=== PATIENT | female | born 1935 | race Caucasian/White ===

== ENCOUNTER 2016-08-23 16:29 | Inpatient (IN) ==
--- NOTE | 2016-08-23 16:38 | Emergency Department Note ---
Disposition Clinical Impression: Colitis Pneumonia Qualifiers: Pneumonia type: due to unspecified organism Laterality: right Lung location: lower lobe of lung Qualified Code(s): J18.1 - Lobar pneumonia, unspecified organism Disposition: Admitted As Inpatient Condition: Fair Referrals: NO,PCP [Non-Partnered Physician] - Forms: Work/School Release, ED Satisfaction Letter Time of Disposition: 18:17 General Adult HPI - General Chief complaint: ED Abdominal Pain Stated complaint: gen weakness, abdominal pain Time Seen by Provider: 08/23/16 16:33 Source: patient, EMS Mode of arrival: ambulatory Limitations: no limitations Nursing Notes Reviewed: Yes Vital Signs Reviewed: Yes - History of Present Illness HPI Narrative: 80-year-old female who comes emergency Department complaining of some right lower quadrant pain generalized weakness and also apparent syncopal episode according to family. Weighs 78 pounds, states she's had some right lower quadrant pain intermittently for several weeks. So has had generalized weakness. And apparently suffered a syncopal episode while at home according to squad. Patient states she doesn't remember what happened. Pt Subjective Complaint: Abdominal pain possible syncope Onset (ago): Just [employer] Location: abdomen Radiation: non-radiation Pain Severity: moderate Pain Scale: 5 Quality: aching Consistency: intermittent Improves with: nothing Worsens with: nothing Associated symptoms: Reports: syncope - Related Data Home Medications Medication Instructions Recorded Confirmed Diazepam [Valium] 5 mg PO BID PRN 11/11/15 02/01/16 Omeprazole [PriLOSEC] 20 mg PO DAILY 11/11/15 02/01/16 Potassium Chloride [K-Tab ER] 20 meq PO BID 11/11/15 02/01/16 Simvastatin [Zocor] 40 mg PO HS 11/11/15 02/01/16 Aspirin Enteric Coated [Aspirin EC] 81 mg PO DAILY 02/01/16 02/01/16 Propranolol [Inderal] 10 mg PO BID 02/01/16 02/01/16 Previous Rx's Medication Instructions Recorded Docusate [Colace] 100 mg PO BID PRN #30 capsule 02/08/16 Mirtazapine [Remeron] 7.5 mg PO HS #30 tablet 02/08/16 Omeprazole [PriLOSEC] 20 mg PO DAILY@0630 #30 capsule 02/08/16 Ondansetron HCl [Zofran] 4 mg PO Q8H PRN #30 tablet 02/08/16 Sucralfate [Carafate] 1 gm PO 3916,0610 #60 tablet 02/08/16 Allergies Allergy/AdvReac Type Severity Reaction Status Date / Time No Known Drug Allergies Allergy See Verified 03/07/15 16:22 Comments Constitutional: Denies: fever, chills, weakness, weight change Eyes: Denies: eye pain, eye discharge, vision change ENT ED: Denies: ear pain, throat pain, dental pain, hearing loss, epistaxis, congestion, dysphagia Cardiovascular: Reports: syncope. Denies: chest pain, palpitations, dyspnea on exertion, edema Respiratory: Denies: cough, dyspnea, wheezes, hemoptysis, stridor Gastrointestinal: Reports: abdominal pain. Denies: nausea, vomiting, diarrhea, constipation, hematemesis, melena, hematochezia Genitourinary: Denies: dysuria, frequency, hematuria, discharge Musculoskeletal: Denies: back pain, neck pain, arthralgia, myalgia Integumentary: Denies: rash, abrasion, lesions Neurological: Denies: headache, weakness, numbness, paresthesias, confusion, abnormal gait, vertigo Psychiatric: Denies: anxiety, depression, suicidal thoughts, homicidal thoughts , auditory hallucinations, visual hallucinations Endocrine: Denies: fatigue Hematological/Lymphatic: Denies: easy bleeding, easy bruising Allergic/Immunologic: Denies: facial swelling, urticaria Past Medical History - Past Medical History Medical history: Reports: COPD, CVA, GERD, myocardial infarction Surgical history: Reports: angioplasty/stent, hip replacement, other Psychiatric history: Reports: no psych history [employer] history: Reports: no [employer] history - Social History Smoking Status: Former smoker Smokeless Tobacco Status: No Alcohol use: Reports: none Drug use: Reports: none Physical Exam - General Limitations: no limitations General appearance: alert, in no apparent distress - Head Head exam: atraumatic, normocephalic, normal inspection - Eye Eye exam: Present: normal appearance, PERRL, EOMI - ENT ENT exam: normal exam, normal oropharynx, mucous membranes moist - Neck Neck exam: Present: normal inspection, full ROM, trachea midline - Chest Chest inspection: Present: normal inspection, symmetric chest wall rise - Respiratory Respiratory exam: Present: normal lung sounds bilaterally - Cardiovascular Cardiovascular exam: Present: regular rate, normal rhythm, normal heart sounds - Abdominal Exam Abdominal exam: Present: soft, tenderness. Absent: distention, guarding, rebound, rigidity Abdominal tenderness: Present: RLQ - Extremities Exam Extremities exam: Present: normal inspection, full ROM. Absent: tenderness, pedal edema - Expanded Lower Extremity Exam Neurovascular/Tendon exam: Absent: motor deficit, sensory deficit, tendon deficit Gait: not tested/not observed - Back Exam Back exam: Present: normal inspection, full ROM. Absent: tenderness - Neurological Exam Neurological exam: Present: alert, oriented X3 - Psychiatric Psychiatric exam: Present: normal affect, normal mood - Skin Skin exam: Present: warm, dry, intact, normal color Course - Reevaluation(s) Reevaluation #1: 80-year-old comes in with some intermittent abdominal pain not feeling well but eating well. Workup here included a slightly elevated white count. CT scan of the abdomen shows evidence of colitis and also right lower lobe pneumonia. We will admit for IV antibiotics hydration. Time: 18:16 - Consultations Consultation #1: Discussed with cachorro Mckeon. Time: 18:16 Vital Signs Temperature 96.9 F L 08/23/16 16:30 Pulse Rate 51 08/23/16 16:30 Respiratory Rate 18 08/23/16 16:30 Blood Pressure 102/61 08/23/16 16:30 O2 Sat by Pulse Oximetry 94 L 08/23/16 16:30 Temperature 96.9 F L 08/23/16 16:30 Pulse Rate 77 08/23/16 17:26 Respiratory Rate 16 08/23/16 17:26 Blood Pressure 110/61 08/23/16 17:26 O2 Sat by Pulse Oximetry 96 08/23/16 17:30 Oxygen Delivery Oxygen Delivery Room Air Medical Decision Making - Lab Data Lab results reviewed: Yes I reviewed the patient's lab results. Result diagrams: 08/23/16 17:27 08/23/16 17:27 Lab Results 08/23/16 08/23/16 08/23/16 Range/Units 17:10 17:27 17:27 WBC 11.4 H (4.3-11.1) K/mcL RBC 4.04 (3.82-4.97) M/mcL Hgb 12.8 (11.5-15.4) g/dL Hct 40.9 (35.3-44.9) % MCV 101.2 H (83.0-100.0) fL MCH 31.7 (28.0-33.3) pg MCHC 31.3 L (31.6-35.5) g/dL RDW 12.8 (11.5-14.5) % Plt Count 325 (140-400) K/mcL MPV 9.5 (9.4-12.4) fL Immature Gran % 0.4 (0-4) % Seg Neutrophils % 81.4 % Lymphocytes % 12.1 % Monocytes % 5.1 % Eosinophils % 0.6 % Basophils % 0.4 % Neutrophils # 9.2 H (1.6-8.9) K/mcL Lymphocytes # 1.4 (0.6-4.6) K/mcL Monocytes # 0.6 (0.0-1.3) K/mcL Eosinophils # 0.1 (0.0-0.6) K/mcL Basophils # 0.0 (0.0-0.2) K/mcL Immature Plt Fraction 3.6 (1.1-6.1) % PT 12.0 (9.4-12.1) Seconds INR 1.1 APTT 30.2 (26.0-36.0) Seconds Sodium (136-145) mEq/L Potassium (3.5-4.5) mEq/L Chloride (98-109) mEq/L Carbon Dioxide (19-29) mEq/L BUN (7-20) mg/dL Creatinine (0.57-1.11) mg/dL Est GFR ( Amer) (> 60) Est GFR (Non-Af Amer) (> 60) BUN/Creatinine Ratio (6-26) Glucose (70-99) mg/dL Calculated Osmolality (280-300) Lactic Acid (0.5-2.2) mmol/L Calcium (8.6-10.8) mg/dL Total Bilirubin (0.2-1.2) mg/dL Direct Bilirubin (0.0-0.5) mg/dL Indirect Bilirubin (0.0-1.2) mg/dL AST (5-34) Units/L ALT (0-55) Units/L Alkaline Phosphatase (38-126) Units/L Troponin I (0-0.03) ng/mL Serum Total Protein (6.0-8.3) g/dL Albumin (3.5-5.0) g/dL Globulin (2.4-3.5) g/dL Albumin/Globulin Ratio (1.1-2.2) Amylase (25-125) Units/L Lipase (8-78) Units/L Urine Color Yellow (Yellow) Urine Clarity Clear (Clear) Urine pH 5.5 (5.0-8.0) pH Units Ur Specific [place] 1.021 (1.010-1.025) Urine Protein Trace (Neg-Trace) mg/dL Urine Glucose (UA) Normal (Normal) mg/dL Urine Ketones Negative (Negative) mg/dL Urine Blood Small H (Negative) Urine Nitrite Negative (Negative) Urine Bilirubin Negative (Negative) Urine Urobilinogen Normal (Normal) mg/dL Ur Leukocyte Esterase Negative (Negative) Urine Microscopic RBC 3-5 H (0-3) per hpf Urine Microscopic WBC 0-3 (0-3) per hpf Ur Squamous Epith Cells Many H (None-Few) per lpf Urine Bacteria None Seen (None-Few) per hpf Ur Culture Indicated? NO (NO) 08/23/16 08/23/16 08/23/16 Range/Units 17:27 17:27 17:27 WBC (4.3-11.1) K/mcL RBC (3.82-4.97) M/mcL Hgb (11.5-15.4) g/dL Hct (35.3-44.9) % MCV (83.0-100.0) fL MCH (28.0-33.3) pg MCHC (31.6-35.5) g/dL RDW (11.5-14.5) % Plt Count (140-400) K/mcL MPV (9.4-12.4) fL Immature Gran % (0-4) % Seg Neutrophils % % Lymphocytes % % Monocytes % % Eosinophils % % Basophils % % Neutrophils # (1.6-8.9) K/mcL Lymphocytes # (0.6-4.6) K/mcL Monocytes # (0.0-1.3) K/mcL Eosinophils # (0.0-0.6) K/mcL Basophils # (0.0-0.2) K/mcL Immature Plt Fraction (1.1-6.1) % PT (9.4-12.1) Seconds INR APTT (26.0-36.0) Seconds Sodium 144 (136-145) mEq/L Potassium 4.2 (3.5-4.5) mEq/L Chloride 104 (98-109) mEq/L Carbon Dioxide 31 H (19-29) mEq/L BUN 15 (7-20) mg/dL Creatinine 0.61 (0.57-1.11) mg/dL Est GFR ( Amer) > 60 (> 60) Est GFR (Non-Af Amer) > 60 (> 60) BUN/Creatinine Ratio 25 (6-26) Glucose 79 (70-99) mg/dL Calculated Osmolality 298 (280-300) Lactic Acid 0.8 (0.5-2.2) mmol/L Calcium 10.0 (8.6-10.8) mg/dL Total Bilirubin < 0.1 L (0.2-1.2) mg/dL Direct Bilirubin 0.1 (0.0-0.5) mg/dL Indirect Bilirubin 0.0 (0.0-1.2) mg/dL AST 21 (5-34) Units/L ALT 22 (0-55) Units/L Alkaline Phosphatase 83 (38-126) Units/L Troponin I 0.00 (0-0.03) ng/mL Serum Total Protein 6.9 (6.0-8.3) g/dL Albumin 3.3 L (3.5-5.0) g/dL Globulin 3.6 H (2.4-3.5) g/dL Albumin/Globulin Ratio 0.9 L (1.1-2.2) Amylase 40 (25-125) Units/L Lipase 11 (8-78) Units/L Urine Color (Yellow) Urine Clarity (Clear) Urine pH (5.0-8.0) pH Units Ur Specific [place] (1.010-1.025) Urine Protein (Neg-Trace) mg/dL Urine Glucose (UA) (Normal) mg/dL Urine Ketones (Negative) mg/dL Urine Blood (Negative) Urine Nitrite (Negative) Urine Bilirubin (Negative) Urine Urobilinogen (Normal) mg/dL Ur Leukocyte Esterase (Negative) Urine Microscopic RBC (0-3) per hpf Urine Microscopic WBC (0-3) per hpf Ur Squamous Epith Cells (None-Few) per lpf Urine Bacteria (None-Few) per hpf Ur Culture Indicated? (NO) - Radiology Data Radiology results reviewed: Yes I reviewed the patient's radiology results. Abdomen/Pelvis CT 08/23/16 16:34 IMPRESSION: The wall of the rectum appears diffusely thickened with adjacent fat stranding suggesting an acute colitis or proctitis. Bilateral nonobstructing renal calculi, more numerous on the right. Lateral right lower lobe airspace disease/ pneumonia with suspicion of underlying bronchiectasis. Follow-up chest x-ray may be helpful. Dilated common duct status post cholecystectomy. D/ / Samir Jacobo MD / Samir Jacobo MD Interpreting Provider: Samir Jacobo MD - EKG Data EKG #1 EKG shows normal: sinus rhythm Rate: normal Rhythm: NSR When compared to previous EKG there are: no significant changes (02/01/2016) Interpretation: no acute changes, LVH
[2016-08-23 17:17] LABS: Bilirubin,Urine Negative (Negative); Blood,Urine Small (Negative); Clarity,Urine Clear (Clear); Color,Urine Yellow (Yellow); Glucose,Urine (UA) Normal (Normal); Ketones,Urine Negative (Negative); Leukocyte Esterase,Urine Negative (Negative); Nitrite,Urine Negative (Negative); PH,Urine 5.5 pH Units (5.0-8.0); Protein,Urine Trace mg/dL (Neg-Trace); Specific Gravity,Urine 1.021 (1.010-1.025); Urobilinogen,Urine Normal (Normal)
[2016-08-23 17:20] LABS: Bacteria,Urine None Seen per hpf (None-Few); Squamous Epithelial Cell,Urine Many per lpf (None-Few)
[2016-08-23 17:33] LABS: WBC,Urine 0-3 per hpf (0-3)
[2016-08-23 17:37] LABS: Basophils % 0.4 %; Eosinophils # 0.1 K/mcL (0.0-0.6); Eosinophils % 0.6 %; Hematocrit 40.9 % (35.3-44.9); Hemoglobin 12.8 g/dL (11.5-15.4); Immature Granulocytes % 0.4 % (0-4); Immature Platelets 3.6 % (1.1-6.1); Lymphocytes # 1.4 K/mcL (0.6-4.6); Lymphocytes % 12.1 %; Mean Corpuscular HGB Conc 31.3 g/dL (31.6-35.5); Mean Corpuscular Hemoglobin 31.7 pg (28.0-33.3); Mean Corpuscular Volume 101.2 fL (83.0-100.0); Mean Platelet Volume 9.5 fL (9.4-12.4); Monocytes # 0.6 K/mcL (0.0-1.3); Monocytes % 5.1 %; Neutrophils # 9.2 K/mcL (1.6-8.9); Platelet Count 325 K/mcL (140-400); Red Blood Count 4.04 M/mcL (3.82-4.97); Red Cell Distribution Width 12.8 % (11.5-14.5); Segmented Neutrophils % 81.4 %
[2016-08-23 17:42] LABS: INR 1.1
[2016-08-23 17:44] LABS: Activated Partial Thrombo Time 30.2 Seconds (26.0-36.0)
[2016-08-23 17:52] LABS: Alanine Aminotransferase 22 Units/L (0-55); Albumin 3.3 g/dL (3.5-5.0); Albumin/Globulin Ratio 0.9 (1.1-2.2); Alkaline Phosphatase 83 Units/L (38-126); Amylase 40 Units/L (25-125); Aspartate Amino Transferase 21 Units/L (5-34); BUN/Creatinine Ratio 25 (6-26); Bilirubin,Direct 0.1 mg/dL (0.0-0.5); Blood Urea Nitrogen 15 mg/dL (7-20); Carbon Dioxide 31 mEq/L (19-29); Chloride 104 mEq/L (98-109); Globulin 3.6 g/dL (2.4-3.5); Glucose 79 mg/dL (70-99); Lipase 11 Units/L (8-78); Osmolality,Calculated 298 (280-300); Potassium 4.2 mEq/L (3.5-4.5); Sodium 144 mEq/L (136-145); Total Protein 6.9 g/dL (6.0-8.3); eGFR For African Americans > 60 (> 60); eGFR For Non-African Americans > 60 (> 60)
[2016-08-23 17:53] LABS: Bilirubin,Total < 0.1 mg/dL (0.2-1.2)
[2016-08-23] MEDS ORDERED: MetroNIDAZOLE 500 MG/100 ML 500 MG/100 ML BAG IVPB ONE (18:12)
[2016-08-23] MEDS ORDERED: Levofloxacin 750 MG/150 ML 750 MG/150 ML BAG IVPB ONE (18:12)
[2016-08-23] MEDS ORDERED: Acetaminophen 325 MG TABLET PO ONE (18:21)
--- NOTE | 2016-08-23 21:35 | Internal Med History&Physical ---
<Ana Gupta - Last Filed: 08/24/16 00:27> Date of Encounter: 08/24/16 Time of Encounter: 21:32 Assessment and Plan (1) Syncope Current visit: Yes Status: Acute Patients family reports an episode of syncope today to the ED physician. Family is no here to currently discuss this with. Patient is not sure what happened. Syncope could be do to underlying malnutrition/low BMI/failure to thrive. It couls also be due to some dehydration secondary to diarrhea, pneumonia or possible cardiac cause. Patient has had a previous stroke and is taking ASA. Will get an ECHO and BL carotid duplex ultrasound. 1. ECHO 2. BL carotid duplex ultrasound 3. Cardiac monitoring 4. Orthostatic blood pressures 5. Fall precautions. Qualifiers: Syncope type: unspecified Qualified Code(s): R55 - Syncope and collapse (2) Colitis Current visit: Yes Status: Acute Patient reports diarrhea for 2-3 weeks. She states that she has frequent, watery stools to the point she started wearing a diaper. CT abdomen/pelvis showed diffusely thickened wall of the rectum with fat stranding suggestion colitis. Patient was recently on antibiotics. Will check a c. diff as well as sent a stool culture. Will continue Flagyl. 1. C. Diff 2. Stool culture 3. Flagyl 500mg PO Q8H 4. Probiotics (3) Pneumonia Current visit: Yes Status: Acute patient reports productive cough with associated sputum color change and fever/ chills. CXR showed increased lung marings at right lower lung base suggestive of pneumonia and small right pleural effusion. CT also showed right lower lung airspace disease. Patient has no history of recent hospitalization so will treat patient for community acquired pneumonia. 1. Sputum culture 2. Levaquin 750mg PO daily for 5 days 3. Supplemental oxygen as needed 4. Duonebs as needed for shortness of breath Qualifiers: Pneumonia type: due to unspecified organism Laterality: right Lung location: lower lobe of lung Qualified Code(s): J18.1 - Lobar pneumonia, unspecified organism (4) Failure to thrive Current visit: No Status: Acute Patient with BMI of 13. She states that she often doesn't want to eat and that she has seen a lead portfolio manager before and tried everything. Patient's hx of Billroth II surgery likely is causing some malabsorption contributing to her malnutrition. She has already had an EDG. Last month, lab values for Vit B12 and folate were normal. Will check a thyroid cascade as well as an HIV test. Patient is low risk however with her inability to gain weight and her constellation of symptoms it is indicated. Verbal and written consent obtained for HIV screening. Will place consult to nutrition for their evaluation and recommendations. Will continue home vitamins and supplements. Will check baseline Mg and Phos. 1. Consult to nutrition 2. Labs: thyroid cascade and HIV test, baseline Mg and phos 3. Continue home vitamins and supplements Qualifiers: Failure to thrive age range: in adult Qualified Code(s): R62.7 - Adult failure to thrive (5) Difficulty swallowing Current visit: No Status: Acute Patient reports difficulty swallowing that comes and goes. She had an EDG [address] Dos Santos that showed nothign beyond reflex gastritis. Will will consult speech therapy for evaluation and further recommendations on if a barium swallow evaluation would be useful. 1. Consult placed to speech therapy. Qualifiers: Dysphagia type: unspecified Qualified Code(s): R13.10 - Dysphagia, unspecified (6) COPD (chronic obstructive pulmonary disease) Current visit: No Status: Chronic Patient with COPD. She does have supplemental oxygen at home - she uses 2L at nighto or as needed. CT also showed possible underlying bronchiectasis. Patient is not currently wheezing and has not had an increased O2 requirement. Do not believe that she is having an acute COPD exacerbation. As she is not wheezing, steroids not indicated. Supplemental oxygen as needed. Will continue home COPD medications. Qualifiers: COPD type: chronic bronchitis Chronic bronchitis type: simple Qualified Code(s): J41.0 - Simple chronic bronchitis (7) GERD (gastroesophageal reflux disease) Current visit: Yes Status: Acute Patient has chronic GERD symptoms with EDG in 01/2016 showing reflux gastritis. This is likely due to, or at least worsened by, her hx of Billroth II surgery. Will continue patient's home dose of omeprazole. Qualifiers: Esophagitis presence: with esophagitis Qualified Code(s): K21.0 - Gastro- esophageal reflux disease with esophagitis (8) CAD (coronary artery disease) Current visit: No Status: Acute Patient with CAD, hx of IN with stents in place. On this visit, patient denies any chest pain or pressure and admission troponins were negative. Will continue home dose of ASA and statin. Qualifiers: Coronary Disease-Associated Artery/Lesion type: [place] artery [place] vs. transplanted heart: [place] heart Associated angina: without angina Qualified Code(s): I25.10 - Atherosclerotic heart disease of [place] coronary artery without angina pectoris (9) History of CVA (cerebrovascular accident) Current visit: No Status: Acute (10) DVT prophylaxis Current visit: No Status: Acute Heparin 5,000 units every 8 for DVT prophylaxis. Internal Medicine - H&P: HPI Chief complaint: Generalized weakness, possible Admitted From: Emergency Dept Plans for Post Hospital Care: Home History of present illness: Ms. Chang is a 80 year old female with PMH of COPD with 2L supplemental oxygen at night, CVA, IN with stents placed, GERD, HLD, former smoker, renal calculi, osteoporosis and PUD s/p Billroth II. Patient presented to the emergency department with family because of general weakness and a possible syncopal episode. She reports that she has been feeling ill for several months. Per the ED, family reports concern for a possible syncopal episode today. Family not present at this time. Patient reports that she was sleeping on the sofa and she remembers family talking to her but felt like she was unable to answer them. She says that she is not sure if she passed out or not. Patient herself does not reports any acute issues. On review of symptoms, she states that she has a headache/migraine right now that is no different than her normal headaches. She is legally blind but reports no acute changes in vision. She reports difficulty swallowing sometimes. She says that it feels like some foods get stuck senior care down. She reports associated sore throat and dry mouth. She had an EDG done by Dr. Dos Santos 01/2016 that showed reflux esophagitis. Patient does say that she has problems with heartburn/GERD and she does take omeprazole. Patient reports a productive cough for "a long time" however states that the sputum has changed from white/yellow to a dark brown color. She states that she saw her PCP and was diagnosed with sinusitis and took Omnicef for 10 days with no improvement. She reports associated fever/ chills and sore throat. Patient denies any chest pain or pressure or increasing shortness of breath. She does have a history of COPD and uses 2L supplemental oxygen at night or as needed. Patient reports some occasional RLQ abdominal pain but denies any at this current time. She reports abdominal pain with bowel movements and diarrhea for the last 2-3 weeks. She does have recent antibiotic use. Patient denies any focal neurological deficits. In the ED, patient was afebrile. HR, RR and BP all stable. 92% on RA, increased to >95% on 2L. Labs revealed a WBC of 11.4. LA 0.8, troponin 0.0. EKG showed normal sinus rhythm. CT abdomen and pelvis showed diffuse thickening of the wall of the rectum with surrounding fat stranding suggestive of colitis, BL nonobstructing renal calculi, and right lower lobe airspace disease suggestive of pneumonia. CXR shows hyperinflation, chronic COPD changes , increased lung markins at the right lower base suggestion of pneumonia and a small right pleural effusion. On exam, patient is awake and alert, in no acute distress. Heart regular rate and rhythm. Lungs diminished right lower lobe - no crackles or wheezing. Abdomen soft, non-tender. No pedal edema. Past Med Surg Social Fam HX - Past Medical History Medical history: COPD, CVA, GERD, myocardial infarction Psychiatric history: no psych history - Past Surgical History Surgical History: angioplasty/stent, hip replacement, other - Social History Smoking Status: Former smoker Smokeless Tobacco Status: No Alcohol use: none Drug use: none - Family History Mother Living Status: Hx Family Cancer: Yes (breast) Internal Medicine - H&P: Meds Diazepam [Valium] 5 mg PO BID PRN 11/11/15 [History] Omeprazole [PriLOSEC] 20 mg PO DAILY 11/11/15 [History] Potassium Chloride [K-Tab ER] 20 meq PO BID 11/11/15 [History] Simvastatin [Zocor] 40 mg PO HS 11/11/15 [History] Aspirin Enteric Coated [Aspirin EC] 81 mg PO DAILY 02/01/16 [History] Propranolol [Inderal] 10 mg PO BID 02/01/16 [History] Docusate [Colace] 100 mg PO BID PRN #30 capsule 02/08/16 [Rx] Mirtazapine [Remeron] 7.5 mg PO HS #30 tablet 02/08/16 [Rx] Omeprazole [PriLOSEC] 20 mg PO DAILY@0630 #30 capsule 02/08/16 [Rx] Ondansetron HCl [Zofran] 4 mg PO Q8H PRN #30 tablet 02/08/16 [Rx] Sucralfate [Carafate] 1 gm PO 0730,1630 #60 tablet 02/08/16 [Rx] Allergies No Known Drug Allergies Allergy (Verified 03/07/15 16:22) See Comments All Systems PM: A 10-system review of systems was performed and is negative for pertinent findings except as documented above in the HPI. - Constitutional Constitutional: chills, fever(s), weakness, weight loss, no falls - EENT Eyes: no change in vision - Cardiovascular Cardiovascular ROS IM: lightheadedness, no chest pain, no diaphoresis, no dyspnea, no dyspnea on exertion, no edema, no irregular heart rhythm, no palpitations - Respiratory Respiratory: cough, chest congestion, change in phlegm color, no dyspnea, no hemoptysis, no dyspnea on exertion, no wheezing - Gastrointestinal Gastrointestinal: abdominal pain, diarrhea, no constipation, no nausea, no vomiting - Genitourinary Genitourinary: no change in urinary stream, no dysuria - Neurological Neurological ROS: headache(s), no confusion, no dizziness - Constitutional Vitals: Temp Pulse Resp BP Pulse Ox 97.3 F L 80 17 104/61 99 08/23/16 20:36 08/23/16 20:36 08/23/16 20:36 08/23/16 20:36 08/23/16 20:36 General appearance: Present: A&O X 3, no acute distress, underweight, answers questions appropriately - Head Head exam: Present: atraumatic, normal inspection, normocephalic - Eye Eye exam: Present: normal appearance, periorbital tenderness - ENT ENT exam: Present: mucous membranes moist - Respiratory Respiratory exam: Present: decreased breath sounds. Absent: rales, rhonchi, wheezes - Cardiovascular Cardiovascular exam: Present: RRR. Absent: diastolic murmur, gallop, rubs, systolic murmur - GI/Abdominal GI/Abdominal exam: Present: normal bowel sounds, soft. Absent: distended, guarding, rebound, rigid, tenderness - Extremities Exam Extremities exam: Present: normal inspection. Absent: pedal edema - Neurological Exam Neurological exam: Present: alert, CN II-XII intact, oriented X3, no focal deficits Internal Med - H&P Results - Labs CBC & Chem 7: 08/23/16 17:27 08/23/16 17:27 <Jayleen Stringer - Last Filed: 08/24/16 01:55> Date of Encounter: 08/23/16 Internal Medicine - H&P: HPI History of present illness: Ms. Chang is a 80 year old female All Systems PM: A 10-system review of systems was performed and is negative for pertinent findings except as documented above in the HPI. - Constitutional Vitals: Temp Pulse Resp BP Pulse Ox 97.5 F L 81 16 102/60 99 08/24/16 00:00 08/24/16 00:00 08/24/16 00:00 08/24/16 00:00 08/24/16 00:00 Internal Med - H&P Results - Labs CBC & Chem 7: 08/23/16 17:27 08/23/16 17:27 - Attending Attestation I performed a history and physical examination of the patient and discussed his management with the Resident/Collar Fuser (Dr Gupta). I reviewed the residents note and agree with the documented findings and plan of care, with additions as below. 72-year-old female with a past medical history significant for COPD, chronic respiratory failure on home oxygen, legally blind, prior history of Billroth II procedure, GERD, CVA - presented with generalized weakness unproductive cough. She also reported some right lower quadrant abdominal pain, diarrhea 3 loose BMs/day. Imaging in the emergency department showed: Diffuse wall thickening of rectum with adjacent fat stranding suggesting acute colitis/ proctitis. Lateral right lower lobe airspace disease/pneumonia with suspicion of underlying bronchiectasis. O/E: Comfortable. Diminished breath sounds. Mild RLQ abdominal tenderness. A/P: - RLL Pneumonia with possible lung bronchiectasis: Treat with levofloxacin. - Proctitis / colitis / diarrhea: Recent antibiotic use (omnicef in the last month). Check for c diff and stool culture. Empirically started on metronidazole , in the ER. Can discontinue flagyl, if c diff is negative. Start probiotics. - Malnutrition / Low BMI: possibly contributed by poor apetite, diarrhea, infection, s/p billroth 2 procedure, COPD / bronchiectasis. Consult nutrition team, swallow eval. Check TSH, HIV (verbal and written consent obtained). - Syncope: will check orthostatic vitals; echo, carotid Doppler.
[2016-08-23] MEDS ORDERED: Naloxone 0.4 MG/ML INJ IVP PRN (22:07)
[2016-08-23] MEDS ORDERED: Ondansetron ODT 4 MG TAB.RAPDIS SL PRN (22:07)
[2016-08-23] MEDS ORDERED: Acetaminophen 325 MG TABLET PO PRN (22:07)
[2016-08-23] MEDS ORDERED: Ipratropium/Albuterol Neb 3 ML IH PRN (22:12)
[2016-08-24] MEDS ORDERED: diazePAM 5 MG TABLET PO PRN (02:03)
[2016-08-24] MEDS: *HR* OxyCODONE Immed Rel 5 MG TABLET PO PRN ×3 (04:15→22:01)
[2016-08-24] MEDS: *HR* Heparin 5,000 UNIT/ML VIAL SQ SCH ×3 (05:49→22:02)
[2016-08-24 07:21] LABS: Basophils % 0.4 %; Eosinophils # 0.1 K/mcL (0.0-0.6); Eosinophils % 1.5 %; Hematocrit 38.8 % (35.3-44.9); Hemoglobin 12.2 g/dL (11.5-15.4); Immature Granulocytes % 0.9 % (0-4); Lymphocytes # 1.6 K/mcL (0.6-4.6); Lymphocytes % 17.1 %; Mean Corpuscular HGB Conc 31.4 g/dL (31.6-35.5); Mean Corpuscular Hemoglobin 32.2 pg (28.0-33.3); Mean Corpuscular Volume 102.4 fL (83.0-100.0); Mean Platelet Volume 9.7 fL (9.4-12.4); Monocytes # 0.5 K/mcL (0.0-1.3); Monocytes % 5.6 %; Neutrophils # 6.8 K/mcL (1.6-8.9); Platelet Count 272 K/mcL (140-400); Red Blood Count 3.79 M/mcL (3.82-4.97); Red Cell Distribution Width 12.5 % (11.5-14.5); Segmented Neutrophils % 74.5 %
[2016-08-24 07:31] LABS: BUN/Creatinine Ratio 20 (6-26); Blood Urea Nitrogen 11 mg/dL (7-20); Calcium 9.1 mg/dL (8.6-10.8); Carbon Dioxide 28 mEq/L (19-29); Chloride 102 mEq/L (98-109); Glucose 88 mg/dL (70-99); Magnesium 1.3 mg/dL (1.6-2.6); Osmolality,Calculated 287 (280-300); Phosphorous 3.6 mg/dL (2.3-4.7); Sodium 139 mEq/L (136-145); eGFR For African Americans > 60 (> 60); eGFR For Non-African Americans > 60 (> 60)
[2016-08-24 07:53] LABS: Thyroid Stimulating Hormone 0.725 mcIU/mL (0.350-4.840)
[2016-08-24] MEDS: metroNIDAZOLE 500 MG TABLET PO SCH ×3 (09:22→21:02)
[2016-08-24] MEDS: Sucralfate 1 GM TABLET PO SCH ×2 (09:22→16:19)
[2016-08-24] MEDS: Aspirin Enteric Coated 81 MG Tablet PO SCH (09:22)
[2016-08-24] MEDS ORDERED: Magnesium Sulfate 2 GM in D5% in Water 100 ML IVPB STA (10:53)
[2016-08-24] MEDS: Ipratropium/Albuterol Neb 3 ML IH SCH ×4 (11:32→23:11)
--- NOTE | 2016-08-24 12:21 | Internal Med Progress Note ---
Date of Encounter: 08/24/16 Time of Encounter: 11:15 - Assessment and plan (1) Weakness Current Visit: No Status: Acute Assessment and plan: pt with chronic failure to thrive for years who developed upper respiratory symptoms of infection a month ago. She received antibiotics for over a month. likely secondary to PNA and colitis. (2) Pneumonia Current Visit: Yes Status: Acute Assessment and plan: bascterial PNA Iv levaquin. IV fluids Qualifiers: Pneumonia type: due to unspecified organism Laterality: right Lung location: lower lobe of lung Qualified Code(s): J18.1 - Lobar pneumonia, unspecified organism (3) Colitis Current Visit: Yes Status: Acute Assessment and plan: family reports diarrhea for years. he has taken antibiotics for a month, he is at high risk for c diff infection. continue flagyl until results of c diff test. (4) COPD (chronic obstructive pulmonary disease) Current Visit: No Status: Chronic Assessment and plan: nebs q 6hr prednisone. Qualifiers: COPD type: chronic bronchitis Chronic bronchitis type: simple Qualified Code(s): J41.0 - Simple chronic bronchitis (5) Failure to thrive Current Visit: Yes Status: Chronic Qualifiers: Failure to thrive age range: in adult Qualified Code(s): R62.7 - Adult failure to thrive (6) Severe protein-calorie malnutrition Current Visit: Yes Status: Chronic (7) CAD (coronary artery disease) Current Visit: No Status: Acute Assessment and plan: stable. resume home meds. Qualifiers: Coronary Disease-Associated Artery/Lesion type: [place] artery [place] vs. transplanted heart: [place] heart Associated angina: without angina Qualified Code(s): I25.10 - Atherosclerotic heart disease of [place] coronary artery without angina pectoris - Subjective Interval history: Pt is very tired, no BM since admission. mild abdominal pain. - Constitutional Vitals: Temp Pulse Resp BP Pulse Ox 97.7 F 92 16 97/56 94 L 08/24/16 11:49 08/24/16 11:49 08/24/16 11:49 08/24/16 11:49 08/24/16 11:49 General appearance: Present: cachectic, cooperative, A&O X 3, no acute distress , answers questions appropriately Exam: pt answers questions and follows commands but is very weak. - Eye Eye exam: Present: sclera anicteric - ENT ENT exam: Present: mucous membranes moist - Neck Neck exam general surgery: Present: supple, trachea midline. Absent: lymphadenopathy - Respiratory Respiratory exam: Present: CTAB - Cardiovascular Cardiovascular exam: Present: RRR - GI/Abdominal GI/Abdominal exam: Present: normal bowel sounds, soft. Absent: distended, tenderness - Extremities Exam Extremities exam: Absent: pedal edema - Back Exam Back exam: Absent: CVA tenderness (L), CVA tenderness (R) - Neurological Exam Neurological exam: Present: alert, oriented X3. Absent: facial droop, speech deficit - Skin Skin exam: Present: dry. Absent: rash Internal Medicine: Result - Labs CBC & Chem 7: 08/24/16 06:52 08/24/16 06:52 Labs: Short CBC 08/24/16 Range/Units 06:52 WBC 9.2 (4.3-11.1) K/mcL Hgb 12.2 (11.5-15.4) g/dL Hct 38.8 (35.3-44.9) % Plt Count 272 (140-400) K/mcL Neutrophils # 6.8 (1.6-8.9) K/mcL BMP 08/24/16 06:52 Sodium 139 Potassium 4.0 Chloride 102 Carbon Dioxide 28 BUN 11 Creatinine 0.54 L Glucose 88 Calcium 9.1 - ABG Interpretation ABG results: PT/INR, D-dimer PT 12.0 Seconds (9.4-12.1) 08/23/16 17:27 Consult Discharge Plan - Plan Referrals: Claribel Leary MD [Primary Care Provider] - (Requested 08-23-16)
[2016-08-24] MEDS: predniSONE 20 MG TABLET PO SCH (14:14)
[2016-08-24] MEDS ORDERED: Levofloxacin 500 MG/100 ML 500 MG/100 ML BAG IVPB SCH (17:00)
[2016-08-24] MEDS ORDERED: levoFLOXacin 500 MG TABLET PO SCH (18:00)
[2016-08-24] MEDS: diazePAM 5 MG TABLET PO PRN (22:02)
[2016-08-25] MEDS ORDERED: diazePAM 5 MG TABLET PO ONE (00:42)
[2016-08-25] MEDS: Ipratropium/Albuterol Neb 3 ML IH SCH ×3 (03:33→11:13)
[2016-08-25 06:24] LABS: BUN/Creatinine Ratio 17 (6-26); Blood Urea Nitrogen 9 mg/dL (7-20); Calcium 8.8 mg/dL (8.6-10.8); Carbon Dioxide 31 mEq/L (19-29); Chloride 102 mEq/L (98-109); Glucose 108 mg/dL (70-99); Magnesium 1.6 mg/dL (1.6-2.6); Osmolality,Calculated 287 (280-300); Potassium 4.7 mEq/L (3.5-4.5); Sodium 139 mEq/L (136-145); eGFR For African Americans > 60 (> 60); eGFR For Non-African Americans > 60 (> 60)
[2016-08-25 07:49] LABS: Basophils % 0.2 %; Eosinophils % 0.1 %; Hematocrit 37.3 % (35.3-44.9); Hemoglobin 11.8 g/dL (11.5-15.4); Immature Granulocytes % 0.5 % (0-4); Lymphocytes # 1.9 K/mcL (0.6-4.6); Lymphocytes % 21.2 %; Mean Corpuscular HGB Conc 31.6 g/dL (31.6-35.5); Mean Corpuscular Hemoglobin 32.1 pg (28.0-33.3); Mean Corpuscular Volume 101.4 fL (83.0-100.0); Mean Platelet Volume 9.7 fL (9.4-12.4); Monocytes # 0.6 K/mcL (0.0-1.3); Neutrophils # 6.2 K/mcL (1.6-8.9); Platelet Count 272 K/mcL (140-400); Red Blood Count 3.68 M/mcL (3.82-4.97); Red Cell Distribution Width 12.5 % (11.5-14.5)
--- NOTE | 2016-08-25 09:12 | ECHO - Doppler Report ---
Echo with Saline Contrast Name: Alee Chagn Date of Study: 08/25/2016 Date: 1935 Ht: 64.0 in Medical Record#: [id number] Age: 80 Wt: 77.0 lb Gender: Female BSA: 1.3 Order #: [id number] Location: [facility] Room #: [id number] Reading Physician: Audrey Pena DO [place] Supervisor: Pilo Verdugo RN Ordering Physician: Ana Gupta DO Primary Physician: Claribel Leary MD Indications: Syncope Impressions: LVEF 55%. Normal left ventricular size and systolic function. Normal right ventricular size and function. Mild aortic regurgitation. Mild mitral regurgitation. No pulmonary hypertension. Left Ventricular Wall Motion: Rest Echo Findings All wall segments showed normal motion. Findings: Study Quality * Technically adequate exam. ECG Findings * Normal sinus rhythm. Left Ventricle * LVEF 55%. * Normal LV chamber size, wall thickness and function. * Probably pseudonormal LV diastolic function. Mitral Valve * No mitral stenosis. * Mild eccentric mitral regurgitation. * Mildly calcified mitral valve leaflets. Aortic Valve * Mild aortic regurgitation. * Aortic valve not well visualized. * Trileaflet aortic valve. * Mild-moderately calcified aortic valve leaflets. * No aortic stenosis. Tricuspid Valve * Tricuspid valve not well visualized. * Normal tricuspid valve structure. * Trace tricuspid regurgitation. Pulmonic Valve * Pulmonic valve not well visualized. * Trace pulmonic regurgitation. Pulmonary Artery * Pulmonary artery not well visualized. Right Ventricle * Normal right ventricular structure and function. Right Atrium * Normal right atrial size. Left Atrium * Severely dilated left atrium. Interatrial Septum * No evidence of PFO by color Doppler. IVC * Normal IVC dimensions and inspiratory collapse. Pericardium * There is no pericardial effusion present. Aorta * Not fully visualized. History Hypertension Hypercholesteremia Years 10 Packs 0.5 Family History of CAD History of CAD/PTCA Myocardial Infarction 06/23/2013 a Previous Echo was performed. Contrast: Agitated saline 20 ml. Measurements: BP: 109/ 60 2D Normal Values IVSd: .80 cm 0.6 - 1.0 cm LVIDd: 3.90 cm 3.7 - 5.6 cm LVPWd: .80 cm 0.6 - 1.1 cm LVIDs: 2.20 cm 1.5 - 3.6 cm LA: 3.10 cm 2.0 - 4.0cm %FS: 43.60 cm >25 % LA volume: 55 Mitral Valve Peak E:.84 m/sec Peak A:.64 m/sec E/A Ratio:1.3 Peak E' Lat Joe:12.8 cm/s Peak E' Med Joe:10 cm/s E/E' Lat Ratio:6.6 E/E' Med Ratio:8.4 Aortic Valve AI pressure Half-time: 405.00 msec Tricuspid Valve TV Regurg Peak Grad: 22.00mmHg TV Regurg Peak Joe: 2.33m/sec Updated by Audrey Pena on 08/25/2016 9:02:06 AM electronically signed on 08/25/2016 9:07:51 AM with status of [employer] [place] [employer] [place]: 1=Normal, 2=Hypokinesis, 3=Akinesis, 4=Dyskinesis, 5=Aneurysmal, 6=Hyperkinetic, X=Not Visualized (Blank)=Missing
[2016-08-25] MEDS: Aspirin Enteric Coated 81 MG Tablet PO SCH (09:14)
[2016-08-25] MEDS: *HR* Heparin 5,000 UNIT/ML VIAL SQ SCH (09:15)
[2016-08-25] MEDS: Sucralfate 1 GM TABLET PO SCH (09:15)
[2016-08-25] MEDS: metroNIDAZOLE 500 MG TABLET PO SCH (09:15)
[2016-08-25] MEDS: predniSONE 20 MG TABLET PO SCH (09:15)
[2016-08-25] MEDS: *HR* OxyCODONE Immed Rel 5 MG TABLET PO PRN (09:21)
[2016-08-25 12:58] VITALS: BP 114/65
[2016-08-25] MEDS: diazePAM 5 MG TABLET PO PRN (12:58)
--- NOTE | 2016-08-25 13:46 | Discharge Summary ---
Date of Encounter: 08/25/16 Time of Encounter: 11:30 - Discharge Diagnosis (1) Weakness Priority: Primary Status: Acute (2) Pneumonia Priority: Primary Status: Acute Qualifiers: Pneumonia type: due to unspecified organism Laterality: right Lung location: lower lobe of lung Qualified Code(s): J18.1 - Lobar pneumonia, unspecified organism (3) Colitis Priority: Primary Status: Acute (4) COPD (chronic obstructive pulmonary disease) Priority: Secondary Status: Chronic Qualifiers: COPD type: chronic bronchitis Chronic bronchitis type: simple Qualified Code(s): J41.0 - Simple chronic bronchitis (5) Failure to thrive Priority: Secondary Status: Chronic Qualifiers: Failure to thrive age range: in adult Qualified Code(s): R62.7 - Adult failure to thrive (6) Severe protein-calorie malnutrition Priority: Secondary Status: Chronic (7) CAD (coronary artery disease) Priority: Secondary Status: Chronic Qualifiers: Coronary Disease-Associated Artery/Lesion type: [place] artery [place] vs. transplanted heart: [place] heart Associated angina: without angina Qualified Code(s): I25.10 - Atherosclerotic heart disease of [place] coronary artery without angina pectoris - Discharge Medications Prescriptions: Levofloxacin 750 mg PO Q48H #2 tablet Home Medications: Diazepam [Valium] 5 mg PO BID PRN 11/11/15 [History] Potassium Chloride [K-Tab ER] 20 meq PO BID 11/11/15 [History] Simvastatin [Zocor] 40 mg PO HS 11/11/15 [History] Aspirin Enteric Coated [Aspirin EC] 81 mg PO DAILY 02/01/16 [History] Propranolol [Inderal] 10 mg PO BID 02/01/16 [History] Docusate [Colace] 100 mg PO BID PRN #30 capsule 02/08/16 [Rx] Ascorbic Acid [Vitamin C] 1,000 mg PO DAILY 08/24/16 [History] Calcium Carbonate [Calcium] 500 mg PO DAILY 08/24/16 [History] Cholecalciferol (D-3) [Vitamin D] 1,000 unit PO DAILY 08/24/16 [History] Cyanocobalamin (B-12) [Vitamin B12] 1,000 mcg IM QMONTH 08/24/16 [History] Ferrous Sulfate [Iron] 325 mg PO DAILY 08/24/16 [History] HYDROcodone/Acet 5/325 mg [[place] 5-325 mg] 1 tab PO DAILY PRN 08/24/16 [History] Nitroglycerin [Nitrostat] 0.4 mg SL AD PRN 08/24/16 [History] [place]-3/Dha/Epa/Fish Oil [Fish Oil 1,000 mg Softgel] 1,000 mg PO BID 08/24/16 [ History] Omeprazole [PriLOSEC] 40 mg PO DAILY 08/24/16 [History] Tiotropium [Spiriva] 18 mcg IH DAILY 08/24/16 [History] Zoledronic Acid (Reclast) [Reclast 5 MG/100 ML] 5 mg IV Q12M 08/24/16 [History] Ipratropium/Albuterol Neb [Duoneb] 3 ml IH QID PRN #0 08/25/16 [Rx] Levofloxacin 750 mg PO Q48H #2 tablet 08/25/16 [Rx] Sucralfate [Carafate] 1 gm PO 0730,1630 tablet 08/25/16 [Rx] Allergies/Adverse Reactions: Allergies No Known Drug Allergies Allergy (Verified 03/07/15 16:22) See Comments Procedures/tests Complete & Pending: Procedures Performed prior 72 hours Category Date Time Status EV carotid duplex imaging BI Routine Y 08/25/16 00:10 Completed EV echocardiogram Routine Y 08/25/16 00:10 Completed Date of admission: 08/23/16 22:53 Primary care physician: Claribel Leary - Patient Status Disposition: Home Health Service Condition: Good Functional capacity at discharge: uses cane/walker Overall status at discharge: patient is progressing back to baseline - Discharge Instructions Instructions: Levofloxacin (By mouth), Chronic Obstructive Pulmonary Disease ( DC), Chronic Hypertension (DC), Pneumonia (DC) Follow Up With: Claribel Leary MD [Primary Care Provider] - 09/03/16 1:45 pm (Your appointment for 08/27/16 has been cancelled and rescheduled for 09/03/16 at 1:45pm.) Additional Instructions: check blood pressure daily - Diet and Activity Activity: resume usual activities as tolerated Diet: low salt diet Interval History: Patient is eating well. No vomiting. No abdominal pain. She is eager to go home. She just had physical therapy and rate the recommended PT at home. Hospital course: Ms. Chang is a 80 year old female with past medical history COPD, failure to thrive, severe protein thyroid menstruation, CAD chronic hypokalemia who presented with abdominal pain and upper respiratory symptoms for a month. She received multiple courses although antibiotics for over a month as outpatient. CT of the abdomen and pelvis revealed diffusely thickened with adjacent fat stranding suggestive of an acute colitis or proctitis, nonobstructive bilateral nephrolithiasis, right lower lobe air space disease. Chest x-ray showed right lung opacity. Echocardiogram revealed LVEF 55%. Carotids showed 40-59% stenosis. She was started on IV fluid hydration, IV Levaquin for pneumonia and oral Flagyl for suspected C. difficile colitis. She had no bowel movement during this hospitalization. Flagyl was discontinued. At discharge, patient was eating and ambulating well with physical therapy. PLAN: Levaquin for a total of 5 days. Follow-up with PCP. Consider colonoscopy or sigmoidoscopy as outpatient. Repeat chest x-ray to address resolution of airspace disease. Failure to thrive workup. - Time Spent with Patient Total time spent providing and/or coordinating discharge services: - Constitutional Vitals: Temp Pulse Resp BP Pulse Ox 97.7 F 70 16 114/65 94 L 08/25/16 10:44 08/25/16 10:44 08/25/16 11:13 08/25/16 12:57 08/25/16 12:57 General appearance: Present: cachectic, cooperative, A&O X 3, no acute distress , answers questions appropriately
--- NOTE | 2016-08-25 14:21 | Physician Discharge Referral ---
Home Health/Hosp Referral Info Transfer to: Home Health Attending Provider: kvng Provider in Charge Post Discharge: PCP - Diagnosis (1) Weakness Status: Acute (2) Pneumonia Status: Acute (3) Colitis Status: Acute (4) COPD (chronic obstructive pulmonary disease) Status: Chronic (5) Failure to thrive Status: Chronic (6) Severe protein-calorie malnutrition Status: Chronic (7) CAD (coronary artery disease) Status: Acute - Respiratory Orders Smoking Cessation: Smoking cessation has been advised. For more information, call the [place] Tobacco Quit Line at 2-093-AWSV-NOW. - Diet/Nutrition Diet/Nutrition Orders: Regular - Activity Activity Orders: Walker - Services Needed Following services are medically necessary services: Nursing, Home Health Aide, Physical Therapy, Occupational Therapy - Transfer Medications Prescriptions: Levofloxacin 750 mg PO Q48H #2 tablet Home Medications: Diazepam [Valium] 5 mg PO BID PRN 11/11/15 [History] Potassium Chloride [K-Tab ER] 20 meq PO BID 11/11/15 [History] Simvastatin [Zocor] 40 mg PO HS 11/11/15 [History] Aspirin Enteric Coated [Aspirin EC] 81 mg PO DAILY 02/01/16 [History] Propranolol [Inderal] 10 mg PO BID 02/01/16 [History] Docusate [Colace] 100 mg PO BID PRN #30 capsule 02/08/16 [Rx] Ascorbic Acid [Vitamin C] 1,000 mg PO DAILY 08/24/16 [History] Calcium Carbonate [Calcium] 500 mg PO DAILY 08/24/16 [History] Cholecalciferol (D-3) [Vitamin D] 1,000 unit PO DAILY 08/24/16 [History] Cyanocobalamin (B-12) [Vitamin B12] 1,000 mcg IM QMONTH 08/24/16 [History] Ferrous Sulfate [Iron] 325 mg PO DAILY 08/24/16 [History] HYDROcodone/Acet 5/325 mg [[place] 5-325 mg] 1 tab PO DAILY PRN 08/24/16 [History] Nitroglycerin [Nitrostat] 0.4 mg SL AD PRN 08/24/16 [History] [place]-3/Dha/Epa/Fish Oil [Fish Oil 1,000 mg Softgel] 1,000 mg PO BID 08/24/16 [ History] Omeprazole [PriLOSEC] 40 mg PO DAILY 08/24/16 [History] Tiotropium [Spiriva] 18 mcg IH DAILY 08/24/16 [History] Zoledronic Acid (Reclast) [Reclast 5 MG/100 ML] 5 mg IV Q12M 08/24/16 [History] Ipratropium/Albuterol Neb [Duoneb] 3 ml IH QID PRN #0 08/25/16 [Rx] Levofloxacin 750 mg PO Q48H #2 tablet 08/25/16 [Rx] Sucralfate [Carafate] 1 gm PO 0730,1630 tablet 08/25/16 [Rx] Allergies/Adverse Reactions: Allergies No Known Drug Allergies Allergy (Verified 03/07/15 16:22) See Comments Certification: Further, I certify that my clinical findings support that this patient is homebound (i.e. absences from home require considerable and taxing effort and are for medical reasons or hoahaoism services or infrequently or short duration when for other reasons) because: Homebound Reason: Patient requires assistance of a person or device to safely leave home, Leaving home requires considerable and taxing effort due to condition Attestation: My signature below is to certify that this patient is under my care and that I, or nurse practitioner, or a physician's preschool assistant principal working with me, has a face-to -face encounter with this patient.
--- NOTE | 2016-08-25 14:48 | Electrocardiograph Report ---
[place] [id number] Test Date: 2016-08-23 Pat Name: Alee Chang Department: 105 Room: 2A22 Gender: F Geriatrician: : 1935 Requested By: Raji Crabtree Order Number: [id number] Reading MD: Alvarado Chahal Measurements Intervals [place] Rate: 74 P: 82 [place]: 125 QRS: 62 QRSD: 97 T: 68 QT: 370 QTc: 397 Interpretive Statements SINUS RHYTHM POSSIBLE RIGHT ATRIAL ENLARGEMENT [0.25mV P WAVE] POSSIBLE LEFT ATRIAL ENLARGEMENT [-0.1mV P WAVE IN V1/V2] POSSIBLE RIGHT VENTRICULAR CONDUCTION DELAY [RSR (QR) IN V1/V2] POSSIBLE LEFT VENTRICULAR HYPERTROPHY [VOLTAGE CRITERIA PLUS LAE OR QRS WIDENING] Electronically Signed On 08-25-2016 14:47:17 EST by Alvarado Chahal
--- NOTE | 2016-08-25 16:16 | Carotid Imaging Report ---
Carotid Duplex Patient Name:Alee Chang Order Number:[id number] Procedure Date:08/25/2016 Date:8Age:80 yrs Gender:Female Lt BP:109 / 60 mmHg Rt.BP:106 / 63 mmHgHeart Rate: Location:[facility] Room #: 2A22 Electronic Systems Technician:Pilo Verdugo RN Referring MD:Ana Gupta DO manufacturing intern:Claribel Leary MD Reading MD:Honorio Serrano MD , FACS Primary Indications:Syncope Risk Factors Yes/No Hypertension Yes Diabetes No Hypercholesterolemia Yes Smoker Previous Yes Hx of CVA Yes Anticoagulants No Hx of CAD/PTCA Yes Previous Vascular Surgery No Impressions: Findings: Bilateral mid ICA has a moderate, 40-59% stenosis. Recommendations: Test completed on 08/25/2016 at 8:20:00 am. Findings Carotid Duplex: Right: The right proximal common carotid artery has a PSV of 75 cm/s and a EDV of 24 cm/s. The right mid common carotid artery has a PSV of 78 cm/s and a EDV of 28 cm/s. There is nonstenotic plaque in the right distal common carotid artery with a PSV of 68 cm/s and a EDV of 28 cm/s. There is smooth homogeneous plaque. There is nonstenotic plaque in the right bifurcation with a PSV of 68 cm/s and a EDV of 23 cm/s. There is smooth homogeneous plaque. There is nonstenotic plaque in the right proximal internal carotid artery with a PSV of 77 cm/s and a EDV of 28 cm/s. There is smooth homogeneous plaque. There is 40-59% stenosis in the right mid internal carotid artery with a PSV of 139 cm/s and a EDV of 39 cm/s. The right distal internal carotid artery has a PSV of 101 cm/s and a EDV of 40 cm/s. The right eca has a PSV of 73 cm/s and a EDV of 5 cm/s. The right vertebral artery has a PSV of 89 cm/s and a EDV of 33 cm/s. Left: The left proximal common carotid artery has a PSV of 62 cm/s and a EDV of 19 cm/s. There is nonstenotic plaque in the left mid common carotid artery with a PSV of 82 cm/s and a EDV of 28 cm/s. There is smooth homogeneous plaque. There is nonstenotic plaque in the left distal common carotid artery with a PSV of 82 cm/s and a EDV of 30 cm/s. There is smooth homogeneous plaque. There is nonstenotic plaque in the left bifurcation with a PSV of 56 cm/s and a EDV of 19 cm/s. There is smooth homogeneous plaque. There is nonstenotic plaque in the left proximal internal carotid artery with a PSV of 95 cm/s and a EDV of 31 cm/s. There is smooth homogeneous plaque. There is 40-59% stenosis in the left mid internal carotid artery with a PSV of 134 cm/s and a EDV of 53 cm/s. The left distal internal carotid artery has a PSV of 85 cm/s and a EDV of 36 cm/s. The left eca has a PSV of 47 cm/s and a EDV of 7 cm/s. The left vertebral artery has a PSV of 50 cm/s and a EDV of 18 cm/s. Carotid Results Right PSV EDV Assessment Proximal CCA 75 24 Normal Mid CCA 78 28 Normal Distal CCA 68 28 Non Stenotic Plaque Bifurcation 68 23 Non Stenotic Plaque Proximal ICA 77 28 Non Stenotic Plaque Mid ICA 139 39 40-59% stenosis Distal ICA 101 40 Normal ECA 73 5 Normal Vertebral Artery 89 33 Normal Left PSV EDV Assessment Proximal CCA 62 19 Normal Mid CCA 82 28 Non Stenotic Plaque Distal CCA 82 30 Non Stenotic Plaque Bifurcation 56 19 Non Stenotic Plaque Proximal ICA 95 31 Non Stenotic Plaque Mid ICA 134 53 40-59% stenosis Distal ICA 85 36 Normal ECA 47 7 Normal Vertebral Artery 50 18 Normal Ratio's Right ICA/CCA Ratio: 1.78 ICA/CCA Values: 139/78 Left ICA/CCA Ratio: 1.63 ICA/CCA Values: 134/82 Updated by Honorio Serrano MD, FACS on 08/25/2016 4:11:06 PM Honorio Serrano MD electronically signed on 08/25/2016 4:11:35 PM with status of Final
[2016-08-25] MEDS ORDERED: Levofloxacin 750 MG/150 ML 750 MG/150 ML BAG IVPB SCH (18:00)
[2016-08-25] MEDS ORDERED: levoFLOXacin 750 MG TABLET PO SCH (18:00)
== END 2016-08-25 14:22 | disposition home health service (06) | DRG 371 ==
LOC: 2ANU 16:29 → EMEROO 16:29 → 2ANU 19:52
PROVIDERS: ADMIT Internal Medicine; ATTEND Internal Medicine

== ENCOUNTER 2016-10-25 17:03 | Observation (INO) ==
--- NOTE | 2016-10-25 17:08 | Emergency Department Note ---
Disposition Clinical Impression: Weakness TIA (transient ischemic attack) Qualifiers: Transient cerebral ischemia type: unspecified Qualified Code(s): G45.9 - Transient cerebral ischemic attack, unspecified Disposition: Admitted As Inpatient Condition: Good Time of Disposition: 19:19 Weakness HPI - General Chief complaint: ED Weakness Stated complaint: Weakness Time Seen by Provider: 10/25/16 17:06 Source: patient, family Mode of arrival: EMS Limitations: no limitations Nursing Notes Reviewed: Yes Vital Signs Reviewed: Yes - History of Present Illness HPI Narrative: 80-year-old female with history of CVA with persistent right upper extremity and right lower extremity weakness presents for 30 minute episode of lower extremity numbness and weakness that was greater on the right side and prevention her from walking. she states that she also had a arm weakness. Her states that he found her after she cried out for help and called 911. He states that she did not have any aphasia or facial droop. she states that this is similar to her stroke except that symptoms resolved. She denies any recent illness or injury. She admits to mild headache and body aches which are chronic and stable. She denies any medication changes. She takes aspirin daily. She is feeling well at this time. Pt Subjective Complaint: focal weakness - Related Data Home Medications Medication Instructions Recorded Confirmed Diazepam [Valium] 5 mg PO BID PRN 11/11/15 08/24/16 Potassium Chloride [K-Tab ER] 20 meq PO BID 11/11/15 08/24/16 Simvastatin [Zocor] 40 mg PO HS 11/11/15 08/24/16 Aspirin Enteric Coated [Aspirin EC] 81 mg PO DAILY 02/01/16 08/24/16 Propranolol [Inderal] 10 mg PO BID 02/01/16 08/24/16 Ascorbic Acid [Vitamin C] 1,000 mg PO DAILY 08/24/16 08/24/16 Calcium Carbonate [Calcium] 500 mg PO DAILY 08/24/16 08/24/16 Cholecalciferol (D-3) [Vitamin D] 1,000 unit PO DAILY 08/24/16 08/24/16 Cyanocobalamin (B-12) [Vitamin B12] 1,000 mcg IM QMONTH 08/24/16 08/24/16 Ferrous Sulfate [Iron] 325 mg PO DAILY 08/24/16 08/24/16 HYDROcodone/Acet 5/325 mg [[place] 1 tab PO DAILY PRN 08/24/16 08/24/16 5-325 mg] Nitroglycerin [Nitrostat] 0.4 mg SL AD PRN 08/24/16 08/24/16 [place]-3/Dha/Epa/Fish Oil [Fish Oil 1,000 mg PO BID 08/24/16 08/24/16 1,000 mg Softgel] Omeprazole [PriLOSEC] 40 mg PO DAILY 08/24/16 08/24/16 Tiotropium [Spiriva] 18 mcg IH DAILY 08/24/16 08/24/16 Zoledronic Acid (Reclast) [Reclast 5 mg IV Q12M 08/24/16 08/24/16 5 MG/100 ML] Previous Rx's Medication Instructions Recorded Docusate [Colace] 100 mg PO BID PRN #30 capsule 02/08/16 Ipratropium/Albuterol Neb [Duoneb] 3 ml IH QID PRN #0 08/25/16 Levofloxacin 750 mg PO Q48H #2 tablet 08/25/16 Sucralfate [Carafate] 1 gm PO 0730,1630 tablet 08/25/16 Allergies Allergy/AdvReac Type Severity Reaction Status Date / Time No Known Drug Allergies Allergy See Verified 03/07/15 16:22 Comments All systems ED: reviewed and negative except as stated. Past Medical History - Past Medical History Attestation: Yes The following information was validated with the patient. Source: patient Medical history: Reports: COPD, CVA, GERD, myocardial infarction Surgical history: Reports: angioplasty/stent, hip replacement, other Psychiatric history: Reports: no psych history HOSE TENDER history: Reports: no HOSE TENDER history - Social History Smoking Status: Former smoker Smokeless Tobacco Status: No Alcohol use: Reports: none Drug use: Reports: none Physical Exam - Head Head exam: atraumatic, normocephalic, normal inspection - Eye Eye exam: Present: normal appearance, PERRL, EOMI - ENT ENT exam: normal exam, normal oropharynx, mucous membranes moist - Neck Neck exam: Present: normal inspection, full ROM, trachea midline - Chest Chest inspection: Present: normal inspection, symmetric chest wall rise - Respiratory Respiratory exam: Clear to auscultation bilaterally without wheezes rales or rhonchi Cardiovascular Cardiovascular exam: Present: regular rate, normal rhythm, normal heart sounds - Abdominal Exam Abdominal exam: Present: soft, Non-Tender. Absent: tenderness, distention, guarding, rebound, rigidity - Extremities Exam Extremities exam: Present: normal inspection, full ROM - Back Exam Back exam: Present: normal inspection, full ROM. Absent: tenderness, CVA tenderness (R), CVA tenderness (L) - Neurological Exam Neurological exam: Present: alert, oriented X3, CN II-XII intact. No facial droop. There is 3 out of 5 motor in the right upper extremity and 4 out of 5 motor in the right lower extremity with subjective sensory deficit on the right leg. Normal cerebellar testing. - Psychiatric Psychiatric exam: Present: normal affect, normal mood - Skin Skin exam: Present: warm, dry, intact, normal color Course - Reevaluation(s) Reevaluation #1: Patient stable on reassessment. Her CT of the head and chest x-ray were negative for acute findings. Labs were normal. Given the patient's history of prior stroke, hypertension, hyperlipidemia, and tobacco abuse we will admit the patient for further workup of suspected TIA. Time: 18:59 Vital Signs Temperature 97.8 F 10/25/16 17:05 Pulse Rate 63 10/25/16 17:05 Respiratory Rate 20 10/25/16 17:05 Blood Pressure 109/65 10/25/16 17:05 O2 Sat by Pulse Oximetry 97 10/25/16 17:05 Temperature 97.6 F 10/25/16 22:05 Pulse Rate 70 10/25/16 22:05 Respiratory Rate 18 10/25/16 22:05 Blood Pressure 114/55 10/25/16 22:05 O2 Sat by Pulse Oximetry 97 10/25/16 22:05 Oxygen Delivery Oxygen Delivery Nasal Cannula Weakness - Lab Data Result diagrams: 10/26/16 00:13 10/26/16 00:13 Lab Results 10/25/16 10/25/16 10/25/16 Range/Units 17:54 17:54 17:54 WBC 9.5 (4.3-11.1) K/mcL RBC 3.94 (3.82-4.97) M/mcL Hgb 12.6 (11.5-15.4) g/dL Hct 39.4 (35.3-44.9) % MCV 100.0 (83.0-100.0) fL MCH 32.0 (28.0-33.3) pg MCHC 32.0 (31.6-35.5) g/dL RDW 13.7 (11.5-14.5) % Plt Count 222 (140-400) K/mcL MPV 9.3 L (9.4-12.4) fL Immature Gran % 0.5 (0-4) % Seg Neutrophils % 78.5 % Lymphocytes % 14.6 % Monocytes % 4.5 % Eosinophils % 1.6 % Basophils % 0.3 % Neutrophils # 7.5 (1.6-8.9) K/mcL Lymphocytes # 1.4 (0.6-4.6) K/mcL Monocytes # 0.4 (0.0-1.3) K/mcL Eosinophils # 0.2 (0.0-0.6) K/mcL Basophils # 0.0 (0.0-0.2) K/mcL Sodium 143 (136-145) mEq/L Potassium 4.4 (3.5-4.5) mEq/L Chloride 106 (98-109) mEq/L Carbon Dioxide 28 (19-29) mEq/L BUN 14 (7-20) mg/dL Creatinine 0.50 L (0.57-1.11) mg/dL Est GFR ( Amer) > 60 (> 60) Est GFR (Non-Af Amer) > 60 (> 60) BUN/Creatinine Ratio 28 H (6-26) Glucose 89 (70-99) mg/dL Calculated Osmolality 296 (280-300) Calcium 8.9 (8.6-10.8) mg/dL Troponin I 0.00 (0-0.03) ng/mL Urine Color (Yellow) Urine Clarity (Clear) Urine pH (5.0-8.0) pH Units Ur Specific [place] (1.010-1.025) Urine Protein (Neg-Trace) mg/dL Urine Glucose (UA) (Normal) mg/dL Urine Ketones (Negative) mg/dL Urine Blood (Negative) Urine Nitrite (Negative) Urine Bilirubin (Negative) Urine Urobilinogen (Normal) mg/dL Ur Leukocyte Esterase (Negative) Ur Culture Indicated? (NO) 10/25/16 Range/Units 18:47 WBC (4.3-11.1) K/mcL RBC (3.82-4.97) M/mcL Hgb (11.5-15.4) g/dL Hct (35.3-44.9) % MCV (83.0-100.0) fL MCH (28.0-33.3) pg MCHC (31.6-35.5) g/dL RDW (11.5-14.5) % Plt Count (140-400) K/mcL MPV (9.4-12.4) fL Immature Gran % (0-4) % Seg Neutrophils % % Lymphocytes % % Monocytes % % Eosinophils % % Basophils % % Neutrophils # (1.6-8.9) K/mcL Lymphocytes # (0.6-4.6) K/mcL Monocytes # (0.0-1.3) K/mcL Eosinophils # (0.0-0.6) K/mcL Basophils # (0.0-0.2) K/mcL Sodium (136-145) mEq/L Potassium (3.5-4.5) mEq/L Chloride (98-109) mEq/L Carbon Dioxide (19-29) mEq/L BUN (7-20) mg/dL Creatinine (0.57-1.11) mg/dL Est GFR ( Amer) (> 60) Est GFR (Non-Af Amer) (> 60) BUN/Creatinine Ratio (6-26) Glucose (70-99) mg/dL Calculated Osmolality (280-300) Calcium (8.6-10.8) mg/dL Troponin I (0-0.03) ng/mL Urine Color Yellow (Yellow) Urine Clarity Clear (Clear) Urine pH 5.5 (5.0-8.0) pH Units Ur Specific [place] 1.021 (1.010-1.025) Urine Protein Negative (Neg-Trace) mg/dL Urine Glucose (UA) Normal (Normal) mg/dL Urine Ketones Negative (Negative) mg/dL Urine Blood Negative (Negative) Urine Nitrite Negative (Negative) Urine Bilirubin Negative (Negative) Urine Urobilinogen Normal (Normal) mg/dL Ur Leukocyte Esterase Negative (Negative) Ur Culture Indicated? NO (NO) - EKG Data EKG attestation: Yes I reviewed and interpreted this EKG. EKG results narrative: Normal sinus rhythm at 63 with normal axis and intervals. No ST elevation or depression. There are large R waves in the precordial leads concerning for LVH. There is no change when compared with 08/23/2016. Attestation Statement - Attestation Attestation: I, Alvarado Gage, examined this patient and my medical decision-making was reviewed with the BRIDGE INSPECTOR/PA/Advanced Practice Nurse/Resident Physician. I agree with the documented findings, disposition and treatment plan as described except to the extent set forth below. 80-year-old female presents with concerns of possible near syncope versus CVA. Patient states that she was working in the kitchen when she acutely became weak and fatigued. Patient states she tried to ambulate to the living room and had difficulty with ambulation with veering off to the right. Patient states she felt like she was weak in the bilateral lower extremities as well as bilateral upper extremities. Son and state that she was sitting on a couch and was unable to present coherent sentences. Patient is back to her baseline emergency department. CT of the head is negative for acute bleed or mass. Patient will be admitted to the hospital for evaluation of possible TIA versus near syncope.
[2016-10-25 18:02] LABS: Basophils % 0.3 %; Eosinophils # 0.2 K/mcL (0.0-0.6); Eosinophils % 1.6 %; Hematocrit 39.4 % (35.3-44.9); Hemoglobin 12.6 g/dL (11.5-15.4); Immature Granulocytes % 0.5 % (0-4); Lymphocytes # 1.4 K/mcL (0.6-4.6); Lymphocytes % 14.6 %; Mean Platelet Volume 9.3 fL (9.4-12.4); Monocytes # 0.4 K/mcL (0.0-1.3); Monocytes % 4.5 %; Neutrophils # 7.5 K/mcL (1.6-8.9); Platelet Count 222 K/mcL (140-400); Red Blood Count 3.94 M/mcL (3.82-4.97); Red Cell Distribution Width 13.7 % (11.5-14.5); Segmented Neutrophils % 78.5 %
[2016-10-25 18:14] LABS: BUN/Creatinine Ratio 28 (6-26); Blood Urea Nitrogen 14 mg/dL (7-20); Calcium 8.9 mg/dL (8.6-10.8); Carbon Dioxide 28 mEq/L (19-29); Chloride 106 mEq/L (98-109); Glucose 89 mg/dL (70-99); Osmolality,Calculated 296 (280-300); Potassium 4.4 mEq/L (3.5-4.5); Sodium 143 mEq/L (136-145); eGFR For African Americans > 60 (> 60); eGFR For Non-African Americans > 60 (> 60)
[2016-10-25 18:54] LABS: Bilirubin,Urine Negative (Negative); Blood,Urine Negative (Negative); Clarity,Urine Clear (Clear); Color,Urine Yellow (Yellow); Glucose,Urine (UA) Normal (Normal); Ketones,Urine Negative (Negative); Leukocyte Esterase,Urine Negative (Negative); Nitrite,Urine Negative (Negative); PH,Urine 5.5 pH Units (5.0-8.0); Protein,Urine Negative (Neg-Trace); Specific Gravity,Urine 1.021 (1.010-1.025); Urobilinogen,Urine Normal (Normal)
[2016-10-25] MEDS ORDERED: Nitroglycerin 0.4 MG TAB.SUBL SL PRN (22:13)
[2016-10-25] MEDS ORDERED: diazePAM 5 MG TABLET PO PRN (22:13)
[2016-10-25] MEDS ORDERED: Ipratropium/Albuterol Neb 3 ML IH PRN (22:13)
[2016-10-25] MEDS ORDERED: [UNRECOGNIZED DRUG - OTHER] IV SCH (22:15)
[2016-10-25] MEDS ORDERED: ZOLEDRONIC ACID 5 MG IV SCH (22:15)
[2016-10-25] MEDS ORDERED: Naloxone 0.4 MG/ML INJ IVP PRN (22:16)
[2016-10-25] MEDS ORDERED: Pantoprazole 40 MG VIAL IVP STA (22:16)
--- NOTE | 2016-10-25 22:32 | Internal Med History&Physical ---
Date of Encounter: 10/25/16 Time of Encounter: 22:00 Assessment and Plan (1) CVA, old, hemiparesis Status: Chronic . (2) Frail elderly Status: Chronic . (3) CAD (coronary artery disease) Status: Chronic . Qualifiers: Coronary Disease-Associated Artery/Lesion type: [place] artery [place] vs. transplanted heart: [place] heart Associated angina: angina presence unspecified Qualified Code(s): I25.10 - Atherosclerotic heart disease of [place] coronary artery without angina pectoris (4) COPD (chronic obstructive pulmonary disease) Status: Chronic . Qualifiers: COPD type: unspecified COPD Qualified Code(s): J44.9 - Chronic obstructive pulmonary disease, unspecified (5) Cachexia Status: Chronic . (6) Severe protein-calorie malnutrition Status: Chronic . (7) TIA (transient ischemic attack) Status: Acute . Qualifiers: Transient cerebral ischemia type: unspecified Qualified Code(s): G45.9 - Transient cerebral ischemic attack, unspecified Internal Medicine - H&P: HPI Chief complaint: Weakness Admitted From: Emergency Dept Plans for Post Hospital Care: Home History of present illness: Ms. Chang is a 80 year old female with history significant for old CVA with right hemiparesis, TIAs, HTN, HLD, multilevel DDD/DJD spine, cervical radiculopathy, lumbar radiculopathy, OA/OP, CAD/PTCAs/AMIs, COPD/emphysem/O2 depenedent, solitary pulm nodule, FTT/nutritional def dis/protein caloric malnutrition/cachexia, former heavy smoker, etc.. The patient was admitted to [facility] via the emergency department when she presents with family from home by EMS services. Patient presents with concern of acute onset of right-sided weakness. She has a history of old CVA with persistent right upper extremity and right lower extremity weakness. Upon awakening she experienced approximately 30 minute episode of lower extremity numbness and weakness greater on the right side at her baseline which prevented her from walking. She also noted increased right upper extremity weakness from her baseline. came to aid when she cried out for help upon awakening and 911 was promptly called for transport to the ED. He did not witness any facial asymmetry slurring of speech receptive or expressive aphasia seizure-like activity or tremor loss of bowel or bladder function or respiratory embarrassment. The focal distribution of her symptoms are similar to her previous stroke however his symptoms gradually resolved in route to the ED. She denied any recent illnesses hospitalizations injuries or prolonged immobilizations. She acknowledges her usual mild headache and general body aches. This she describes as being chronic and stable. She denies any significant changes in her medications or indiscretions with these. Denies any herbal or [id number] treatments recently added to her about treatment courses. She reports she takes aspirin on a daily basis along with a lipid- lowering agent. Findings in the ED: Vital signs are stable. Patient was afebrile. Heart rate was regular in rate and rhythm. CBC with differential and basic metabolic panel were normal. Troponin was 0.00. Urinalysis was benign. EKG demonstrated normal sinus rhythm. Rate 63. Normal axis and intervals. No acute ST-T wave aberration. Chest x-ray demonstrated no acute or active cardiopulmonary process. Evidently significant emphysema. Ill- defined opacity in the left upper lobe corresponds to a pulmonary nodule increased in size since 2012. Suspicious for malignancy. CT head scan without contrast demonstrated no acute abnormality. Parenchymal volume loss was apparent. Chronic microvascular ischemic changes noted. Preliminary impression suggest a transient ischemic accident. Resolved. Event falls within the distribution of previous hemispheric infarct. Patient presents significant risk for acute clinical decline and morbidity given her presenting chief concerns, findings, frailty and comorbidities. Workup and treatment will proceed comprehensibly. The patient was visited and interviewed and examined. Cumulative laboratory and radiographic data base will be considered and discussed. Pertinent ancillary medical records including ECW and PCI documentation when available was reviewed and considered. Given the patient's presenting concerns, past medical history, clinical findings and symptoms, he is admitted at this time will undergo further evaluation and disposition. Orders were written as per the computerized physician blood bank order control clerk system.......................................................................... .................... Consultative opinions will be sought as clinical circumstances justify. Pain management needs will be addressed. Laboratory=radiographic data base will be updated as appropriate. Studies include: pt/inr, aptt, ddimer, prolactin, cardiac injury panel, BNP, metabolic and hematologic panel, magnesium, phosphorus, ionized calcium, thyroid panel , lipid profile, A1c, C-peptide, CRP, sedimentation rate, blood gas, lactic acid, serologies, etc. Precautions: Aspiration, fall, delirium protocol/surveillance initiated. Telemetry with continuous hemodynamic monitoring and pulse oximetry initiated. Orthostatic vital signs. Empiric antibiotic coverage: pending diagnostics/culture data. Special studies: CT head, MRI head/brain, MRA head/neck, chest x-ray, telemetry , EKG, 2D echo. Pulmonary toilet: Incentive spirometry. PRN: aerosol bronchodilator, mucolytic, antitussive. Supplemental oxygen. Corticosteroid therapy PRN. CPAP/BiPAP supplemental oxygen deliveryPRN. Aerosol Mucomyst therapy PRN. Fluid and electrolyte repletion efforts will proceed. Careful attention to fluid balance and renal recovery will be emphasized. Avoidance of nephrotoxic exposure and adverse drug drug interaction in the setting of impaired renal function will be monitored closely. Acute coronary syndrome protocol/surveillance initiated. DVT and PUD prophylaxis initiated: PPI therapy, intermittent pneumatic cuffs. Subcutaneous heparin. Early ambulation will be encouraged. Immunization updates recommended. Influenza and pneumococcal vaccinations as part of ongoing preventative healthcare recommendations strongly recommended. Smoking cessation counseling briefly addressed. Patient is a former smoker. Advanced care directive discussion briefly addressed. Patient does not declare any healthcare restrictions at this time. Cardiovascular risk appraisal and cardiovascular risk reduction efforts will be emphasized. Physical=occupational therapy consulted to evaluate patient's functional capacity and progress mobility if circumstances permit. Nutrition/dietary education supplementary diet options counseling may be considered as circumstances justify. Appetite stimulant trials. Outpatient medication schedules will be reviewed, confirmed and facilitated as appropriate. Reconciliation of home treatments including adjustments, substitutions and reintroduction into the treatment regimen as necessary maintenance therapies for chronic pre-existing medical conditions. Plan of care has been reviewed and discussed in detail with the patient. Questions addressed. Hospital course dictated by clinical findings, treatment response and potential consultative interventions. Patient is at risk for further acute clinical decline due to his age/frailty, presenting chief complaints and comorbid conditions. Condition is serious. Prognosis is guarded. CODE STATUS is full. Past Med Surg Social Fam HX - Past Medical History Source: old records reviewed Medical history: arthritis, COPD (Emphysema.), coronary artery disease, CVA ( Right hemiparesis. Legal blindness.), GERD, GI bleed (H/O C dificile enterocolitis.), hyperlipidemia, hypertension, kidney stones, migraine, myocardial infarction, osteoporosis (Vit D def.), renal disease, TIA, other ( Iron def anemia. B12 def. DDD/DJD of spine. Cervical radiculopathy. Lumbar radiculopathy. ) Psychiatric history: anxiety, other - Past Surgical History Surgical History: angioplasty/stent, hip replacement, orthopedic, other, other - Social History Smoking Status: Former smoker Smokeless Tobacco Status: No Alcohol use: none Drug use: none Occupational status: unemployed Current living situation: Home, With Family Activity Level: Uses cane/walker, Mostly sedentary, Other Recent Out of Country Travel Within the Last 8 Weeks: No Exposure or Possible Exposure to Illness During Travel: No - Family History Mother Living Status: Hx Family Cancer: Yes (breast) Internal Medicine - H&P: Meds Diazepam [Valium] 5 mg PO BID PRN 11/11/15 [History] Potassium Chloride [K-Tab ER] 20 meq PO BID 11/11/15 [History] Simvastatin [Zocor] 40 mg PO HS 11/11/15 [History] Aspirin Enteric Coated [Aspirin EC] 81 mg PO DAILY 02/01/16 [History] Propranolol [Inderal] 10 mg PO BID 02/01/16 [History] Docusate [Colace] 100 mg PO BID PRN #30 capsule 02/08/16 [Rx] Ascorbic Acid [Vitamin C] 1,000 mg PO DAILY 08/24/16 [History] Calcium Carbonate [Calcium] 500 mg PO DAILY 08/24/16 [History] Cholecalciferol (D-3) [Vitamin D] 1,000 unit PO DAILY 08/24/16 [History] Cyanocobalamin (B-12) [Vitamin B12] 1,000 mcg IM QMONTH 08/24/16 [History] Ferrous Sulfate [Iron] 325 mg PO DAILY 08/24/16 [History] Nitroglycerin [Nitrostat] 0.4 mg SL AD PRN 08/24/16 [History] Dolliver-3/Dha/Epa/Fish Oil [Fish Oil 1,000 mg Softgel] 1,000 mg PO BID 08/24/16 [ History] Omeprazole [PriLOSEC] 40 mg PO DAILY 08/24/16 [History] Tiotropium [Spiriva] 18 mcg IH DAILY 08/24/16 [History] Zoledronic Acid (Reclast) [Reclast 5 MG/100 ML] 5 mg IV Q12M 08/24/16 [History] Ipratropium/Albuterol Neb [Duoneb] 3 ml IH QID PRN #0 08/25/16 [Rx] Lactose-Reduced Food [Ensure High Protein] 1 bottle PO TID #90 can 10/27/16 [Rx] Multivitamin [Multivitamins] 1 each PO DAILY #60 capsule 10/27/16 [Rx] Sucralfate [Carafate] 1 gm PO 0730,1630 #0 tablet 10/27/16 [Rx] Allergies No Known Drug Allergies Allergy (Verified 03/07/15 16:22) See Comments All Systems PM: A 10-system review of systems was performed and is negative for pertinent findings except as documented above in the HPI. - Constitutional Constitutional: as per HPI, fatigue, malaise, weakness, other, no chills, no fever(s), no night sweats - EENT Eyes: as per HPI, no change in vision, no discharge, no pain, no photophobia Ears: as per HPI, no ear discharge, no ear pain, no tinnitus Nose, mouth and throat: as per HPI, no dysphagia, no nasal discharge, no neck pain, no sore throat - Cardiovascular Cardiovascular ROS IM: as per HPI, no chest pain, no diaphoresis, no dyspnea, no lightheadedness, no palpitations, no syncope - Respiratory Respiratory: as per HPI, no cough, no dyspnea, no wheezing, no excessive phlegm production - Gastrointestinal Gastrointestinal: as per HPI, no abdominal pain, no diarrhea, no hematemesis, no hematochezia, no melena, no nausea, no vomiting - Genitourinary Genitourinary: as per HPI, no change in urinary stream, no dysuria, no flank pain, no hematuria - Musculoskeletal Musculoskeletal ROS IM: as per HPI, no numbness, no tingling - Integumentary Integumentary IM: as per HPI, no rash, no unusual bruising - Neurological Neurological ROS: as per HPI, abnormal gait, abnormal movements, focal weakness , frequent falls, headache(s), weakness, no confusion, no convulsions, no numbness, no tingling, no tremor(s) - Psychiatric Psychiatric: as per HPI - Endocrine Endocrine IM: as per HPI - Hematologic/Lymphatic Hematologic/Lymphatic: as per HPI, no easy bruising - Allergic/Immunologic Allergic/Immunologic: as per HPI - Constitutional Vitals: Temp Pulse Resp BP Pulse Ox 97.6 F 70 18 114/55 97 10/25/16 22:05 10/25/16 22:05 10/25/16 22:05 10/25/16 22:05 10/25/16 22:05 Vital Signs Temp Pulse Resp BP Pulse Ox 10/25/16 22:05 97.6 F 70 18 114/55 97 10/25/16 20:45 14 130/75 10/25/16 17:05 97.8 F 63 20 109/65 97 Intake and Output 10/25/16 10/25/16 10/25/16 07:59 15:59 23:59 Other: Stool Characteristics Normal for Patient Weight 35.38 kg Patient Weight 10/25/16 23:59 Weight 35.38 kg General appearance: Present: cachectic, A&O X 3, no acute distress, underweight , answers questions appropriately - Head Head exam: Present: atraumatic, normocephalic - Eye Eye exam: Present: EOMI, PERRL, conjuntiva pink, sclera anicteric Pupils: Present: normal accommodation, PERRL - ENT ENT exam: Present: mucous membranes moist, normal oropharynx - Neck Neck exam general surgery: Present: supple, trachea midline. Absent: lymphadenopathy - Respiratory Respiratory exam: Present: decreased breath sounds, CTAB. Absent: accessory muscle use, rales, rhonchi, wheezes - Cardiovascular Cardiovascular exam: Present: distant heart sounds, RRR, +S1, +S2. Absent: diastolic murmur, gallop, rubs, systolic murmur - GI/Abdominal GI/Abdominal exam: Present: normal bowel sounds, soft, no peritoneal signs. Absent: distended, tenderness - Extremities Exam Extremities exam: Present: full ROM, warm, radial pulses palpable and symetrical. Absent: calf tenderness, cyanotic, pedal edema - Neurological Exam Neurological exam: Present: alert, altered, CN II-XII intact, motor sensory deficit, oriented X3. Absent: pronater drift, facial droop, speech deficit - Psychiatric Psychiatric exam: Present: normal affect, normal mood - Skin Skin exam: Present: dry, intact, warm Internal Med - H&P Results - Labs CBC & Chem 7: 10/27/16 02:58 10/27/16 02:58 Labs: Short CBC 10/25/16 Range/Units 17:54 WBC 9.5 (4.3-11.1) K/mcL Hgb 12.6 (11.5-15.4) g/dL Hct 39.4 (35.3-44.9) % Plt Count 222 (140-400) K/mcL Neutrophils # 7.5 (1.6-8.9) K/mcL BMP 10/25/16 Range/Units 17:54 Sodium 143 (136-145) mEq/L Potassium 4.4 (3.5-4.5) mEq/L Chloride 106 (98-109) mEq/L Carbon Dioxide 28 (19-29) mEq/L BUN 14 (7-20) mg/dL Creatinine 0.50 L (0.57-1.11) mg/dL Glucose 89 (70-99) mg/dL Calcium 8.9 (8.6-10.8) mg/dL Cardiac Enzymes 10/25/16 Range/Units 17:54 Troponin I 0.00 (0-0.03) ng/mL Urine 10/25/16 Range/Units 18:47 Urine Color Yellow (Yellow) Urine Clarity Clear (Clear) Urine pH 5.5 (5.0-8.0) pH Units Ur Specific [place] 1.021 (1.010-1.025) Urine Protein Negative (Neg-Trace) mg/dL Urine Glucose (UA) Normal (Normal) mg/dL Abnormal lab results MPV 9.3 fL (9.4-12.4) L 10/25/16 17:54 Creatinine 0.50 mg/dL (0.57-1.11) L 10/25/16 17:54 BUN/Creatinine Ratio 28 (6-26) H 10/25/16 17:54 Laboratory Results WBC 9.5 K/mcL (4.3-11.1) 10/25/16 17:54 RBC 3.94 M/mcL (3.82-4.97) 10/25/16 17:54 Hgb 12.6 g/dL (11.5-15.4) 10/25/16 17:54 Hct 39.4 % (35.3-44.9) 10/25/16 17:54 MCV 100.0 fL (83.0-100.0) 10/25/16 17:54 MCH 32.0 pg (28.0-33.3) 10/25/16 17:54 MCHC 32.0 g/dL (31.6-35.5) 10/25/16 17:54 RDW 13.7 % (11.5-14.5) 10/25/16 17:54 Plt Count 222 K/mcL (140-400) 10/25/16 17:54 MPV 9.3 fL (9.4-12.4) L 10/25/16 17:54 Immature Gran % 0.5 % (0-4) 10/25/16 17:54 Seg Neutrophils % 78.5 % 10/25/16 17:54 Lymphocytes % 14.6 % 10/25/16 17:54 Monocytes % 4.5 % 10/25/16 17:54 Eosinophils % 1.6 % 10/25/16 17:54 Basophils % 0.3 % 10/25/16 17:54 Neutrophils # 7.5 K/mcL (1.6-8.9) 10/25/16 17:54 Lymphocytes # 1.4 K/mcL (0.6-4.6) 10/25/16 17:54 Monocytes # 0.4 K/mcL (0.0-1.3) 10/25/16 17:54 Eosinophils # 0.2 K/mcL (0.0-0.6) 10/25/16 17:54 Basophils # 0.0 K/mcL (0.0-0.2) 10/25/16 17:54 Sodium 143 mEq/L (136-145) 10/25/16 17:54 Potassium 4.4 mEq/L (3.5-4.5) 10/25/16 17:54 Chloride 106 mEq/L (98-109) 10/25/16 17:54 Carbon Dioxide 28 mEq/L (19-29) 10/25/16 17:54 BUN 14 mg/dL (7-20) 10/25/16 17:54 Creatinine 0.50 mg/dL (0.57-1.11) L 10/25/16 17:54 Est GFR ( Amer) > 60 (> 60) 10/25/16 17:54 Est GFR (Non-Af Amer) > 60 (> 60) 10/25/16 17:54 BUN/Creatinine Ratio 28 (6-26) H 10/25/16 17:54 Glucose 89 mg/dL (70-99) 10/25/16 17:54 Calculated Osmolality 296 (280-300) 10/25/16 17:54 Calcium 8.9 mg/dL (8.6-10.8) 10/25/16 17:54 Troponin I 0.00 ng/mL (0-0.03) 10/25/16 17:54 Urine Color Yellow (Yellow) 10/25/16 18:47 Urine Clarity Clear (Clear) 10/25/16 18:47 Urine pH 5.5 pH Units (5.0-8.0) 10/25/16 18:47 Ur Specific [place] 1.021 (1.010-1.025) 10/25/16 18:47 Urine Protein Negative mg/dL (Neg-Trace) 10/25/16 18:47 Urine Glucose (UA) Normal mg/dL (Normal) 10/25/16 18:47 Urine Ketones Negative mg/dL (Negative) 10/25/16 18:47 Urine Blood Negative (Negative) 10/25/16 18:47 Urine Nitrite Negative (Negative) 10/25/16 18:47 Urine Bilirubin Negative (Negative) 10/25/16 18:47 Urine Urobilinogen Normal mg/dL (Normal) 10/25/16 18:47 Ur Leukocyte Esterase Negative (Negative) 10/25/16 18:47 Ur Culture Indicated? NO (NO) 10/25/16 18:47 Impressions Chest X-Ray 10/25/16 17:42 IMPRESSION: 1. Ill-defined opacity in the left upper lobe corresponds with part solid nodularity at increased in size 08/03/2012 to 11/14/2015. While this could be infectious or inflammatory in etiology, the findings are suspicious for malignancy. Consider further evaluation with chest CT on a nonemergent basis. 2. Emphysema. D/ / Efraín Pineda MD / Efraín Pineda MD Interpreting Provider: Efraín Pineda MD Head CT 10/25/16 18:05 IMPRESSION: No acute intracranial abnormality. D/ / Natanael Hare MD / Natanael Hare MD Interpreting Provider: Natanael Hare MD
[2016-10-26] MEDS: 0.9 % Sodium Chloride 1,000 ML IVC SCH ×2 (00:02→20:48)
[2016-10-26] MEDS: Acetaminophen 325 MG TABLET PO PRN ×2 (00:08→06:07)
[2016-10-26 00:20] LABS: Hematocrit 42.7 % (35.3-44.9); Hemoglobin 13.4 g/dL (11.5-15.4); Mean Corpuscular HGB Conc 31.4 g/dL (31.6-35.5); Mean Corpuscular Hemoglobin 31.8 pg (28.0-33.3); Mean Corpuscular Volume 101.2 fL (83.0-100.0); Mean Platelet Volume 9.2 fL (9.4-12.4); Platelet Count 212 K/mcL (140-400); Red Blood Count 4.22 M/mcL (3.82-4.97); Red Cell Distribution Width 13.8 % (11.5-14.5)
[2016-10-26 00:21] LABS: VBG HCO3 37.9 mEq/L (21-27); VBG PH 7.36 pH Units (7.32-7.42)
[2016-10-26 00:27] LABS: Ionized Calcium 1.23 mmol/L (1.15-1.35)
[2016-10-26 00:41] LABS: Alanine Aminotransferase 29 Units/L (0-55); Albumin 3.4 g/dL (3.5-5.0); Albumin/Globulin Ratio 1.1 (1.1-2.2); Alkaline Phosphatase 63 Units/L (38-126); Aspartate Amino Transferase 22 Units/L (5-34); BUN/Creatinine Ratio 22 (6-26); Bilirubin,Total 0.2 mg/dL (0.2-1.2); Blood Urea Nitrogen 14 mg/dL (7-20); Calcium 9.7 mg/dL (8.6-10.8); Carbon Dioxide 33 mEq/L (19-29); Chloride 105 mEq/L (98-109); Chol/HDL Ratio 2.9 (0-4.9); Cholesterol 146 mg/dL (< 200); Globulin 3.2 g/dL (2.4-3.5); Glucose 93 mg/dL (70-99); HDL Cholesterol 51 mg/dL (40-59); LDL Cholesterol,Calculated 71 mg/dL (0-99); Magnesium 1.8 mg/dL (1.6-2.6); Osmolality,Calculated 300 (280-300); Phosphorous 4.3 mg/dL (2.3-4.7); Potassium 4.4 mEq/L (3.5-4.5); Sodium 145 mEq/L (136-145); Total Protein 6.6 g/dL (6.0-8.3); Triglycerides 118 mg/dL (< 150); eGFR For African Americans > 60 (> 60); eGFR For Non-African Americans > 60 (> 60)
[2016-10-26 00:42] LABS: Prothrombin Time 10.7 Seconds (9.4-12.1)
[2016-10-26 00:45] LABS: Activated Partial Thrombo Time 31.2 Seconds (26.0-36.0)
[2016-10-26 00:54] LABS: Thyroid Stimulating Hormone 1.633 mcIU/mL (0.350-4.840)
[2016-10-26 01:16] LABS: Prolactin 9.15 ng/mL (5.18-26.53)
[2016-10-26 01:45] LABS: Folate 9.7 ng/mL (7.0-31.4)
[2016-10-26] MEDS: *HR* Enoxaparin 40 MG/0.4 ML SYRINGE SQ SCH (06:07)
[2016-10-26] MEDS: Sucralfate 1 GM TABLET PO SCH ×2 (08:55→17:26)
[2016-10-26] MEDS: Aspirin Enteric Coated 81 MG Tablet PO SCH (08:55)
--- NOTE | 2016-10-26 10:01 | ECHO - Doppler Report ---
Echo with Saline Contrast Name: Alee Chang Date of Study: 10/26/2016 Date: 1935 Ht: 64.0 in Medical Record#: [id number] Age: 80 Wt: 84.0 lb Gender: Female BSA: 1.35 Order #: [id number] Location: [facility] Room #: [id number] Reading Physician: Efraín Rizo MD, [facility] Sales Support Administrator: Jana Torres RVT, [facility] Ordering Physician: Edilberto Evans MD Primary Physician: Claribel Leary MD Indications: Transient Ischemic Attack Impressions: Normal LV systolic function, LVEF 65%. Normal left ventricular diastolic function. Normal right ventricular size and function. No significant valvular dysfunction. No evidence of pulmonary hypertension. No evidence of intracardiac shunting with agitated saline contrast. Left Ventricular Wall Motion: Rest Echo Findings All wall segments showed normal motion. Findings: Study Quality * Suboptimal echo windows. ECG Findings * Normal sinus rhythm. Left Ventricle * Normal LV systolic function, LVEF 65%. * Normal LV chamber size and wall thickness. * Normal left ventricular diastolic function. Right Ventricle * Normal right ventricular size and function. Left Atrium * Normal left atrial size. Right Atrium * Normal right atrial size. Interatrial Septum * No evidence of intracardiac shunting with agitated saline contrast. Aorta * Normally sized aortic root. Pericardium * There is no pericardial effusion present. IVC * Normal IVC dimensions and inspiratory collapse. Aortic Valve * Aortic valve not well visualized. Appears mild-moderately sclerotic. * No aortic stenosis. * Trace aortic regurgitation. Mitral Valve * Mildly thickened mitral valve leaflets. * No mitral stenosis. * Trace mitral regurgitation. Tricuspid Valve * Normal tricuspid valve structure. * No tricuspid stenosis. * Trace tricuspid regurgitation. * No evidence of pulmonary hypertension. Pulmonic Valve * Pulmonic valve not well visualized. * No pulmonic stenosis. * Trace pulmonic regurgitation. History Hypertension Hypercholesteremia History of CAD/PTCA Myocardial Infarction 08-25-2016 a Previous Echo was performed. Contrast: Agitated saline 20 ml. Measurements: BP: 103/ 66 2D Normal Values RVIDd: 2.00 cm IVSd: 1.00 cm 0.6 - 1.0 cm LVIDd: 3.50 cm 3.7 - 5.6 cm LVPWd: 1.00 cm 0.6 - 1.1 cm LVIDs: 1.90 cm 1.5 - 3.6 cm AO: 2.90 cm < 4.0 cm LA volume: 34 Mitral Valve Peak E:.80 m/sec Peak A:.50 m/sec E/A Ratio:1.6 Peak E' Lat Joe:14.3 cm/s Peak E' Med Joe:10.2 cm/s E/E' Lat Ratio:5.6 E/E' Med Ratio:7.8 Tricuspid Valve TV Regurg Peak Grad: 27.00mmHg TV Regurg Peak Joe: 2.59m/sec Updated by fEraín Rizo MD, [facility] on 10/26/2016 9:56:04 AM electronically signed on 10/26/2016 9:56:30 AM with status of Final Wall Motion Bryant: 1=Normal, 2=Hypokinesis, 3=Akinesis, 4=Dyskinesis, 5=Aneurysmal, 6=Hyperkinetic, X=Not Visualized (Blank)=Missing
[2016-10-26] MEDS: Tiotropium 18 MCG inhalation IH SCH ×2 (11:42→11:55)
[2016-10-26] MEDS: *HR* OxyCODONE Immed Rel 5 MG TABLET PO PRN (12:01)
[2016-10-26] MEDS: Ondansetron 4 MG/2 ML VIAL IVP PRN (13:20)
[2016-10-26] MEDS ORDERED: Ketorolac 15 MG/ML VIAL IM ONE (16:13)
[2016-10-26] MEDS ORDERED: Ketorolac 15 MG/ML VIAL IVP ONE (16:14)
--- NOTE | 2016-10-26 16:55 | Internal Med Progress Note ---
Date of Encounter: 10/26/16 Time of Encounter: 09:10 - Assessment and plan (1) TIA (transient ischemic attack) Current Visit: Yes Status: Acute Assessment and plan: Patient was admitted last night for evaluation of possible TIA area she said that yesterday she was in her kitchen at a rolling chair looking into her refrigerator for something to eat. She said she stood up and could not move. Both of her legs were numb. She does specified that both legs not only 1 and 1 was not worse than the other. She says that she got to her Rollator walker and made it to the couch. She said her legs felt extremely weak and numb and she also reports right arm numbness at that time too. She said all this has disappeared. She does appear to be overall deconditioned frail and weak but her grasps and leg strength are equal bilaterally. Echocardiogram was done today that shows normal systolic function with an LVEF of 65%, normal left ventricular diastolic dysfunction. No significant valvular dysfunction. No evidence of pulmonary hypertension. No evidence of intracardiac shunting with agitated saline contrast. Head CT is negative for any acute intracranial abnormality. The [place]-white differentiation is maintained without evidence of acute infarct. There is global parenchymal volume loss and chronic microvascular ischemic changes. Carotid duplex was done in July of this year. Bilateral mid ICA with moderate 40-59% stenosis. MRI/MRA head and neck still pending and will not be done until tomorrow. Continue to monitor patient Telemetry Neuro checks Qualifiers: Transient cerebral ischemia type: unspecified Qualified Code(s): G45.9 - Transient cerebral ischemic attack, unspecified (2) Weakness Current Visit: No Status: Acute Assessment and plan: Patient reports feeling weak yesterday when she is trying to walk from the kitchen to the living room, even with her walker. Even though she is weak, her grasps and strength against resistance are equal bilaterally. She is frail and appears to be deconditioned. Physical therapy, occupational therapy consult. (3) CAD (coronary artery disease) Current Visit: Yes Status: Chronic Assessment and plan: Chronic. Continue aspirin and statin. I do not see a current stress test. Qualifiers: Coronary Disease-Associated Artery/Lesion type: [place] artery [place] vs. transplanted heart: [place] heart Associated angina: angina presence unspecified Qualified Code(s): I25.10 - Atherosclerotic heart disease of [place] coronary artery without angina pectoris (4) COPD (chronic obstructive pulmonary disease) Current Visit: Yes Status: Chronic Assessment and plan: Well-controlled. No acute exacerbation. Continue medications. Qualifiers: COPD type: unspecified COPD Qualified Code(s): J44.9 - Chronic obstructive pulmonary disease, unspecified (5) Malnutrition Current Visit: No Status: Acute Assessment and plan: Patient is cachectic. BMI is 14.5. Consult nutrition for supplementation. (6) Cachexia Current Visit: Yes Status: Acute Assessment and plan: Plan as above (7) GERD (gastroesophageal reflux disease) Current Visit: No Status: Acute Assessment and plan: Chronic. Continue home medications. Qualifiers: Esophagitis presence: with esophagitis Qualified Code(s): K21.0 - Gastro- esophageal reflux disease with esophagitis (8) Frail elderly Current Visit: Yes Status: Acute (9) Headache Current Visit: Yes Status: Acute Assessment and plan: Patient reports that she has had the same headaches daily since she was 18 years old. They are chronic. She says that she has tried everything for these headaches and nothing ever makes them better. She is to get a neck injection within the next few days. She says she is having a headache today that is located on the right side of her head which is unchanged from her normal. She does have nausea and vomiting with these headaches per her history. I did give her Benadryl 25 mg IV and Toradol 15 mg IV and will reassess. Qualifiers: Headache type: other headache syndrome Qualified Code(s): G44.89 - Other headache syndrome - Time Spent With Patient less than 15 minutes - Subjective Interval history: Patient resting quietly and darkened room. She says that she has a right-sided headache which is normal for her it is no different than any other headache she has had in the past. The onset of these headaches was when she was age 18. Patient reports that yesterday she was in a rolling dining chair looking into the refrigerator to find what she wanted. She said that she stood up and could not move. She said her legs were numb. She says both legs were equally as numb and not one was worse than the other. She said that she finally did manage to get up and went to her counts with the Rollator walker that she has. She also reports right arm numbness which has resolved. She says that her legs have also resolved. Patient is legally blind she reports that she has had diarrhea for the last month intermittently not every day, not even every other day. She denies any cramping or blood. She was treated for pneumonia and suspected C. difficile at the end of July of this year. C. difficile was negative and antibiotics were DC'd. Abdomen is soft and nontender sounds are present. - Constitutional Vitals: Temp Pulse Resp BP Pulse Ox 98.0 F 81 18 101/62 82 10/26/16 15:10 10/26/16 15:10 10/26/16 15:10 10/26/16 15:10 10/26/16 15:10 General appearance: Present: cachectic, cooperative, A&O X 3, pleasant, no acute distress, underweight, answers questions appropriately - Head Head exam: Present: normal inspection - Eye Eye exam: Present: normal appearance, conjuntiva pink. Absent: nystagmus - ENT ENT exam: Present: mucous membranes moist, normal exam - Neck Neck exam general surgery: Present: normal inspection. Absent: lymphadenopathy , tenderness - Respiratory Respiratory exam: Present: CTAB. Absent: rales, rhonchi, stridor, wheezes - Cardiovascular Cardiovascular exam: Present: RRR, +S1, +S2. Absent: diastolic murmur, systolic murmur - GI/Abdominal GI/Abdominal exam: Present: distended, normal bowel sounds, soft. Absent: hepatomegaly, tenderness - Extremities Exam Extremities exam: Present: normal capillary refill, normal inspection, warm, radial pulses palpable and symetrical. Absent: pedal edema, tenderness - Neurological Exam Neurological exam: Present: alert, oriented X3, no focal deficits, strengths equal and symetr throughout. Absent: pronater drift, facial droop, speech deficit Internal Medicine: Result - Labs CBC & Chem 7: 10/26/16 00:13 10/26/16 00:13 Labs: Short CBC 10/26/16 Range/Units 00:13 WBC 7.5 (4.3-11.1) K/mcL Hgb 13.4 (11.5-15.4) g/dL Hct 42.7 (35.3-44.9) % Plt Count 212 (140-400) K/mcL BMP 10/26/16 00:13 Sodium 145 Potassium 4.4 Chloride 105 Carbon Dioxide 33 H BUN 14 Creatinine 0.63 Glucose 93 Calcium 9.7 Cardiac Enzymes 10/26/16 10/26/16 10/26/16 Range/Units 00:13 05:54 12:04 Troponin I 0.00 0.00 0.00 (0-0.03) ng/mL Liver Function 10/26/16 Range/Units 00:13 Total Bilirubin 0.2 (0.2-1.2) mg/dL AST 22 (5-34) Units/L ALT 29 (0-55) Units/L Alkaline Phosphatase 63 (38-126) Units/L Albumin 3.4 L (3.5-5.0) g/dL - ABG Interpretation ABG results: PT/INR, D-dimer PT 10.7 Seconds (9.4-12.1) 10/26/16 00:13 Consult Discharge Plan - Plan Referrals: Claribel Leary MD [Primary Care Provider] -
--- NOTE | 2016-10-26 17:55 | Electrocardiograph Report ---
[address] [address] Test Date: 2016-10-25 Pat Name: Alee Chang Department: 102 Room: 3B22 Gender: F Slip Presser: : 1935 Requested By: Tim Stuart Order Number: [id number] Reading MD: Fior Chahal Measurements Intervals [place] Rate: 63 P: 80 [place]: 132 QRS: 77 QRSD: 94 T: 78 QT: 403 QTc: 409 Interpretive Statements SINUS RHYTHM POSSIBLE RIGHT ATRIAL ENLARGEMENT LEFT ATRIAL ENLARGEMENT INCOMPLETE RIGHT BUNDLE BRANCH BLOCK POSSIBLE LEFT VENTRICULAR HYPERTROPHY Electronically Signed On 10-26-2016 17:54:01 EDT by Fior Chahal
[2016-10-27] MEDS: Acetaminophen 325 MG TABLET PO PRN (00:57)
[2016-10-27 03:49] LABS: Basophils % 0.3 %; Eosinophils # 0.2 K/mcL (0.0-0.6); Eosinophils % 1.6 %; Hematocrit 37.5 % (35.3-44.9); Immature Granulocytes % 0.3 % (0-4); Lymphocytes # 1.8 K/mcL (0.6-4.6); Lymphocytes % 19.3 %; Mean Corpuscular Hemoglobin 32.5 pg (28.0-33.3); Mean Corpuscular Volume 101.6 fL (83.0-100.0); Mean Platelet Volume 9.7 fL (9.4-12.4); Monocytes # 0.6 K/mcL (0.0-1.3); Monocytes % 6.2 %; Neutrophils # 6.8 K/mcL (1.6-8.9); Platelet Count 213 K/mcL (140-400); Red Blood Count 3.69 M/mcL (3.82-4.97); Red Cell Distribution Width 13.7 % (11.5-14.5); Segmented Neutrophils % 72.3 %
[2016-10-27 03:59] LABS: Hemoglobin A1C 5.1 %
[2016-10-27 04:03] LABS: BUN/Creatinine Ratio 25 (6-26); Blood Urea Nitrogen 13 mg/dL (7-20); Calcium 8.7 mg/dL (8.6-10.8); Carbon Dioxide 31 mEq/L (19-29); Chloride 105 mEq/L (98-109); Glucose 100 mg/dL (70-99); Osmolality,Calculated 294 (280-300); Potassium 3.6 mEq/L (3.5-4.5); Sodium 142 mEq/L (136-145); eGFR For African Americans > 60 (> 60); eGFR For Non-African Americans > 60 (> 60)
[2016-10-27 04:22] LABS: Triiodothyronine (T3) Free 1.9 pg/mL (1.71-3.71)
[2016-10-27] MEDS: *HR* Enoxaparin 40 MG/0.4 ML SYRINGE SQ SCH (04:37)
[2016-10-27] MEDS: *HR* OxyCODONE Immed Rel 5 MG TABLET PO PRN (04:38)
[2016-10-27] MEDS: Tiotropium 18 MCG inhalation IH SCH (07:47)
[2016-10-27] MEDS: Aspirin Enteric Coated 81 MG Tablet PO SCH (08:30)
[2016-10-27] MEDS: Sucralfate 1 GM TABLET PO SCH (08:30)
[2016-10-27] MEDS: Ondansetron 4 MG/2 ML VIAL IVP PRN (08:31)
[2016-10-27 10:40] VITALS: BP 108/67
[2016-10-27] MEDS ORDERED: Ketorolac 15 MG/ML VIAL IVP ONE (10:43)
--- NOTE | 2016-10-27 17:35 | Discharge Summary ---
Date of Encounter: 10/27/16 Time of Encounter: 08:45 - Discharge Diagnosis (1) TIA (transient ischemic attack) Priority: Primary Status: Acute Comments: Patient was admitted on the night of 42 for evaluation of possible TIA. She said that she was in her kitchen in a rolling kitchen chair, looking into her refrigerator for something to eat. She said she stood up and could not move. She reported that both of her legs were numb. She said she normally has weakness and pain in both her legs, however she has never had numbness before. She was able to reach her [place] her walker and mated to the couch. He said that her legs felt extremely weak as per normal and this time without numb and she also reported right arm numbness at that time too. She reports complete resolution of symptoms and says that she has been ready to go home, however we have waited extensively for MRI and MRA. she is overall deconditioned, frail, and weak, but she is neurologically intact grasped and leg strength are strong and equal bilaterally. Facial movements are symmetrical as is tongue protrusion. EOMI, PERRLA, speech is clear. Patient had an echocardiogram that showed normal systolic function with an LVEF of 65%, normal left ventricular diastolic dysfunction, no significant valvular dysfunction, no evidence of pulmonary hypertension, no evidence of intracardiac shunting with agitated saline contrast. Her head CT was also negative for any acute intracranial abnormality. [place]- white differentiation is maintained without evidence of acute infarct. There is global parenchymal volume loss and chronic microvascular ischemic changes on the head CT. Patient had a carotid duplex was done in July of this year and it showed bilateral mid ICA with moderate 40-59% stenosis. MR angiogram neck showed no acute intracranial abnormality, mild chronic white matter microvascular ischemic changes, normal MRA of the head. There is moderate stenosis at the origin of the left ICA, no right ICA stenosis, moderate stenosis of the origin of the left vertebral artery and normal right vertebral artery. Qualifiers: Transient cerebral ischemia type: unspecified Qualified Code(s): G45.9 - Transient cerebral ischemic attack, unspecified (2) Weakness Priority: Secondary Status: Chronic Comments: Patient reports chronic weakness to bilateral legs. She is frail and cachectic. Patient was evaluated by physical therapy today and found to have new needs. She is able to get around her home walker. She lives with her . (3) CAD (coronary artery disease) Priority: Secondary Status: Chronic Comments: Chronic. 2 new aspirin and statin. Qualifiers: Coronary Disease-Associated Artery/Lesion type: [place] artery [place] vs. transplanted heart: [place] heart Associated angina: angina presence unspecified Qualified Code(s): I25.10 - Atherosclerotic heart disease of [place] coronary artery without angina pectoris (4) COPD (chronic obstructive pulmonary disease) Priority: Secondary Status: Chronic Comments: No acute exacerbation at this time. It is well controlled at home. Continue home medications. Qualifiers: COPD type: unspecified COPD Qualified Code(s): J44.9 - Chronic obstructive pulmonary disease, unspecified (5) Malnutrition Priority: Secondary Status: Acute Comments: Albumin is low, as is BUN. Patient states that she finally has an appetite and that she has been trying to eat more at home. She does have Ensure shakes at home. I will send patient a prescription for Ensure shakes and a multivitamin. (6) Cachexia Priority: Secondary Status: Chronic (7) GERD (gastroesophageal reflux disease) Priority: Secondary Status: Chronic Comments: Chronic. Patient denied complaints during inpatient stay. Continue home medications Qualifiers: Esophagitis presence: with esophagitis Qualified Code(s): K21.0 - Gastro- esophageal reflux disease with esophagitis (8) Frail elderly Priority: Secondary Status: Chronic (9) Headache Priority: Secondary Status: Chronic Comments: Patient states that she has daily headaches. She did appear to get some relief finally and rated her pain a 2 out of 10 after getting 15 mg of Toradol IV at 12 and half milligrams of Benadryl IV. He denies any vision changes or nausea vomiting. She says that the headaches began when she was 18 years old and she has been evaluated multiple times over the years. She states that now she is getting injections by Dr. Roach and was to have that done today. Qualifiers: Headache type: other headache syndrome Qualified Code(s): G44.89 - Other headache syndrome - Discharge Medications Prescriptions: Lactose-Reduced Food [Ensure High Protein] 1 bottle PO TID #90 can Multivitamin [Multivitamins] 1 each PO DAILY #60 capsule Home Medications: Diazepam [Valium] 5 mg PO BID PRN 11/11/15 [History] Potassium Chloride [K-Tab ER] 20 meq PO BID 11/11/15 [History] Simvastatin [Zocor] 40 mg PO HS 11/11/15 [History] Aspirin Enteric Coated [Aspirin EC] 81 mg PO DAILY 02/01/16 [History] Propranolol [Inderal] 10 mg PO BID 02/01/16 [History] Docusate [Colace] 100 mg PO BID PRN #30 capsule 02/08/16 [Rx] Ascorbic Acid [Vitamin C] 1,000 mg PO DAILY 08/24/16 [History] Calcium Carbonate [Calcium] 500 mg PO DAILY 08/24/16 [History] Cholecalciferol (D-3) [Vitamin D] 1,000 unit PO DAILY 08/24/16 [History] Cyanocobalamin (B-12) [Vitamin B12] 1,000 mcg IM QMONTH 08/24/16 [History] Ferrous Sulfate [Iron] 325 mg PO DAILY 08/24/16 [History] Nitroglycerin [Nitrostat] 0.4 mg SL AD PRN 08/24/16 [History] [place]-3/Dha/Epa/Fish Oil [Fish Oil 1,000 mg Softgel] 1,000 mg PO BID 08/24/16 [ History] Omeprazole [PriLOSEC] 40 mg PO DAILY 08/24/16 [History] Tiotropium [Spiriva] 18 mcg IH DAILY 08/24/16 [History] Zoledronic Acid (Reclast) [Reclast 5 MG/100 ML] 5 mg IV Q12M 08/24/16 [History] Ipratropium/Albuterol Neb [Duoneb] 3 ml IH QID PRN #0 08/25/16 [Rx] Lactose-Reduced Food [Ensure High Protein] 1 bottle PO TID #90 can 10/27/16 [Rx] Multivitamin [Multivitamins] 1 each PO DAILY #60 capsule 10/27/16 [Rx] Sucralfate [Carafate] 1 gm PO 0730,1630 #0 tablet 10/27/16 [Rx] Allergies/Adverse Reactions: Allergies No Known Drug Allergies Allergy (Verified 03/07/15 16:22) See Comments Procedures/tests Complete & Pending: Procedures Performed prior 72 hours Category Date Time Status MR angio head wo con [MR] Routine MRI 10/27/16 12:30 Completed MR angio neck wo/w con [MR] Routine MRI 10/27/16 12:30 Completed MR head/brain wo con [MR] Routine MRI 10/27/16 12:30 Completed EV echocardiogram Routine Y 10/26/16 07:00 Completed Date of admission: 10/25/16 20:29 Primary care physician: Claribel Leary Consults: 10/25/16 22:21 Consult to Occupational Therapy [CONS] Routine Comment: Evaluate, develop and implement POC Consult to Physical Therapy [CONS] Routine Comment: Evaluate, develop and implement POC 10/26/16 17:14 consult to refrigerator repair technician [Consult to Nutrition] [CONS] Routine Comment: Consulting Provider: NUTRITION Reason for Dietary Consult: PO Supplementation Discharging clinician: Rosa Kilpatrick Anticipated date of discharge: 10/27/16 - Patient Status Disposition: Home, Self-Care Functional capacity at discharge: uses cane/walker Overall status at discharge: patient is back to baseline - Discharge Instructions Follow Up With: Claribel Leary MD [Primary Care Provider] - Additional Instructions: Take your normal home medications Drink your Ensure shakes 3 times daily Follow up with your primary care physician within the next week to 10 days for a follow up visit. Return to the ER for any change in your condition or for any new problems or complaints. - Diet and Activity Activity: ambulate only with your walker Diet: advance to your usual diet Hospital course: Ms. Chang is a 80 year old female with significant medical history for old CVA with right hemiparesis, TIAs, hypertension, hyperlipidemia, degenerative disc disease of this, coronary artery disease with stents, AL, COPD, failure to thrive. Patient was admitted through the emergency department on October 25 from home where she lives with her . She normally walks with a roller walker. She says that she was in a rolling kitchen chair at home and was looking into the refrigerator at 578, when she was done she could not stand. She said her bilateral legs were non-and she was unable to walk. Somehow, she got her walker and mated to the couch. At this time she also reported right arm weakness. She denies any vision changes, facial droop, confusion, slurred speech. She was able to speak to her who called the emergency squad for her to bring her to the hospital. Head CT was negative for acute changes, chronic changes were noted. Chest x- ray was negative for any acute cardiopulmonary disease, but she does have a pulmonary nodule that is increased in size since 2012. Says it is suspicious for malignancy and I will give her an order to follow-up outpatient. Her troponins were negative. Vital signs are stable. She remained afebrile without leukocytosis. EKG was normal sinus rhythm without any signs of ischemia. Her urinalysis was negative. MR angiogram of head was done today. There is no acute intracranial abnormality. There is mild chronic white matter microvascular ischemic changes. This is a normal MRA of the head/neck. There is moderate stenosis at the origin of the left internal carotid artery, no right internal carotid artery stenosis. There is moderate stenosis at the origin of the left vertebral artery. Normal right vertebral artery. This is congruent with carotid Doppler findings from July of this year. Patient is malnourished and cachectic, both by lab results and appearance. BMI is 14.8. She says that she has been trying to eat more at home and finally has an appetite. I have written a prescription for Ensure shakes 3 times a day and a multivitamin. I did consult for nutrition to see her, however I am unaware if the make contact or not and I am unable to find a note. Patient is neurologically intact. Her grasps are strong and equal bilaterally. Tongue protrusion and facial movements are symmetrical. EOMI and PERRLA. Her speech is clear. She does have chronic headaches since the age of 18. She has been getting injections and was to have one today by Dr. Roach. She will need to reschedule the appointment. She did get relief from Toradol and Benadryl IV. She denies change in her headaches, no change in severity frequency or intensity. Her labs have remained stable, iron and percent saturation were low today. Only slightly decreased in hemoglobin is within normal limits. Her vital signs have remained stable. Patient is ready to go home, we were primarily waiting on MRA and MRI results to discharge. is here with patient. Patient is stable for discharge. - Time Spent with Patient Total time spent providing and/or coordinating discharge services: Less than 30 minutes - Constitutional Vitals: Temp Pulse Resp BP Pulse Ox 97.4 F L 56 16 108/67 99 10/27/16 10:35 10/27/16 10:35 10/27/16 10:35 10/27/16 10:35 10/27/16 10:35 General appearance: Present: cachectic, cooperative, A&O X 3, pleasant, no acute distress, underweight, answers questions appropriately - Head Head exam: Present: normal inspection - Eye Eye exam: Present: EOMI, normal appearance, PERRL, conjuntiva pink. Absent: nystagmus - ENT ENT exam: Present: mucous membranes moist, normal exam, normal external ear exam - Neck Neck exam general surgery: Present: normal inspection. Absent: lymphadenopathy , tenderness - Respiratory Respiratory exam: Present: CTAB. Absent: decreased breath sounds, rales, respiratory distress, rhonchi, wheezes - Cardiovascular Cardiovascular exam: Present: RRR, +S1, +S2. Absent: diastolic murmur, systolic murmur - GI/Abdominal GI/Abdominal exam: Present: normal bowel sounds, soft. Absent: distended, hepatomegaly, pulsatile mass, tenderness - Extremities Exam Extremities exam: Present: normal capillary refill, normal inspection, warm, radial pulses palpable and symetrical. Absent: mottling, pedal edema, tenderness - Neurological Exam Neurological exam: Present: alert, oriented X3, no focal deficits, strengths equal and symetr throughout. Absent: motor sensory deficit, pronater drift, facial droop, speech deficit
--- NOTE | 2016-10-27 19:15 | Physician Discharge Referral ---
Home Health/Hosp Referral Info Provider in Charge Post Discharge: PCP - Diagnosis (1) TIA (transient ischemic attack) Status: Acute (2) Weakness Priority: Secondary Status: Chronic (3) CAD (coronary artery disease) Priority: Secondary Status: Chronic (4) COPD (chronic obstructive pulmonary disease) Priority: Secondary Status: Chronic (5) Malnutrition Status: Acute (6) Cachexia Priority: Secondary Status: Chronic (7) GERD (gastroesophageal reflux disease) Priority: Secondary Status: Chronic (8) Frail elderly Priority: Secondary Status: Chronic (9) Headache Priority: Secondary Status: Chronic - Respiratory Orders Oxygen / L per min (2L n/c) Smoking Cessation: Smoking cessation has been advised. For more information, call the [place] Tobacco Quit Line at 5-805-YIYU-NOW. - Diet/Nutrition Diet/Nutrition Orders: Regular - Activity Activity Orders: Up ad santo, Walker - Services Needed Following services are medically necessary services: Home Health Aide, Physical Therapy, Occupational Therapy - Transfer Medications Prescriptions: Lactose-Reduced Food [Ensure High Protein] 1 bottle PO TID #90 can Multivitamin [Multivitamins] 1 each PO DAILY #60 capsule Home Medications: Diazepam [Valium] 5 mg PO BID PRN 11/11/15 [History] Potassium Chloride [K-Tab ER] 20 meq PO BID 11/11/15 [History] Simvastatin [Zocor] 40 mg PO HS 11/11/15 [History] Aspirin Enteric Coated [Aspirin EC] 81 mg PO DAILY 02/01/16 [History] Propranolol [Inderal] 10 mg PO BID 02/01/16 [History] Docusate [Colace] 100 mg PO BID PRN #30 capsule 02/08/16 [Rx] Ascorbic Acid [Vitamin C] 1,000 mg PO DAILY 08/24/16 [History] Calcium Carbonate [Calcium] 500 mg PO DAILY 08/24/16 [History] Cholecalciferol (D-3) [Vitamin D] 1,000 unit PO DAILY 08/24/16 [History] Cyanocobalamin (B-12) [Vitamin B12] 1,000 mcg IM QMONTH 08/24/16 [History] Ferrous Sulfate [Iron] 325 mg PO DAILY 08/24/16 [History] Nitroglycerin [Nitrostat] 0.4 mg SL AD PRN 08/24/16 [History] [place]-3/Dha/Epa/Fish Oil [Fish Oil 1,000 mg Softgel] 1,000 mg PO BID 08/24/16 [ History] Omeprazole [PriLOSEC] 40 mg PO DAILY 08/24/16 [History] Tiotropium [Spiriva] 18 mcg IH DAILY 08/24/16 [History] Zoledronic Acid (Reclast) [Reclast 5 MG/100 ML] 5 mg IV Q12M 08/24/16 [History] Ipratropium/Albuterol Neb [Duoneb] 3 ml IH QID PRN #0 08/25/16 [Rx] Lactose-Reduced Food [Ensure High Protein] 1 bottle PO TID #90 can 10/27/16 [Rx] Multivitamin [Multivitamins] 1 each PO DAILY #60 capsule 10/27/16 [Rx] Sucralfate [Carafate] 1 gm PO 0730,1630 #0 tablet 10/27/16 [Rx] Allergies/Adverse Reactions: Allergies No Known Drug Allergies Allergy (Verified 03/07/15 16:22) See Comments Certification: Further, I certify that my clinical findings support that this patient is homebound (i.e. absences from home require considerable and taxing effort and are for medical reasons or taoist services or infrequently or short duration when for other reasons) because: Homebound Reason: Patient requires assistance of a person or device to safely leave home Attestation: My signature below is to certify that this patient is under my care and that I, or nurse practitioner, or a physician's patient assistant working with me, has a face-to -face encounter with this patient.
== END 2016-10-27 18:46 | disposition home or self-care (01) ==
LOC: 3BNU 17:03 → EMEROO 17:03 → 3BNU 21:28
PROVIDERS: ADMIT Internal Medicine; ATTEND Registered Nurse

== ENCOUNTER 2017-08-17 14:57 | Observation (INO) ==
[2017-08-17] MEDS ORDERED: 0.9 % Sodium Chloride 1,000 ML IVC ONE (15:38)
[2017-08-17 15:43] LABS: Basophils % 0.3 %; Eosinophils # 0.3 K/mcL (0.0-0.6); Eosinophils % 3.9 %; Hemoglobin 13.2 g/dL (11.5-15.4); Immature Granulocytes % 0.2 % (0-4); Lymphocytes # 1.8 K/mcL (0.6-4.6); Lymphocytes % 27.1 %; Mean Corpuscular HGB Conc 32.2 g/dL (31.6-35.5); Mean Corpuscular Hemoglobin 32.9 pg (28.0-33.3); Mean Corpuscular Volume 102.2 fL (83.0-100.0); Mean Platelet Volume 9.8 fL (9.4-12.4); Monocytes # 0.6 K/mcL (0.0-1.3); Monocytes % 8.3 %; Platelet Count 177 K/mcL (140-400); Red Blood Count 4.01 M/mcL (3.82-4.97); Red Cell Distribution Width 12.9 % (11.5-14.5); Segmented Neutrophils % 60.2 %
[2017-08-17 15:59] LABS: BUN/Creatinine Ratio 29 (6-26); Blood Urea Nitrogen 14 mg/dL (8-23); Calcium 9.1 mg/dL (8.6-10.3); Carbon Dioxide 35 mEq/L (23-29); Chloride 105 mEq/L (98-107); Glucose 86 mg/dL (70-105); Osmolality,Calculated 296 (280-300); Potassium 4.4 mEq/L (3.5-5.1); Sodium 143 mEq/L (136-145); eGFR For African Americans > 60 (> 60); eGFR For Non-African Americans > 60 (> 60)
--- NOTE | 2017-08-17 16:57 | Emergency Department Note ---
Disposition Clinical Impression: Dehydration, Failure to thrive, Cachexia Disposition: Admitted As Inpatient Condition: Fair Forms: ED Satisfaction Letter Time of Disposition: 17:19 Syncope HPI - General Chief Complaint: ED Syncope Stated Complaint: cristofer, syncope Time Seen by Provider: 08/17/17 15:02 Source: family Nursing Notes Reviewed: Yes Vital Signs Reviewed: Yes - History of Present Illness HPI Narrative: MS Chang is a 81 yo F presents today due to syncopal episode. Hx gathered from and daughter. Patient was witnessed "blacking out" and caught by daughter. Daughter reports that patient did not hit their head, but did lose consciousness. Soon after patient started convulsing. She's had previous workup for seizures, and has been told that she does not have seizures. Daughter denies patient lost bladder or bite tongue. This episode of convulsion lasted for a couple of minutes, and was not witnessed by the time squad found patient. Patient drinks water but consumes very little food. Patient has been admitted multiple times in the past for syncopal and near syncopal episodes. Family denies patient has had recent sick contact, fever, chills, nausea, vomiting, diarrhea. - Related Data Home Medications Medication Instructions Recorded Confirmed Potassium Chloride [K-Tab ER] 20 meq PO BID 11/11/15 07/21/17 Simvastatin [Zocor] 40 mg PO HS 11/11/15 07/21/17 diazePAM [Valium] 5 mg PO BID PRN 11/11/15 07/21/17 Aspirin Enteric Coated [Aspirin EC] 81 mg PO DAILY 02/01/16 07/21/17 Propranolol [Inderal] 10 mg PO BID 02/01/16 07/21/17 Ascorbic Acid [Vitamin C] 1,000 mg PO DAILY 08/24/16 07/21/17 Calcium Carbonate [Calcium] 500 mg PO DAILY 08/24/16 07/21/17 Cholecalciferol (D-3) [Vitamin D] 1,000 unit PO DAILY 08/24/16 07/21/17 Cyanocobalamin (B-12) [Vitamin B12] 1,000 mcg IM QMONTH 08/24/16 07/21/17 Ferrous Sulfate [Iron] 325 mg PO DAILY 08/24/16 07/21/17 Nitroglycerin [Nitrostat] 0.4 mg SL AD PRN 08/24/16 07/21/17 [place]-3/Dha/Epa/Fish Oil [Fish Oil 1,000 mg PO BID 08/24/16 07/21/17 1,000 mg Softgel] Omeprazole [PriLOSEC] 40 mg PO DAILY 08/24/16 07/21/17 Tiotropium [Spiriva] 18 mcg IH DAILY 08/24/16 07/21/17 Zoledronic Acid (Reclast) [Reclast 5 mg IV Q12M 08/24/16 07/21/17 Premix 5 MG/100 ML] Previous Rx's Medication Instructions Recorded Docusate [Colace] 100 mg PO BID PRN #30 capsule 02/08/16 Ipratropium/Albuterol Neb [Duoneb] 3 ml IH QID PRN #0 08/25/16 Lactose-Reduced Food [Ensure High 1 bottle PO TID #90 can 10/27/16 Protein] Multivitamin [Multivitamins] 1 each PO DAILY #60 capsule 10/27/16 Sucralfate [Carafate] 1 gm PO 0730,1630 #0 tablet 10/27/16 Allergies Allergy/AdvReac Type Severity Reaction Status Date / Time No Known Drug Allergies Allergy See Verified 07/21/17 10:37 Comments All systems ED: reviewed and negative except as stated. Review of Systems: As Per HPI Constitutional: Reports: as per HPI Eyes: Reports: as per HPI Cardiovascular: Reports: as per HPI Respiratory: Reports: as per HPI Gastrointestinal: Reports: as per HPI Genitourinary: Reports: as per HPI Musculoskeletal: Reports: as per HPI Integumentary: Reports: as per HPI Neurological: Reports: as per HPI Psychiatric: Reports: as per HPI Endocrine: Reports: as per HPI Past Medical History - Past Medical History Medical history: Reports: arthritis, COPD, coronary artery disease, CVA, GERD, GI bleed, hyperlipidemia, hypertension, kidney stones, migraine, myocardial infarction, osteoporosis, renal disease, TIA, other Surgical history: Reports: angioplasty/stent, cholecystectomy, hip replacement, orthopedic, other, other Psychiatric history: Reports: anxiety, other [employer] history: Reports: no [employer] history - Social History Smoking Status: Former smoker Smokeless Tobacco Status: No Alcohol use: Reports: none Drug use: Reports: none Physical Exam - General Limitations: other (limited in ability to communicate) General appearance: lethargic, cachectic - Head Head exam: atraumatic, normocephalic, normal inspection - Eye Eye exam: Present: other (sunken eyes) - ENT ENT exam: mucous membranes dry - Neck Neck exam: Present: normal inspection - Chest Chest inspection: Present: normal inspection, symmetric chest wall rise. Absent : tenderness, rash, abscess - Respiratory Respiratory exam: Present: normal lung sounds bilaterally - Cardiovascular Cardiovascular exam: Present: regular rate, normal rhythm, normal heart sounds. Absent: bradycardia, tachycardia, irregular rhythm, systolic murmur, diastolic murmur, rubs, gallop, clicks - Abdominal Exam Abdominal exam: Present: soft, Non-Tender, diminished bowel sounds. Absent: tenderness, distention, guarding, rebound, rigidity - Expanded Lower Extremity Exam Hip/Pelvis exam: Present: normal inspection, full ROM Upper leg exam: Present: normal inspection, full ROM Knee exam: Present: normal inspection, full ROM Lower leg exam: Present: normal inspection, full ROM Ankle exam: Present: normal inspection, full ROM Foot/toe exam: Present: normal inspection, full ROM Neurovascular/Tendon exam: Absent: motor deficit, sensory deficit, tendon deficit - Neurological Exam Neurological exam: Present: alert - Psychiatric Psychiatric exam: Present: flat affect - Skin Skin exam: Present: dry, intact, pallor. Absent: diaphoresis Course Course Narrative: CT head does not indicate bleed. CXR shows no acute processes. Patient was started on IVF. Will admit for syncope and malnutrition. Vital Signs Temperature 97.7 F 08/17/17 15:06 Pulse Rate 71 08/17/17 15:06 Respiratory Rate 22 08/17/17 15:06 Blood Pressure 134/86 08/17/17 15:06 Temperature 97.7 F 08/17/17 15:17 Pulse Rate 88 08/17/17 15:17 Respiratory Rate 16 08/17/17 15:17 Blood Pressure 134/86 08/17/17 15:17 O2 Sat by Pulse Oximetry 97 08/17/17 15:17 Oxygen Delivery Oxygen Delivery Nasal Cannula Syncope - [facility] Narrative Medical decision making narrative: Patient has long history of syncopal episodes, dehydration and poor nutritional status. CT head did not show acute bleed. CXR shows no acute processes. CBC and BMP WNL. Will admit for syncopal episode and nutritional status. - Differential Diagnosis Likely: dehydration/metabolic disorder - Medical Records Medical records reviewed: Yes I reviewed the patient's medical records. - Lab Data Lab results reviewed: Yes I reviewed the patient's lab results. Result diagrams: 08/17/17 15:26 08/17/17 15:26 Lab Results 08/17/17 08/17/17 08/17/17 Range/Units 15:23 15:26 15:26 WBC 6.6 (4.3-11.1) K/mcL RBC 4.01 (3.82-4.97) M/mcL Hgb 13.2 (11.5-15.4) g/dL Hct 41.0 (35.3-44.9) % MCV 102.2 H (83.0-100.0) fL MCH 32.9 (28.0-33.3) pg MCHC 32.2 (31.6-35.5) g/dL RDW 12.9 (11.5-14.5) % Plt Count 177 (140-400) K/mcL MPV 9.8 (9.4-12.4) fL Immature Gran % 0.2 (0-4) % Seg Neutrophils % 60.2 % Lymphocytes % 27.1 % Monocytes % 8.3 % Eosinophils % 3.9 % Basophils % 0.3 % Neutrophils # 4.0 (1.6-8.9) K/mcL Lymphocytes # 1.8 (0.6-4.6) K/mcL Monocytes # 0.6 (0.0-1.3) K/mcL Eosinophils # 0.3 (0.0-0.6) K/mcL Basophils # 0.0 (0.0-0.2) K/mcL Sodium 143 (136-145) mEq/L Potassium 4.4 (3.5-5.1) mEq/L Chloride 105 (98-107) mEq/L Carbon Dioxide 35 H (23-29) mEq/L BUN 14 (8-23) mg/dL Creatinine 0.49 L (0.60-1.20) mg/dL Est GFR ( Amer) > 60 (> 60) Est GFR (Non-Af Amer) > 60 (> 60) BUN/Creatinine Ratio 29 H (6-26) Glucose 86 (70-105) mg/dL POC Glucose 81 (58-89) Calculated Osmolality 296 (280-300) Calcium 9.1 (8.6-10.3) mg/dL - Radiology Data Radiology results reviewed: Yes I reviewed the patient's radiology results. Chest X-Ray 08/17/17 15:11 IMPRESSION: Advanced COPD with no acute finding or interval change. D/ / Sanju Rivera MD / Sanju Rivera MD Interpreting Provider: Sanju Rivera MD Head CT 08/17/17 15:36 IMPRESSION: No acute intracranial abnormality. D/ / Reese Nayolr / Reese Naylor Interpreting Provider: Reese Naylor
--- NOTE | 2017-08-17 17:17 | Emergency Department Note ---
START Narrative - START START: I examined this patient and my medical decision-making was reviewed with the Resident Physician. I agree with the documented findings, disposition and treatment plan as described except to the extent set forth below. 81 yo F here for syncope with no head trauma. weakness, malnutrition. labs stable cxr with copd changes ct brain neg ekg with lots of artifact. admission for syncope, failure to thrive. lives at home with family social work seeing pt as well
[2017-08-17] MEDS ORDERED: Naloxone 0.4 MG/ML INJ IVP PRN (23:27)
[2017-08-17] MEDS ORDERED: Nitroglycerin 0.4 MG TAB.SUBL SL PRN (23:32)
[2017-08-17] MEDS ORDERED: Ipratropium/Albuterol Neb 3 ML IH PRN ×2 (23:32→23:59)
[2017-08-17] MEDS ORDERED: Zoledronic Acid (Reclast) 5 MG/100 ML INFUS..BTL IV SCH (23:45)
--- NOTE | 2017-08-18 | Internal Med History&Physical ---
Date of Encounter: 08/17/17 Time of Encounter: 23:46 Assessment and Plan (1) Syncope Current visit: No Status: Acute 81/female Multiple comorbid conditions. Admitted with syncopal episode. Family informs that patient had some shaky movements. No witnessed seizures noted. Denies tongue bite/incontinence of urine On examination: Limited and focused neurological examination was negative for any obvious deficit. Patient is cachectic Assessment: Syncopal episode: Multifactorial etiology. Noted that patient is on twice a day dosages of diazepam. This can cause dissociation and possible syncopal episode. Plan: Admit as a observation. Telemetry. Echocardiogram. Ultrasound carotid. Fall precaution. Neurologic consult. Resume home medication. Hold Diazepam for now. Of note: I examined this patient in her room 3B 11 I gathered minimum information from the patient and this note is completed with the help of documentation from emergency room. spoke with ([phone]) who was not able to give more information. he will be here on 08/18/2017 at around 11 am. he prefer to know updates and keen to know about discharge of the patient. Qualifiers: Syncope type: unspecified Qualified Code(s): R55 - Syncope and collapse (2) CAD (coronary artery disease) Current visit: No Status: Chronic Patient is known to have a coronary artery disease. Patient does not have any chest pain at this point. We will continue home medications. Qualifiers: Coronary Disease-Associated Artery/Lesion type: [place] artery [place] vs. transplanted heart: [place] heart Associated angina: angina presence unspecified Qualified Code(s): I25.10 - Atherosclerotic heart disease of [place] coronary artery without angina pectoris (3) COPD (chronic obstructive pulmonary disease) Current visit: No Status: Chronic Patient is known to have advanced COPD. We will continue home medications. Qualifiers: COPD type: unspecified COPD Qualified Code(s): J44.9 - Chronic obstructive pulmonary disease, unspecified (4) History of CVA (cerebrovascular accident) Current visit: No Status: Acute Patient with history of old CVA. Hands that is a possibility that the shaking movements what family saw must be a scar epilepsy. We will get neurology to evaluate. Meantime we will follow the fall precautions. (5) Severe protein-calorie malnutrition Current visit: No Status: Chronic Patient is a severe protein calorie malnutrition. patient's BMI is 13. Nutrition consult will be appropriate. (6) Frail elderly Current visit: No Status: Chronic Patient is very elderly female but very frail. There is a possibility of a malignancy raised in her previous discharge summaries. Patient has a pulmonary nodule which was suspicious for malignancy. Patient need further workup in terms to rule out malignancy. (7) DVT prophylaxis Current visit: No Status: Acute SCD Medical decision making: This patient has a moderate to severe risk of worsening in spite of being on appropriate medications due to the underlying chronic comorbid conditions. Internal Medicine - H&P: HPI Chief complaint: syncopal episode. Admitted From: Emergency Dept Plans for Post Hospital Care: Home History of present illness: PCP:Claribel Leary Brief PMH: Hypertension, hyperlipidemia, coronary artery disease, COPD, previous TIA/CVA, previous angioplasty/stent, hip replacement, cholecystectomy, patient had multiple admissions in the past for similar reason of syncopal episode. Patient has a follow-up with the pain specialist for a procedures. History of present medical illness: Patient is very lethargic and this history is gathered from emergency room documentation/nursing/minimal conversation with patient. Apparently patient was brought to the emergency department after she had a syncopal episode. It seems it was a blacking out episode as per patient' s daughter. Patient did not hit her head but she did lose her consciousness and there was a reason prompted patient's daughter to bring her to the emergency room for further evaluation. It seems that patient was having convulsions but there was no eye weakness other than doctor for that. Patient was previously hospitalized and extensively worked up. Family denies any sick/ ill contact. Family denies any fever, shortness of breath, nausea, vomiting, dizziness and diarrhea. Workup in the emergency room: Patient was evaluated in the emergency room. Basic labs were drawn. CT scan of the brain was done. CT scan of the brain was negative for any acute abnormality. Reason for admission: Syncopal episode with possible new onset of conversion in an elderly female who has a multiple medical comorbid issues. Past Med Surg Social Fam HX - Past Medical History Medical history: arthritis, COPD, coronary artery disease, CVA, GERD, GI bleed, hyperlipidemia, hypertension, kidney stones, migraine, myocardial infarction, osteoporosis, renal disease, TIA, other Psychiatric history: anxiety, other - Past Surgical History Surgical History: angioplasty/stent, cholecystectomy, hip replacement, orthopedic, other, other - Social History Smoking Status: Former smoker Smokeless Tobacco Status: No Alcohol use: none Drug use: none - Family History Mother Living Status: Hx Family Cancer: Yes (breast) Internal Medicine - H&P: Meds Potassium Chloride [K-Tab ER] 20 meq PO BID 11/11/15 [History] Simvastatin [Zocor] 40 mg PO HS 11/11/15 [History] diazePAM [Valium] 2.5 - 5 mg PO BID PRN 11/11/15 [History] Aspirin Enteric Coated [Aspirin EC] 81 mg PO DAILY 02/01/16 [History] Propranolol [Inderal] 10 mg PO BID 02/01/16 [History] Docusate [Colace] 100 mg PO BID PRN #30 capsule 02/08/16 [Rx] Ascorbic Acid [Vitamin C] 1,000 mg PO DAILY 08/24/16 [History] Calcium Carbonate [Calcium] 500 mg PO DAILY 08/24/16 [History] Cholecalciferol (D-3) [Vitamin D] 1,000 unit PO DAILY 08/24/16 [History] Cyanocobalamin (B-12) [Vitamin B12] 1,000 mcg IM QMONTH 08/24/16 [History] Ferrous Sulfate [Iron] 325 mg PO DAILY 08/24/16 [History] Nitroglycerin [Nitrostat] 0.4 mg SL Q5M PRN 08/24/16 [History] [place]-3/Dha/Epa/Fish Oil [Fish Oil 1,000 mg Softgel] 1,000 mg PO BID 08/24/16 [ History] Omeprazole [PriLOSEC] 40 mg PO DAILY 08/24/16 [History] Tiotropium [Spiriva] 18 mcg IH DAILY 08/24/16 [History] Zoledronic Acid (Reclast) [Reclast Premix 5 MG/100 ML] 5 mg IV [id number] [History] Ipratropium/Albuterol Neb [Duoneb] 3 ml IH QID PRN #0 08/25/16 [Rx] Lactose-Reduced Food [Ensure High Protein] 1 bottle PO TID #90 can 10/27/16 [Rx] Multivitamin [Multivitamins] 1 each PO DAILY #60 capsule 10/27/16 [Rx] Sucralfate [Carafate] 1 gm PO 0730,1630 #0 tablet 10/27/16 [Rx] Albuterol Sulfate [Proair Hfa] 2 puff IH Q4H PRN 08/17/17 [History] Meloxicam [Mobic] 15 mg PO DAILY 08/17/17 [History] 3 Allergy/AdvReac Type Severity Reaction Status Date / Time No Known Drug Allergies Allergy See Verified 07/21/17 10:37 Comments All Systems PM: A 10-system review of systems was performed and is negative for pertinent findings except as documented above in the HPI. - Constitutional Constitutional: fatigue, falls, lethargy, malaise, no chills, no fever(s), no night sweats - EENT Eyes: no change in vision, no discharge, no pain, no photophobia Ears: no ear discharge, no ear pain, no tinnitus Nose, mouth and throat: no dysphagia, no nasal discharge, no neck pain, no sore throat - Cardiovascular Cardiovascular ROS IM: no chest pain, no diaphoresis, no dyspnea, no lightheadedness, no palpitations, no syncope - Respiratory Respiratory: no cough, no dyspnea, no wheezing, no excessive phlegm production - Gastrointestinal Gastrointestinal: no abdominal pain, no diarrhea, no hematemesis, no hematochezia, no melena, no nausea, no vomiting - Genitourinary Genitourinary: no change in urinary stream, no dysuria, no flank pain, no hematuria - Musculoskeletal Musculoskeletal ROS IM: no numbness, no tingling - Integumentary Integumentary IM: no rash, no unusual bruising - Neurological Neurological ROS: confusion, headache(s), vertigo, no convulsions, no focal weakness, no numbness, no tingling, no tremor(s) - Hematologic/Lymphatic Hematologic/Lymphatic: no easy bruising - Constitutional Vitals: Temp Pulse Resp BP Pulse Ox 97.5 F L 69 14 110/68 96 08/17/17 23:23 08/17/17 23:23 08/17/17 23:23 08/17/17 23:23 08/17/17 23:23 General appearance: Present: A&O X 3, pleasant, no acute distress, answers questions appropriately - Head Head exam: Present: atraumatic, normocephalic - Eye Eye exam: Present: PERRL, conjuntiva pink, sclera anicteric Pupils: Present: PERRL - Neck Neck exam general surgery: Present: supple, trachea midline. Absent: lymphadenopathy - Respiratory Respiratory exam: Present: CTAB. Absent: accessory muscle use, rales, rhonchi, wheezes - Cardiovascular Cardiovascular exam: Present: RRR, +S1, +S2. Absent: diastolic murmur, gallop, rubs, systolic murmur - GI/Abdominal GI/Abdominal exam: Present: normal bowel sounds, soft, no peritoneal signs. Absent: distended, tenderness - Extremities Exam Extremities exam: Present: warm, radial pulses palpable and symmetrical. Absent : calf tenderness, cyanotic, pedal edema - Neurological Exam Neurological exam: Present: CN II-XII intact, oriented X3, no focal deficits. Absent: pronater drift, facial droop, speech deficit - Skin Skin exam: Present: dry, intact Internal Med - H&P Results - Labs CBC & Chem 7: 08/17/17 15:26 08/17/17 15:26
[2017-08-18] MEDS: Acetaminophen 325 MG TABLET PO PRN (00:06)
[2017-08-18] MEDS: 0.9 % Sodium Chloride 1,000 ML IVC SCH ×2 (00:06→17:43)
[2017-08-18 05:21] LABS: Basophils % 0.5 %; Eosinophils # 0.3 K/mcL (0.0-0.6); Eosinophils % 4.2 %; Hematocrit 40.8 % (35.3-44.9); Hemoglobin 12.9 g/dL (11.5-15.4); Immature Granulocytes % 0.3 % (0-4); Lymphocytes # 1.8 K/mcL (0.6-4.6); Mean Corpuscular HGB Conc 31.6 g/dL (31.6-35.5); Mean Corpuscular Hemoglobin 32.5 pg (28.0-33.3); Mean Corpuscular Volume 102.8 fL (83.0-100.0); Mean Platelet Volume 9.8 fL (9.4-12.4); Monocytes # 0.5 K/mcL (0.0-1.3); Monocytes % 7.9 %; Neutrophils # 3.3 K/mcL (1.6-8.9); Platelet Count 159 K/mcL (140-400); Red Blood Count 3.97 M/mcL (3.82-4.97); Segmented Neutrophils % 56.1 %
[2017-08-18 05:22] LABS: Prothrombin Time 10.7 Seconds (9.4-12.1)
[2017-08-18 05:25] LABS: Activated Partial Thrombo Time 30.4 Seconds (26.0-36.0)
[2017-08-18 05:59] LABS: Alanine Aminotransferase 7 Units/L (7-52); Albumin 3.4 g/dL (3.5-5.7); Albumin/Globulin Ratio 2.1 (1.1-2.2); Alkaline Phosphatase 39 Units/L (34-104); Aspartate Amino Transferase 11 Units/L (13-39); BUN/Creatinine Ratio 31 (6-26); Bilirubin,Total 0.4 mg/dL (0.3-1.0); Blood Urea Nitrogen 11 mg/dL (8-23); Calcium 8.5 mg/dL (8.6-10.3); Carbon Dioxide 32 mEq/L (23-29); Chloride 108 mEq/L (98-107); Chol/HDL Ratio 2.5 (0-4.9); Cholesterol 111 mg/dL (< 200); Globulin 1.6 g/dL (2.4-3.5); Glucose 85 mg/dL (70-105); HDL Cholesterol 44 mg/dL (40-59); LDL Cholesterol,Calculated 46 mg/dL (0-99); Magnesium 1.6 mg/dL (1.6-2.6); Osmolality,Calculated 297 (280-300); Phosphorous 3.5 mg/dL (2.7-4.5); Potassium 3.6 mEq/L (3.5-5.1); Sodium 144 mEq/L (136-145); Triglycerides 106 mg/dL (< 150); eGFR For African Americans > 60 (> 60); eGFR For Non-African Americans > 60 (> 60)
[2017-08-18] MEDS: Aspirin Enteric Coated 81 MG Tablet PO SCH (08:07)
[2017-08-18] MEDS: (Fish Oil 1,000 Mg Softgel) PO SCH ×2 (08:07→20:31)
[2017-08-18] MEDS: (Ensure High Protein] 1 BOTTLE) PO SCH ×3 (08:07→20:31)
[2017-08-18] MEDS: Sucralfate 1 GM TABLET PO SCH ×2 (08:07→17:43)
[2017-08-18] MEDS ORDERED: Acetaminophen/Aspirin/Caffeine TABLET PO ONE (08:15)
[2017-08-18] MEDS: Tiotropium 18 MCG inhalation IH SCH (08:19)
--- NOTE | 2017-08-18 09:39 | Neurology - Consult Note ---
<Guillermo Mcginnis - Last Filed: 08/18/17 11:38> Date of Encounter: 08/18/17 Time of Encounter: 09:36 Assessment and Plan (1) Syncope Current Visit: No Status: Acute 81-year-old female with cachexia, BMI 14.7, poor musculature, COPD, CAD, previous CVA, previous NH admitted with syncopal event 1. She admits to poor oral intake in the last 24-48 hours. She denies any noticeable lightheadedness or near syncopal events when ambulating. She has had a significant workup in the last year with a previous admission in September 2016 for potential TIA. She has multiple comorbid factors that may be contributing to her current state. It is suspected with a combination of poor oral intake and a 81-year-old female who is cachectic with poor muscle mass and CAD, COPD who is taking Valium twice a day for restless legs this may have all added together resulting in vasovagal versus hypotensive syncope. - CT head: no acute process. MRA of the neck and head demonstrate: Moderate stenosis at the origin of the left internal carotid artery. Moderate stenosis of the origin of the left vertebral artery. Carotid doppler 08/15:Bilateral mid ICA has a moderate 40-59% stenosis. Echocardiogram 10/13: Impressions: Normal LV systolic function, LVEF 65%. Normal left ventricular diastolic function. Normal right ventricular size and function. No significant valvular dysfunction. No evidence of pulmonary hypertension. No evidence of intracardiac shunting with agitated saline contrast. Plan: - EKG, EKG done on admission is substandard. - CPK - Continue IV fluids per primary team - Orthostatic vitals - Echocardiogram ordered by primary team complete pending results. - Influenza screening as patient had recent feeling of not feeling well, increased sputum production and shortness of breath. - Telemetry while inpatient. Qualifiers: Syncope type: unspecified Qualified Code(s): R55 - Syncope and collapse History of Present Illness Chief complaint: passed out HPI: Ms. Chang is a 81 year old female significant past history of severe COPD, previous NH with stents 2, 2 previous CVAs, coronary artery disease, protein malnutrition was admitted after passing out yesterday in her front yard. She states that she was sitting on the front porch and took 2 steps off the front porch when she became lightheaded and passed out into the arms of her daughter. She does not remember the course of events leading up to her coming to the hospital but said her daughter called the squad and they brought her to the hospital. She denies biting her tongue, losing her bowels or bladder control. She denies any previous history of seizure activity or passing out previously. She states that she has not felt well in the past few days as if she had a cold. She noticed some mild increase of shortness of breath, increased sputum production. She denies having any oral intake in the past 24-48 hours as she just did not feel hungry or thirsty. She denies any nausea, vomiting, diarrhea , abdominal pain. She has a significant history of migraines that she has been receiving treatment for. She states that her migraines used to be every day to every other day and she had gone through multiple treatments and recently had nerves on the back of her head burned which improved her migraines but she continues to have mild headaches. She denies feeling lightheadedness on a regular basis when ambulating from sitting to standing. She is legally blind and has not noticed any visual changes. Her previous CVA had some mild right sided weakness. She does have a history of COPD and wears 2 L nasal cannula oxygen while sleeping at night. 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 She is malnourished and states that she has lost weight not intentionally. She has not had any lightheadedness, dizziness or syncopal episodes since coming to the hospital. Past Med Surg Social Fam HX - Past Medical History Medical history: arthritis, COPD, coronary artery disease, CVA, GERD, GI bleed, hyperlipidemia, hypertension, kidney stones, migraine, myocardial infarction, osteoporosis, renal disease, TIA, other Psychiatric history: anxiety, other - Past Surgical History Surgical History: angioplasty/stent, cholecystectomy, hip replacement, orthopedic, other, other - Social History Smoking Status: Former smoker Smokeless Tobacco Status: No Alcohol use: none Drug use: none - Family History Mother Living Status: Hx Family Cancer: Yes (breast) Medications and Allergies Potassium Chloride [K-Tab ER] 20 meq PO BID 11/11/15 [History] Simvastatin [Zocor] 40 mg PO HS 11/11/15 [History] diazePAM [Valium] 2.5 - 5 mg PO BID PRN 11/11/15 [History] Aspirin Enteric Coated [Aspirin EC] 81 mg PO DAILY 02/01/16 [History] Propranolol [Inderal] 10 mg PO BID 02/01/16 [History] Docusate [Colace] 100 mg PO BID PRN #30 capsule 02/08/16 [Rx] Ascorbic Acid [Vitamin C] 1,000 mg PO DAILY 08/24/16 [History] Calcium Carbonate [Calcium] 500 mg PO DAILY 08/24/16 [History] Cholecalciferol (D-3) [Vitamin D] 1,000 unit PO DAILY 08/24/16 [History] Cyanocobalamin (B-12) [Vitamin B12] 1,000 mcg IM QMONTH 08/24/16 [History] Ferrous Sulfate [Iron] 325 mg PO DAILY 08/24/16 [History] Nitroglycerin [Nitrostat] 0.4 mg SL Q5M PRN 08/24/16 [History] [place]-3/Dha/Epa/Fish Oil [Fish Oil 1,000 mg Softgel] 1,000 mg PO BID 08/24/16 [ History] Omeprazole [PriLOSEC] 40 mg PO DAILY 08/24/16 [History] Tiotropium [Spiriva] 18 mcg IH DAILY 08/24/16 [History] Zoledronic Acid (Reclast) [Reclast Premix 5 MG/100 ML] 5 mg IV [id number] [History] Ipratropium/Albuterol Neb [Duoneb] 3 ml IH QID PRN #0 08/25/16 [Rx] Lactose-Reduced Food [Ensure High Protein] 1 bottle PO TID #90 can 10/27/16 [Rx] Multivitamin [Multivitamins] 1 each PO DAILY #60 capsule 10/27/16 [Rx] Sucralfate [Carafate] 1 gm PO 0730,1630 #0 tablet 10/27/16 [Rx] Albuterol Sulfate [Proair Hfa] 2 puff IH Q4H PRN 08/17/17 [History] Meloxicam [Mobic] 15 mg PO DAILY 08/17/17 [History] 3 Allergy/AdvReac Type Severity Reaction Status Date / Time No Known Drug Allergies Allergy See Verified 07/21/17 10:37 Comments All Systems: A 10-system review of systems was performed and is negative for pertinent findings except as documented above in the HPI. - Constitutional Constitutional ROS IM: anorexia, chills, headache(s), weakness, weight loss, no frequent falls, no increased appetite, no stops breathing during sleep - Nose, Mouth, Throat Nose, mouth and throat: headache(s), no facial pain, no neck pain, no sinus pressure, no sore throat - Cardiovascular Cardiovascular ROS IM: dyspnea, slow heart rate, syncope, no diaphoresis, no edema, no irregular heart rhythm, no palpitations - Respiratory Respiratory IM: dyspnea on exertion, excessive phlegm production, no change in phlegm color - Gastrointestinal Gastrointestinal: no abdominal pain, no bloating, no constipation, no diarrhea, no dyspepsia, no hematemesis - Genitourinary Genitourinary ROS: no urinary urgency - Musculoskeletal Musculoskeletal ROS IM: muscle weakness - Neurological Neurological ROS: restless legs (Chronic), syncope, weakness, no abnormal movements, no dizziness, no focal weakness, no frequent falls, no loss of vision , no memory loss Physical Examination - Vital Signs Vital Signs: Initial Vital Signs Temp Pulse Resp BP 97.7 F 71 22 134/86 08/17/17 15:06 08/17/17 15:06 08/17/17 15:06 08/17/17 15:06 - Constitutional General appearance: comfortable, other (Poorly nourished) - Neurologic Sensorimotor examination: intact Motor examination - right side: 4/5: deltoids, biceps, triceps, wrist flexion, wrist extension, in flight refueling system repairer, hip flexors, tibialis Anterior, quadriceps, toe extension (EHL), plantarflexion Motor examination - left side: 3/5: deltoids, biceps, triceps, wrist flexion, wrist extension, hip flexors, in flight refueling system repairer, quadriceps, tibialis Anterior, toe extension (EHL), plantarflexion Detailed sensory examination: intact Reflex and gait examination: intact Reflexes: Biceps: 1+, Triceps: 1+, Brachioradialis: 1+, Patella: 1+, Achilles: 1 + Mental Status Examination: awake, alert, oriented to person, oriented to place, oriented to time, follows commands appropriately, answers questions appropriately, no aphasia, opens eyes to voice Cranial nerve examination: PERRL, EOMI, sensory to face intact, mastication intact, no facial asymmetry is present, no dysarthria, hearing is intact symmetrically, soft palate elevates bilaterally upon phonation, flexes SCM and trapezius muscles symmetrically with full power, tongue protrudes midline, no atrophy or facial fasiculations present Results - Laboratory Findings CBC and BMP: 08/18/17 04:13 08/18/17 04:13 Abnormal lab findings: Abnormal lab results MCV 102.8 fL (83.0-100.0) H 08/18/17 04:13 Chloride 108 mEq/L (98-107) H 08/18/17 04:13 Carbon Dioxide 32 mEq/L (23-29) H 08/18/17 04:13 Creatinine 0.35 mg/dL (0.60-1.20) L 08/18/17 04:13 BUN/Creatinine Ratio 31 (6-26) H 08/18/17 04:13 Calcium 8.5 mg/dL (8.6-10.3) L 08/18/17 04:13 AST 11 Units/L (13-39) L 08/18/17 04:13 B-Natriuretic Peptide 145 pg/mL (Less than 100) H 08/18/17 04:13 Serum Total Protein 5.0 g/dL (6.4-8.9) L 08/18/17 04:13 Albumin 3.4 g/dL (3.5-5.7) L 08/18/17 04:13 Globulin 1.6 g/dL (2.4-3.5) L 08/18/17 04:13 Consult Discharge Plan - Plan Referrals: Claribel Leary MD [Primary Care Provider] - 08/24/17 10:45 am <Efraín Gupta - Last Filed: 08/18/17 16:47> Date of Encounter: 08/18/17 Time of Encounter: 16:42 Assessment and Plan (1) Syncope Current Visit: Yes Status: Acute We are likely dealing with an episode of syncope. I find no reason to suspect vertebral basilar insufficiency, seizure activity, or any central nervous system event. I will reevaluate her at your discretion. Qualifiers: Syncope type: unspecified Qualified Code(s): R55 - Syncope and collapse History of Present Illness HPI: The chart is reviewed, the case was discussed with Dr. Mcginnis, patient was seen and examined independently. I agree with Dr. Mcginnis's account as stated above. All Systems: The remainder of the systems were reviewed and are negative Review of Systems: 10 point review of systems is consistent with a history of present illness and otherwise negative. Physical Examination - Vital Signs Vital Signs: Initial Vital Signs Temp Pulse Resp BP 97.7 F 71 22 134/86 08/17/17 15:06 08/17/17 15:06 08/17/17 15:06 08/17/17 15:06 Results - Laboratory Findings CBC and BMP: 08/18/17 04:13 08/18/17 04:13 Abnormal lab findings: Abnormal lab results MCV 102.8 fL (83.0-100.0) H 08/18/17 04:13 Chloride 108 mEq/L (98-107) H 08/18/17 04:13 Carbon Dioxide 32 mEq/L (23-29) H 08/18/17 04:13 Creatinine 0.35 mg/dL (0.60-1.20) L 08/18/17 04:13 BUN/Creatinine Ratio 31 (6-26) H 08/18/17 04:13 Calcium 8.5 mg/dL (8.6-10.3) L 08/18/17 04:13 AST 11 Units/L (13-39) L 08/18/17 04:13 Creatine Kinase 25 Units/L (30-223) L 08/18/17 11:30 B-Natriuretic Peptide 145 pg/mL (Less than 100) H 08/18/17 04:13 Serum Total Protein 5.0 g/dL (6.4-8.9) L 08/18/17 04:13 Albumin 3.4 g/dL (3.5-5.7) L 08/18/17 04:13 Globulin 1.6 g/dL (2.4-3.5) L 08/18/17 04:13
[2017-08-18 12:16] LABS: Thyroid Stimulating Hormone 0.709 mcIU/mL (0.340-5.600)
[2017-08-18] MEDS ORDERED: diazePAM 2 MG TABLET PO PRN (13:23)
--- NOTE | 2017-08-18 14:28 | EEG/EMG/Oth Biometrics Report ---
EEG Procedure Report Date of procedure: 08/18/17 EEG Procedure: Routine EEG Procedure Note: This is a report of a 21 channel bipolar and referential montage EEG. A posterior dominant rhythm of 8 Hz moderate voltage alpha frequencies identified symmetrically in the posterior head regions. This rhythm attenuates symmetrically with eye opening. Hyperventilation is not performed during recording. There is no sleep activity identified during the study. Photic stimulation is performed and does not produce a driving response. EKG rhythm strip reveals normal sinus rhythm at 60 beats per minute. Impressions: This EEG recording is within normal limits. There is no evidence of epileptiform activity identified during the study. Comment: A normal EEG does not preclude a diagnosis of seizure or epilepsy. If the clinical suspicion for seizure activity is high, serial EEGs or perhaps a prolonged recording may increase the yield. Please correlate clinically.
--- NOTE | 2017-08-18 15:01 | Internal Med Progress Note ---
Date of Encounter: 08/18/17 Time of Encounter: 14:59 - Assessment and plan (1) Syncope Current Visit: Yes Status: Acute Assessment and plan: 81-year-old female with multiple comorbidities. She was admitted status post syncopal episode at home. Patient states her daughter came over and saw her hands shaking and was afraid she was having a stroke so brought her into the emergency room. No witnessed seizure activity with no tongue bites or incontinence of urine. Patient is cachectic and frail. Syncopal episode with multifactorial etiology Patient is on twice a day diazepam but states she only takes 5 mg at night to sleep. We will restart Valium at bedtime at 2 mg by mouth Echocardiogram obtained Carotid ultrasound obtained Neurology consult EEG completed and reviewed as a normal study Orthostatic blood pressure check with blood pressure actually going up a little with sitting and standing. Patient denies any further syncope or dizziness Influenza A and B antigen negative Creatinine kinase 25 CT head: no acute process. Echocardiogram a year and carotid duplex imaging is ordered with reports pending MRA of the neck and head demonstrate: Moderate stenosis at the origin of the left internal carotid artery. Moderate stenosis of the origin of the left vertebral artery. Carotid doppler 08/15:Bilateral mid ICA has a moderate 40-59% stenosis. Echocardiogram 10/13: Impressions: Normal LV systolic function, LVEF 65%. Normal left ventricular diastolic function. Normal right ventricular size and function. No significant valvular dysfunction. No evidence of pulmonary hypertension. No evidence of intracardiac shunting with agitated saline contrast. Qualifiers: Syncope type: unspecified Qualified Code(s): R55 - Syncope and collapse (2) Severe protein-calorie malnutrition Current Visit: No Status: Chronic Assessment and plan: Patient is very cachectic, her BMI is 13 Nutrition consult Albumin 3.4 Globulin 1.6 Serum total protein 5.0 (3) Headache Current Visit: No Status: Chronic Assessment and plan: Patient has chronic headache that she suffered since the age of 18. She reports cervical nerve ablations that decreased the number and frequency of headaches as well as severity. She states she no longer has migraine headaches She utilizes Excedrin headache at home Qualifiers: Headache type: unspecified Headache chronicity pattern: chronic headache Intractability: not intractable Qualified Code(s): R51 - Headache (4) CAD (coronary artery disease) Current Visit: No Status: Chronic Assessment and plan: Patient is known to have a coronary artery disease. Patient does not have any chest pain at this point. We will continue home medications. Qualifiers: Coronary Disease-Associated Artery/Lesion type: [place] artery [place] vs. transplanted heart: [place] heart Associated angina: angina presence unspecified Qualified Code(s): I25.10 - Atherosclerotic heart disease of [place] coronary artery without angina pectoris (5) COPD (chronic obstructive pulmonary disease) Current Visit: No Status: Chronic Assessment and plan: Patient with known COPD utilizing 2 L of oxygen at bedtime only. Continue home medications Qualifiers: COPD type: unspecified COPD Qualified Code(s): J44.9 - Chronic obstructive pulmonary disease, unspecified (6) CVA, old, hemiparesis Current Visit: No Status: Chronic Assessment and plan: Patient with history of old CVA. Hand shaking movements family saw may be a scar epilepsy. Neurology following. Fall precautions. EEG reviewed and recording is within normal limits (7) DVT prophylaxis Current Visit: No Status: Acute Assessment and plan: SCDs - Subjective Interval history: Patient sitting up in bed in no acute distress. She is having a headache. She normally takes Excedrin at home for these headaches and had a recent ablation of "nerves in my neck". She states she has had headaches since she was 18 years old. She denies any dyspnea at rest. She also denies any further dizziness or syncope. She states she is about to the bathroom with help with no difficulty. Orthostatic blood pressures are reviewed and her pressure actually went up when she sat and stood up. She states she normally wears 2 L of oxygen at home at bedtime. - Constitutional Vitals: Temp Pulse Resp BP Pulse Ox 98.2 F 55 18 107/55 98 08/18/17 11:51 08/18/17 11:51 08/18/17 11:51 08/18/17 11:51 08/18/17 11:51 General appearance: Present: cooperative, A&O X 3, pleasant, answers questions appropriately - Head Head exam: Present: atraumatic, normocephalic - Eye Eye exam: Present: PERRL, conjuntiva pink, sclera anicteric Pupils: Present: PERRL - Neck Neck exam general surgery: Present: trachea midline. Absent: lymphadenopathy - Respiratory Respiratory exam: Present: CTAB. Absent: accessory muscle use, rales, rhonchi, wheezes Additional comments: Able to speak in full sentences - Cardiovascular Cardiovascular exam: Present: RRR, +S1, +S2. Absent: diastolic murmur, gallop, rubs, systolic murmur - GI/Abdominal GI/Abdominal exam: Present: normal bowel sounds, soft, no peritoneal signs. Absent: distended, tenderness - Extremities Exam Extremities exam: Present: warm, radial pulses palpable and symmetrical. Absent : calf tenderness, cyanotic, pedal edema - Neurological Exam Neurological exam: Present: CN II-XII intact, oriented X3, no focal deficits. Absent: pronater drift, facial droop, speech deficit - Skin Skin exam: Present: dry, intact, warm Internal Medicine: Result - Labs CBC & Chem 7: 08/18/17 04:13 08/18/17 04:13 Labs: Short CBC 08/18/17 Range/Units 04:13 WBC 5.9 (4.3-11.1) K/mcL Hgb 12.9 (11.5-15.4) g/dL Hct 40.8 (35.3-44.9) % Plt Count 159 (140-400) K/mcL Neutrophils # 3.3 (1.6-8.9) K/mcL BMP 08/18/17 04:13 Sodium 144 Potassium 3.6 Chloride 108 H Carbon Dioxide 32 H BUN 11 Creatinine 0.35 L Glucose 85 Calcium 8.5 L Cardiac Enzymes 08/18/17 Range/Units 04:13 Troponin I < 0.03 (< 0.04) ng/mL Liver Function 08/18/17 Range/Units 04:13 Total Bilirubin 0.4 (0.3-1.0) mg/dL AST 11 L (13-39) Units/L ALT 7 (7-52) Units/L Alkaline Phosphatase 39 (34-104) Units/L Albumin 3.4 L (3.5-5.7) g/dL - ABG Interpretation ABG results: PT/INR, D-dimer PT 10.7 Seconds (9.4-12.1) 08/18/17 04:13 Consult Discharge Plan - Plan Referrals: Claribel Leary MD [Primary Care Provider] - 08/24/17 10:45 am
[2017-08-18] MEDS ORDERED: diazePAM 2 MG TABLET PO SCH (21:00)
[2017-08-19] MEDS: Acetaminophen 325 MG TABLET PO PRN (03:15)
[2017-08-19] MEDS ORDERED: Acetaminophen/Aspirin/Caffeine TABLET PO PRN (08:11)
[2017-08-19] MEDS: Sucralfate 1 GM TABLET PO SCH (09:16)
[2017-08-19] MEDS: Aspirin Enteric Coated 81 MG Tablet PO SCH (09:17)
[2017-08-19] MEDS: (Ensure High Protein] 1 BOTTLE) PO SCH (09:18)
[2017-08-19] MEDS: (Fish Oil 1,000 Mg Softgel) PO SCH (09:18)
[2017-08-19] MEDS: Tiotropium 18 MCG inhalation IH SCH (10:45)
[2017-08-19 11:35] VITALS: BP 121/63
--- NOTE | 2017-08-19 13:24 | Discharge Summary ---
Orders not resulted at time of discharge: Pending orders 08/18/17 14:20 Rapid Flu [Influenza A/B Antigen] [VIR] Stat Date of Encounter: 08/19/17 Time of Encounter: 13:19 - Discharge Diagnosis (1) Syncope Priority: Primary Status: Acute Comments: 81-year-old female with multiple comorbidities. She was admitted status post syncopal episode at home. Patient states her daughter came over and saw her hands shaking and was afraid she was having a stroke so brought her into the emergency room. No witnessed seizure activity with no tongue bites or incontinence of urine. Patient is cachectic and frail. Syncopal episode with multifactorial etiology Patient is on twice a day diazepam but states she only takes 5 mg at night to sleep. We will restart Valium at bedtime at 2 mg by mouth Echocardiogram obtained and reviewed Carotid ultrasound obtained and reviewed Neurology consult EEG completed and reviewed as a normal study Orthostatic blood pressure check with blood pressure actually going up a little with sitting and standing. Patient denies any further syncope or dizziness Influenza A and B antigen negative Creatinine kinase 25 CT head: no acute process. MRA of the neck and head demonstrate: Moderate stenosis at the origin of the left internal carotid artery. Moderate stenosis of the origin of the left vertebral artery. Carotid doppler 08/15:Bilateral mid ICA has a moderate 40-59% stenosis. Echocardiogram 10/13: Impressions: Normal LV systolic function, LVEF 65%. Normal left ventricular diastolic function. Normal right ventricular size and function. No significant valvular dysfunction. No evidence of pulmonary hypertension. No evidence of intracardiac shunting with agitated saline contrast. Qualifiers: Syncope type: vasovagal syncope Qualified Code(s): R55 - Syncope and collapse (2) Severe protein-calorie malnutrition Priority: Secondary Status: Chronic Comments: Patient is very cachectic, her BMI is 13 Nutrition consult Albumin 3.4 Globulin 1.6 Serum total protein 5.0 (3) Headache Priority: Secondary Status: Chronic Comments: Patient has chronic headache that she suffered since the age of 18. She reports cervical nerve ablations that decreased the number and frequency of headaches as well as severity. She states she no longer has migraine headaches She utilizes Excedrin headache at home Qualifiers: Headache type: unspecified Headache chronicity pattern: chronic headache Intractability: not intractable Qualified Code(s): R51 - Headache (4) CAD (coronary artery disease) Priority: Secondary Status: Chronic Comments: Patient is known to have a coronary artery disease. Patient does not have any chest pain . continue home medications. Qualifiers: Coronary Disease-Associated Artery/Lesion type: [place] artery [place] vs. transplanted heart: [place] heart Associated angina: angina presence unspecified Qualified Code(s): I25.10 - Atherosclerotic heart disease of [place] coronary artery without angina pectoris (5) COPD (chronic obstructive pulmonary disease) Priority: Secondary Status: Chronic Comments: Patient with known COPD utilizing 2 L of oxygen at bedtime only. Continue home medications Qualifiers: COPD type: unspecified COPD Qualified Code(s): J44.9 - Chronic obstructive pulmonary disease, unspecified (6) CVA, old, hemiparesis Priority: Secondary () Status: Chronic Comments: Patient with history of old CVA. Hand shaking movements family are multifactorial Neurology following. Fall precautions. Hospital course: Ms. Chang is a 81 year old female with cachexia, BMI 14.7, poor musculature, COPD, CAD, previous CVA, previous [place] admitted with syncopal event 1. She admits to poor oral intake in the last 24-48 hours. She denies any noticeable lightheadedness or near syncopal events when ambulating. She has had a significant workup in the last year with a previous admission in September 2016 for potential TIA. She has multiple comorbid factors that may be contributing to her current state. It is suspected with a combination of poor oral intake and a 81-year-old female who is cachectic with poor muscle mass and CAD, COPD who is taking Valium twice a day for restless legs this may have all added together resulting in vasovagal versus hypotensive syncope. Retun home with [facility]. Valium only at HS as needed. Discharge discussed with: patient, nurse, social work - Time Spent with Patient Total time spent providing and/or coordinating discharge services: Less than 30 minutes - Discharge Medications Home Medications: Potassium Chloride [K-Tab ER] 20 meq PO BID 11/11/15 [History] Simvastatin [Zocor] 40 mg PO HS 11/11/15 [History] diazePAM [Valium] 2.5 - 5 mg PO BID PRN 11/11/15 [History] Aspirin Enteric Coated [Aspirin EC] 81 mg PO DAILY 02/01/16 [History] Propranolol [Inderal] 10 mg PO BID 02/01/16 [History] Docusate [Colace] 100 mg PO BID PRN #30 capsule 02/08/16 [Rx] Ascorbic Acid [Vitamin C] 1,000 mg PO DAILY 08/24/16 [History] Calcium Carbonate [Calcium] 500 mg PO DAILY 08/24/16 [History] Cholecalciferol (D-3) [Vitamin D] 1,000 unit PO DAILY 08/24/16 [History] Cyanocobalamin (B-12) [Vitamin B12] 1,000 mcg IM QMONTH 08/24/16 [History] Ferrous Sulfate [Iron] 325 mg PO DAILY 08/24/16 [History] Nitroglycerin [Nitrostat] 0.4 mg SL Q5M PRN 08/24/16 [History] [place]-3/Dha/Epa/Fish Oil [Fish Oil 1,000 mg Softgel] 1,000 mg PO BID 08/24/16 [ History] Omeprazole [PriLOSEC] 40 mg PO DAILY 08/24/16 [History] Tiotropium [Spiriva] 18 mcg IH DAILY 08/24/16 [History] Zoledronic Acid (Reclast) [Reclast Premix 5 MG/100 ML] 5 mg IV [id number] [History] Ipratropium/Albuterol Neb [Duoneb] 3 ml IH QID PRN #0 08/25/16 [Rx] Lactose-Reduced Food [Ensure High Protein] 1 bottle PO TID #90 can 10/27/16 [Rx] Multivitamin [Multivitamins] 1 each PO DAILY #60 capsule 10/27/16 [Rx] Sucralfate [Carafate] 1 gm PO 0730,1630 #0 tablet 10/27/16 [Rx] Albuterol Sulfate [Proair Hfa] 2 puff IH Q4H PRN 08/17/17 [History] Meloxicam [Mobic] 15 mg PO DAILY 08/17/17 [History] Allergies/Adverse Reactions: 3 Allergy/AdvReac Type Severity Reaction Status Date / Time No Known Drug Allergies Allergy See Verified 07/21/17 10:37 Comments Date of admission: 08/17/17 19:19 Primary care physician: Claribel Leary Consults: 08/17/17 23:53 Consult to Neurology [CONS] Routine Consulting Provider: Neurology [facility] Reason for Consult: ? new onset of seizure. Call Completed: No 08/18/17 00:10 Consult to Nutrition [CONS] Routine Comment: Patient's BMI is 13 Consulting Provider: NUTRITION Reason for Dietary Consult: Other 08/18/17 12:15 Consult to Interpret Exam [CONS] Routine Consulting Provider: Efraín Gupta Consult to Interpret Exam: Interpret EEG 08/18/17 15:29 Consult to Occupational Therapy [CONS] Routine Comment: Evaluate, develop and implement POC Reason for Consult: weakness Consult to Physical Therapy [CONS] Routine Comment: Evaluate, develop and implement POC Reason for Consult: weakness Discharging clinician: Bridgett Ng Anticipated date of discharge: 08/19/17 - Constitutional Vitals: Temp Pulse Resp BP Pulse Ox 98.3 F 67 20 121/63 97 08/19/17 11:34 08/19/17 11:34 08/19/17 11:34 08/19/17 11:34 08/19/17 11:34 General appearance: Present: cachectic, cooperative, A&O X 3, pleasant, no acute distress, answers questions appropriately - Head Head exam: Present: atraumatic, normocephalic - Eye Eye exam: Present: PERRL, conjuntiva pink, sclera anicteric Pupils: Present: PERRL - Neck Neck exam general surgery: Present: supple, trachea midline. Absent: lymphadenopathy - Respiratory Respiratory exam: Present: CTAB. Absent: accessory muscle use, rales, rhonchi, wheezes - Cardiovascular Cardiovascular exam: Present: RRR, +S1, +S2. Absent: diastolic murmur, gallop, rubs, systolic murmur - GI/Abdominal GI/Abdominal exam: Present: normal bowel sounds, soft, no peritoneal signs. Absent: distended, tenderness - Extremities Exam Extremities exam: Present: warm, radial pulses palpable and symmetrical. Absent : calf tenderness, cyanotic, pedal edema - Neurological Exam Neurological exam: Present: CN II-XII intact, oriented X3, no focal deficits. Absent: pronater drift, facial droop, speech deficit - Skin Skin exam: Present: dry, intact, warm - Patient Status Disposition: Home Health Service Condition: Fair Functional capacity at discharge: uses cane/walker Overall status at discharge: patient is progressing back to baseline - Discharge Instructions Follow Up With: Claribel Leary MD [Primary Care Provider] - 08/24/17 10:45 am - Diet and Activity Activity: increase activity as tolerated, resume usual activities as tolerated, wear oxygen at night Diet: advance to your usual diet
--- NOTE | 2017-08-19 13:51 | Neurology Progress Note ---
<Guillermo Mcginnis - Last Filed: 08/19/17 17:04> Date of Encounter: 08/19/17 Time of Encounter: 10:00 Assessment and Plan (1) Syncope Status: Acute 81-year-old female with cachexia, BMI 14.7, poor musculature, COPD, CAD, previous CVA, previous [place] admitted with syncopal event 1. She admits to poor oral intake in the last 24-48 hours. She denies any noticeable lightheadedness or near syncopal events when ambulating. She has had a significant workup in the last year with a previous admission in September 2016 for potential TIA. She has multiple comorbid factors that may be contributing to her current state. It is suspected with a combination of poor oral intake and a 81-year-old female who is cachectic with poor muscle mass and CAD, COPD who is taking Valium twice a day for restless legs this may have all added together resulting in vasovagal versus hypotensive syncope. - CT head: no acute process. MRA of the neck and head demonstrate: Moderate stenosis at the origin of the left internal carotid artery. Moderate stenosis of the origin of the left vertebral artery. Carotid doppler 08/15:Bilateral mid ICA has a moderate 40-59% stenosis. Echocardiogram 10/13: Impressions: Normal LV systolic function, LVEF 65%. Normal left ventricular diastolic function. Normal right ventricular size and function. No significant valvular dysfunction. No evidence of pulmonary hypertension. No evidence of intracardiac shunting with agitated saline contrast. 08/19/2017: No clinical change overnight, patient feels better today. Clinical examination without any significant changes compared to prior exam. This appears to be more of a syncopal event, at this time there are no stroke findings or cerebral involvement. EEG Impressions: This EEG recording is within normal limits. There is no evidence of epileptiform activity identified during the study. Plan: - Reevaluation at primary teams discretion. Qualifiers: Syncope type: vasovagal syncope Qualified Code(s): R55 - Syncope and collapse Subjective Interval history: Mrs. French is 81-year-old female is seen about a patient bedside this morning. She is alert awake interactive distress. Denies any discomforts or pains, changes compared to yesterday. She feels better overall denies any changes in her headache pattern or syncopal episodes. She has no other concerns at this time. Objective - Constitutional Vitals: Temp Pulse Resp BP Pulse Ox 98.3 F 67 20 121/63 97 08/19/17 11:34 08/19/17 11:34 08/19/17 11:34 08/19/17 11:34 08/19/17 11:34 General appearance: Present: cooperative, A&O X 3, no acute distress, answers questions appropriately - Head Head exam: Present: atraumatic, normocephalic - Eye Eye exam: Present: PERRL, conjuntiva pink, sclera anicteric Pupils: Present: PERRL - Extremities Exam Extremities exam: Present: warm, radial pulses palpable and symmetrical. Absent : calf tenderness, cyanotic, pedal edema - Neurological Exam Sensorimotor examination: Present: intact Motor examination - right side: 4/5: deltoids, biceps, triceps, wrist flexion, wrist extension, oncology nurse navigator, hip flexors, tibialis Anterior, quadriceps, toe extension (EHL), plantarflexion Motor examination - left side: 4/5: deltoids, biceps, triceps, wrist flexion, wrist extension, hip flexors, oncology nurse navigator, quadriceps, tibialis Anterior, toe extension (EHL), plantarflexion Sensation intact: Present: intact Reflex and gait examination: intact Reflexes: Biceps: 2+, Triceps: 2+, Brachioradialis: 2+, Patella: 2+, Achilles: 2 + Mental Status Examination: Present: awake, alert, oriented to person, oriented to place, oriented to time, follows commands appropriately, answers questions appropriately, no aphasia, opens eyes to voice Cranial nerve examination: Present: PERRL, EOMI, sensory to face intact, mastication intact, no facial asymmetry is present, no dysarthria, hearing is intact symmetrically, soft palate elevates bilaterally upon phonation, flexes SCM and trapezius muscles symmetrically with full power, tongue protrudes midline, no atrophy or facial fasiculations present Results - Laboratory Findings CBC and BMP: 08/18/17 04:13 08/18/17 04:13 Abnormal lab findings: Abnormal lab results MCV 102.8 fL (83.0-100.0) H 08/18/17 04:13 Chloride 108 mEq/L (98-107) H 08/18/17 04:13 Carbon Dioxide 32 mEq/L (23-29) H 08/18/17 04:13 Creatinine 0.35 mg/dL (0.60-1.20) L 08/18/17 04:13 BUN/Creatinine Ratio 31 (6-26) H 08/18/17 04:13 Calcium 8.5 mg/dL (8.6-10.3) L 08/18/17 04:13 AST 11 Units/L (13-39) L 08/18/17 04:13 Creatine Kinase 25 Units/L (30-223) L 08/18/17 11:30 B-Natriuretic Peptide 145 pg/mL (Less than 100) H 08/18/17 04:13 Serum Total Protein 5.0 g/dL (6.4-8.9) L 08/18/17 04:13 Albumin 3.4 g/dL (3.5-5.7) L 08/18/17 04:13 Globulin 1.6 g/dL (2.4-3.5) L 08/18/17 04:13 Consult Discharge Plan - Plan Instructions: Chronic Obstructive Pulmonary Disease (DC) Referrals: Claribel Leary MD [Primary Care Provider] - 08/24/17 10:45 am <Efraín Gupta - Last Filed: 08/19/17 17:41> Date of Encounter: 08/19/17 Assessment and Plan (1) Syncope Status: Acute As above. Case discussed with Dr. Mcginnis. Pt assessed independently. Suspect pt. experienced an episode of syncope. Neuro work up negative. Will reevaluate at your request. Qualifiers: Syncope type: vasovagal syncope Qualified Code(s): R55 - Syncope and collapse Subjective Interval history: Chart reviewed, case discussed with Dr. Mcginnis. I agree with his assessment as stated above. Objective - Constitutional Vitals: Temp Pulse Resp BP Pulse Ox 98.3 F 67 20 121/63 97 08/19/17 11:34 08/19/17 11:34 08/19/17 11:34 08/19/17 11:34 08/19/17 11:34 Results - Laboratory Findings CBC and BMP: 08/18/17 04:13 08/18/17 04:13 Abnormal lab findings: Abnormal lab results MCV 102.8 fL (83.0-100.0) H 08/18/17 04:13 Chloride 108 mEq/L (98-107) H 08/18/17 04:13 Carbon Dioxide 32 mEq/L (23-29) H 08/18/17 04:13 Creatinine 0.35 mg/dL (0.60-1.20) L 08/18/17 04:13 BUN/Creatinine Ratio 31 (6-26) H 08/18/17 04:13 Calcium 8.5 mg/dL (8.6-10.3) L 08/18/17 04:13 AST 11 Units/L (13-39) L 08/18/17 04:13 Creatine Kinase 25 Units/L (30-223) L 08/18/17 11:30 B-Natriuretic Peptide 145 pg/mL (Less than 100) H 08/18/17 04:13 Serum Total Protein 5.0 g/dL (6.4-8.9) L 08/18/17 04:13 Albumin 3.4 g/dL (3.5-5.7) L 08/18/17 04:13 Globulin 1.6 g/dL (2.4-3.5) L 08/18/17 04:13
--- NOTE | 2017-08-19 14:08 | Physician Discharge Referral ---
Home Health/Hosp Referral Info Transfer to: Home Health Attending Provider: jeana jean-baptiste - Diagnosis (1) Syncope Priority: Primary Status: Acute (2) Severe protein-calorie malnutrition Priority: Secondary Status: Chronic (3) Headache Priority: Secondary Status: Chronic (4) CAD (coronary artery disease) Priority: Secondary Status: Chronic (5) COPD (chronic obstructive pulmonary disease) Priority: Secondary Status: Chronic (6) CVA, old, hemiparesis Priority: Secondary Status: Chronic - Respiratory Orders Other (Oxygen 2 L at bedtime) Smoking Cessation: Smoking cessation has been advised. For more information, call the [place] Tobacco Quit Line at 2-779-UGPI-NOW. - Transfer Medications Home Medications: Potassium Chloride [K-Tab ER] 20 meq PO BID 11/11/15 [History] Simvastatin [Zocor] 40 mg PO HS 11/11/15 [History] diazePAM [Valium] 2.5 - 5 mg PO BID PRN 11/11/15 [History] Aspirin Enteric Coated [Aspirin EC] 81 mg PO DAILY 02/01/16 [History] Propranolol [Inderal] 10 mg PO BID 02/01/16 [History] Docusate [Colace] 100 mg PO BID PRN #30 capsule 02/08/16 [Rx] Ascorbic Acid [Vitamin C] 1,000 mg PO DAILY 08/24/16 [History] Calcium Carbonate [Calcium] 500 mg PO DAILY 08/24/16 [History] Cholecalciferol (D-3) [Vitamin D] 1,000 unit PO DAILY 08/24/16 [History] Cyanocobalamin (B-12) [Vitamin B12] 1,000 mcg IM QMONTH 08/24/16 [History] Ferrous Sulfate [Iron] 325 mg PO DAILY 08/24/16 [History] Nitroglycerin [Nitrostat] 0.4 mg SL Q5M PRN 08/24/16 [History] [place]-3/Dha/Epa/Fish Oil [Fish Oil 1,000 mg Softgel] 1,000 mg PO BID 08/24/16 [ History] Omeprazole [PriLOSEC] 40 mg PO DAILY 08/24/16 [History] Tiotropium [Spiriva] 18 mcg IH DAILY 08/24/16 [History] Zoledronic Acid (Reclast) [Reclast Premix 5 MG/100 ML] 5 mg IV [id number] [History] Ipratropium/Albuterol Neb [Duoneb] 3 ml IH QID PRN #0 08/25/16 [Rx] Lactose-Reduced Food [Ensure High Protein] 1 bottle PO TID #90 can 10/27/16 [Rx] Multivitamin [Multivitamins] 1 each PO DAILY #60 capsule 10/27/16 [Rx] Sucralfate [Carafate] 1 gm PO 0730,1630 #0 tablet 10/27/16 [Rx] Albuterol Sulfate [Proair Hfa] 2 puff IH Q4H PRN 08/17/17 [History] Meloxicam [Mobic] 15 mg PO DAILY 08/17/17 [History] Allergies/Adverse Reactions: 3 Allergy/AdvReac Type Severity Reaction Status Date / Time No Known Drug Allergies Allergy See Verified 07/21/17 10:37 Comments Certification: Further, I certify that my clinical findings support that this patient is homebound (i.e. absences from home require considerable and taxing effort and are for medical reasons or [facility] or infrequently or short duration when for other reasons) because: Homebound Reason: Patient requires assistance of a person or device to safely leave home, Leaving home requires considerable and taxing effort due to condition Attestation: My signature below is to certify that this patient is under my care and that I, or nurse practitioner, or a physician's reference assistant working with me, has a face-to -face encounter with this patient.
--- NOTE | 2017-08-20 20:14 | Electrocardiograph Report ---
[place] [id number] Test Date: 2017-08-18 Pat Name: Alee Chang Department: 113 Room: 3B11 Gender: F Pulmonary Disease Specialist: MANAV : 1935 Requested By: Guillermo Mcginnis Order Number: [id number] Reading MD: Audrey Pena Measurements Intervals [place] Rate: 66 P: 75 NC: 139 QRS: 46 QRSD: 93 T: 74 QT: 384 QTc: 397 Interpretive Statements SINUS RHYTHM INCOMPLETE RIGHT BUNDLE BRANCH BLOCK Electronically Signed On 08-20-2017 20:12:31 EST by Audrey Pena
--- NOTE | 2017-08-20 20:38 | Electrocardiograph Report ---
[place] [id number] Test Date: 2017-08-17 Pat Name: Alee Chang Department: 103 Room: 3B11 Gender: F Senior Mechanical Technician: JEREMY : 1935 Requested By: Rosa Kilpatrick Order Number: [id number] Reading MD: Audrey Pena Measurements Intervals [place] Rate: 72 P: 75 SD: 122 QRS: 70 QRSD: 98 T: 75 QT: 390 QTc: 415 Interpretive Statements SINUS RHYTHM BASELINE ARTIFACT INCOMPLETE RIGHT BUNDLE BRANCH BLOCK [90+ ms QRS DURATION, TERMINAL R IN V1/V2, 40+ ms S IN I/aVL/V4/V5/V6] POSSIBLE LEFT VENTRICULAR HYPERTROPHY [VOLTAGE CRITERIA PLUS LAE OR QRS WIDENING] Electronically Signed On 08-20-2017 20:37:05 EST by Audrey Pena
== END 2017-08-19 15:10 | disposition home health service (06) ==
LOC: EMEROO 14:57 → 3BNU 14:57
PROVIDERS: ADMIT Internal Medicine; ATTEND Registered Nurse

== ENCOUNTER 2018-07-08 16:35 | Inpatient (IN) ==
[2018-07-08] MEDS ORDERED: Acetaminophen 325 MG TABLET PO ONE (17:18)
--- NOTE | 2018-07-08 17:23 | Emergency Department Note ---
Disposition Clinical Impression: Fall Qualifiers: Encounter type: initial encounter Qualified Code(s): W19.XXXA - Unspecified fall, initial encounter Pneumonia Qualifiers: Pneumonia type: due to unspecified organism Laterality: right Lung location: lower lobe of lung Qualified Code(s): J18.1 - Lobar pneumonia, unspecified organism Disposition: Admitted As Inpatient Condition: Fair Referrals: Claribel Leary MD [Primary Care Provider] - Forms: ED Satisfaction Letter Time of Disposition: 18:45 Fall HPI - General Chief Complaint: ED Fall Stated Complaint: fall/headache Time Seen by Provider: 07/08/18 16:41 Source: patient, EMS Mode of arrival: EMS Limitations: no limitations Nursing Notes Reviewed: Yes Vital Signs Reviewed: Yes - History of Present Illness HPI Narrative: Patient presents to the ED via EMS with the chief complaint of a fall. Patient had a fall yesterday where she fell onto her left arm. We do have records that she saw her primary care physician and had x-rays of her left humerus and clavicle, which were negative for fracture. Home health was at her house today and states that she was walking with her walker, lost balance, fell backwards and hit her head. No loss of consciousness. No blood thinners. Patient is complaining of a headache at the base of her head and her upper neck. She is also complaining of bilateral shoulder/trapezius pain. No chest pain or shortness of breath. No abdominal pain. No nausea, vomiting, diarrhea, diaphoresis. No hip pain or back pain. No numbness, weakness or tingling in her extremities - Related Data Home Medications Medication Instructions Recorded Confirmed Potassium Chloride [K-Tab ER] 20 meq PO BID 11/11/15 06/23/18 Simvastatin [Zocor] 40 mg PO HS 11/11/15 06/23/18 diazePAM [Valium] 2.5 - 5 mg PO BID PRN 11/11/15 06/23/18 Aspirin Enteric Coated [Aspirin EC] 81 mg PO DAILY 02/01/16 06/23/18 Propranolol [Inderal] 10 mg PO BID 02/01/16 06/23/18 Ascorbic Acid [Vitamin C] 1,000 mg PO DAILY 08/24/16 06/23/18 Calcium Carbonate [Calcium] 500 mg PO DAILY 08/24/16 06/23/18 Cholecalciferol (D-3) [Vitamin D] 1,000 unit PO DAILY 08/24/16 06/23/18 Cyanocobalamin (B-12) [Vitamin B12] 1,000 mcg IM QMONTH 08/24/16 06/23/18 Ferrous Sulfate [Iron] 325 mg PO DAILY 08/24/16 06/23/18 Nitroglycerin [Nitrostat] 0.4 mg SL Q5M PRN 08/24/16 06/23/18 [place]-3/Dha/Epa/Fish Oil [Fish Oil 1,000 mg PO BID 08/24/16 06/23/18 1,000 mg Softgel] Omeprazole [PriLOSEC] 40 mg PO DAILY 08/24/16 06/23/18 Tiotropium [Spiriva] 1 puff IH DAILY 08/24/16 06/23/18 Zoledronic Acid (Reclast) [Reclast 5 mg IV [id number] 08/24/16 06/23/18 Premix 5 MG/100 ML] Albuterol Sulfate [Proair Hfa] 2 puff IH Q4H PRN 08/17/17 06/23/18 Meloxicam [Mobic] 15 mg PO DAILY 08/17/17 06/23/18 Previous Rx's Medication Instructions Recorded Docusate [Colace] 100 mg PO BID PRN #30 capsule 02/08/16 Ipratropium/Albuterol Neb [Duoneb] 3 ml IH QID PRN #0 08/25/16 Lactose-Reduced Food [Ensure High 1 bottle PO TID #90 can 10/27/16 Protein] Multivitamin [Multivitamins] 1 each PO DAILY #60 capsule 10/27/16 Sucralfate [Carafate] 1 gm PO 0730,1630 #0 tablet 10/27/16 Ondansetron ODT [Zofran ODT] 4 mg SL Q8HR PRN #9 tab.rapdis 12/20/17 Allergies Allergy/AdvReac Type Severity Reaction Status Date / Time No Known Drug Allergies Allergy See Verified 07/21/17 10:37 Comments Review of Systems: As reviewed in the HPI. All other systems reviewed are negative or normal. Fall PMH - Past Medical History Medical history: Reports: arthritis, COPD, coronary artery disease, CVA, GERD, GI bleed, hyperlipidemia, hypertension, kidney stones, migraine, myocardial infarction, osteoporosis, renal disease, TIA, other Surgical history: Reports: angioplasty/stent, cholecystectomy, hip replacement, orthopedic, other, other Psychiatric history: Reports: anxiety, other TRACTOR MECHANIC APPRENTICE history: Reports: no TRACTOR MECHANIC APPRENTICE history - Social History Smoking Status: Former smoker Alcohol use: Reports: none Drug use: Reports: none Physical Exam CONSTITUTIONAL: [well appearing, alert and in no acute distress, but does appear frail and cachectic] EYES: [EOMI, clear conjunctiva, PERRLA] HENT: [Normocephalic, atraumatic, moist mucus membranes, normal oropharynx] NECK: [normal inspection, full ROM, trachea midline, no obvious swelling] PULMONARY: [normal lung sounds bilaterally, normal chest rise and fall, no respiratory distress or stridor, no wheezes, no rales, no rhonchi CARDIOVASCULAR: [regular rate, regular rhythm, normal heart sounds, no murmurs, distal extremities are warm and well perfused] GASTROINSTESTINAL: [soft, non-tender, non-rigid, non-distended, no guarding, no rebound, normal bowel sounds] GENITOURINARY/RECTAL: [deferred] NEUROLOGIC: [Alert, oriented x3, normal speech, moves all extremities] EXTREMITIES: [Patient has some bony tenderness over the lateral clavicles and shoulders that are equal bilaterally, there are no deformities or crepitus or significant tenderness. She does have midline cervical tenderness in the upper cervical spine as well as the base of the head. There is no hemotympanum pain on. Her bilateral trapezius muscles are in spasm and are exquisitely tender. She does not have any scapular pain or deformities. No thoracic or lumbar tenderness. Her pelvis is stable. There is no femur or tib-fib, ankle or foot pain] MUSCULOSKELETAL: [no gross deformities, atraumatic] SKIN: [No cyanosis, no diaphoresis, normal color, warm, no rash] PSYCHIATRIC: [normal mood and affect] - General Limitations: no limitations General appearance: alert, in no apparent distress Course Course Narrative: Patient's imaging is negative for fracture. She does have a right lower lobe pneumonia versus atelectasis. Family states that they do not feel comfortable bringing her home because she has been following. She does report a history of cough and congestion. States that she is been fighting the flu for the last couple weeks. We will get blood work and plan on admission. Patient will be signed out to the nighttime team pending lab results and admission to the hospitalist service. Vital Signs Temperature 98.2 F 07/08/18 16:39 Pulse Rate 83 07/08/18 16:39 Respiratory Rate 18 07/08/18 16:39 Blood Pressure 122/71 07/08/18 16:39 O2 Sat by Pulse Oximetry 100 07/08/18 16:39 Temperature 98.2 F 07/08/18 16:39 Pulse Rate 83 07/08/18 16:39 Respiratory Rate 18 07/08/18 16:39 Blood Pressure 122/71 07/08/18 16:39 O2 Sat by Pulse Oximetry 97 07/08/18 17:12 Oxygen Delivery Oxygen Delivery Room Air Fall - Medical Records Medical records reviewed: Yes I reviewed the patient's medical records. - Lab Data Lab results reviewed: Yes I reviewed the patient's lab results. - Radiology Data Radiology results reviewed: Yes I reviewed the patient's radiology results. - EKG Data EKG attestation: Yes I reviewed and interpreted this EKG.
--- NOTE | 2018-07-08 17:38 | Emergency Department Note ---
Disposition Clinical Impression: Fall, Pneumonia Disposition: Admitted As Inpatient Condition: Fair Referrals: Claribel Leary MD [Primary Care Provider] - Forms: ED Satisfaction Letter General Adult HPI - General Chief complaint: ED Fall Stated complaint: fall/headache Time Seen by Provider: 07/08/18 16:41 Source: patient, EMS Limitations: no limitations - History of Present Illness Pain Scale: 9 - Related Data Home Medications Medication Instructions Recorded Confirmed Potassium Chloride [K-Tab ER] 20 meq PO BID 11/11/15 06/23/18 Simvastatin [Zocor] 40 mg PO HS 11/11/15 06/23/18 diazePAM [Valium] 2.5 - 5 mg PO BID PRN 11/11/15 06/23/18 Aspirin Enteric Coated [Aspirin EC] 81 mg PO DAILY 02/01/16 06/23/18 Propranolol [Inderal] 10 mg PO BID 02/01/16 06/23/18 Ascorbic Acid [Vitamin C] 1,000 mg PO DAILY 08/24/16 06/23/18 Calcium Carbonate [Calcium] 500 mg PO DAILY 08/24/16 06/23/18 Cholecalciferol (D-3) [Vitamin D] 1,000 unit PO DAILY 08/24/16 06/23/18 Cyanocobalamin (B-12) [Vitamin B12] 1,000 mcg IM QMONTH 08/24/16 06/23/18 Ferrous Sulfate [Iron] 325 mg PO DAILY 08/24/16 06/23/18 Nitroglycerin [Nitrostat] 0.4 mg SL Q5M PRN 08/24/16 06/23/18 [place]-3/Dha/Epa/Fish Oil [Fish Oil 1,000 mg PO BID 08/24/16 06/23/18 1,000 mg Softgel] Omeprazole [PriLOSEC] 40 mg PO DAILY 08/24/16 06/23/18 Tiotropium [Spiriva] 1 puff IH DAILY 08/24/16 06/23/18 Zoledronic Acid (Reclast) [Reclast 5 mg IV [id number] 08/24/16 06/23/18 Premix 5 MG/100 ML] Albuterol Sulfate [Proair Hfa] 2 puff IH Q4H PRN 08/17/17 06/23/18 Meloxicam [Mobic] 15 mg PO DAILY 08/17/17 06/23/18 Previous Rx's Medication Instructions Recorded Docusate [Colace] 100 mg PO BID PRN #30 capsule 02/08/16 Ipratropium/Albuterol Neb [Duoneb] 3 ml IH QID PRN #0 08/25/16 Lactose-Reduced Food [Ensure High 1 bottle PO TID #90 can 10/27/16 Protein] Multivitamin [Multivitamins] 1 each PO DAILY #60 capsule 10/27/16 Sucralfate [Carafate] 1 gm PO 0730,1630 #0 tablet 10/27/16 Ondansetron ODT [Zofran ODT] 4 mg SL Q8HR PRN #9 tab.rapdis 12/20/17 Allergies Allergy/AdvReac Type Severity Reaction Status Date / Time No Known Drug Allergies Allergy See Verified 07/21/17 10:37 Comments Past Medical History - Past Medical History Medical history: Reports: arthritis, COPD, coronary artery disease, CVA, GERD, GI bleed, hyperlipidemia, hypertension, kidney stones, migraine, myocardial infarction, osteoporosis, renal disease, TIA, other Surgical history: Reports: angioplasty/stent, cholecystectomy, hip replacement, orthopedic, other, other Psychiatric history: Reports: anxiety, other POLYSOMNOGRAPHY TECH history: Reports: no POLYSOMNOGRAPHY TECH history - Social History Smoking Status: Former smoker Smokeless Tobacco Status: No Alcohol use: Reports: none Drug use: Reports: none Physical Exam - General Limitations: no limitations General appearance: alert, in no apparent distress Course Vital Signs Temperature 98.2 F 07/08/18 16:39 Pulse Rate 83 07/08/18 16:39 Respiratory Rate 18 07/08/18 16:39 Blood Pressure 122/71 07/08/18 16:39 O2 Sat by Pulse Oximetry 100 07/08/18 16:39 Temperature 98.2 F 07/08/18 16:39 Pulse Rate 83 07/08/18 16:39 Respiratory Rate 18 07/08/18 16:39 Blood Pressure 122/71 07/08/18 16:39 O2 Sat by Pulse Oximetry 97 07/08/18 17:12 Oxygen Delivery Oxygen Delivery Room Air Attestation Statement - Attestation Attestation: I examined this patient and my medical decision-making was reviewed with the Resident Physician. I agree with the documented findings, disposition and treat ment plan as described except to the extent set forth below. Patient to the emergency department with a chief complaint of a fall. Patient had a mechanical fall backwards and struck her head. Complained of pain in her head, neck, and right upper back. On examination she has tenderness over the paraspinal muscles in the right side of the neck. She is awake alert and oriented moving all extremities.. Plan. Pain control and imaging. Patient with a possible infiltrate. She does admit to cough and recent flu. She has been weak and falling. We will admit. Signed out to overnight cashier pending labs and admission.
[2018-07-08] MEDS ORDERED: Azithromycin 500 MG in D5% in Water 250 ML IVPB ONE (18:43)
[2018-07-08] MEDS ORDERED: cefTRIAXone 1,000 MG in Water for inj. (sterile) 20 ML 10 ML IVP ONE (18:43)
[2018-07-08 19:19] LABS: Basophils % 0.3 %; Eosinophils # 0.1 K/mcL (0.0-0.6); Eosinophils % 1.2 %; Hematocrit 36.8 % (35.3-44.9); Hemoglobin 11.8 g/dL (11.5-15.4); Immature Granulocytes % 0.3 % (0-4); Mean Corpuscular HGB Conc 32.1 g/dL (31.6-35.5); Mean Corpuscular Hemoglobin 31.1 pg (28.0-33.3); Mean Corpuscular Volume 96.8 fL (83.0-100.0); Mean Platelet Volume 9.1 fL (9.4-12.4); Monocytes # 0.6 K/mcL (0.0-1.3); Monocytes % 6.6 %; Neutrophils # 6.6 K/mcL (1.6-8.9); Platelet Count 347 K/mcL (140-400); Red Cell Distribution Width 13.2 % (11.5-14.5); Segmented Neutrophils % 70.6 %
[2018-07-08 19:30] LABS: BUN/Creatinine Ratio 29 (6-26); Blood Urea Nitrogen 12 mg/dL (8-23); Calcium 9.1 mg/dL (8.6-10.3); Carbon Dioxide 32 mEq/L (23-29); Chloride 103 mEq/L (98-107); Glucose 80 mg/dL (70-105); Osmolality,Calculated 291 (280-300); Potassium 3.8 mEq/L (3.5-5.1); Sodium 141 mEq/L (136-145); eGFR For Non-African Americans > 60 (> 60)
[2018-07-08 19:52] LABS: Bilirubin,Urine Negative (Negative); Blood,Urine Negative (Negative); Clarity,Urine Clear (Clear); Color,Urine Yellow (Yellow); Glucose,Urine (UA) Normal (Normal); Ketones,Urine Negative (Negative); Leukocyte Esterase,Urine Trace (Negative); Nitrite,Urine Negative (Negative); PH,Urine 6.5 pH Units (5.0-8.0); Protein,Urine Negative (Neg-Trace); Specific Gravity,Urine 1.007 (1.010-1.025); Urobilinogen,Urine Normal (Normal)
[2018-07-08 19:54] LABS: Bacteria,Urine Few per hpf (None-Few); Hyaline Casts,Urine None Seen per lpf (None-Few); RBC,Urine 0-3 per hpf (0-3); Squamous Epithelial Cell,Urine Many per lpf (None-Few); WBC,Urine 0-3 per hpf (0-3)
[2018-07-08] MEDS ORDERED: Naloxone 0.4 MG/ML INJ IVP PRN (21:27)
--- NOTE | 2018-07-08 21:32 | Internal Med History&Physical ---
Date of Encounter: 07/09/18 Time of Encounter: 21:50 Internal Medicine - H&P: HPI Chief complaint: Community-acquired pneumonia Admitted From: Emergency Dept Plans for Post Hospital Care: Home History of present illness: Ms. Chang is a 82 year old female Patient presented to the emergency room after experiencing a fall. She also fell yesterday as well onto her left arm. At that time she was seen by her primary care physician who performed x-rays which were negative for fracture. Today the patient was at home and while she was walking with her walker she was witnessed to have lost her balance fell backwards and hit her head. She denied loss of consciousness and does not take blood thinners. She has home health assistance at home. She came to the emergency room for further evaluation. In the emergency room, vital signs were stable, CBC and BMP were within normal limits. CT of the C-spine and head CT both showed no acute abnormalities. Chest x-ray showed right lower lobe pneumonia. A discussion with the family regarding plan of care took place and the family decided that they would want patient to be admitted. Blood cultures were drawn and patient was started on azithromycin and ceftriaxone. She was given Tylenol and a lidocaine patch for pain and admitted to the hospital for further management. Upon my evaluation, patient states that she is feeling better. She is not quite sure the reason why she fell. She says that her feet slipped out from under her and her home health nurse commented that she hit her head twice when she hit the ground. Initially she did not want to come to the hospital but her family in the home health nurse convinced her to. She denies nausea, vomiting, vision changes, chest pain, abdominal pain, diarrhea and constipation. She has a history of stomach surgery, and only eats small meals. She has a severely low BMI. She has had a cough productive of white sputum. I discussed with her CODE STATUS, and she states that she does not wish to be resuscitated in the event of cardiac or respiratory arrest. She is DNR CCA DNI. Past Med Surg Social Fam HX - Past Medical History Medical history: arthritis, COPD, coronary artery disease, CVA, GERD, GI bleed, hyperlipidemia, hypertension, kidney stones, migraine, myocardial infarction, osteoporosis, renal disease, TIA, other Additional medical history: LEGALLY BLIND Psychiatric history: anxiety, other - Past Surgical History Surgical History: angioplasty/stent, cholecystectomy, hip replacement, orthopedic, other, other Additional surgical history: vagoectomy, antrectomy w/stapled gastrojejunostomy - Social History Smoking Status: Former smoker Smokeless Tobacco Status: No Alcohol use: none Drug use: none - Family History Father Living Status: Mother Living Status: Hx Family Cancer: Yes (breast) Internal Medicine - H&P: Meds Potassium Chloride [K-Tab ER] 20 meq PO BID 11/11/15 [History] Simvastatin [Zocor] 40 mg PO HS 11/11/15 [History] diazePAM [Valium] 2.5 - 5 mg PO BID PRN 11/11/15 [History] Aspirin Enteric Coated [Aspirin EC] 81 mg PO DAILY 02/01/16 [History] Propranolol [Inderal] 10 mg PO BID 02/01/16 [History] Ascorbic Acid [Vitamin C] 1,000 mg PO DAILY 08/24/16 [History] Calcium Carbonate [Calcium] 500 mg PO DAILY 08/24/16 [History] Cholecalciferol (D-3) [Vitamin D] 1,000 unit PO DAILY 08/24/16 [History] Cyanocobalamin (B-12) [Vitamin B12] 1,000 mcg IM QMONTH 08/24/16 [History] Ferrous Sulfate [Iron] 325 mg PO DAILY 08/24/16 [History] Nitroglycerin [Nitrostat] 0.4 mg SL Q5M PRN 08/24/16 [History] [place]-3/Dha/Epa/Fish Oil [Fish Oil 1,000 mg Softgel] 1,000 mg PO BID 08/24/16 [History] Omeprazole [PriLOSEC] 40 mg PO DAILY 08/24/16 [History] Zoledronic Acid (Reclast) [Reclast Premix 5 MG/100 ML] 5 mg IV [id number] 08/24/16 [History] Ipratropium/Albuterol Neb [Duoneb] 3 ml IH QID PRN #0 08/25/16 [Rx] Lactose-Reduced Food [Ensure High Protein] 1 bottle PO TID #90 can 10/27/16 [Rx] Albuterol Sulfate [Proair Hfa] 2 puff IH Q4H PRN 08/17/17 [History] Pregabalin [Lyrica] 100 mg PO BID 07/08/18 [History] Allergy/AdvReac Type Severity Reaction Status Date / Time No Known Drug Allergies Allergy See Verified 07/21/17 10:37 Comments All Systems PM: A 10-system review of systems was performed and is negative for pertinent findings except as documented above in the HPI. - Constitutional Vitals: Temp Pulse Resp BP Pulse Ox 98.2 F 81 20 126/72 96 07/08/18 16:39 07/08/18 19:34 07/08/18 21:03 07/08/18 21:03 07/08/18 19:34 General appearance: Present: cooperative, A&O X 3, pleasant, no acute distress, answers questions appropriately Exam: - - Head Head exam: Present: normal inspection - Eye Eye exam: Present: EOMI, normal appearance Additional comments: Patient states that she is legally blind, however she is able to identify objects - Respiratory Respiratory exam: Present: decreased breath sounds, rales. Absent: respiratory distress, wheezes Additional comments: Mild crackles at bases - Cardiovascular Cardiovascular exam: Present: RRR. Absent: diastolic murmur, systolic murmur - GI/Abdominal GI/Abdominal exam: Present: normal bowel sounds, soft. Absent: tenderness - Extremities Exam Extremities exam: Present: warm, radial pulses palpable and symmetrical. Absent: pedal edema, tenderness - Neurological Exam Neurological exam: Present: motor sensory deficit. Absent: no focal deficits, strengths equal and symetr throughout, facial droop, speech deficit Additional comments: Right lower extremity weaker than left, which is baseline for patient secondary to previous stroke several years ago - Skin Skin exam: Present: dry, normal color, warm Internal Med - H&P Results - Labs CBC & Chem 7: 07/08/18 18:55 07/08/18 18:55 Labs: Short CBC 07/08/18 Range/Units 18:55 WBC 9.4 (4.3-11.1) K/mcL Hgb 11.8 (11.5-15.4) g/dL Hct 36.8 (35.3-44.9) % Plt Count 347 (140-400) K/mcL Neutrophils # 6.6 (1.6-8.9) K/mcL BMP 07/08/18 18:55 Sodium 141 Potassium 3.8 Chloride 103 Carbon Dioxide 32 H BUN 12 Creatinine 0.41 L Glucose 80 Calcium 9.1 Urine 07/08/18 Range/Units 19:25 Urine Color Yellow (Yellow) Urine Clarity Clear (Clear) Urine pH 6.5 (5.0-8.0) pH Units Ur Specific [place] 1.007 L (1.010-1.025) Urine Protein Negative (Neg-Trace) mg/dL Urine Glucose (UA) Normal (Normal) mg/dL - Impressions ITS Impressions Cervical Spine CT 07/08/18 17:00 IMPRESSION: No acute abnormality of the cervical spine. D/ / Honorio Keen MD / Honorio Keen MD Interpreting Provider: Honorio Keen MD Chest X-Ray 07/08/18 17:00 IMPRESSION: New right lower lobe airspace disease could represent atelectasis or pneumonia D/ / Efraín Chavez MD / Efraín Chavez MD Interpreting Provider: Efraín Chavez MD Head CT 07/08/18 17:00 IMPRESSION: No acute intracranial abnormality. Diffuse atrophic changes with findings suggesting chronic microvascular ischemia D/ / Efraín Chavez MD / Efraín Chavez MD Interpreting Provider: Efraín Chavez MD - Assessment and plan (1) Pneumonia Current Visit: Yes Status: Acute Assessment and plan: Chest x-ray showed right lower lobe pneumonia. Patient was started on IV antibiotics and blood cultures were drawn. Follow-up blood cultures when available Continue IV antibiotics Monitor for worsening signs of infection Oxygen supplementation as needed Qualifiers: Pneumonia type: due to unspecified organism Laterality: right Lung location: lower lobe of lung Qualified Code(s): J18.1 - Lobar pneumonia, unspecified organism (2) Weakness Current Visit: No Status: Acute Assessment and plan: Patient has baseline weakness and requires walker for ambulation. She has had several falls over the last few days. Patient does state she has not been eating much lately, but she is not exactly sure why. PT OT consult in the morning (3) Fall Current Visit: Yes Status: Acute Assessment and plan: Patient has had multiple falls at home. Most recently fell at home hitting her head on the ground. Head CT negative. PT OT consult in the morning Qualifiers: Encounter type: initial encounter Qualified Code(s): W19.XXXA - Unspecified fall, initial encounter (4) Frail elderly Current Visit: No Status: Chronic Assessment and plan: Patient has a BMI of 12.8, history of failure to thrive and malnutrition. Patient did request food upon arrival. Patient has home health nurse at home which she has had for nearly 15 years now. Consider nutrition consultation CMP in the morning (5) DVT prophylaxis Current Visit: No Status: Acute Assessment and plan: Subcutaneous heparin - Time Spent With Patient Total time spent is greater than 50% in coordination of care (as documented) at patient's floor/unit and/or counseling patient: Greater than 35 minutes
[2018-07-09] MEDS ORDERED: Acetaminophen 325 MG TABLET PO ONE (03:26)
[2018-07-09] MEDS: *HR* Heparin 5,000 UNIT/ML VIAL SQ SCH ×2 (05:24→17:06)
[2018-07-09 07:02] LABS: Hematocrit 37.2 % (35.3-44.9); Hemoglobin 11.7 g/dL (11.5-15.4); Mean Corpuscular HGB Conc 31.5 g/dL (31.6-35.5); Mean Corpuscular Volume 98.7 fL (83.0-100.0); Mean Platelet Volume 9.7 fL (9.4-12.4); Platelet Count 333 K/mcL (140-400); Red Blood Count 3.77 M/mcL (3.82-4.97); Red Cell Distribution Width 13.4 % (11.5-14.5)
[2018-07-09 07:26] LABS: Alanine Aminotransferase 12 Units/L (7-52); Albumin 3.2 g/dL (3.5-5.7); Albumin/Globulin Ratio 1.3 (1.1-2.2); Alkaline Phosphatase 64 Units/L (34-104); Aspartate Amino Transferase 13 Units/L (13-39); BUN/Creatinine Ratio 27 (6-26); Bilirubin,Total 0.2 mg/dL (0.3-1.0); Blood Urea Nitrogen 13 mg/dL (8-23); Calcium 9.2 mg/dL (8.6-10.3); Carbon Dioxide 32 mEq/L (23-29); Chloride 102 mEq/L (98-107); Globulin 2.5 g/dL (2.4-3.5); Glucose 92 mg/dL (70-105); Osmolality,Calculated 294 (280-300); Potassium 3.9 mEq/L (3.5-5.1); Sodium 142 mEq/L (136-145); Total Protein 5.7 g/dL (6.4-8.9); eGFR For Non-African Americans > 60 (> 60)
[2018-07-09] MEDS: cefTRIAXone 1,000 MG in Water for inj. (sterile) 20 ML 10 ML IVP SCH (08:22)
[2018-07-09] MEDS ORDERED: Ipratropium/Albuterol Neb 3 ML IH PRN (10:48)
[2018-07-09] MEDS ORDERED: Nitroglycerin 0.4 MG TAB.SUBL SL PRN (10:48)
[2018-07-09] MEDS: Acetaminophen 325 MG TABLET PO PRN ×2 (11:16→21:47)
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
--- NOTE | 2018-07-09 14:49 | Electrocardiograph Report ---
[place] [id number] Test Date: 2018-07-08 Pat Name: Alee Chang Department: EXAM19 Room: 3B44 Gender: F Staff Mechanical Engineer: : [id number] Requested By: Harry Olmos Order Number: [id number] Reading MD: Trenton Grajeda Measurements Intervals [place] Rate: 102 P: 90 AL: 161 QRS: 85 QRSD: 88 T: 31 QT: 361 QTc: 471 Interpretive Statements Sinus tachycardia Right atrial enlargement Borderline right axis deviation Left ventricular hypertrophy Electronically Signed On 07-09-2018 14:47:40 EST by Trenton Grajeda
[2018-07-09] MEDS: Pregabalin 50 MG CAPSULE PO SCH (21:43)
[2018-07-10] MEDS: diazePAM 5 MG TABLET PO PRN (01:29)
[2018-07-10] MEDS: *HR* Heparin 5,000 UNIT/ML VIAL SQ SCH ×2 (05:35→16:51)
[2018-07-10] MEDS: Acetaminophen 325 MG TABLET PO PRN ×3 (05:39→20:22)
[2018-07-10] MEDS: Pregabalin 50 MG CAPSULE PO SCH ×2 (08:47→20:17)
[2018-07-10] MEDS: Cholecalciferol (D-3) 1,000 UNIT TABLET PO SCH (08:47)
[2018-07-10] MEDS: Ascorbic Acid 500 MG TABLET PO SCH (08:47)
[2018-07-10] MEDS: cefTRIAXone 1,000 MG in Water for inj. (sterile) 20 ML 10 ML IVP SCH (08:48)
[2018-07-10] MEDS: Aspirin Enteric Coated 81 MG Tablet PO SCH (08:49)
--- NOTE | 2018-07-10 12:15 | Internal Med Progress Note ---
Hospitalist Progress Note - Encounter Date of Encounter: 07/10/18 Time of Encounter: 12:12 - Subjective Interval History: Patient reported improved cough, she denies fever, chills, or night sweats. Her breathing has been improved as well. - Exam Vitals: Temp Pulse Resp BP Pulse Ox 98.1 F 76 16 98/62 98 07/10/18 11:47 07/10/18 11:47 07/10/18 11:47 07/10/18 11:47 07/10/18 11:47 Exam: PHYSICAL EXAMINATION: GENERAL APPEARANCE: The patient is alert, oriented and in no acute distress. HEENT: Head is normocephalic. The sinuses are nontender. Pupils are equal and reactive. The nares are patent. Oropharynx clear without lesions. NECK: Supple without lymphadenopathy. HEART: Regular rate and rhythm. LUNGS: No crackles or wheezes are heard. ABDOMEN: Soft, nontender, nondistended with good bowel sounds heard. Inguinal area is normal. EXTREMITIES: Without cyanosis, clubbing or edema. NEUROLOGICAL: Gross nonfocal. SKIN: Warm and dry without any rash. - Assessment and Plan (1) Failure to thrive Current Visit: No Status: Chronic Assessment and Plan: severe PCM noticed Low prealbumin level Coating Mixer Supervisor consulted (2) Pneumonia Current Visit: Yes Status: Acute Assessment and Plan: Mostly bacterial continue empirical antibiotic Rocephin and azithromycin continue bronchodilator therapy Patient does need to stay in the hospital more than 2 midnights due to her complex medical problems. So we will change her to full admission today. (3) GERD (gastroesophageal reflux disease) Current Visit: No Status: Chronic Assessment and Plan: on ppi (4) Severe protein-calorie malnutrition Current Visit: No Status: Chronic (5) Hypertension Current Visit: No Status: Chronic Assessment and Plan: Resumed home medications (6) Arthritis Current Visit: No Status: Acute Assessment and Plan: I did review her left shoulder and right hip x ray - no fractures noticed severe arthritis noticed continue physical therapy/occupational therapy cont symptomatic and supportive care need outpatient follow-up with Ortho (7) Fall Current Visit: Yes Status: Acute Assessment and Plan: Waiting for PT/OT eval Place a fall precautions her falls are mostly due to physical deconditioning and failure to thrive DVT Prophylaxis: heparin sq. - Time Spent with Patient Total time spent is greater than 50% in coordination of care (as documented) at patient's floor/unit and/or counseling patient: Greater than 35 minutes Plan of Care Discussed with: patient Internal Medicine: Result - Labs CBC & Chem 7: 07/09/18 05:23 07/09/18 05:23 - Impressions Impressions Hip X-Ray 07/09/18 11:49 IMPRESSION: No acute osseous injury of the hips. Moderate osteoarthritis of the right hip. Orthopedic hardware in the left proximal femur projects in normal position. D/ / Bony Larsen MD / Bony Larsen MD Interpreting Provider: Bony Larsen MD Shoulder X-Ray 07/09/18 11:49 IMPRESSION: No acute osseous injury of the left shoulder. Osteoarthritis is noted. D/ / Bony Larsen MD / Bony Larsen MD Interpreting Provider: Bony Larsen MD Consult Discharge Plan - Plan Referrals: Claribel Leary MD [Primary Care Provider] - 07/16/18 1:45 pm (1) Failure to thrive Qualifiers: (2) Pneumonia Qualifiers: Pneumonia type: due to unspecified organism Laterality: right Lung location: lower lobe of lung Qualified Code(s): J18.1 - Lobar pneumonia, unspecified organism (3) GERD (gastroesophageal reflux disease) Qualifiers: Esophagitis presence: with esophagitis Qualified Code(s): K21.0 - Gastro- esophageal reflux disease with esophagitis (5) Hypertension Qualifiers: Hypertension type: essential hypertension Qualified Code(s): I10 - Essential (primary) hypertension (7) Fall Qualifiers: Encounter type: initial encounter Qualified Code(s): W19.XXXA - Unspecified fall, initial encounter
[2018-07-10] MEDS: Azithromycin 500 MG in D5% in Water 250 ML IVPB SCH (20:17)
[2018-07-11 05:06] LABS: Basophils % 0.3 %; Eosinophils # 0.2 K/mcL (0.0-0.6); Eosinophils % 2.6 %; Hematocrit 39.3 % (35.3-44.9); Immature Granulocytes % 0.5 % (0-4); Lymphocytes # 2.1 K/mcL (0.6-4.6); Lymphocytes % 23.2 %; Mean Corpuscular HGB Conc 30.5 g/dL (31.6-35.5); Mean Corpuscular Hemoglobin 30.9 pg (28.0-33.3); Mean Corpuscular Volume 101.3 fL (83.0-100.0); Mean Platelet Volume 9.4 fL (9.4-12.4); Monocytes # 0.8 K/mcL (0.0-1.3); Monocytes % 8.4 %; Platelet Count 324 K/mcL (140-400); Red Blood Count 3.88 M/mcL (3.82-4.97); Red Cell Distribution Width 13.4 % (11.5-14.5)
[2018-07-11 05:23] LABS: BUN/Creatinine Ratio 50 (6-26); Blood Urea Nitrogen 20 mg/dL (8-23); Calcium 9.5 mg/dL (8.6-10.3); Carbon Dioxide 36 mEq/L (23-29); Chloride 98 mEq/L (98-107); Glucose 106 mg/dL (70-105); Osmolality,Calculated 297 (280-300); Potassium 4.7 mEq/L (3.5-5.1); Sodium 142 mEq/L (136-145); eGFR For Non-African Americans > 60 (> 60)
[2018-07-11] MEDS: *HR* Heparin 5,000 UNIT/ML VIAL SQ SCH ×2 (05:35→17:22)
[2018-07-11] MEDS: Acetaminophen 325 MG TABLET PO PRN ×2 (05:36→20:30)
[2018-07-11] MEDS: Pregabalin 50 MG CAPSULE PO SCH ×2 (07:54→20:29)
[2018-07-11] MEDS: cefTRIAXone 1,000 MG in Water for inj. (sterile) 20 ML 10 ML IVP SCH (07:54)
[2018-07-11] MEDS: Aspirin Enteric Coated 81 MG Tablet PO SCH (07:54)
[2018-07-11] MEDS: Cholecalciferol (D-3) 1,000 UNIT TABLET PO SCH (07:55)
[2018-07-11] MEDS: Ascorbic Acid 500 MG TABLET PO SCH (07:55)
[2018-07-11] MEDS: Ibuprofen 600 MG TABLET PO PRN ×2 (11:31→23:01)
--- NOTE | 2018-07-11 12:01 | Internal Med Progress Note ---
Hospitalist Progress Note - Encounter Date of Encounter: 07/11/18 Time of Encounter: 11:59 - Subjective Interval History: Patient reported improved cough, she denies fever, chills, or night sweats. Her breathing has been improved as well. - Exam Vitals: Temp Pulse Resp BP Pulse Ox 97.9 F 86 16 102/58 97 07/11/18 11:23 07/11/18 11:23 07/11/18 11:23 07/11/18 11:23 07/11/18 11:23 Exam: PHYSICAL EXAMINATION: GENERAL APPEARANCE: The patient is alert, oriented and in no acute distress. HEENT: Head is normocephalic. The sinuses are nontender. Pupils are equal and reactive. The nares are patent. Oropharynx clear without lesions. NECK: Supple without lymphadenopathy. HEART: Regular rate and rhythm. LUNGS: No crackles or wheezes are heard. ABDOMEN: Soft, nontender, nondistended with good bowel sounds heard. Inguinal area is normal. EXTREMITIES: Without cyanosis, clubbing or edema. NEUROLOGICAL: Gross nonfocal. SKIN: Warm and dry without any rash. - Assessment and Plan (1) Failure to thrive Current Visit: No Status: Chronic Assessment and Plan: severe PCM noticed Low prealbumin level Pharmacy Tech consulted (2) Pneumonia Current Visit: Yes Status: Acute Assessment and Plan: Mostly bacterial continue empirical antibiotic Rocephin and azithromycin continue bronchodilator therapy Patient does need to stay in the hospital more than 2 midnights due to her complex medical problems. So we will change her to full admission today. (3) GERD (gastroesophageal reflux disease) Current Visit: No Status: Chronic Assessment and Plan: on ppi (4) Severe protein-calorie malnutrition Current Visit: Yes Status: Chronic (5) Hypertension Current Visit: No Status: Chronic Assessment and Plan: Resumed home medications (6) Arthritis Current Visit: No Status: Acute Assessment and Plan: I did review her left shoulder and right hip x ray - no fractures noticed severe arthritis noticed continue physical therapy/occupational therapy cont symptomatic and supportive care need outpatient follow-up with Ortho (7) Fall Current Visit: Yes Status: Acute Assessment and Plan: Waiting for PT/OT eval Place a fall precautions her falls are mostly due to physical deconditioning and failure to thrive DVT Prophylaxis: heparin sq. - Time Spent with Patient Total time spent is greater than 50% in coordination of care (as documented) at patient's floor/unit and/or counseling patient: Greater than 35 minutes Plan of Care Discussed with: patient Internal Medicine: Result - Labs CBC & Chem 7: 07/11/18 04:22 07/11/18 04:22 Labs: Short CBC 07/11/18 Range/Units 04:22 WBC 9.2 (4.3-11.1) K/mcL Hgb 12.0 (11.5-15.4) g/dL Hct 39.3 (35.3-44.9) % Plt Count 324 (140-400) K/mcL Neutrophils # 6.0 (1.6-8.9) K/mcL BMP 07/11/18 04:22 Sodium 142 Potassium 4.7 Chloride 98 Carbon Dioxide 36 H BUN 20 Creatinine 0.40 L Glucose 106 H Calcium 9.5 Consult Discharge Plan - Plan Referrals: Claribel Leary MD [Primary Care Provider] - 07/16/18 1:45 pm (1) Failure to thrive Qualifiers: (2) Pneumonia Qualifiers: Pneumonia type: due to unspecified organism Laterality: right Lung location: lower lobe of lung Qualified Code(s): J18.1 - Lobar pneumonia, unspecified organism (3) GERD (gastroesophageal reflux disease) Qualifiers: Esophagitis presence: with esophagitis Qualified Code(s): K21.0 - Gastro- esophageal reflux disease with esophagitis (5) Hypertension Qualifiers: Hypertension type: essential hypertension Qualified Code(s): I10 - Essential (primary) hypertension (7) Fall Qualifiers: Encounter type: initial encounter Qualified Code(s): W19.XXXA - Unspecified fall, initial encounter
[2018-07-11] MEDS: Azithromycin 500 MG in D5% in Water 250 ML IVPB SCH (20:29)
[2018-07-12] MEDS: diazePAM 5 MG TABLET PO PRN (04:15)
[2018-07-12 05:48] LABS: BUN/Creatinine Ratio 54 (6-26); Blood Urea Nitrogen 22 mg/dL (8-23); Calcium 9.6 mg/dL (8.6-10.3); Carbon Dioxide 36 mEq/L (23-29); Chloride 95 mEq/L (98-107); Glucose 102 mg/dL (70-105); Osmolality,Calculated 292 (280-300); Potassium 4.9 mEq/L (3.5-5.1); Sodium 139 mEq/L (136-145); eGFR For Non-African Americans > 60 (> 60)
[2018-07-12] MEDS: *HR* Heparin 5,000 UNIT/ML VIAL SQ SCH (05:55)
[2018-07-12] MEDS: Ascorbic Acid 500 MG TABLET PO SCH (09:21)
[2018-07-12] MEDS: Cholecalciferol (D-3) 1,000 UNIT TABLET PO SCH (09:22)
[2018-07-12] MEDS: Pregabalin 50 MG CAPSULE PO SCH (09:22)
[2018-07-12] MEDS: Aspirin Enteric Coated 81 MG Tablet PO SCH (09:22)
[2018-07-12 11:16] VITALS: BP 94/58
--- NOTE | 2018-07-12 13:17 | Discharge Summary ---
- NOTES TO OUTPATIENT PROVIDER Notes to Outpatient Provider: f/u with PCP as needed. Orders not resulted at time of discharge: Pending orders 07/08/18 19:12 Culture,Blood [BC] Stat Date of Encounter: 07/12/18 Time of Encounter: 13:13 - Discharge Diagnosis (1) Failure to thrive Priority: Primary Status: Chronic Qualifiers: Failure to thrive age range: in adult Qualified Code(s): R62.7 - Adult failure to thrive (2) Pneumonia Priority: Primary Status: Acute Qualifiers: Pneumonia type: due to unspecified organism Laterality: right Lung location: lower lobe of lung Qualified Code(s): J18.1 - Lobar pneumonia, unspecified organism (3) GERD (gastroesophageal reflux disease) Priority: Secondary Status: Chronic Qualifiers: Esophagitis presence: with esophagitis Qualified Code(s): K21.0 - Gastro-esophageal reflux disease with esophagitis (4) Severe protein-calorie malnutrition Priority: Primary Status: Chronic (5) Hypertension Priority: Secondary Status: Chronic Qualifiers: Hypertension type: essential hypertension Qualified Code(s): I10 - Essential (primary) hypertension (6) Arthritis Priority: Secondary Status: Chronic (7) Fall Priority: Primary Status: Acute Qualifiers: Encounter type: initial encounter Qualified Code(s): W19.XXXA - Unspecified fall, initial encounter Hospital course: Ms. Chang is a 82 year old female Patient presented to the emergency room after experiencing a fall. She also fell yesterday as well onto her left arm. At that time she was seen by her primary care physician who performed x-rays which were negative for fracture. Today the patient was at home and while she was walking with her walker she was witnessed to have lost her balance fell backwards and hit her head. She denied loss of consciousness and does not take blood thinners. She has home health assistance at home. She came to the emergency room for further evaluation. In the emergency room, vital signs were stable, CBC and BMP were within normal limits. CT of the C-spine and head CT both showed no acute abnormalities. Chest x-ray showed right lower lobe pneumonia. A discussion with the family regarding plan of care took place and the family decided that they would want patient to be admitted. Blood cultures were drawn and patient was started on azithromycin and ceftriaxone. She was given Tylenol and a lidocaine patch for pain and admitted to the hospital for further management. Pneumonia was treated with IV abx Rocephin and Azithromycin. PT/OT was consulted and recommended inpatient rehab. She also was found having severe protein deficiency malnutrition. nutrition was consulted. After 4 days of treatment, antibiotics was changed to oral Augmentin. Pt vitals were stable and will be transferred to inpatient rehab today. Discharge discussed with: patient Time spent discussing smoking cessation with patient: more than 10 minutes - Time Spent with Patient Total time spent providing and/or coordinating discharge services: 45 mins. Greater than 30 minutes - Discharge Medications Prescriptions: Amoxicillin/Clavulanate [Augmentin] 875 mg PO BIDWM #14 tablet Home Medications: Potassium Chloride [K-Tab ER] 20 meq PO BID 11/11/15 [History] Simvastatin [Zocor] 40 mg PO HS 11/11/15 [History] diazePAM [Valium] 2.5 - 5 mg PO BID PRN 11/11/15 [History] Aspirin Enteric Coated [Aspirin EC] 81 mg PO DAILY 02/01/16 [History] Propranolol [Inderal] 10 mg PO BID 02/01/16 [History] Ascorbic Acid [Vitamin C] 1,000 mg PO DAILY 08/24/16 [History] Calcium Carbonate [Calcium] 500 mg PO DAILY 08/24/16 [History] Cholecalciferol (D-3) [Vitamin D] 1,000 unit PO DAILY 08/24/16 [History] Cyanocobalamin (B-12) [Vitamin B12] 1,000 mcg IM QMONTH 08/24/16 [History] Ferrous Sulfate [Iron] 325 mg PO DAILY 08/24/16 [History] Nitroglycerin [Nitrostat] 0.4 mg SL Q5M PRN 08/24/16 [History] Rankin-3/Dha/Epa/Fish Oil [Fish Oil 1,000 mg Softgel] 1,000 mg PO BID 08/24/16 [History] Omeprazole [PriLOSEC] 40 mg PO DAILY 08/24/16 [History] Zoledronic Acid (Reclast) [Reclast Premix 5 MG/100 ML] 5 mg IV [id number] 08/24/16 [History] Ipratropium/Albuterol Neb [Duoneb] 3 ml IH QID PRN #0 08/25/16 [Rx] Lactose-Reduced Food [Ensure High Protein] 1 bottle PO TID #90 can 10/27/16 [Rx] Albuterol Sulfate [Proair Hfa] 2 puff IH Q4H PRN 08/17/17 [History] Pregabalin [Lyrica] 100 mg PO BID 07/08/18 [History] Amoxicillin/Clavulanate [Augmentin] 875 mg PO BIDWM #14 tablet 07/12/18 [Rx] Allergies/Adverse Reactions: Allergy/AdvReac Type Severity Reaction Status Date / Time No Known Drug Allergies Allergy See Verified 07/21/17 10:37 Comments Date of admission: 07/09/18 14:23 Primary care physician: Claribel Leary Consults: 07/08/18 23:57 Consult to Occupational Therapy [CONS] Routine Comment: Evaluate, develop and implement POC Reason for Consult: Multiple falls at home. Does patient have active BEDREST order?: No Is patient medically & hemodynamically stable?: Yes Consult to Physical Therapy [CONS] Routine Comment: Evaluate, develop and implement POC Reason for Consult: Multiple falls at home, patient uses a walker for ambulation. Does patient have active BEDREST order?: No Is patient medically & hemodynamically stable?: Yes 07/09/18 14:00 Consult to Nutrition [CONS] Routine Comment: Consulting Provider: NUTRITION Reason for Dietary Consult: Diet Education PO Supplementation 07/12/18 09:34 Consult to Film Inspector [CONS] Routine Reason for SW Consult: PLACEMENT TO INPATIENT SWING Anticipated date of discharge: 07/12/18 - Constitutional Vitals: Temp Pulse Resp BP Pulse Ox 98.0 F 95 14 94/58 96 07/12/18 11:14 07/12/18 11:14 07/12/18 11:14 07/12/18 11:14 07/12/18 11:14 General appearance: Present: cooperative, A&O X 3, pleasant, no acute distress, answers questions appropriately Exam: PHYSICAL EXAMINATION: GENERAL APPEARANCE: The patient is alert, oriented and in no acute distress. HEENT: Head is normocephalic. The sinuses are nontender. Pupils are equal and reactive. The nares are patent. Oropharynx clear without lesions. NECK: Supple without lymphadenopathy. HEART: Regular rate and rhythm. LUNGS: No crackles or wheezes are heard. ABDOMEN: Soft, nontender, nondistended with good bowel sounds heard. Inguinal area is normal. EXTREMITIES: Without cyanosis, clubbing or edema. NEUROLOGICAL: Gross nonfocal. SKIN: Warm and dry without any rash. - Patient Status Disposition: Transfer Inpatient Rehab Fac Condition: Fair Functional capacity at discharge: independent ambulation Overall status at discharge: patient is progressing back to baseline - Discharge Instructions Follow Up With: Claribel Leary MD [Primary Care Provider] - 07/16/18 1:45 pm - Diet and Activity Activity: increase activity as tolerated Diet: advance to your usual diet
[2018-07-12] MEDS: Acetaminophen 325 MG TABLET PO PRN (14:43)
== END 2018-07-12 16:57 | DRG 193 ==
LOC: 3BNU 16:35 → EMEROOARM 16:35 → SUATTDRO 20:55 → 3BNU 21:20
PROVIDERS: ADMIT Family Medicine; ATTEND Family Medicine

== ENCOUNTER 2018-10-24 15:36 | Inpatient (IN) ==
[2018-10-24] MEDS ORDERED: 0.9 % Sodium Chloride 1,000 ML IVC ONE (15:49)
[2018-10-24] MEDS ORDERED: *HR* FentaNYL (PF) 100 MCG/2 ML VIAL IVP ONE (15:51)
[2018-10-24] MEDS ORDERED: Ondansetron 4 MG/2 ML VIAL IVP ONE (15:51)
[2018-10-24 16:21] LABS: Basophils # 0.1 K/mcL (0.0-0.2); Basophils % 0.8 %; Eosinophils # 0.2 K/mcL (0.0-0.6); Eosinophils % 2.3 %; Hematocrit 43.1 % (35.3-44.9); Hemoglobin 13.8 g/dL (11.5-15.4); Immature Granulocytes % 0.3 % (0-4); Lymphocytes # 2.4 K/mcL (0.6-4.6); Lymphocytes % 37.7 %; Mean Corpuscular Hemoglobin 31.6 pg (28.0-33.3); Mean Corpuscular Volume 98.6 fL (83.0-100.0); Mean Platelet Volume 9.7 fL (9.4-12.4); Monocytes # 0.4 K/mcL (0.0-1.3); Monocytes % 6.1 %; Neutrophils # 3.4 K/mcL (1.6-8.9); Platelet Count 210 K/mcL (140-400); Red Blood Count 4.37 M/mcL (3.82-4.97); Red Cell Distribution Width 12.9 % (11.5-14.5); Segmented Neutrophils % 52.8 %
[2018-10-24 16:27] LABS: Prothrombin Time 11.1 Seconds (9.4-12.1)
[2018-10-24 16:48] LABS: Bilirubin,Urine Negative (Negative); Blood,Urine Negative (Negative); Clarity,Urine Clear (Clear); Color,Urine Yellow (Yellow); Glucose,Urine (UA) Normal (Normal); Ketones,Urine Trace mg/dL (Negative); Leukocyte Esterase,Urine Negative (Negative); Nitrite,Urine Negative (Negative); Protein,Urine Negative (Neg-Trace); Urobilinogen,Urine Normal (Normal)
[2018-10-24] MEDS ORDERED: Isovue-370 500 ML BOTTLE IVP ONE (17:01)
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
[2018-10-24] MEDS ORDERED: Naloxone 0.4 MG/ML INJ IVP PRN (17:16)
--- NOTE | 2018-10-24 17:19 | Emergency Department Note ---
Disposition Clinical Impression: Generalized weakness, Pulmonary nodule, Shortness of breath, COPD (chronic obstructive pulmonary disease) Disposition: Admitted As Inpatient Condition: Fair General Adult HPI - General Chief complaint: ED Weakness Stated complaint: headache, weakness Time Seen by Provider: 10/24/18 15:42 Source: patient, EMS Limitations: no limitations - History of Present Illness Pain Scale: 9 - Related Data Home Medications Medication Instructions Recorded Confirmed Potassium Chloride [K-Tab ER] 20 meq PO BID 11/11/15 07/08/18 Simvastatin [Zocor] 40 mg PO HS 11/11/15 07/08/18 Aspirin Enteric Coated [Aspirin EC] 81 mg PO DAILY 02/01/16 07/08/18 Propranolol [Inderal] 10 mg PO BID 02/01/16 07/08/18 Ascorbic Acid [Vitamin C] 1,000 mg PO DAILY 08/24/16 07/08/18 Calcium Carbonate [Calcium] 500 mg PO DAILY 08/24/16 07/08/18 Cholecalciferol (D-3) [Vitamin D] 1,000 unit PO DAILY 08/24/16 07/08/18 Cyanocobalamin (B-12) [Vitamin B12] 1,000 mcg IM QMONTH 08/24/16 07/08/18 Ferrous Sulfate [Iron] 325 mg PO DAILY 08/24/16 07/08/18 Nitroglycerin [Nitrostat] 0.4 mg SL Q5M PRN 08/24/16 07/08/18 [place]-3/Dha/Epa/Fish Oil [Fish Oil 1,000 mg PO BID 08/24/16 07/08/18 1,000 mg Softgel] Omeprazole [PriLOSEC] 40 mg PO DAILY 08/24/16 07/08/18 Zoledronic Acid (Reclast) [Reclast 5 mg IV [id number] 08/24/16 07/08/18 Premix 5 MG/100 ML] Albuterol Sulfate [Proair Hfa] 2 puff IH Q4H PRN 08/17/17 07/08/18 Previous Rx's Medication Instructions Recorded Ipratropium/Albuterol Neb [Duoneb] 3 ml IH QID PRN #0 08/25/16 Lactose-Reduced Food [Ensure High 1 bottle PO TID #90 can 10/27/16 Protein] Amoxicillin/Clavulanate [Augmentin] 875 mg PO BIDWM #14 tablet 07/12/18 Azithromycin [Azithromycin 6-Tab 250 mg PO PER PKG DI #6 tab 10/16/18 Pack] Allergies Allergy/AdvReac Type Severity Reaction Status Date / Time No Known Drug Allergies Allergy See Verified 07/21/17 10:37 Comments Past Medical History - Past Medical History Medical history: Reports: arthritis, COPD, coronary artery disease, CVA, GERD, GI bleed, hyperlipidemia, hypertension, kidney stones, migraine, myocardial infarction, osteoporosis, renal disease, TIA, other Surgical history: Reports: angioplasty/stent, cholecystectomy, hip replacement, orthopedic, other, other Psychiatric history: Reports: anxiety, other SOCIAL AND POLITICAL STUDIES PROFESSOR history: Reports: no SOCIAL AND POLITICAL STUDIES PROFESSOR history - Social History Smoking Status: Former smoker Smokeless Tobacco Status: No Alcohol use: Reports: none Drug use: Reports: none Physical Exam - General Limitations: no limitations General appearance: alert, in no apparent distress Course Vital Signs Temperature 97.6 F 10/24/18 15:39 Pulse Rate 74 10/24/18 15:39 Respiratory Rate 18 10/24/18 15:39 Blood Pressure 128/75 10/24/18 15:39 O2 Sat by Pulse Oximetry 100 10/24/18 15:39 Temperature 97.6 F 10/24/18 15:39 Pulse Rate 66 10/24/18 16:48 Respiratory Rate 18 10/24/18 16:48 Blood Pressure 138/78 10/24/18 16:48 O2 Sat by Pulse Oximetry 96 10/24/18 16:48 Oxygen Delivery Oxygen Delivery Room Air Medical Decision Making - [facility] Narrative Medical decision making narrative: This is an 82-year-old female presenting to the emergency room for weakness. recent PNA diagnosis and tx. concerns for increasing weakness. cxr shows nodularity in Left UL. This is a possible malignancy. We will need to be further identified with CT imaging. CT the head was negative for any acute process. CT abdomen and pelvis was nonacute. Patient be admitted. Admission for weakness and possible mass in left upper lobe. - Medical Records Medical records reviewed: Yes I reviewed the patient's medical records. - Lab Data Lab results reviewed: Yes I reviewed the patient's lab results. Result diagrams: 10/24/18 16:04 Lab Results 04/28/19 04/28/19 04/28/19 Range/Units 16:04 16:04 16:04 WBC 6.4 (4.3-11.1) K/mcL RBC 4.37 (3.82-4.97) M/mcL Hgb 13.8 (11.5-15.4) g/dL Hct 43.1 (35.3-44.9) % MCV 98.6 (83.0-100.0) fL MCH 31.6 (28.0-33.3) pg MCHC 32.0 (31.6-35.5) g/dL RDW 12.9 (11.5-14.5) % Plt Count 210 (140-400) K/mcL MPV 9.7 (9.4-12.4) fL Immature Gran % 0.3 (0-4) % Seg Neutrophils % 52.8 % Lymphocytes % 37.7 % Monocytes % 6.1 % Eosinophils % 2.3 % Basophils % 0.8 % Neutrophils # 3.4 (1.6-8.9) K/mcL Lymphocytes # 2.4 (0.6-4.6) K/mcL Monocytes # 0.4 (0.0-1.3) K/mcL Eosinophils # 0.2 (0.0-0.6) K/mcL Basophils # 0.1 (0.0-0.2) K/mcL PT 11.1 (9.4-12.1) Seconds INR 1.0 Troponin I < 0.03 (< 0.04) ng/mL Urine Color (Yellow) Urine Clarity (Clear) Urine pH (5.0-8.0) pH Units Ur Specific [place] (1.010-1.025) Urine Protein (Neg-Trace) mg/dL Urine Glucose (UA) (Normal) mg/dL Urine Ketones (Negative) mg/dL Urine Blood (Negative) Urine Nitrite (Negative) Urine Bilirubin (Negative) Urine Urobilinogen (Normal) mg/dL Ur Leukocyte Esterase (Negative) Ur Culture Indicated? (NO) Specimen Rejected 10/24/18 10/24/18 Range/Units 16:41 16:51 WBC (4.3-11.1) K/mcL RBC (3.82-4.97) M/mcL Hgb (11.5-15.4) g/dL Hct (35.3-44.9) % MCV (83.0-100.0) fL MCH (28.0-33.3) pg MCHC (31.6-35.5) g/dL RDW (11.5-14.5) % Plt Count (140-400) K/mcL MPV (9.4-12.4) fL Immature Gran % (0-4) % Seg Neutrophils % % Lymphocytes % % Monocytes % % Eosinophils % % Basophils % % Neutrophils # (1.6-8.9) K/mcL Lymphocytes # (0.6-4.6) K/mcL Monocytes # (0.0-1.3) K/mcL Eosinophils # (0.0-0.6) K/mcL Basophils # (0.0-0.2) K/mcL PT (9.4-12.1) Seconds INR Troponin I (< 0.04) ng/mL Urine Color Yellow (Yellow) Urine Clarity Clear (Clear) Urine pH 6.0 (5.0-8.0) pH Units Ur Specific [place] 1.020 (1.010-1.025) Urine Protein Negative (Neg-Trace) mg/dL Urine Glucose (UA) Normal (Normal) mg/dL Urine Ketones Trace H (Negative) mg/dL Urine Blood Negative (Negative) Urine Nitrite Negative (Negative) Urine Bilirubin Negative (Negative) Urine Urobilinogen Normal (Normal) mg/dL Ur Leukocyte Esterase Negative (Negative) Ur Culture Indicated? NO (NO) Specimen Rejected Hemolyzed - Radiology Data Radiology results reviewed: Yes I reviewed the patient's radiology results. - EKG Data EKG #1 EKG attestation: Yes I reviewed and interpreted this EKG. EKG results narrative: EKG shows a rate of 67. Normal sinus rhythm. Normal axis. NH interval 125. QRS 88. QTC 403. Attestation Statement - Attestation Attestation: I examined this patient and my medical decision-making was reviewed with the Resident Physician. I agree with the documented findings, disposition and treatment plan as described except to the extent set forth below.
[2018-10-24 17:30] LABS: Alanine Aminotransferase 43 Units/L (7-52); Albumin 3.4 g/dL (3.5-5.7); Alkaline Phosphatase 52 Units/L (34-104); Aspartate Amino Transferase 51 Units/L (13-39); BUN/Creatinine Ratio 23 (6-26); Bilirubin,Total 0.3 mg/dL (0.3-1.0); Blood Urea Nitrogen 9 mg/dL (8-23); Calcium 8.5 mg/dL (8.6-10.3); Carbon Dioxide 32 mEq/L (23-29); Chloride 104 mEq/L (98-107); Globulin 1.7 g/dL (2.4-3.5); Glucose 81 mg/dL (70-105); Magnesium 1.6 mg/dL (1.6-2.6); Osmolality,Calculated 290 (280-300); Potassium 3.5 mEq/L (3.5-5.1); Sodium 141 mEq/L (136-145); Total Protein 5.1 g/dL (6.4-8.9); eGFR For Non-African Americans > 60 (> 60)
--- NOTE | 2018-10-24 18:22 | Internal Med History&Physical ---
Date of Encounter: 10/24/18 Time of Encounter: 17:30 Internal Medicine - H&P: HPI Chief complaint: Weakness, failure to thrive History of present illness: Ms. Chang is a 82 year old female with pmh of hypertension, COPD on 2L of oxygen, recent hospitalization for pneumonia for which she was recently discharged about a week ago, presenting to the hospital with complaints of weakness per family for the last 3 days and severe lethargy. They report that for the last 3 days she hasn't been eating, drinking or moving around much and has just stayed in bed. They also complain that she has been more short of breath. Patient herself is very lethargic but arousable and alert and oriented x 3. She says she feels very weak and short of breath and has occasional cough. Also complains of diarrhea with up to 6 loose stools per day of about 3 months duration. Admits to chills. Denies any wheezing, abdominal pain, nausea or vomiting. In the ER, a chest xray was done showing a density in left upper lobe. She is being admitted for further management Past Med Surg Social Fam HX - Past Medical History Medical history: arthritis, COPD, coronary artery disease, CVA, GERD, GI bleed, hyperlipidemia, hypertension, kidney stones, migraine, myocardial infarction, osteoporosis, renal disease, TIA, other Additional medical history: LEGALLY BLIND Psychiatric history: anxiety, other - Past Surgical History Surgical History: angioplasty/stent, cholecystectomy, hip replacement, orthopedic, other, other Additional surgical history: vagoectomy, antrectomy w/stapled gastrojejunostomy - Social History Smoking Status: Former smoker Smokeless Tobacco Status: No Alcohol use: none Drug use: none - Family History Father Living Status: Mother Living Status: Hx Family Cancer: Yes (breast) Internal Medicine - H&P: Meds Potassium Chloride [K-Tab ER] 20 meq PO BID 11/11/15 [History] Simvastatin [Zocor] 40 mg PO HS 11/11/15 [History] Aspirin Enteric Coated [Aspirin EC] 81 mg PO DAILY 02/01/16 [History] Propranolol [Inderal] 10 mg PO BID 02/01/16 [History] Ascorbic Acid [Vitamin C] 1,000 mg PO DAILY 08/24/16 [History] Calcium Carbonate [Calcium] 500 mg PO DAILY 08/24/16 [History] Cholecalciferol (D-3) [Vitamin D] 1,000 unit PO DAILY 08/24/16 [History] Cyanocobalamin (B-12) [Vitamin B12] 1,000 mcg IM QMONTH 08/24/16 [History] Ferrous Sulfate [Iron] 325 mg PO DAILY 08/24/16 [History] Nitroglycerin [Nitrostat] 0.4 mg SL Q5M PRN 08/24/16 [History] Ernul-3/Dha/Epa/Fish Oil [Fish Oil 1,000 mg Softgel] 1,000 mg PO BID 08/24/16 [History] Omeprazole [PriLOSEC] 40 mg PO DAILY 08/24/16 [History] Zoledronic Acid (Reclast) [Reclast Premix 5 MG/100 ML] 5 mg IV [id number] 08/24/16 [History] Ipratropium/Albuterol Neb [Duoneb] 3 ml IH QID PRN #0 08/25/16 [Rx] Lactose-Reduced Food [Ensure High Protein] 1 bottle PO TID #90 can 10/27/16 [Rx] Albuterol Sulfate [Proair Hfa] 2 puff IH Q4H PRN 08/17/17 [History] Allergy/AdvReac Type Severity Reaction Status Date / Time No Known Drug Allergies Allergy See Verified 07/21/17 10:37 Comments All Systems PM: A 10-system review of systems was performed and is negative for pertinent findings except as documented above in the HPI. - Constitutional Constitutional: no chills, no fever(s), no night sweats - EENT Eyes: no change in vision, no discharge, no pain, no photophobia Ears: no ear discharge, no ear pain, no tinnitus Nose, mouth and throat: no dysphagia, no nasal discharge, no neck pain, no sore throat - Cardiovascular Cardiovascular ROS IM: no chest pain, no diaphoresis, no dyspnea, no lightheadedness, no palpitations, no syncope - Respiratory Respiratory: dyspnea, no cough, no wheezing, no excessive phlegm production - Gastrointestinal Gastrointestinal: diarrhea, no abdominal pain, no hematemesis, no hematochezia, no melena, no nausea, no vomiting - Genitourinary Genitourinary: no change in urinary stream, no dysuria, no flank pain, no hematuria - Musculoskeletal Musculoskeletal ROS IM: no numbness, no tingling - Integumentary Integumentary IM: no rash, no unusual bruising - Neurological Neurological ROS: no confusion, no convulsions, no focal weakness, no numbness, no tingling, no tremor(s) - Hematologic/Lymphatic Hematologic/Lymphatic: no easy bruising - Constitutional Vitals: Temp Pulse Resp BP Pulse Ox 97.6 F 63 20 139/74 95 10/24/18 15:39 10/24/18 17:40 10/24/18 17:40 10/24/18 17:40 10/24/18 17:40 General appearance: Present: underweight, loss of weight Exam: Cachectic elderly female. Very lethargic - Head Head exam: Present: atraumatic, normocephalic - Eye Eye exam: Present: PERRL, conjuntiva pink, sclera anicteric Pupils: Present: PERRL - Neck Neck exam general surgery: Present: supple, trachea midline. Absent: lymphadenopathy - Respiratory Respiratory exam: Present: CTAB. Absent: accessory muscle use, rales, rhonchi, wheezes - Cardiovascular Cardiovascular exam: Present: RRR, +S1, +S2. Absent: diastolic murmur, gallop, rubs, systolic murmur - GI/Abdominal GI/Abdominal exam: Present: normal bowel sounds, soft, no peritoneal signs. Absent: distended, tenderness - Extremities Exam Extremities exam: Present: warm, radial pulses palpable and symmetrical. Absent: calf tenderness, cyanotic, pedal edema - Neurological Exam Neurological exam: Present: CN II-XII intact, oriented X3, no focal deficits. Absent: pronater drift, facial droop, speech deficit - Skin Skin exam: Present: dry, intact Internal Med - H&P Results - Labs CBC & Chem 7: 10/24/18 16:04 10/24/18 17:00 Labs: Short CBC 10/24/18 Range/Units 16:04 WBC 6.4 (4.3-11.1) K/mcL Hgb 13.8 (11.5-15.4) g/dL Hct 43.1 (35.3-44.9) % Plt Count 210 (140-400) K/mcL Neutrophils # 3.4 (1.6-8.9) K/mcL BMP 10/24/18 17:00 Sodium 141 Potassium 3.5 Chloride 104 Carbon Dioxide 32 H BUN 9 Creatinine 0.39 L Glucose 81 Calcium 8.5 L Cardiac Enzymes 10/24/18 Range/Units 16:04 Troponin I < 0.03 (< 0.04) ng/mL Liver Function 10/24/18 Range/Units 17:00 Total Bilirubin 0.3 (0.3-1.0) mg/dL AST 51 H (13-39) Units/L ALT 43 (7-52) Units/L Alkaline Phosphatase 52 (34-104) Units/L Albumin 3.4 L (3.5-5.7) g/dL Urine 10/24/18 Range/Units 16:41 Urine Color Yellow (Yellow) Urine Clarity Clear (Clear) Urine pH 6.0 (5.0-8.0) pH Units Ur Specific [place] 1.020 (1.010-1.025) Urine Protein Negative (Neg-Trace) mg/dL Urine Glucose (UA) Normal (Normal) mg/dL - Impressions ITS Impressions Chest X-Ray 10/24/18 15:49 IMPRESSION: Increased nodular opacification left upper lobe. A chest CT is suggested for further evaluation. D/ / Efraín Chavez MD / Efraín Chavez MD Interpreting Provider: Efraín Chavez MD Head CT 10/24/18 15:49 IMPRESSION: No acute intracranial abnormality. D/ / 10/24/2018 16:36:48 Phi Alvarenga MD / hayes Interpreting Provider: Phi Alvarenga MD Abdomen/Pelvis CT 10/24/18 15:50 IMPRESSION: No definite acute abdominal or pelvic abnormality. Nonobstructing right renal stones. Minimal amount of abdominal free fluid. D/ / Enrique Kowalski / Enrique Kowalski Interpreting Provider: Enrique Kowaslki - Assessment and Plan (1) Pneumonia Current Visit: Yes Status: Acute Assessment and plan: Pt complains of intermittent cough, lethargy and cxr shows density Will cover empirically for pneumonia with ceftriaxone and azitromycin Obtain blood cultures Qualifiers: Pneumonia type: due to unspecified organism Laterality: left Lung location: upper lobe of lung Qualified Code(s): J18.1 - Lobar pneumonia, unspecified organism (2) Failure to thrive Current Visit: Yes Status: Acute Assessment and plan: Patient is severely malnourished with weight loss. Will addd boost to meals Palliative care consult Qualifiers: Qualified Code(s): R62.7 - Adult failure to thrive (3) Diarrhea Current Visit: Yes Status: Acute Assessment and plan: Unclear etiology. Family reports multiple loose stools per day Will obtain stool panel Qualifiers: Qualified Code(s): R19.7 - Diarrhea, unspecified (4) COPD (chronic obstructive pulmonary disease) Current Visit: Yes Status: Chronic Assessment and plan: No acute exacerbation. PRN nebs Qualifiers: Qualified Code(s): J44.9 - Chronic obstructive pulmonary disease, unspecified (5) Severe protein-calorie malnutrition Current Visit: Yes Status: Acute Assessment and plan: Boost with meals (6) DVT prophylaxis Current Visit: Yes Status: Acute Assessment and plan: Heparin sc - Time Spent With Patient Total time spent is greater than 50% in coordination of care (as documented) at patient's floor/unit and/or counseling patient:
[2018-10-24 18:42] LABS: Thyroid Stimulating Hormone 0.884 mcIU/mL (0.340-5.600)
[2018-10-24] MEDS: 0.9 % Sodium Chloride 1,000 ML IVC SCH (19:55)
[2018-10-24] MEDS: Azithromycin 500 MG in D5% in Water 250 ML IVPB SCH (19:55)
[2018-10-24] MEDS: cefTRIAXone 1,000 MG in Water for inj. (sterile) 20 ML 10 ML IVP SCH (19:55)
[2018-10-24] MEDS: Budesonide/Formoterol 160/4.5 1 PUFF INH IH SCH (20:17)
[2018-10-24] MEDS: Ipratropium/Albuterol Neb 3 ML IH SCH (20:17)
[2018-10-24] MEDS: Acetaminophen/Aspirin/Caffeine TABLET PO PRN (22:47)
[2018-10-25] MEDS: Ipratropium/Albuterol Neb 3 ML IH SCH ×6 (00:15→20:13)
[2018-10-25 01:18] LABS: Basophils % 0.5 %; Eosinophils # 0.1 K/mcL (0.0-0.6); Hematocrit 41.1 % (35.3-44.9); Hemoglobin 13.1 g/dL (11.5-15.4); Immature Granulocytes % 0.3 % (0-4); Lymphocytes # 2.1 K/mcL (0.6-4.6); Lymphocytes % 34.6 %; Mean Corpuscular HGB Conc 31.9 g/dL (31.6-35.5); Mean Corpuscular Hemoglobin 31.8 pg (28.0-33.3); Mean Corpuscular Volume 99.8 fL (83.0-100.0); Mean Platelet Volume 9.6 fL (9.4-12.4); Monocytes # 0.4 K/mcL (0.0-1.3); Monocytes % 5.8 %; Neutrophils # 3.5 K/mcL (1.6-8.9); Platelet Count 190 K/mcL (140-400); Red Blood Count 4.12 M/mcL (3.82-4.97); Segmented Neutrophils % 56.8 %
[2018-10-25 01:40] LABS: BUN/Creatinine Ratio 19 (6-26); Blood Urea Nitrogen 7 mg/dL (8-23); Calcium 8.1 mg/dL (8.6-10.3); Carbon Dioxide 30 mEq/L (23-29); Chloride 108 mEq/L (98-107); Glucose 82 mg/dL (70-105); Magnesium 1.6 mg/dL (1.6-2.6); Osmolality,Calculated 289 (280-300); Phosphorous 3.7 mg/dL (2.7-4.5); Potassium 3.5 mEq/L (3.5-5.1); Sodium 141 mEq/L (136-145); eGFR For Non-African Americans > 60 (> 60)
[2018-10-25] MEDS: Budesonide/Formoterol 160/4.5 1 PUFF INH IH SCH ×2 (07:53→20:13)
[2018-10-25] MEDS: 0.9 % Sodium Chloride 1,000 ML IVC SCH ×2 (08:07→13:58)
[2018-10-25] MEDS: cefTRIAXone 1,000 MG in Water for inj. (sterile) 20 ML 10 ML IVP SCH (08:07)
[2018-10-25] MEDS: Cholecalciferol (D-3) 1,000 UNIT TABLET PO SCH (08:09)
[2018-10-25] MEDS: LACTOSE REDUCED FOOD PO SCH ×3 (08:09→20:04)
[2018-10-25] MEDS: Acetaminophen/Aspirin/Caffeine TABLET PO PRN (08:09)
[2018-10-25] MEDS ORDERED: Aspirin Enteric Coated 81 MG Tablet PO SCH (09:00)
--- NOTE | 2018-10-25 10:05 | Internal Med Progress Note ---
<Senthil Dolan - Last Filed: 10/25/18 11:44> Hospitalist Progress Note - Encounter Date of Encounter: 10/25/18 Time of Encounter: 10:03 - Subjective Interval History: Ms. Chang is a 82 year old female with pmh of hypertension, COPD on 2L of oxygen, recent hospitalization for pneumonia for which she was recently discharged about a week ago, presenting to the hospital with complaints of weakness per family for the last 3 days and severe lethargy. They report that for the last 3 days she hasn't been eating, drinking or moving around much and has just stayed in bed. They also complain that she has been more short of breath. Patient herself is very lethargic but arousable and alert and oriented x 3. She says she feels very weak and short of breath and has occasional cough. Also complains of diarrhea with up to 6 loose stools per day of about 3 months duration. Admits to chills. Denies any wheezing, abdominal pain, nausea or vomiting. In the ER, a chest xray was done showing a density in left upper lobe. She is being admitted for further management. Head CT without acute intracranial abnormality. Unremarkable abdominal CT. CT chest with with irregular linear areas of infiltrate in the HERSON that are mildly more pronounced compared to 3 years ago. Superimposed infectious process cannot be excluded. Today, patient reports no improvement. Continues to experience weakness, SOB, diarrhea. She is alert and able to answer questions but would prefer to be at bedside before she makes any medical care changes. Denies any recent illness, f/c, vomiting, Does admit to nausea, watery diarrhea. Denies any hematochezia. Does admit to intermittent cough with minimal sputum and lethargy. She also has had intermittent dysphagia without odynophagia for the last 6 months. Does report weight loss, unknown amount. She is open to the idea of discussing goals of care with palliative. - Exam Vitals: Temp Pulse Resp BP Pulse Ox 97.8 F 73 18 97/60 98 10/25/18 07:39 10/25/18 07:39 10/25/18 07:55 10/25/18 07:39 10/25/18 07:55 Exam: Exam: Cachectic elderly female. Very lethargic - Head Head exam: Present: atraumatic, normocephalic - Eye Eye exam: Present: conjuntiva pink, sclera anicteric - Neck Neck exam general surgery: Present: supple, trachea midline. Absent: lymphadenopathy - Respiratory Respiratory exam: Present: CTAB. Absent: accessory muscle use, rales, rhonchi, wheezes - Cardiovascular Cardiovascular exam: Present: RRR, +S1, +S2. Absent: diastolic murmur, gallop, rubs, systolic murmur - GI/Abdominal GI/Abdominal exam: Present: normal bowel sounds, soft, no peritoneal signs. Absent: distended, tenderness - Extremities Exam Extremities exam: Present: warm, radial pulses palpable and symmetrical. Absent: calf tenderness, cyanotic, pedal edema - Neurological Exam Neurological exam: Present: CN II-XII intact, oriented X3, no focal deficits. Absent: pronater drift, facial droop, speech deficit - Skin Skin exam: Present: dry, intact - Assessment and Plan (1) Pneumonia Current Visit: Yes Status: Acute Assessment and Plan: Patient was recently admitted for pneumonia and similar symptoms. HCAP vs aspiration pneumonia CXR: increased nodular opacification of HERSON., chest CT: irregular linear areas of infiltrate in the HERSON that are more pronounced than 3 years ago, possible infectious process. Common organisms for HCAP include S. aureus, Psudo, Kleb, E. coli, enterobacter, Acintobacter. Sputum Culture ordered, collect if available. Patient has received dose of Rocephin and Zithromax. BCx pending prior to antibiotics administration Consider starting Cefepime + vanco + clindamycin . Down-escalate as appropriate O2 as needed, currently of 2L NC (2) Diarrhea Current Visit: Yes Status: Acute Assessment and Plan: Patient reports multiple bouts of diarrhea daily for the last week. Pending GI panel. Continue contact precautions Diet as tolerated Continue maintenance IVFs Recheck electrolytes with AM labs. (3) Failure to thrive Current Visit: No Status: Chronic Assessment and Plan: Patient is severely malnourished. She agrees for palliative care but would prefer to be at bedside. Will continue nutrient supplementation. Nutrit ion consult. Palliative recommendations appreciated. (4) Weakness Current Visit: No Status: Chronic Assessment and Plan: weakness secondary to multiple comorbidities. PT/ OT (5) History of CVA (cerebrovascular accident) Current Visit: No Status: Acute (6) DVT prophylaxis Current Visit: No Status: Acute (7) COPD (chronic obstructive pulmonary disease) Current Visit: Yes Status: Chronic (8) Difficulty swallowing Current Visit: No Status: Acute Assessment and Plan: aspiration precautions. No odynophagia. DDx includes GERD, malignancy, esophageal rings, food impaction, esophageal dysfunction Patient able to tolerate fluids, but does have difficulty with solids. Speech consult. Patient recently admitted for similar issues and obtained EGD: normal oropharynx, Grade A esophagitis. 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 We will consult GI, recommendations appreciated. (9) Malnutrition Current Visit: No Status: Acute Assessment and Plan: Continue nutrition supplements Nutrition consulted. (10) Frail elderly Current Visit: No Status: Chronic Assessment and Plan: fall precautions (11) Dehydration Current Visit: No Status: Acute Assessment and Plan: Continue maintenance fluids. DVT Prophylaxis: SQ heparin - Time Spent with Patient Total time spent is greater than 50% in coordination of care (as documented) at patient's floor/unit and/or counseling patient: Greater than 35 minutes Plan of Care Discussed with: patient Internal Medicine: Result - Labs CBC & Chem 7: 10/25/18 00:58 10/25/18 00:58 Labs: Short CBC 10/24/18 10/25/18 Range/Units 16:04 00:58 WBC 6.4 6.1 (4.3-11.1) K/mcL Hgb 13.8 13.1 (11.5-15.4) g/dL Hct 43.1 41.1 (35.3-44.9) % Plt Count 210 190 (140-400) K/mcL Neutrophils # 3.4 3.5 (1.6-8.9) K/mcL BMP 10/24/18 10/25/18 17:00 00:58 Sodium 141 141 Potassium 3.5 3.5 Chloride 104 108 H Carbon Dioxide 32 H 30 H BUN 9 7 L Creatinine 0.39 L 0.36 L Glucose 81 82 Calcium 8.5 L 8.1 L Cardiac Enzymes 10/24/18 Range/Units 16:04 Troponin I < 0.03 (< 0.04) ng/mL Liver Function 10/24/18 Range/Units 17:00 Total Bilirubin 0.3 (0.3-1.0) mg/dL AST 51 H (13-39) Units/L ALT 43 (7-52) Units/L Alkaline Phosphatase 52 (34-104) Units/L Albumin 3.4 L (3.5-5.7) g/dL Urine 10/24/18 Range/Units 16:41 Urine Color Yellow (Yellow) Urine Clarity Clear (Clear) Urine pH 6.0 (5.0-8.0) pH Units Ur Specific [place] 1.020 (1.010-1.025) Urine Protein Negative (Neg-Trace) mg/dL Urine Glucose (UA) Normal (Normal) mg/dL - ABG Interpretation ABG results: PT/INR, D-dimer PT 11.1 Seconds (9.4-12.1) 10/24/18 16:04 - Impressions Impressions Chest X-Ray 10/24/18 15:49 IMPRESSION: Increased nodular opacification left upper lobe. A chest CT is suggested for further evaluation. D/ / Efraín Chavez MD / Efraín Chavez MD Interpreting Provider: Efraín Chavez MD Head CT 10/24/18 15:49 IMPRESSION: No acute intracranial abnormality. D/ / 10/24/2018 16:36:48 Phi Alvarenga MD / hayes Interpreting Provider: Phi Alvarenga MD Abdomen/Pelvis CT 10/24/18 15:50 IMPRESSION: No definite acute abdominal or pelvic abnormality. Nonobstructing right renal stones. Minimal amount of abdominal free fluid. D/ / Enrique Kowalski / Enrique Kowalski Interpreting Provider: Enrique Kowalski Chest CT 10/24/18 17:01 IMPRESSION: Irregular linear areas of infiltrate in the left upper lung that are mildly more pronounced compared to prior exam 3 years ago. This may relate to progression of an area of scarring although a superimposed infectious process cannot be excluded. Centrilobular emphysematous change most pronounced in the upper lobes. D/ / Enrique Kowalski / Enrique Kowalski Interpreting Provider: Enrique Kowalski Consult Discharge Plan - Plan Referrals: Claribel Leary MD [Primary Care Provider] - <Raymond Castellanos - Last Filed: 10/25/18 14:33> Hospitalist Progress Note - Encounter Date of Encounter: 10/25/18 - Exam Vitals: Temp Pulse Resp BP Pulse Ox 97.6 F 67 18 100/61 97 10/25/18 10:56 10/25/18 10:56 10/25/18 11:50 10/25/18 10:56 10/25/18 11:50 - Assessment and Plan (1) COPD (chronic obstructive pulmonary disease) Current Visit: Yes Status: Chronic (2) Pneumonia Current Visit: Yes Status: Acute (3) Failure to thrive Current Visit: Yes Status: Acute (4) Diarrhea Current Visit: Yes Status: Acute (5) Severe protein-calorie malnutrition Current Visit: Yes Status: Acute (6) DVT prophylaxis Current Visit: Yes Status: Acute - Time Spent with Patient Total time spent is greater than 50% in coordination of care (as documented) at patient's floor/unit and/or counseling patient: Internal Medicine: Result - Labs CBC & Chem 7: 10/25/18 00:58 10/25/18 00:58 Labs: Short CBC 10/24/18 10/25/18 Range/Units 16:04 00:58 WBC 6.4 6.1 (4.3-11.1) K/mcL Hgb 13.8 13.1 (11.5-15.4) g/dL Hct 43.1 41.1 (35.3-44.9) % Plt Count 210 190 (140-400) K/mcL Neutrophils # 3.4 3.5 (1.6-8.9) K/mcL BMP 10/24/18 10/25/18 17:00 00:58 Sodium 141 141 Potassium 3.5 3.5 Chloride 104 108 H Carbon Dioxide 32 H 30 H BUN 9 7 L Creatinine 0.39 L 0.36 L Glucose 81 82 Calcium 8.5 L 8.1 L Cardiac Enzymes 10/24/18 Range/Units 16:04 Troponin I < 0.03 (< 0.04) ng/mL Liver Function 04/28/19 Range/Units 17:00 Total Bilirubin 0.3 (0.3-1.0) mg/dL AST 51 H (13-39) Units/L ALT 43 (7-52) Units/L Alkaline Phosphatase 52 (34-104) Units/L Albumin 3.4 L (3.5-5.7) g/dL Urine 10/24/18 Range/Units 16:41 Urine Color Yellow (Yellow) Urine Clarity Clear (Clear) Urine pH 6.0 (5.0-8.0) pH Units Ur Specific [place] 1.020 (1.010-1.025) Urine Protein Negative (Neg-Trace) mg/dL Urine Glucose (UA) Normal (Normal) mg/dL - ABG Interpretation ABG results: PT/INR, D-dimer PT 11.1 Seconds (9.4-12.1) 10/24/18 16:04 - Impressions Impressions Chest X-Ray 10/24/18 15:49 IMPRESSION: Increased nodular opacification left upper lobe. A chest CT is suggested for further evaluation. D/ / Efraín Chavez MD / Efraín Chavez MD Interpreting Provider: Efraín Chavez MD Head CT 10/24/18 15:49 IMPRESSION: No acute intracranial abnormality. D/ / 10/24/2018 16:36:48 Phi Alvarenga MD / hayes Interpreting Provider: Phi Alvarenga MD Abdomen/Pelvis CT 10/24/18 15:50 IMPRESSION: No definite acute abdominal or pelvic abnormality. Nonobstructing right renal stones. Minimal amount of abdominal free fluid. D/ / Enrique Kowalski / Enrique Kowalski Interpreting Provider: Enrique Kowalski Chest CT 10/24/18 17:01 IMPRESSION: Irregular linear areas of infiltrate in the left upper lung that are mildly more pronounced compared to prior exam 3 years ago. This may relate to progression of an area of scarring although a superimposed infectious process cannot be excluded. Centrilobular emphysematous change most pronounced in the upper lobes. D/ / Enrique Kowalski / Enrique Kowalski Interpreting Provider: Enrique Kowalski - Attending Attestation I examined this patient and my medical decision-making was reviewed with the Resident Physician Dr. Doaln. I agree with the documented findings, disposition and treatment plan as described except to the extent set forth below. Ms. Chang is a 82 year old female with pmh of hypertension, COPD on 2L of oxygen, who recently treated for PNA and dysphagia, now she presented to the hospital with complaints of weakness per family for the last 3 days and severe lethargy. They report that for the last 3 days she hasn't been eating, drinking or moving around much and has just stayed in bed. In the ER, a chest xray was done showing a density in left upper lobe. Her CTA of chest showed Irregular linear areas of infiltrate in the left upper lung that are mildly more pronounced. This may relate to progression of an area of scarring although a superimposed infectious process cannot be excluded. She was admitted in the hospital and started on empirical antibiotic Unasyn concerning for aspiration PNA. She still c.o dysphasia, especially ith solids. She does have very poor PO intake. She lost significant weight recently. Gen: A, A, O x 3 .. Weak and lethargic Chest: Diminished BS b/l No crackles, no wheezing Heart: S1S2+ RRR No murmurs a/p 1. Acute PNA mostly aspirational changed abx to Unasyn cont close monitoring 2. Failure to thrive 3. Severe PCM 4. Dysphagia consulted GI for further eval may need EGD again Speech and Nutrition consult calorie count if pt needs PEG tubes for alternate options for feeding , she is willing to go for PEG tube placement too Pt also would like to talk to palliative care too <Senthil Dolan - Last Filed: 10/25/18 11:44> (1) Pneumonia Qualifiers: Pneumonia type: due to unspecified organism Laterality: left Lung location: upper lobe of lung Qualified Code(s): J18.1 - Lobar pneumonia, unspecified organism (2) Diarrhea Qualifiers: Qualified Code(s): R19.7 - Diarrhea, unspecified (3) Failure to thrive Qualifiers: Failure to thrive age range: in adult Qualified Code(s): R62.7 - Adult failure to thrive (7) COPD (chronic obstructive pulmonary disease) Qualifiers: Qualified Code(s): J44.9 - Chronic obstructive pulmonary disease, unspecified (8) Difficulty swallowing Qualifiers: Dysphagia type: unspecified Qualified Code(s): R13.10 - Dysphagia, unspecified <Thallapaneni,Rambabu - Last Filed: 10/25/18 14:33> (1) COPD (chronic obstructive pulmonary disease) Qualifiers: Qualified Code(s): J44.9 - Chronic obstructive pulmonary disease, unspecified (2) Pneumonia Qualifiers: Pneumonia type: due to unspecified organism Laterality: left Lung location: upper lobe of lung Qualified Code(s): J18.1 - Lobar pneumonia, unspecified organism (3) Failure to thrive Qualifiers: Qualified Code(s): R62.7 - Adult failure to thrive (4) Diarrhea Qualifiers: Qualified Code(s): R19.7 - Diarrhea, unspecified
--- NOTE | 2018-10-25 12:36 | Gastroenterology Consult Note ---
Date of Encounter: 10/25/18 Time of Encounter: 12:15 - Assessment and plan (1) Dysphagia, pharyngeal Current Visit: No Status: Acute Assessment and plan: Needs EGD with possible dilation, will discuss with Dr Sánchez (2) Weakness Current Visit: No Status: Chronic (3) Failure to thrive Current Visit: No Status: Chronic Qualifiers: Failure to thrive age range: in adult Qualified Code(s): R62.7 - Adult failure to thrive (4) Diarrhea Current Visit: Yes Status: Acute Assessment and plan: GI panel pending. Will order fecal calprotectin. May need colonoscopy will talk with Dr Sánchez. Qualifiers: Diarrhea type: unspecified type Qualified Code(s): R19.7 - Diarrhea, unspecified - Time Spent With Patient Total time spent is greater than 50% in coordination of care (as documented) at patient's floor/unit and/or counseling patient: GI History of Present Illness - Data of Consult Patient: new to practice Consult date: 10/25/18 Requesting Physician: Yun Jose - Consult Narrative Reason for consult: dysphagia History of present illness: Ms. Chang is a 82 year old female with pmh of hypertension, COPD on 2L of oxygen, recent hospitalization for pneumonia for which she was recently discharged about a week ago, presenting to the hospital with complaints of weakness per family for the last 3 days and severe lethargy. They report that for the last 3 days she hasn't been eating, drinking or moving around much and has just stayed in bed. They also complain that she has been more short of breath. Patient herself is very lethargic but arousable and alert and oriented x 3. She says she feels very weak and short of breath and has occasional cough. Also complains of diarrhea with up to 6 loose stools per day of about 3 months duration. Admits to chills. Denies any wheezing, abdominal pain, nausea or vomiting. In the ER, a chest xray was done showing a density in left upper lobe. She is currently awake and oriented, sitting up in bed. She reports difficulty swallowing for the past 6 months worse with breads and dry meats. She denies odynophagia. She reports occasional gerd controlled on tums. She states she is unable to see it but her has reported seeing black stools. EGD 07/16 normal oropharynx, LA grade A esophagitis, patent biliroth II gastrojejunostomy nsaids: asa 81 mg Heparin: SQ Past Med Surg Social Fam HX - Past Medical History Medical history: arthritis, COPD, coronary artery disease, CVA, GERD, GI bleed, hyperlipidemia, hypertension, kidney stones, migraine, myocardial infarction, osteoporosis, renal disease, TIA, other Additional medical history: LEGALLY BLIND Psychiatric history: anxiety, other - Past Surgical History Surgical History: angioplasty/stent, cholecystectomy, hip replacement, orthopedic, other, other Additional surgical history: vagoectomy, antrectomy w/stapled gastrojejunostomy - Social History Smoking Status: Former smoker Smokeless Tobacco Status: No Alcohol use: none Drug use: none - Family History Father Living Status: Mother Living Status: Hx Family Cancer: Yes (breast) Review of Systems: GI: as per [place] [facility]: denies fever, has some chills EYES: denies yellow discoloration ENT: see HPI CARDIO: denies chest pain, palpitations RESP: see HPI : denies change in color of urine NEURO: inreased weakness HEME: Denies any bruising MS: denies joint pain, joint swelling or back pain. DERM: denies rash or itching PSYCH: Denies history of anxiety or depression - Constitutional Vitals: Temp Pulse Resp BP Pulse Ox 97.6 F 67 18 100/61 97 10/25/18 10:56 10/25/18 10:56 10/25/18 11:50 10/25/18 10:56 10/25/18 11:50 Exam: CONSTITUTIONAL:alert, no acute distress.HEAD:normocephalic.EYES:no jaundice.NECK:no obvious swelling.HEART:regular rate and rhythm, no murmurs.LUNGS:bilateral good air entry.ABDOMEN:non distended, firm, non tender, no masses palpable, no organomegaly.RECTAL EXAM:Deferred.EXTREMITIES: achexiano clubbing, cyanosis or edema.SKIN:no stigmata of chronic liver disease.NEUROLOGIC:no obvious focal defect. Results - Labs CBC & Chem 7: 10/25/18 00:58 10/25/18 00:58 Labs: Last Result 10/25/18 00:58 Calcium 8.1 L Entire Visit 10/25/18 00:58 Hgb 13.1 Hct 41.1 - ABG ABG results: PT/INR, D-dimer PT 11.1 Seconds (9.4-12.1) 10/24/18 16:04 - Impressions Impressions Chest X-Ray 10/24/18 15:49 IMPRESSION: Increased nodular opacification left upper lobe. A chest CT is suggested for further evaluation. D/ / Efraín Chavez MD / Efraín Chavez MD Interpreting Provider: fEraín Chavez MD Head CT 10/24/18 15:49 IMPRESSION: No acute intracranial abnormality. D/ / 10/24/2018 16:36:48 Phi Alvarenga MD / hayes Interpreting Provider: Phi Alvarenga MD Abdomen/Pelvis CT 10/24/18 15:50 IMPRESSION: No definite acute abdominal or pelvic abnormality. Nonobstructing right renal stones. Minimal amount of abdominal free fluid. D/ / Enrique Kowalski / Enrique Kowalski Interpreting Provider: Enrique Kowalski Chest CT 10/24/18 17:01 IMPRESSION: Irregular linear areas of infiltrate in the left upper lung that are mildly more pronounced compared to prior exam 3 years ago. This may relate to progression of an area of scarring although a superimposed infectious process cannot be excluded. Centrilobular emphysematous change most pronounced in the upper lobes. D/ / Enrique Kowalski / Enrique Kowalski Interpreting Provider: Enrique Kowalski Consult Discharge Plan - Plan Referrals: Claribel Leary MD [Primary Care Provider] -
--- NOTE | 2018-10-25 12:54 | Palliative - Consult Note ---
<BretmaxkarissaSom stack - Last Filed: 10/25/18 13:19> Date of Encounter: 10/25/18 Time of Encounter: 11:30 - Assessment and Plan (1) Goals of care, counseling/discussion Current Visit: Yes Status: Acute Assessment and plan: Patient is alert and oriented and is in charge of her medical decisions, however she states that she will not make any medical decisions without discussing with her first. She says that her will come by tomorrow around 1 PM to discuss her goals of care. Patient admits to mild abdominal tenderness however it seems to be well control right now. She denies any nausea or vomiting. She has chronic issues with weight gain and malnourishment due to poor PO intake. She admits to recent (6 months) issues with dysphagia, however she denies any recent unexpected weight loss. (2) Pneumonia Current Visit: Yes Status: Acute Assessment and plan: HCAP vs aspiration PNA. CXR: increased nodular opacification of HERSON., chest CT: irregular linear areas of infiltrate in the HERSON that are more pronounced than 3 years ago, possible infectious process. Patient has been afebrile and VS have been stable. - Day #2 of antibiotics: azithromycin and ceftriaxone. - Sputum culture pending. - Blood culture pending. Qualifiers: Pneumonia type: due to unspecified organism Laterality: left Lung location: upper lobe of lung Qualified Code(s): J18.1 - Lobar pneumonia, unspecified organism (3) Diarrhea Current Visit: Yes Status: Acute Assessment and plan: Patient reports loose stool for the past 6 months. BP stable. Patient afebrile. - Pending GI panel. - On contact precautions - Diet as tolerated - On maintenance IVFs Qualifiers: Qualified Code(s): R19.7 - Diarrhea, unspecified (4) Failure to thrive Current Visit: No Status: Chronic Assessment and plan: Patient is severely malnourished. Looking at her weight since 2014, it has remained relatively stable with now evidence of recent unexpected weight loss. Patient says that her weight right now is at her baseline. She says that she had gastric surgery performed (antrectomy w/stapled gastrojejunostomy ) in the past due to a gastric ulcer. She admits to dysphagia for the past 6 months. - Recommended speech evaluation given setting of dysphagia and PNA. Qualifiers: Failure to thrive age range: in adult Qualified Code(s): R62.7 - Adult failure to thrive (5) Difficulty swallowing Current Visit: No Status: Acute Assessment and plan: Denies recent weight loss. Denies fever or night sweats. Difficulty mostly with swallowing solids. - See plan for FTT. Qualifiers: Dysphagia type: unspecified Qualified Code(s): R13.10 - Dysphagia, unspecified (6) COPD (chronic obstructive pulmonary disease) Current Visit: Yes Status: Chronic Assessment and plan: No acute exacerbation. PRN nebs. Qualifiers: Qualified Code(s): J44.9 - Chronic obstructive pulmonary disease, unspecified Palliative-CN HPI - Data of Consult Consult date: 10/25/18 Requesting Physician: Yun Jose Primary Care Provider: Claribel Leary - Consult Narrative Reason for consult: Goals of Care, Code Status History of present illness: Ms. Chang is a 82 year old female with a PMH of HTN, COPD (on 2 L O2), recent PNA requiring hospitalization (discharged one week ago) that presents for weakness and severe lethargy. Last 3 days prior to presentation, patient hasn't been eating, drinking, and has been bed bound. She was complaining of SOB. Patient was also complaining of diarrhea for the past 3 months. She denied any wheezing, abdominal pain, nausea, or vomiting. CXR in the ER showed a density in the upper lobe with increased nodular opacification. Vitals were stable upon presentation. Patient was admitted for SOB secondary to PNA. She was started on empiric antibiotics with ceftriazone and azithromycin. CT of the chest showed irregular linear areas in the L upper lung that were midly more pronounced compared to prior exam 3 years ago. Possible scarring or sumperimposed infectious process. GI infectious panel was also ordered due to the patient's diarrhea and is still currently pending. Patient has been afebrile. BP has been stable. Patient has also been noted to be severely underweight. She denies any recent weight loss and says her current weight is at her baseline. When seen to day, patient further elaborated that she generally has a low appetite. She admits to some intermittent dysphagia for the past 6 months, mostly with solids but with liquids on occasion if she takes in too much water. She denies any nausea or vomiting. Denies any hematochezia. She admits to some minor diffuse abdominal discomfort. Admits to pain in her ankles. Admits to minor SOB. Denies chest pain. Denies any fevers. Palliative care was consulted for goals of care and code status given her recurrent hospitalizations for PNA in setting of FTT. Patient is alert and oriented and she is ultimately in charge of her medical decisions, however she states that she does not make any decisions without the presence of counseling of her . CC: Yun Jose - Time Spent with Patient Time: Total time spent is greater than 50% in coordination of care (as documented) at patient's floor/unit and/or counseling patient: Past Med Surg Social Fam HX - Past Medical History Medical history: arthritis, COPD, coronary artery disease, CVA, GERD, GI bleed, hyperlipidemia, hypertension, kidney stones, migraine, myocardial infarction, osteoporosis, renal disease, TIA, other Additional medical history: LEGALLY BLIND Psychiatric history: anxiety, other - Past Surgical History Surgical History: angioplasty/stent, cholecystectomy, hip replacement, orthopedic, other, other Additional surgical history: vagoectomy, antrectomy w/stapled gastrojejunostomy - Social History Smoking Status: Former smoker Smokeless Tobacco Status: No Alcohol use: none Drug use: none - Family History Father Living Status: Mother Living Status: Hx Family Cancer: Yes (breast) Medications and Allergies Potassium Chloride [K-Tab ER] 20 meq PO BID 11/11/15 [History] Simvastatin [Zocor] 40 mg PO HS 11/11/15 [History] Propranolol [Inderal] 10 mg PO BID 02/01/16 [History] Ascorbic Acid [Vitamin C] 1,000 mg PO DAILY 08/24/16 [History] Calcium Carbonate [Calcium] 500 mg PO DAILY 08/24/16 [History] Cholecalciferol (D-3) [Vitamin D] 1,000 unit PO DAILY 08/24/16 [History] Cyanocobalamin (B-12) [Vitamin B12] 1,000 mcg IM QMONTH 08/24/16 [History] Ferrous Sulfate [Iron] 325 mg PO DAILY 08/24/16 [History] Nitroglycerin [Nitrostat] 0.4 mg SL Q5M PRN 08/24/16 [History] [place]-3/Dha/Epa/Fish Oil [Fish Oil 1,000 mg Softgel] 1,000 mg PO BID 08/24/16 [History] Omeprazole [PriLOSEC] 40 mg PO DAILY 08/24/16 [History] Zoledronic Acid (Reclast) [Reclast Premix 5 MG/100 ML] 5 mg IV [id number] 08/24/16 [History] Albuterol Sulfate [Proair Hfa] 2 puff IH Q6H PRN 08/17/17 [History] Aspirin [Adult Aspirin Regimen] 81 mg PO HS 10/25/18 [History] Meloxicam [Mobic] 15 mg PO DAILY 10/25/18 [History] Potassium Gluconate [Potassium] 99 mg PO DAILY 10/25/18 [History] Sucralfate [Carafate] 1 gm PO BID 10/25/18 [History] Tiotropium [Spiriva] 18 mcg IH DAILY 10/25/18 [History] diazePAM [Valium] 2.5 mg PO DAILY PRN 10/25/18 [History] diazePAM [Valium] 10 mg PO HS PRN 10/25/18 [History] Allergy/AdvReac Type Severity Reaction Status Date / Time No Known Drug Allergies Allergy See Verified 10/25/18 10:32 Comments - Constitutional Constitutional ROS PAL: decreased appetite, fatigue, lethargy, no fever(s), no weight loss - EENT Ears, nose, mouth, throat: dysphagia, neck pain, no sore throat, no throat swelling - Cardiovascular Cardiovascular ROS: no chest pain, no edema, no pedal edema - Respiratory Respiratory: cough - Gastrointestinal Gastrointestinal: abdominal pain, diarrhea, loose stools, no hematemesis, no hematochezia, no melena, no nausea, no vomiting - Psychiatric Psychiatric general PM: change in appetite Palliative Care-Exam - Constitutional Vitals: Temp Pulse Resp BP Pulse Ox 97.6 F 67 18 100/61 97 10/25/18 10:56 10/25/18 10:56 10/25/18 11:50 10/25/18 10:56 10/25/18 11:50 General appearance: Present: no acute distress, thin - Head Head Exam: Present: normal inspection - Eye Eye exam: Present: normal appearance. Absent: conjunctival injection, scleral icterus, conjuntiva pink - Neck Neck exam: Present: tenderness - Respiratory Respiratory exam: Present: CTAB. Absent: accessory muscle use, chest wall tenderness, decreased breath sounds, respiratory distress, rhonchi, wheezes, tachypnea - Cardiovascular Cardiovascular exam: Present: RRR, +S1, +S2. Absent: diastolic murmur, +S3, +S4, systolic murmur - GI/Abdominal Exam GI/Abdominal exam: Present: distended, normal bowel sounds, soft, tenderness (Mild diffuse tenderness with deep palpation). Absent: guarding, rebound - Extremities Exam Extremities exam: Present: normal capillary refill, tenderness (Mild ankle tenderness b/l). Absent: calf tenderness, joint swelling, pedal edema - Neurological Exam Neurological exam: Present: alert, altered, no focal deficits. Absent: motor sensory deficit, facial droop, speech deficit - Psychiatric Psychiatric exam: Present: normal affect, normal mood. Absent: agitated - Skin Skin exam: Present: dry, intact, normal color. Absent: cyanosis, erythema Internal Medicine - CN: Reslt - Labs CBC & Chem 7: 10/25/18 00:58 10/25/18 00:58 Labs: Short CBC 10/24/18 10/25/18 Range/Units 16:04 00:58 WBC 6.4 6.1 (4.3-11.1) K/mcL Hgb 13.8 13.1 (11.5-15.4) g/dL Hct 43.1 41.1 (35.3-44.9) % Plt Count 210 190 (140-400) K/mcL Neutrophils # 3.4 3.5 (1.6-8.9) K/mcL BMP 10/24/18 10/25/18 17:00 00:58 Sodium 141 141 Potassium 3.5 3.5 Chloride 104 108 H Carbon Dioxide 32 H 30 H BUN 9 7 L Creatinine 0.39 L 0.36 L Glucose 81 82 Calcium 8.5 L 8.1 L Cardiac Enzymes 10/24/18 Range/Units 16:04 Troponin I < 0.03 (< 0.04) ng/mL Liver Function 10/24/18 Range/Units 17:00 Total Bilirubin 0.3 (0.3-1.0) mg/dL AST 51 H (13-39) Units/L ALT 43 (7-52) Units/L Alkaline Phosphatase 52 (34-104) Units/L Albumin 3.4 L (3.5-5.7) g/dL Urine 10/24/18 Range/Units 16:41 Urine Color Yellow (Yellow) Urine Clarity Clear (Clear) Urine pH 6.0 (5.0-8.0) pH Units Ur Specific Cor[place] 1.020 (1.010-1.025) Urine Protein Negative (Neg-Trace) mg/dL Urine Glucose (UA) Normal (Normal) mg/dL - ABG Interpretation ABG results: PT/INR, D-dimer PT 11.1 Seconds (9.4-12.1) 10/24/18 16:04 - Impressions Impressions Chest X-Ray 10/24/18 15:49 IMPRESSION: Increased nodular opacification left upper lobe. A chest CT is suggested for further evaluation. D/ / Efraín Chavez MD / Efraín Chavez MD Interpreting Provider: Efraín Chavez MD Head CT 10/24/18 15:49 IMPRESSION: No acute intracranial abnormality. D/ / 10/24/2018 16:36:48 Phi Alvarenga MD / hayes Interpreting Provider: Phi Alvarenga MD Abdomen/Pelvis CT 10/24/18 15:50 IMPRESSION: No definite acute abdominal or pelvic abnormality. Nonobstructing right renal stones. Minimal amount of abdominal free fluid. D/ / Enrique Kowalski / Enrique Kowalski Interpreting Provider: Enrique Kowalski Chest CT 10/24/18 17:01 IMPRESSION: Irregular linear areas of infiltrate in the left upper lung that are mildly more pronounced compared to prior exam 3 years ago. This may relate to progression of an area of scarring although a superimposed infectious process cannot be excluded. Centrilobular emphysematous change most pronounced in the upper lobes. D/ / Enrique Kowalski / Enrique Kowalski Interpreting Provider: Enrique Kowalski Consult Discharge Plan - Plan Referrals: Claribel Leary MD [Primary Care Provider] - Palliative Quality Palliative Quality: Screen for Code Status: Yes, Screen for Goals of Care: Yes, Screen for Pain: Yes, If Pain Regimen Started, Initiate Bowel Regimen: Yes, Screen for Nausea/Vomitting: Yes Code Status: 10/24/18 17:16 Resuscitation Status: Active [RES] Routine Comment: Resuscitation Status: Full Code <Adriana Gomez - Last Filed: 10/25/18 21:35> Date of Encounter: 10/25/18 - Assessment and Plan (1) Palliative care encounter Current Visit: Yes Status: Acute Palliative-CN HPI - Data of Consult Requesting Physician: Yun Jose Primary Care Provider: Claribel Leary - Consult Narrative History of present illness: Ms. Chang is a 82 year old female CC: Yun Jose - Time Spent with Patient Time: Total time spent is greater than 50% in coordination of care (as documented) at patient's floor/unit and/or counseling patient: Palliative Care-Exam - Constitutional Vitals: Temp Pulse Resp BP Pulse Ox 97.6 F 89 16 114/63 94 10/25/18 19:49 10/25/18 19:49 10/25/18 20:13 10/25/18 19:49 10/25/18 20:13 Internal Medicine - CN: Reslt - Labs CBC & Chem 7: 10/25/18 00:58 10/25/18 00:58 Labs: Short CBC 10/25/18 Range/Units 00:58 WBC 6.1 (4.3-11.1) K/mcL Hgb 13.1 (11.5-15.4) g/dL Hct 41.1 (35.3-44.9) % Plt Count 190 (140-400) K/mcL Neutrophils # 3.5 (1.6-8.9) K/mcL BMP 10/25/18 00:58 Sodium 141 Potassium 3.5 Chloride 108 H Carbon Dioxide 30 H BUN 7 L Creatinine 0.36 L Glucose 82 Calcium 8.1 L - ABG Interpretation ABG results: PT/INR, D-dimer PT 11.1 Seconds (9.4-12.1) 10/24/18 16:04 - Attending Attestation I performed a history and physical examination of the patient and discussed his management with the resident. I reviewed the residents note and agree with the documented findings and plan of care, except as follow: 82 y.o female with pmh of HTN, COPD, failure to thrive, presenting with weakness and diarrhea for 3 months. CXRay showed an upper lobe density. Patient has been treated for pneumonia several times in the last few months. Palliative care consult for GOC discussion. Met with patient today, she is AAOx3, states she have had no BM since admission, but is also not eating. She describes an intermittent sensation of food getting stuck in her throat, and no desire to eat. Patient refuses any discussion of goals of care without her present. Meeting scheduled for tomorrow at 1300. Palliative Quality Code Status: 10/24/18 17:16 Resuscitation Status: Active [RES] Routine Comment: Resuscitation Status: Full Code Palliative Scale - Palliative Performance Scale What is patient's level of activity and evidence of disease?: Unable to do any work, Extensive disease How much self-care assistance does patient require?: Mainly assistance How much oral intake does the patient have?: Minimal to sips What is this patient's level of consciousness?: Full Palliative Performance Score: 40 %
[2018-10-25] MEDS: Ampicillin/Sulbactam 1,500 MG in 0.9 % Sodium Chloride Mini Bag 100 ML IVPB SCH ×3 (13:59→23:20)
[2018-10-25] MEDS: *HR* Heparin 5,000 UNIT/ML VIAL SQ SCH (16:39)
[2018-10-25] MEDS: Azithromycin 500 MG in D5% in Water 250 ML IVPB SCH (16:40)
[2018-10-25] MEDS: *HR* HYDROcodone/Acet 5/325 mg TABLET PO PRN (17:12)
[2018-10-25] MEDS ORDERED: MethylPREDNISolone 40 MG/ML VIAL IVP SCH (17:20)
[2018-10-26] MEDS: Ipratropium/Albuterol Neb 3 ML IH SCH ×6 (00:12→20:36)
[2018-10-26] MEDS: *HR* HYDROcodone/Acet 5/325 mg TABLET PO PRN ×3 (00:36→18:47)
[2018-10-26] MEDS: *HR* Heparin 5,000 UNIT/ML VIAL SQ SCH ×2 (04:52→17:11)
[2018-10-26] MEDS: 0.9 % Sodium Chloride 1,000 ML IVC SCH ×2 (04:53→11:28)
[2018-10-26] MEDS: Ampicillin/Sulbactam 1,500 MG in 0.9 % Sodium Chloride Mini Bag 100 ML IVPB SCH ×3 (04:54→17:12)
[2018-10-26 04:55] LABS: Basophils % 0.5 %; Eosinophils # 0.2 K/mcL (0.0-0.6); Eosinophils % 2.8 %; Hematocrit 36.4 % (35.3-44.9); Hemoglobin 11.6 g/dL (11.5-15.4); Immature Granulocytes % 0.2 % (0-4); Mean Corpuscular HGB Conc 31.9 g/dL (31.6-35.5); Mean Corpuscular Volume 100.6 fL (83.0-100.0); Mean Platelet Volume 9.9 fL (9.4-12.4); Monocytes # 0.4 K/mcL (0.0-1.3); Neutrophils # 3.8 K/mcL (1.6-8.9); Platelet Count 174 K/mcL (140-400); Red Blood Count 3.62 M/mcL (3.82-4.97); Red Cell Distribution Width 13.1 % (11.5-14.5); Segmented Neutrophils % 59.5 %
[2018-10-26 05:15] LABS: BUN/Creatinine Ratio 27 (6-26); Blood Urea Nitrogen 9 mg/dL (8-23); Calcium 8.5 mg/dL (8.6-10.3); Carbon Dioxide 35 mEq/L (23-29); Chloride 107 mEq/L (98-107); Glucose 91 mg/dL (70-105); Osmolality,Calculated 302 (280-300); Sodium 147 mEq/L (136-145); eGFR For Non-African Americans > 60 (> 60)
[2018-10-26] MEDS: Budesonide/Formoterol 160/4.5 1 PUFF INH IH SCH ×2 (07:53→20:37)
[2018-10-26] MEDS: LACTOSE REDUCED FOOD PO SCH ×3 (08:41→22:42)
[2018-10-26] MEDS: cefTRIAXone 1,000 MG in Water for inj. (sterile) 20 ML 10 ML IVP SCH (08:42)
[2018-10-26] MEDS: Cholecalciferol (D-3) 1,000 UNIT TABLET PO SCH (08:50)
--- NOTE | 2018-10-26 12:21 | Internal Med Progress Note ---
<Senthil Dolan - Last Filed: 10/26/18 13:31> Hospitalist Progress Note - Encounter Date of Encounter: 10/26/18 Time of Encounter: 08:00 - Subjective Interval History: Ms. Chang is a 82 year old female with PMHx of hypertension, COPD on 2L of oxygen, recent hospitalization for pneumonia in June 2018 presents to the hospital with complaints of weakness per family and severe lethargy. Patient has had difficulty swallowing solids and liquids. She has also been ambulating less due to her weakness. Patient has been lethargic but arousable and alert and oriented x 3. She admits to feeling very weak and short of breath and has oc casional cough. Also complained of diarrhea with up to 6 loose stools per day of about 3 months duration that self resolved since admission. Admits to chills. Denies any wheezing, abdominal pain, nausea or vomiting. In the ER, a chest xray with density in left upper lobe. Chest CT with irregular linear areas of infiltrate in the HERSON. sputum culture and influenza swap unremarkable. BCx pending. Patient is on NPO for EGD later today for her dysphagia. No overnight events. - Exam Vitals: Temp Pulse Resp BP Pulse Ox 97.2 F L 59 16 123/68 100 10/26/18 11:01 10/26/18 11:01 10/26/18 11:01 10/26/18 11:01 10/26/18 11:01 Exam: Exam: Cachectic elderly female. Very lethargic - Head Head exam: Present: atraumatic, normocephalic - Eye Eye exam: Present: conjuntiva pink, sclera anicteric - Neck Neck exam general surgery: Present: supple, trachea midline. Absent: lymphadenopathy - Respiratory Respiratory exam: Present: CTAB. Absent: accessory muscle use, rales, rhonchi, wheezes - Cardiovascular Cardiovascular exam: Present: RRR, +S1, +S2. Absent: diastolic murmur, gallop, rubs, systolic murmur - GI/Abdominal GI/Abdominal exam: Present: normal bowel sounds, soft, no peritoneal signs. Absent: distended, tenderness - Extremities Exam Extremities exam: Present: warm, radial pulses palpable and symmetrical. Absent: calf tenderness, cyanotic, pedal edema - Neurological Exam Neurological exam: Present: CN II-XII intact, oriented X3, no focal deficits. Absent: pronater drift, facial droop, speech deficit - Skin Skin exam: Present: dry, intact - Assessment and Plan (1) Pneumonia Current Visit: Yes Status: Acute Assessment and Plan: (1) Pneumonia Current Visit: Yes Status: Acute Assessment and Plan: 82F cachectic female presents with worsening SOB. Likely aspiration pneumonia CXR: increased nodular opacification of HERSON., chest CT: irregular linear areas of infiltrate in the HERSON that are more pronounced than 3 years ago, possible infectious process. Sputum Culture and blood culture pending. Continue with Unasyn for anaerobic coverage O2 as needed, currently of 2L NC (2) Difficulty swallowing Current Visit: No Status: Acute Assessment and Plan: aspiration precautions. No odynophagia. DDx includes GERD, malignancy, esophageal rings, food impaction, esophageal dysfunction Patient able to tolerate fluids, but does have difficulty with solids. Patient recently admitted for similar issues and obtained EGD: normal oropharynx, Grade A esophagitis. 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 GI following and EGD today. Continue NPO Continue maintenance fluids (3) Failure to thrive Current Visit: No Status: Chronic Assessment and Plan: Patient is severely malnourished secondary to malnutrition, chronically ill. Nutrition has seen her yesterday and will provide further recommendations after her EGD today. Patient would prefer to have here before she makes medical decisions. Continue full code for now. Palliative following and will have meeting with patient and in the afternoon. Will follow up closely. (4) Weakness Current Visit: No Status: Chronic Assessment and Plan: weakness secondary to chronic illness. PT/ OT. Speech therapy and nutrition on board. GI consulted for her dysphagia. (5) History of CVA (cerebrovascular accident) Current Visit: No Status: Acute Continue ASA, Statin, propranolol (6) DVT prophylaxis Current Visit: No Status: Acute SubQ heparin (7) COPD (chronic obstructive pulmonary disease) Current Visit: Yes Status: Chronic Chronic and stable. Duoneb as needed. Continue Symbicort (9) Malnutrition Current Visit: No Status: Acute Assessment and Plan: Continue nutrition supplements Nutrition consulted. (10) Dehydration Current Visit: No Status: Acute Assessment and Plan: Continue maintenance fluids. - Time Spent with Patient Total time spent is greater than 50% in coordination of care (as documented) at patient's floor/unit and/or counseling patient: Greater than 35 minutes Plan of Care Discussed with: patient Internal Medicine: Result - Labs CBC & Chem 7: 10/26/18 04:17 10/26/18 04:17 Labs: Short CBC 10/26/18 Range/Units 04:17 WBC 6.4 (4.3-11.1) K/mcL Hgb 11.6 D (11.5-15.4) g/dL Hct 36.4 (35.3-44.9) % Plt Count 174 (140-400) K/mcL Neutrophils # 3.8 (1.6-8.9) K/mcL BMP 10/26/18 04:17 Sodium 147 H Potassium 4.0 Chloride 107 Carbon Dioxide 35 H BUN 9 Creatinine 0.33 L Glucose 91 Calcium 8.5 L - ABG Interpretation ABG results: PT/INR, D-dimer PT 11.1 Seconds (9.4-12.1) 10/24/18 16:04 Consult Discharge Plan - Plan Referrals: Claribel Leary MD [Primary Care Provider] - <Raymond Castellanos - Last Filed: 10/26/18 15:39> Hospitalist Progress Note - Encounter Date of Encounter: 10/26/18 - Exam Vitals: Temp Pulse Resp BP Pulse Ox 97.2 F L 59 20 139/76 92 10/26/18 11:01 10/26/18 15:30 10/26/18 15:30 10/26/18 15:30 10/26/18 15:30 - Assessment and Plan (1) COPD (chronic obstructive pulmonary disease) Current Visit: Yes Status: Chronic (2) Pneumonia Current Visit: Yes Status: Acute (3) Failure to thrive Current Visit: Yes Status: Acute (4) Diarrhea Current Visit: Yes Status: Acute (5) Severe protein-calorie malnutrition Current Visit: Yes Status: Acute (6) DVT prophylaxis Current Visit: Yes Status: Acute - Time Spent with Patient Total time spent is greater than 50% in coordination of care (as documented) at patient's floor/unit and/or counseling patient: Internal Medicine: Result - Labs CBC & Chem 7: 10/26/18 04:17 10/26/18 04:17 Labs: Short CBC 10/26/18 Range/Units 04:17 WBC 6.4 (4.3-11.1) K/mcL Hgb 11.6 D (11.5-15.4) g/dL Hct 36.4 (35.3-44.9) % Plt Count 174 (140-400) K/mcL Neutrophils # 3.8 (1.6-8.9) K/mcL BMP 10/26/18 04:17 Sodium 147 H Potassium 4.0 Chloride 107 Carbon Dioxide 35 H BUN 9 Creatinine 0.33 L Glucose 91 Calcium 8.5 L - ABG Interpretation ABG results: PT/INR, D-dimer PT 11.1 Seconds (9.4-12.1) 10/24/18 16:04 - Impressions Impressions Abdomen/Pelvis CT 10/26/18 14:16 IMPRESSION: 1. Bilateral nephrolithiasis especially on the right with mild right caliectasis and pelviectasis. No obvious obstructive ureteric stones. Urinary bladder appears distended. 2. Small amount of ascites and mesenteric edema. 3. Small bilateral pleural effusions and lower lobe atelectatic changes worse on the right. Redemonstration of a 6 mm left lower lobe pulmonary nodule. D/ / 10/26/2018 15:14:08 Micaela Colby MD / Ligia Ovalle Interpreting Provider: Micaela Colby MD - Attending Attestation I examined this patient and my medical decision-making was reviewed with the Resident Physician Dr. Dolan. I agree with the documented findings, disposition and treatment plan as described except to the extent set forth below. Ms. Chang is a 82 year old female with pmh of hypertension, COPD on 2L of oxygen, who recently treated for PNA and dysphagia, now she presented to the hospital with complaints of weakness per family for the last 3 days and severe lethargy. They report that for the last 3 days she hasn't been eating, drinking or moving around much and has just stayed in bed. In the ER, a chest xray was done showing a density in left upper lobe. Her CTA of chest showed Irregular linear areas of infiltrate in the left upper lung that are mildly more pronounced. This may relate to progression of an area of scarring although a sup erimposed infectious process cannot be excluded. She was admitted in the hospital and started on empirical antibiotic Unasyn concerning for aspiration PNA. She still c.o dysphasia, especially with solids. She does have very poor PO intake. She lost significant weight recently. Pt still having trouble with swallowing.. She is scheduled for EGD today Gen: A, A, O x 3 .. Weak and lethargic Chest: Diminished BS b/l No crackles, no wheezing Heart: S1S2+ RRR No murmurs a/p 1. Acute PNA mostly aspirational changed abx to Unasyn cont close monitoring 2. Failure to thrive 3. Severe PCM 4. Dysphasia consulted GI for further eval Scheduled for EGD today Speech and Nutrition consult calorie count if pt needs PEG tubes for alternate options for feeding , she is willing to go for PEG tube placement too Pt also would like to talk to palliative care too 5. Left flank pain Since patient does have history of nephrolithiasis, ordered CT of Abd / Pelvis which came back as negative for renal calculi her left flank pain could be due to pneumonia too <Senthil Dolan - Last Filed: 10/26/18 13:31> (1) Pneumonia Qualifiers: Pneumonia type: due to unspecified organism Laterality: left Lung location: upper lobe of lung Qualified Code(s): J18.1 - Lobar pneumonia, unspecified organism <Raymond Castellanos - Last Filed: 10/26/18 15:39> (1) COPD (chronic obstructive pulmonary disease) Qualifiers: Qualified Code(s): J44.9 - Chronic obstructive pulmonary disease, unspecified (2) Pneumonia Qualifiers: Pneumonia type: due to unspecified organism Laterality: left Lung location: upper lobe of lung Qualified Code(s): J18.1 - Lobar pneumonia, unspecified organism (3) Failure to thrive Qualifiers: Qualified Code(s): R62.7 - Adult failure to thrive (4) Diarrhea Qualifiers: Qualified Code(s): R19.7 - Diarrhea, unspecified
[2018-10-26] MEDS ORDERED: *HR* Propofol 200 MG/20 ML VIAL IVP ONE (12:30)
--- NOTE | 2018-10-26 13:01 | Anesthesia Evaluation PreOp ---
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 History: CVA (residual right weakness/decreased sensation), TIA Other Medical History: GERD Anesthesia History: No Prior Anesthetic Complications, Past Anesthesia Alcohol Use: none Drug use: none Medications and Allergies Potassium Chloride [K-Tab ER] 20 meq PO BID 11/11/15 [History] Simvastatin [Zocor] 40 mg PO HS 11/11/15 [History] Propranolol [Inderal] 10 mg PO BID 02/01/16 [History] Ascorbic Acid [Vitamin C] 1,000 mg PO DAILY 08/24/16 [History] Calcium Carbonate [Calcium] 500 mg PO DAILY 08/24/16 [History] Cholecalciferol (D-3) [Vitamin D] 1,000 unit PO DAILY 08/24/16 [History] Cyanocobalamin (B-12) [Vitamin B12] 1,000 mcg IM QMONTH 08/24/16 [History] Ferrous Sulfate [Iron] 325 mg PO DAILY 08/24/16 [History] Nitroglycerin [Nitrostat] 0.4 mg SL Q5M PRN 08/24/16 [History] [place]-3/Dha/Epa/Fish Oil [Fish Oil 1,000 mg Softgel] 1,000 mg PO BID 08/24/16 [History] Omeprazole [PriLOSEC] 40 mg PO DAILY 08/24/16 [History] Zoledronic Acid (Reclast) [Reclast Premix 5 MG/100 ML] 5 mg IV [id number] 08/24/16 [History] Albuterol Sulfate [Proair Hfa] 2 puff IH Q6H PRN 08/17/17 [History] Aspirin [Adult Aspirin Regimen] 81 mg PO HS 10/25/18 [History] Meloxicam [Mobic] 15 mg PO DAILY 10/25/18 [History] Potassium Gluconate [Potassium] 99 mg PO DAILY 10/25/18 [History] Sucralfate [Carafate] 1 gm PO BID 10/25/18 [History] Tiotropium [Spiriva] 18 mcg IH DAILY 10/25/18 [History] diazePAM [Valium] 2.5 mg PO DAILY PRN 10/25/18 [History] diazePAM [Valium] 10 mg PO HS PRN 10/25/18 [History] Allergy/AdvReac Type Severity Reaction Status Date / Time No Known Drug Allergies Allergy See Verified 10/25/18 10:32 Comments - Meds/Allergy Pre-op Review Medications Reviewed: Yes Allergies Reviewed: Yes Beta Blockers on Current Med List: Yes If Beta Blockers taken, Date/Time (Last Dose taken): 10/26/2018 at 0841 Anesthesia Results - Labs 10/26/18 04:17 10/26/18 04:17 - Imaging EKG: report reviewed (10/16/2018 Sinus rhythm Biatrial enlargement Left ventricular hypertrophy Anterior Q waves, possibly due to LVH) Additional studies: 08/18/2017 Echo Impressions: LVEF 60%. Normal right ventricular structure and function. Mild mitral regurgitation. Mild aortic regurgitation. Probably mild aortic stenosis. Moderate tricuspid regurgitation. Mild pulmonic regurgitation. Mild pulmonary hypertension. Aortic Valve Peak Joe: 2.28 m/sec Mean Joe: 1.50 m/sec Peak Grad: 21.00 mmHg Mean Grad: 10.00 mmHg Valve Area: 1.52 cm2 AI pressure Half-time: 780.00 msec Anesthesia Exam Vital Signs/O2 Sat, Most Current Temp Pulse Resp BP Pulse Ox 97.2 F L 59 16 123/68 100 10/26/18 11:01 10/26/18 11:01 10/26/18 11:01 10/26/18 11:01 10/26/18 11:01 Height: 5'4''/1.63m Weight: 88 lbs/40 kg NPO (# of Hours): 8 Pain Scale: 8 (abdomen) Pain Scale Used: Numeric (1 - 10) - HEENT Pupil (Motor): EOMI Mallampati: II Teeth: Edentulous Denture Type: Upper: Complete, Lower: Complete Oral Opening: Greater than 3 - RADIOLOGY TEACHER LOC: Oriented RADIOLOGY TEACHER Motor: Normal LUE, Normal LLE, Normal Face, Deficit RUE, Deficit RLE RADIOLOGY TEACHER Sensory: Normal: LUE, LLE, Face, Deficit: RUE, RLE - Cardiac Rhythm: Regular Murmur: Systolic - Pulmonary Breath Sounds: bilateral Clear Respiratory Effort: Symmetrical Anesthesia Assess/Plan ASA Score: 3 Level of consciousness: Cooperative, Oriented, Tranquil Anesthetic Plan: MAC Monitoring Plan: Standard Monitors
--- NOTE | 2018-10-26 15:13 | Electrocardiograph Report ---
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
[2018-10-26] MEDS ORDERED: SODIUM CHLORIDE/NAHCO3/KCL/PEG 4,000 ML SOLN.RECON PO ONE (17:00)
[2018-10-26] MEDS: Aspirin Enteric Coated 81 MG Tablet PO SCH (22:41)
[2018-10-27] MEDS: Ipratropium/Albuterol Neb 3 ML IH SCH ×7 (00:21→23:53)
[2018-10-27] MEDS: Ampicillin/Sulbactam 1,500 MG in 0.9 % Sodium Chloride Mini Bag 100 ML IVPB SCH ×3 (00:59→12:33)
[2018-10-27] MEDS: 0.9 % Sodium Chloride 1,000 ML IVC SCH ×2 (05:22)
[2018-10-27] MEDS: *HR* Heparin 5,000 UNIT/ML VIAL SQ SCH ×2 (05:23→16:48)
[2018-10-27 05:32] LABS: BUN/Creatinine Ratio 23 (6-26); Blood Urea Nitrogen 7 mg/dL (8-23); Calcium 9.6 mg/dL (8.6-10.3); Carbon Dioxide 34 mEq/L (23-29); Chloride 102 mEq/L (98-107); Glucose 85 mg/dL (70-105); Osmolality,Calculated 295 (280-300); Sodium 144 mEq/L (136-145); eGFR For Non-African Americans > 60 (> 60)
[2018-10-27] MEDS: LACTOSE REDUCED FOOD PO SCH ×3 (07:20→22:18)
[2018-10-27] MEDS: Cholecalciferol (D-3) 1,000 UNIT TABLET PO SCH (07:21)
[2018-10-27] MEDS: Budesonide/Formoterol 160/4.5 1 PUFF INH IH SCH ×2 (07:23→20:04)
--- NOTE | 2018-10-27 13:16 | Internal Med Progress Note ---
Hospitalist Progress Note - Encounter Date of Encounter: 10/27/18 Time of Encounter: 09:00 - Subjective Interval History: Ms. Chang is a 82 year old female with pmh of hypertension, COPD on 2L of oxygen, who recently treated for PNA and dysphagia, now she presented to the hospital with complaints of weakness per family for the last 3 days and severe lethargy. They report that for the last 3 days she hasn't been eating, drinking or moving around much and has just stayed in bed. In the ER, a chest xray was done showing a density in left upper lobe. Her CTA of chest showed Irregular linear areas of infiltrate in the left upper lung that are mildly more pronounced. This may relate to progression of an area of scarring although a superimposed infectious process cannot be excluded. She was admitted in the hospital and started on empirical antibiotic Unasyn concerning for aspiration PNA. She still c.o dysphasia, especially with solids. She does have very poor PO intake. She lost significant weight recently. She had EGD y/d which showed Z line iregular and gastritis. She is scheduled for colonoscopy today. She still looks depressed and c.o loss of appetite too. Her left flank pain is better now. - Exam Vitals: Temp Pulse Resp BP Pulse Ox 97.5 F L 53 18 163/74 96 10/27/18 11:11 10/27/18 11:11 10/27/18 11:40 10/27/18 11:40 10/27/18 11:40 Exam: Gen: Alert, awake, Oriented to time,place and person..Looks very weak and lethargic Chest: Diminished breath sounds B/L, No wheezing, No crackles, No rales Heart: S1S2+ RRR No murmurs Abd: Soft, NT, BS +, No organomegaly Ext: No edema, pulses are palpable, No calf tenderness Neuro : Benign findings Skin: No rash. Psych: Depressed - Assessment and Plan (1) Pneumonia Current Visit: Yes Status: Acute Assessment and Plan: Mostly aspiration pneumonia improving will switch to PO antibiotic Augmentin (2) Difficulty swallowing Current Visit: No Status: Acute Assessment and Plan: s/p EGD showed gastritis only cont PPI will start her on carafate liquid too she does have major depression which might be another contributing factor started her on Remeron (3) COPD (chronic obstructive pulmonary disease) Current Visit: Yes Status: Chronic Assessment and Plan: No acute exacerbation. Cont bronchodilator therapy as needed (4) Failure to thrive Current Visit: Yes Status: Acute Assessment and Plan: Patient is severely malnourished with weight loss Seems to be due to depression too started her on Remeron 7.5mg now Also consider to add Marinol too (5) Diarrhea Current Visit: Yes Status: Acute Assessment and Plan: resolved (6) Severe protein-calorie malnutrition Current Visit: Yes Status: Acute Assessment and Plan: Ensure with each meal (7) DVT prophylaxis Current Visit: Yes Status: Acute Assessment and Plan: Heparin sc - Time Spent with Patient Total time spent is greater than 50% in coordination of care (as documented) at patient's floor/unit and/or counseling patient: Internal Medicine: Result - Labs CBC & Chem 7: 10/26/18 04:17 10/27/18 04:05 Labs: BMP 10/27/18 04:05 Sodium 144 Potassium 4.0 Chloride 102 Carbon Dioxide 34 H BUN 7 L Creatinine 0.30 L Glucose 85 Calcium 9.6 - ABG Interpretation ABG results: PT/INR, D-dimer PT 11.1 Seconds (9.4-12.1) 10/24/18 16:04 - Impressions Impressions Abdomen/Pelvis CT 10/26/18 14:16 IMPRESSION: 1. Bilateral nephrolithiasis especially on the right with mild right caliectasis and pelviectasis. No obvious obstructive ureteric stones. Urinary bladder appears distended. 2. Small amount of ascites and mesenteric edema. 3. Small bilateral pleural effusions and lower lobe atelectatic changes worse on the right. Redemonstration of a 6 mm left lower lobe pulmonary nodule. D/ / 10/26/2018 15:14:08 Micaela Colby MD / Ligia Ovalle Interpreting Provider: Micaela Colby MD Consult Discharge Plan - Plan Referrals: Claribel Leary MD [Primary Care Provider] - (1) Pneumonia Qualifiers: Pneumonia type: due to unspecified organism Laterality: left Lung location: upper lobe of lung Qualified Code(s): J18.1 - Lobar pneumonia, unspecified organism (2) Difficulty swallowing Qualifiers: Dysphagia type: unspecified Qualified Code(s): R13.10 - Dysphagia, unspecified (3) COPD (chronic obstructive pulmonary disease) Qualifiers: Qualified Code(s): J44.9 - Chronic obstructive pulmonary disease, unspecified (4) Failure to thrive Qualifiers: Qualified Code(s): R62.7 - Adult failure to thrive (5) Diarrhea Qualifiers: Qualified Code(s): R19.7 - Diarrhea, unspecified
[2018-10-27] MEDS: *HR* HYDROcodone/Acet 5/325 mg TABLET PO PRN (14:11)
--- NOTE | 2018-10-27 16:33 | Palliative Progress Note ---
Date of Encounter: 10/27/18 Time of Encounter: 12:00 - Assessment and plan (1) Goals of care, counseling/discussion Current Visit: Yes Status: Acute Assessment and plan: Conducted a 55 minute meeting with patient, Magda, and granddaughter. Discussed current medical condition, trajectory of illness, prognosis and jacek atment options. Patient suffers from failure to thrive, and severe protein caloric malnutrition. states that patient at home just seems to never find time to eat and even when she does she just eats very little amount. Granddaughter agrees that patient likes to cook, but has been just very weak recently and unable to do so, that even when she can, she won't eat anything more than a piece of sandwich at a time. Patient states that she feels depressed, she feels like she has no one to talk to and the weaker she is getting, the more depressed she is. Patient is willing to work in improving her appetite, she however she states that she used Megace for about a month and did not feel any difference, for that reason she would like to avoid medication. Patient was approached about a PEG tube by another member of the team, and when discussing about it she states that she is considering it, although very reluctantly. Anyway if she ends up agreeing for a PEG tube, she will not want it to be used to feed her if she is not able to do it herself. Discussed CODE STATUS with patient, patient states that she has already signed DNR form and that she wants no resuscitation and no life support. No DNR form was found in the patient chart, new forms will be signed. Patient's CODE STATUS changed to DNR CC arrest and DNI. (2) Dysphagia, pharyngeal Current Visit: No Status: Acute Assessment and plan: S/p EGD, negative for obstruction. Colonoscopy today. (3) Palliative care encounter Current Visit: Yes Status: Acute (4) Failure to thrive Current Visit: Yes Status: Acute Assessment and plan: Patient is cachetic, with a BMI of 15. She does not eat or drink appropriately at home. Per patient and , she gets too busy during the day to eat. She also complains of dysphagia, but EGD was negative. Patient was using megace, with no improvement of her appetite. She is considering a PEG tube, but is very reluctant. For colonoscopy today, further discussion after test is completed. depression may be contributing, started on Remeron. Qualifiers: Qualified Code(s): R62.7 - Adult failure to thrive - Time Spent With Patient Total time spent is greater than 50% in coordination of care (as documented) at patient's floor/unit and/or counseling patient: 70 minutes Greater than 35 minutes - Subjective Interval history: Patient complaining of pain in her left flank, tender to palpation, on and off, responding well to [place]. and grand-daughter at the bedside. She is scheduled for colonoscopy today. - Constitutional Vitals: Abnormal lab results RBC 3.62 M/mcL (3.82-4.97) L 10/26/18 04:17 MCV 100.6 fL (83.0-100.0) H 10/26/18 04:17 Sodium 147 mEq/L (136-145) H 10/26/18 04:17 Chloride 108 mEq/L (98-107) H 10/25/18 00:58 Carbon Dioxide 34 mEq/L (23-29) H 10/27/18 04:05 BUN 7 mg/dL (8-23) L 10/27/18 04:05 0.30 mg/dL (0.60-1.20) L 10/27/18 04:05 27 (6-26) H 10/26/18 04:17 302 (280-300) H 10/26/18 04:17 Calcium 8.5 mg/dL (8.6-10.3) L 10/26/18 04:17 AST 51 Units/L (13-39) H 10/24/18 17:00 5.1 g/dL (6.4-8.9) L 10/24/18 17:00 3.4 g/dL (3.5-5.7) L 10/24/18 17:00 1.7 g/dL (2.4-3.5) L 10/24/18 17:00 Trace mg/dL (Negative) H 10/24/18 16:41 Exam: eneral appearance: Present: no acute distress, cachetic - Head Head Exam: Present: normal inspection - Eye Eye exam: Present: normal appearance. Absent: conjunctival injection, scleral icterus, conjuntiva pink - Neck Neck exam: Present: tenderness - Respiratory Respiratory exam: Present: CTAB. Absent: accessory muscle use, chest wall tenderness, decreased breath sounds, respiratory distress, rhonchi, wheezes, tachypnea - Cardiovascular Cardiovascular exam: Present: RRR, +S1, +S2. Absent: diastolic murmur, +S3, +S4, systolic murmur - GI/Abdominal Exam GI/Abdominal exam: Present: distended, normal bowel sounds, soft, tenderness (Mild diffuse tenderness with deep palpation). Absent: guarding, rebound - Extremities Exam Extremities exam: Present: normal capillary refill, tenderness (Mild ankle tenderness b/l). Absent: calf tenderness, joint swelling, pedal edema - Neurological Exam Neurological exam: Present: alert, altered, no focal deficits. Absent: motor sensory deficit, facial droop, speech deficit - Psychiatric Psychiatric exam: Present: normal affect, normal mood. Absent: agitated - Skin Skin exam: Present: dry, intact, normal color. Absent: cyanosis, erythema Palliative Quality Palliative Quality: Screen for Code Status: Yes, Screen for Goals of Care: Yes, Screen for Pain: Yes, If Pain Regimen Started, Initiate Bowel Regimen: Yes, Screen for Nausea/Vomitting: Yes Code Status: 10/24/18 17:16 Resuscitation Status: Active [RES] Routine Comment: Resuscitation Status: Full Code - Labs CBC & Chem 7: 10/26/18 04:17 10/27/18 04:05 Labs: Laboratory Results - last 24 hr 10/27/18 04:05 Sodium 144 Potassium 4.0 Chloride 102 Carbon Dioxide 34 H BUN 7 L Creatinine 0.30 L Est GFR ( Amer) > 60 Est GFR (Non-Af Amer) > 60 BUN/Creatinine Ratio 23 Glucose 85 Calculated Osmolality 295 Calcium 9.6 - ABG Interpretation ABG results: PT/INR, D-dimer PT 11.1 Seconds (9.4-12.1) 10/24/18 16:04 Palliative Scale - Palliative Performance Scale What is patient's level of activity and evidence of disease?: Unable to do any work, Extensive disease How much self-care assistance does patient require?: Mainly assistance How much oral intake does the patient have?: Minimal to sips What is this patient's level of consciousness?: Full Palliative Performance Score: 40 % Consult Discharge Plan - Plan Referrals: Claribel Leary MD [Primary Care Provider] -
[2018-10-27] MEDS ORDERED: *HR* Midazolam HCl 5 MG/5 ML VIAL IVP ONE ×2 (16:52→17:02)
[2018-10-27] MEDS ORDERED: *HR* FentaNYL (PF) 100 MCG/2 ML VIAL ONE (16:52)
[2018-10-27] MEDS ORDERED: *HR* FentaNYL (PF) 100 MCG/2 ML VIAL IVP ONE (17:02)
[2018-10-27] MEDS ORDERED: Simethicone 40 MG/0.6 ML MLS IR ONE (17:02)
[2018-10-27] MEDS ORDERED: Mirtazapine 15 MG TABLET PO SCH (21:00)
[2018-10-27] MEDS: Aspirin Enteric Coated 81 MG Tablet PO SCH (22:26)
[2018-10-28] MEDS: Ipratropium/Albuterol Neb 3 ML IH SCH ×2 (04:53→07:20)
[2018-10-28] MEDS: *HR* Heparin 5,000 UNIT/ML VIAL SQ SCH (06:01)
[2018-10-28] MEDS: Budesonide/Formoterol 160/4.5 1 PUFF INH IH SCH (07:20)
[2018-10-28 07:43] VITALS: BP 132/73
--- NOTE | 2018-10-28 08:23 | Discharge Summary ---
<Senthil Dolan - Last Filed: 10/28/18 11:01> - NOTES TO OUTPATIENT PROVIDER Notes to Outpatient Provider: Patient DNR-CC-DNI Orders not resulted at time of discharge: Pending orders 10/24/18 16:20 Culture,Blood [BC] Stat 10/27/18 17:31 Surgical Pathology [PTH] Routine Date of Encounter: 10/28/18 Time of Encounter: 08:23 - Discharge Diagnosis (1) Pneumonia Priority: Primary Status: Acute Qualifiers: Pneumonia type: due to unspecified organism Laterality: left Lung location: upper lobe of lung Qualified Code(s): J18.1 - Lobar pneumonia, unspecified organism (2) Diarrhea Priority: Secondary Status: Acute Qualifiers: Qualified Code(s): R19.7 - Diarrhea, unspecified (3) Goals of care, counseling/discussion Priority: Secondary Status: Acute (4) Palliative care encounter Priority: Secondary Status: Acute (5) COPD (chronic obstructive pulmonary disease) Priority: Secondary Status: Chronic Qualifiers: Qualified Code(s): J44.9 - Chronic obstructive pulmonary disease, unspecified (6) Difficulty swallowing Priority: Secondary Status: Acute Qualifiers: Dysphagia type: unspecified Qualified Code(s): R13.10 - Dysphagia, unspecified (7) Failure to thrive Priority: Secondary Status: Chronic Qualifiers: Failure to thrive age range: in adult Qualified Code(s): R62.7 - Adult failure to thrive (8) Severe protein-calorie malnutrition Priority: Secondary Status: Chronic Hospital course: Ms. Chang is a 82 year old cachectic female with PMHx of hypertension, COPD on 2L of oxygen, who recently treated for PNA and dysphagia presented to the hospital with complaints of weakness per family for the last 3 days and severe lethargy. They reported that patient had decreased PO intake, worsening weakness for 3 days. In the ER, CXR demonstrated density in left upper lobe. Her CTA of chest showed irregular linear areas of infiltrate in the left upper lung that are mildly more pronounced. This may relate to progression of an area of scarr ing although a superimposed infectious process cannot be excluded. She also reported difficulty swallowing. Admits to recent unplanned weight loss. She was admitted in the hospital and started on empirical antibiotic Unasyn concerning for aspiration PNA, failure to thrive. Dypsnea has gradually improved with respiratory therapy and inhalers + Unasyn. Patient will be discharged with Augmentin 875mg PO BID for 5 days, symbicort inhaler. For her dysphagia, she had EGD y/d which showed Z line irregular and gastritis. Colonoscopy with 5 mm, non-bleeding polyp in the rectum, removed and pending bi opsy. She will follow up with outpatient PCP for results. Speech therapy and nutrition were involved in care. She is OK to return to her usual diet. Patient also had left flank pain, abdominal/pelvis CT with small amount of ascites and bilateral nephrolithiasis with mild right caliectasis and pelviectasis. Known 6mm left lower lobe pulmonary nodule noted. Left flank pain gradually improved. She will be discharged with [place] 5 for 5 days for chronic pain. Palliative was consulted to discuss goal of care. Patient has been changed to DNR-CC-DNI. It was also determined that depression could be contributing to her decreased PO intake and FTT. Mirtazepine was started and continue outpatient. Patient is returning to her baseline, transfer to SN[facility] Discharge discussed with: patient, family - Time Spent with Patient Total time spent providing and/or coordinating discharge services: Time spent: Greater than 30 minutes - Discharge Medications Prescriptions: New Mirtazapine [Remeron] 7.5 mg PO HS #30 tablet Budesonide/Formoterol 160/4.5 [Symbicort 160/4.5] 2 puff IH BIDR #1 inh Amoxicillin/Clavulanate [Augmentin] 875 mg PO BIDWM 5 Days #10 tablet HYDROcodone/Acet 5/325 mg [[place] 5-325 mg] 1 tab PO Q6HR PRN 5 Days #20 tablet PRN Reason: Pain Continued Simvastatin [Zocor] 40 mg PO HS Potassium Chloride [K-Tab ER] 20 meq PO BID Propranolol [Inderal] 10 mg PO BID Omeprazole [PriLOSEC] 40 mg PO DAILY Zoledronic Acid (Reclast) [Reclast Premix 5 MG/100 ML] 5 mg IV [id number] Cholecalciferol (D-3) [Vitamin D] 1,000 unit PO DAILY [place]-3/Dha/Epa/Fish Oil [Fish Oil 1,000 mg Softgel] 1,000 mg PO BID Nitroglycerin [Nitrostat] 0.4 mg SL Q5M PRN PRN Reason: Chest Pain Ferrous Sulfate [Iron] 325 mg PO DAILY Cyanocobalamin (B-12) [Vitamin B12] 1,000 mcg IM QMONTH Calcium Carbonate [Calcium] 500 mg PO DAILY Ascorbic Acid [Vitamin C] 1,000 mg PO DAILY Albuterol Sulfate [Proair Hfa] 2 puff IH Q6H PRN PRN Reason: Shortness Of Breath Aspirin [Adult Aspirin Regimen] 81 mg PO HS diazePAM [Valium] 2.5 mg PO DAILY PRN PRN Reason: Anxiety diazePAM [Valium] 10 mg PO HS PRN PRN Reason: Anxiety Potassium Gluconate [Potassium] 99 mg PO DAILY Tiotropium [Spiriva] 18 mcg IH DAILY Meloxicam [Mobic] 15 mg PO DAILY Sucralfate [Carafate] 1 gm PO BID Home Medications: Potassium Chloride [K-Tab ER] 20 meq PO BID 11/11/15 [History] Simvastatin [Zocor] 40 mg PO HS 11/11/15 [History] Propranolol [Inderal] 10 mg PO BID 02/01/16 [History] Ascorbic Acid [Vitamin C] 1,000 mg PO DAILY 08/24/16 [History] Calcium Carbonate [Calcium] 500 mg PO DAILY 08/24/16 [History] Cholecalciferol (D-3) [Vitamin D] 1,000 unit PO DAILY 08/24/16 [History] Cyanocobalamin (B-12) [Vitamin B12] 1,000 mcg IM QMONTH 08/24/16 [History] Ferrous Sulfate [Iron] 325 mg PO DAILY 08/24/16 [History] Nitroglycerin [Nitrostat] 0.4 mg SL Q5M PRN 08/24/16 [History] [place]-3/Dha/Epa/Fish Oil [Fish Oil 1,000 mg Softgel] 1,000 mg PO BID 08/24/16 [History] Omeprazole [PriLOSEC] 40 mg PO DAILY 08/24/16 [History] Zoledronic Acid (Reclast) [Reclast Premix 5 MG/100 ML] 5 mg IV [id number] 08/24/16 [History] Albuterol Sulfate [Proair Hfa] 2 puff IH Q6H PRN 08/17/17 [History] Aspirin [Adult Aspirin Regimen] 81 mg PO HS 10/25/18 [History] Meloxicam [Mobic] 15 mg PO DAILY 10/25/18 [History] Potassium Gluconate [Potassium] 99 mg PO DAILY 10/25/18 [History] Sucralfate [Carafate] 1 gm PO BID 10/25/18 [History] Tiotropium [Spiriva] 18 mcg IH DAILY 10/25/18 [History] diazePAM [Valium] 2.5 mg PO DAILY PRN 10/25/18 [History] diazePAM [Valium] 10 mg PO HS PRN 10/25/18 [History] Amoxicillin/Clavulanate [Augmentin] 875 mg PO BIDWM 5 Days #10 tablet 10/28/18 [Rx] Budesonide/Formoterol 160/4.5 [Symbicort 160/4.5] 2 puff IH BIDR #1 inh 10/28/18 [Rx] HYDROcodone/Acet 5/325 mg [[place] 5-325 mg] 1 tab PO Q6HR PRN 5 Days #20 tablet 10/28/18 [Rx] Mirtazapine [Remeron] 7.5 mg PO HS #30 tablet 10/28/18 [Rx] Allergies/Adverse Reactions: Allergy/AdvReac Type Severity Reaction Status Date / Time No Known Drug Allergies Allergy See Verified 10/25/18 10:32 Comments Date of admission: 10/25/18 11:30 Primary care physician: Claribel Leary Consults: 10/24/18 18:05 Consult to Physical Therapy [CONS] Routine Comment: Evaluate, develop and implement POC Reason for Consult: weakness Does patient have active BEDREST order?: No Is patient medically & hemodynamically stable?: Yes Patient assessed for mobility or mobilized this visit?: No 10/24/18 18:10 Consult to Palliative Care [CONS] Routine Comment: Consulting Provider: Palliative Care [place] Reason for Consult: recurrent hospital admits, failure to thrive Call Completed: No 10/25/18 07:53 Consult to Nurse Navigator [CONS] Routine Comment: pneumonia 10/25/18 11:04 Consult to Nutrition [CONS] Routine Comment: Consulting Provider: NUTRITION Reason for Dietary Consult: PO Supplementation 10/25/18 11:06 Consult to Occupational Therapy [CONS] Routine Comment: Evaluate, develop and implement POC Reason for Consult: weakness Does patient have active BEDREST order?: No Is patient medically & hemodynamically stable?: Yes 10/25/18 11:25 Consult to Speech Therapy [CONS] Routine Comment: Evaluate, develop and implement POC Reason for Consult: dysphagia Call Completed: No 10/25/18 11:36 Consult to Gastroenterology [CONS] Routine Consulting Provider: Sumeet Isbell Reason for Consult: chronic dysphagia Call Completed: Yes 10/25/18 15:39 Consult to Supervisor [place] [CONS] Routine Reason for SW Consult: PT/OT RECOMMEND SNF Discharging clinician: Senthil Dolan Anticipated date of discharge: 10/28/18 - Constitutional Vitals: Temp Pulse Resp BP Pulse Ox 98.0 F 71 16 132/73 94 10/28/18 07:42 10/28/18 07:42 10/28/18 07:42 10/28/18 07:42 10/28/18 07:42 General appearance: Present: A&O X 3, underweight, loss of weight Exam: Gen: Alert, awake, Oriented to time,place and person. Cachectic appearing Chest: Diminished breath sounds B/L, No wheezing, No crackles, No rales Heart: S1S2+ RRR No murmurs Abd: Soft, NT, BS +, No organomegaly Ext: No edema, pulses are palpable, No calf tenderness Neuro : Benign findings Skin: No rash. Psych: Depressed - Patient Status Disposition: Transfer SNF Condition: Fair Functional capacity at discharge: bed bound Overall status at discharge: patient is progressing back to baseline - Discharge Instructions Instructions: Chronic Obstructive Pulmonary Disease (DC), Pneumonia (DC) Follow Up With: Claribel Leary MD [Primary Care Provider] - - Diet and Activity Activity: as per physical therapy, increase activity as tolerated Diet: advance to your usual diet <Raymond Castellanos - Last Filed: 10/28/18 15:24> Orders not resulted at time of discharge: Pending orders 10/24/18 16:20 Culture,Blood [BC] Stat 10/27/18 17:31 Surgical Pathology [PTH] Routine Date of Encounter: 10/28/18 - Discharge Diagnosis (1) Pneumonia Status: Acute Qualifiers: Pneumonia type: due to unspecified organism Laterality: left Lung location: upper lobe of lung Qualified Code(s): J18.1 - Lobar pneumonia, unspecified organism (2) Difficulty swallowing Status: Acute Qualifiers: Dysphagia type: unspecified Qualified Code(s): R13.10 - Dysphagia, unspecified (3) COPD (chronic obstructive pulmonary disease) Status: Chronic Qualifiers: Qualified Code(s): J44.9 - Chronic obstructive pulmonary disease, unspecified (4) Failure to thrive Status: Acute Qualifiers: Qualified Code(s): R62.7 - Adult failure to thrive (5) Diarrhea Status: Acute Qualifiers: Qualified Code(s): R19.7 - Diarrhea, unspecified (6) Severe protein-calorie malnutrition Status: Acute (7) DVT prophylaxis Status: Acute Hospital course: Ms. Chang is a 82 year old female - Time Spent with Patient Total time spent providing and/or coordinating discharge services: Date of admission: 10/25/18 11:30 Primary care physician: Claribel Leary Consults: 10/24/18 18:05 Consult to Physical Therapy [CONS] Routine Comment: Evaluate, develop and implement POC Reason for Consult: weakness Does patient have active BEDREST order?: No Is patient medically & hemodynamically stable?: Yes Patient assessed for mobility or mobilized this visit?: No 10/24/18 18:10 Consult to Palliative Care [CONS] Routine Comment: Consulting Provider: Palliative Care [place] Reason for Consult: recurrent hospital admits, failure to thrive Call Completed: No 10/25/18 07:53 Consult to Nurse Navigator [CONS] Routine Comment: pneumonia 10/25/18 11:04 Consult to Nutrition [CONS] Routine Comment: Consulting Provider: NUTRITION Reason for Dietary Consult: PO Supplementation 10/25/18 11:06 Consult to Occupational Therapy [CONS] Routine Comment: Evaluate, develop and implement POC Reason for Consult: weakness Does patient have active BEDREST order?: No Is patient medically & hemodynamically stable?: Yes 10/25/18 11:25 Consult to Speech Therapy [CONS] Routine Comment: Evaluate, develop and implement POC Reason for Consult: dysphagia Call Completed: No 10/25/18 11:36 Consult to Gastroenterology [CONS] Routine Consulting Provider: Sumeet Isbell Reason for Consult: chronic dysphagia Call Completed: Yes 10/25/18 15:39 Consult to Supervisor [place] [CONS] Routine Reason for SW Consult: PT/OT RECOMMEND SNF - Constitutional Vitals: Temp Pulse Resp BP Pulse Ox 98.0 F 71 16 132/73 94 05/02/19 07:42 10/28/18 07:42 10/28/18 07:42 10/28/18 07:42 10/28/18 07:42 - Attending Attestation I examined this patient and my medical decision-making was reviewed with the Resident Physician Dr. Dolan. I agree with the documented findings, disposition and treatment plan as described except to the extent set forth below. Ms. Chang is a 82 year old female with pmh of hypertension, COPD on 2L of oxygen, who recently treated for PNA and dysphagia, now she presented to the hospital with complaints of weakness per family for the last 3 days and severe lethargy. They report that for the last 3 days she hasn't been eating, drinking or moving around much and has just stayed in bed. In the ER, a chest xray was done showing a density in left upper lobe. Her CTA of chest showed Irregular linear areas of infiltrate in the left upper lung that are mildly more pronounced. This may relate to progression of an area of scarring although a superimposed infectious process cannot be excluded. She was admitted in the hospital and started on empirical antibiotic Unasyn concerning for aspiration PNA. She still c.o dysphasia, especially with solids. She does have very poor PO intake. She lost significant weight recently. She had EGD which showed Z line iregular and gastritis. Her colonoscopy showed a small polyp which got removed. She was placed on Remeron y/d, today pt feels much better. Denied any CP / SOB. Her appetite is little better today. will d/c her to ECF today in stable condition Gen: A, A, O x3 Chest: Diminished BS b.l, no crackles Heart: S1S2+ RRR No murmurs
--- NOTE | 2018-10-28 08:25 | Physician Discharge Referral ---
ExtendedCare Referral Info Transfer To: [facility] Level of Care: Skilled - Diagnosis (1) Pneumonia Priority: Primary Status: Acute (2) Failure to thrive Status: Acute (3) Goals of care, counseling/discussion Status: Acute (4) Palliative care encounter Status: Acute (5) COPD (chronic obstructive pulmonary disease) Status: Chronic (6) Difficulty swallowing Status: Acute (7) Frail elderly Status: Chronic Prognosis: Poor Aware of Diagnosis: Patient, Family Aware of Prognosis: Patient, Family - Transfer Medications Home Medications: Potassium Chloride [K-Tab ER] 20 meq PO BID 11/11/15 [History] Simvastatin [Zocor] 40 mg PO HS 11/11/15 [History] Propranolol [Inderal] 10 mg PO BID 02/01/16 [History] Ascorbic Acid [Vitamin C] 1,000 mg PO DAILY 08/24/16 [History] Calcium Carbonate [Calcium] 500 mg PO DAILY 08/24/16 [History] Cholecalciferol (D-3) [Vitamin D] 1,000 unit PO DAILY 08/24/16 [History] Cyanocobalamin (B-12) [Vitamin B12] 1,000 mcg IM QMONTH 08/24/16 [History] Ferrous Sulfate [Iron] 325 mg PO DAILY 08/24/16 [History] Nitroglycerin [Nitrostat] 0.4 mg SL Q5M PRN 08/24/16 [History] [place]-3/Dha/Epa/Fish Oil [Fish Oil 1,000 mg Softgel] 1,000 mg PO BID 08/24/16 [History] Omeprazole [PriLOSEC] 40 mg PO DAILY 08/24/16 [History] Zoledronic Acid (Reclast) [Reclast Premix 5 MG/100 ML] 5 mg IV [id number] 08/24/16 [History] Albuterol Sulfate [Proair Hfa] 2 puff IH Q6H PRN 08/17/17 [History] Aspirin [Adult Aspirin Regimen] 81 mg PO HS 10/25/18 [History] Meloxicam [Mobic] 15 mg PO DAILY 10/25/18 [History] Potassium Gluconate [Potassium] 99 mg PO DAILY 10/25/18 [History] Sucralfate [Carafate] 1 gm PO BID 10/25/18 [History] Tiotropium [Spiriva] 18 mcg IH DAILY 10/25/18 [History] diazePAM [Valium] 2.5 mg PO DAILY PRN 10/25/18 [History] diazePAM [Valium] 10 mg PO HS PRN 10/25/18 [History] Allergies/Adverse Reactions: Allergy/AdvReac Type Severity Reaction Status Date / Time No Known Drug Allergies Allergy See Verified 10/25/18 10:32 Comments - Respiratory Orders Smoking Cessation: Smoking cessation has been advised. For more information, call the [place] Tobacco Quit Line at 5-815-VPML-NOW. CERTIFICATION: I certify that the transfer of the above named patient to an Extended Care Facility is necessary for the continuing treatment of the diagnosis listed. The above information is true and accurate reflection of patient's current condition. Confidential - Redisclosure prohibited without a patient's written consent.
[2018-10-28] MEDS: Cholecalciferol (D-3) 1,000 UNIT TABLET PO SCH (09:25)
[2018-10-28] MEDS: LACTOSE REDUCED FOOD PO SCH (09:26)
[2018-10-28] MEDS ORDERED: Ipratropium/Albuterol Neb 3 ML IH PRN (10:38)
[2018-10-28] MEDS: Acetaminophen/Aspirin/Caffeine TABLET PO PRN (11:16)
--- NOTE | 2018-10-28 13:02 | Palliative Progress Note ---
Date of Encounter: 10/28/18 Time of Encounter: 11:30 - Assessment and plan (1) Goals of care, counseling/discussion Status: Acute Assessment and plan: Met independently with patient's daughter Ann, at her request. Discussed current medical condition, trajectory of illness, goals of care and treatment options. Ann states that patient continues to get seek every time comes to the hospital goes to rehabilitation where she proves is eating well and [facility], and then she goes home and stop eating and was sitting. Family at this point is feeling that this cycle needs to stop, and asking for options. Discussed that one option would be to try to walk with patient as she comes back from rehabilitation home in giving her more supervision and making sure that she has food available and that she actually eats. Also patient has shown some signs of depression, and was started on Remeron that may improve her mood and her appetite in case all disease elements together and patient is still worsening, discussed considering hospice care at that point. Hospice was explained to the patient's daughter. Ann feels that patient and family wants to go on to rehabilitation and still try to get her to improve. Family will come see the hospice only if the current management fails. Total meeting time 30 minutes. Met with patient, and completed DNR state form for DNRCCA and DNI. Patient's goal is to get stronger in rehab and return home. Being discharged today. (2) Dysphagia, pharyngeal Status: Acute Assessment and plan: S/p EGD, negative for obstruction. Colonoscopy today. (3) Palliative care encounter Status: Acute (4) Failure to thrive Status: Acute Assessment and plan: Patient is cachetic, with a BMI of 15. She does not eat or drink appropriately at home. Per patient and , she gets too busy during the day to eat. She also complains of dysphagia, but EGD was negative. Patient was using megace, with no improvement of her appetite. She is consider ing a PEG tube, but is very reluctant. For colonoscopy today, further discussion after test is completed. depression may be contributing, started on Remeron. Qualifiers: Qualified Code(s): R62.7 - Adult failure to thrive - Time Spent With Patient Total time spent is greater than 50% in coordination of care (as documented) at patient's floor/unit and/or counseling patient: - Subjective Interval history: Patient was sitting in bed, fully dressed and ready to leave. states to be feeling stronger. no family present. - Constitutional Vitals: Abnormal lab results RBC 3.62 M/mcL (3.82-4.97) L 10/26/18 04:17 MCV 100.6 fL (83.0-100.0) H 10/26/18 04:17 Sodium 147 mEq/L (136-145) H 10/26/18 04:17 Chloride 108 mEq/L (98-107) H 10/25/18 00:58 Carbon Dioxide 34 mEq/L (23-29) H 10/27/18 04:05 BUN 7 mg/dL (8-23) L 10/27/18 04:05 0.30 mg/dL (0.60-1.20) L 10/27/18 04:05 27 (6-26) H 10/26/18 04:17 302 (280-300) H 10/26/18 04:17 Calcium 8.5 mg/dL (8.6-10.3) L 10/26/18 04:17 AST 51 Units/L (13-39) H 10/24/18 17:00 5.1 g/dL (6.4-8.9) L 10/24/18 17:00 3.4 g/dL (3.5-5.7) L 10/24/18 17:00 1.7 g/dL (2.4-3.5) L 10/24/18 17:00 Trace mg/dL (Negative) H 10/24/18 16:41 Exam: General appearance: Present: no acute distress, cachetic - Head Head Exam: Present: normal inspection - Eye Eye exam: Present: normal appearance. Absent: conjunctival injection, scleral icterus, conjuntiva pink - Neck Neck exam: Present: tenderness - Respiratory Respiratory exam: Present: CTAB. Absent: accessory muscle use, chest wall tenderness, decreased breath sounds, respiratory distress, rhonchi, wheezes, tachypnea - Cardiovascular Cardiovascular exam: Present: RRR, +S1, +S2. Absent: diastolic murmur, +S3, +S4, systolic murmur - GI/Abdominal Exam GI/Abdominal exam: Present: distended, normal bowel sounds, soft, tenderness (Mild diffuse tenderness with deep palpation). Absent: guarding, rebound - Extremities Exam Extremities exam: Present: normal capillary refill, tenderness (Mild ankle te nderness b/l). Absent: calf tenderness, joint swelling, pedal edema - Neurological Exam Neurological exam: Present: alert, altered, no focal deficits. Absent: motor sensory deficit, facial droop, speech deficit - Psychiatric Psychiatric exam: Present: normal affect, normal mood. Absent: agitated - Skin Skin exam: Present: dry, intact, normal color. Absent: cyanosis, erythema Palliative Quality Palliative Quality: Screen for Code Status: Yes, Screen for Goals of Care: Yes, Screen for Pain: Yes, If Pain Regimen Started, Initiate Bowel Regimen: Yes, Screen for Nausea/Vomitting: Yes Code Status: 10/24/18 17:16 Resuscitation Status: Active [RES] Routine Comment: Resuscitation Status: Full Code 10/28/18 08:20 CODE [Resuscitation Status: Active] [RES] Routine Comment: Resuscitation Status: [id number] - Labs CBC & Chem 7: 10/26/18 04:17 10/27/18 04:05 - ABG Interpretation ABG results: PT/INR, D-dimer PT 11.1 Seconds (9.4-12.1) 10/24/18 16:04 Palliative Scale - Palliative Performance Scale How ambulatory is this patient?: Mainly sit / lie What is patient's level of activity and evidence of disease?: Unable to do any work, Extensive disease How much self-care assistance does patient require?: Mainly assistance How much oral intake does the patient have?: Minimal to sips What is this patient's level of consciousness?: Full Palliative Performance Score: 50 % Consult Discharge Plan - Plan Instructions: Chronic Obstructive Pulmonary Disease (DC), Pneumonia (DC) Referrals: Claribel Leary MD [Primary Care Provider] - Prescriptions: Amoxicillin/Clavulanate [Augmentin] 875 mg PO BIDWM 5 Days #10 tablet HYDROcodone/Acet 5/325 mg [[place] 5-325 mg] 1 tab PO Q6HR PRN 5 Days #20 tablet PRN Reason: Pain Mirtazapine [Remeron] 7.5 mg PO HS #30 tablet Budesonide/Formoterol 160/4.5 [Symbicort 160/4.5] 2 puff IH BIDR #1 inh diazePAM [Valium] 10 mg PO DAILY 15 Days #15 tablet diazePAM [Valium] 2 mg PO BID 15 Days #15 tablet
== END 2018-10-28 13:34 | DRG 177 ==
LOC: 3BNU 15:36 → EMEROOARM 15:36 → 3BNU 18:24 → SUATTDRO 10-25 11:30
PROVIDERS: ADMIT Student in an Organized Health Care Education/Training Program; ATTEND Family Medicine

== ENCOUNTER 2019-04-03 17:39 | Inpatient (IN) ==
[2019-04-03] MEDS ORDERED: 0.9 % Sodium Chloride 1,000 ML IVC ONE (17:46)
[2019-04-03] MEDS ORDERED: cefTRIAXone 1,000 MG in Water for inj. (sterile) 10 ML IVP ONE (17:46)
[2019-04-03] MEDS ORDERED: Azithromycin 500 MG in 0.9 % Sodium Chloride 250 ML IVPB ONE (17:46)
[2019-04-03] MEDS ORDERED: Ipratropium/Albuterol Neb 3 ML IH ONE (17:48)
[2019-04-03] MEDS ORDERED: methylPREDNISolone 125 MG/2 ML VIAL IVP ONE (17:48)
[2019-04-03 18:20] LABS: Basophils % 0.2 %; Eosinophils # 0.1 K/mcL (0.0-0.6); Eosinophils % 1.1 %; Hematocrit 42.4 % (35.3-44.9); Immature Granulocytes % 0.4 % (0-4); Lymphocytes # 2.1 K/mcL (0.6-4.6); Lymphocytes % 19.7 %; Mean Corpuscular Hemoglobin 31.7 pg (28.0-33.3); Mean Corpuscular Volume 96.1 fL (83.0-100.0); Mean Platelet Volume 9.2 fL (9.4-12.4); Monocytes # 0.6 K/mcL (0.0-1.3); Monocytes % 5.5 %; Neutrophils # 7.8 K/mcL (1.6-8.9); Platelet Count 329 K/mcL (140-400); Red Blood Count 4.41 M/mcL (3.82-4.97); Segmented Neutrophils % 73.1 %; White Blood Count 10.7 K/mcL (4.3-11.1)
[2019-04-03 18:29] LABS: Prothrombin Time 11.8 Seconds (9.4-12.1)
[2019-04-03 18:32] LABS: Activated Partial Thrombo Time 31.7 Seconds (26.0-36.0)
[2019-04-03 18:37] LABS: Alanine Aminotransferase 50 Units/L (7-52); Albumin 3.9 g/dL (3.5-5.7); Albumin/Globulin Ratio 1.9 (1.1-2.2); Alkaline Phosphatase 59 Units/L (34-104); Aspartate Amino Transferase 37 Units/L (13-39); BUN/Creatinine Ratio 24 (6-26); Bilirubin,Direct 0.1 mg/dL (0.0-0.2); Bilirubin,Indirect 0.2 mg/dL (0.0-1.2); Bilirubin,Total 0.3 mg/dL (0.3-1.0); Blood Urea Nitrogen 14 mg/dL (8-23); Calcium 9.4 mg/dL (8.6-10.3); Carbon Dioxide 30 mEq/L (23-29); Chloride 102 mEq/L (98-107); Globulin 2.1 g/dL (2.4-3.5); Glucose 94 mg/dL (70-105); Magnesium 1.6 mg/dL (1.6-2.6); Osmolality,Calculated 292 (280-300); Phosphorous 3.6 mg/dL (2.7-4.5); Potassium 3.9 mEq/L (3.5-5.1); Sodium 141 mEq/L (136-145); Troponin I < 0.03 ng/mL (< 0.04); eGFR For African Americans > 60 (> 60); eGFR For Non-African Americans > 60 (> 60)
[2019-04-03 19:25] LABS: Bilirubin,Urine Negative (Negative); Blood,Urine Moderate (Negative); Clarity,Urine Clear (Clear); Color,Urine Yellow (Yellow); Glucose,Urine (UA) Normal (Normal); Ketones,Urine Trace mg/dL (Negative); Leukocyte Esterase,Urine Negative (Negative); Nitrite,Urine Negative (Negative); PH,Urine 5.5 pH Units (5.0-8.0); Protein,Urine 30 mg/dL (Neg-Trace); Specific Gravity,Urine 1.029 (1.010-1.025); Urobilinogen,Urine Normal (Normal)
[2019-04-03 19:28] LABS: Bacteria,Urine None Seen per hpf (None-Few); Hyaline Casts,Urine Few per lpf (None-Few); Squamous Epithelial Cell,Urine Many per lpf (None-Few)
[2019-04-03] MEDS ORDERED: Ondansetron ODT 4 MG TAB.RAPDIS SL PRN (20:18)
[2019-04-03] MEDS ORDERED: Naloxone 0.4 MG/ML INJ IVP PRN (20:18)
[2019-04-03] MEDS ORDERED: Morphine Sulfate Immed Rel 30 MG TABLET PO ONE (20:30)
[2019-04-04] MEDS ORDERED: Mirtazapine 15 MG TABLET PO SCH (00:02)
[2019-04-04] MEDS ORDERED: Melatonin 3 MG TABLET PO ONE (00:03)
[2019-04-04] MEDS ORDERED: 0.9 % Sodium Chloride 1,000 ML IVC SCH ×2 (00:45→13:30)
[2019-04-04 02:16] LABS: Hemoglobin 13.4 g/dL (11.5-15.4); Mean Corpuscular HGB Conc 31.9 g/dL (31.6-35.5); Mean Corpuscular Hemoglobin 32.2 pg (28.0-33.3); Mean Platelet Volume 9.3 fL (9.4-12.4); Platelet Count 314 K/mcL (140-400); Red Blood Count 4.16 M/mcL (3.82-4.97); White Blood Count 13.9 K/mcL (4.3-11.1)
[2019-04-04 02:33] LABS: BUN/Creatinine Ratio 30 (6-26); Blood Urea Nitrogen 14 mg/dL (8-23); Calcium 8.5 mg/dL (8.6-10.3); Carbon Dioxide 28 mEq/L (23-29); Chloride 107 mEq/L (98-107); Glucose 192 mg/dL (70-105); Osmolality,Calculated 298 (280-300); Potassium 3.3 mEq/L (3.5-5.1); Sodium 141 mEq/L (136-145); eGFR For African Americans > 60 (> 60); eGFR For Non-African Americans > 60 (> 60)
[2019-04-04] MEDS: Levalbuterol Neb 0.63 MG/3 ML IH SCH ×4 (03:53→22:37)
[2019-04-04] MEDS: *HR* Heparin 5,000 UNIT/ML VIAL SQ SCH ×2 (06:17→18:53)
[2019-04-04] MEDS: methylPREDNISolone 125 MG/2 ML VIAL IVP SCH ×2 (06:17→18:52)
[2019-04-04] MEDS: Ascorbic Acid 500 MG TABLET PO SCH (08:43)
[2019-04-04] MEDS: Sucralfate 1 GM TABLET PO SCH ×2 (08:44→21:03)
[2019-04-04] MEDS: Cholecalciferol (D-3) 1,000 UNIT (25MCG) TABLET PO SCH (08:44)
[2019-04-04] MEDS: Cefepime HCl 1,000 MG in Water for inj. (sterile) 10 ML IVPB SCH ×3 (08:45→23:10)
[2019-04-04] MEDS ORDERED: Cyanocobalamin (B-12) 1,000 MCG/ML VIAL IM SCH (09:00)
[2019-04-04] MEDS ORDERED: NON-FORMULARY MEDICATION 1 EACH EACH (Omega-3/Dha/Epa/Fish Oil [Fish Oil 1,000 Mg Softgel] PO SCH (09:00)
[2019-04-04] MEDS: Tiotropium 18 MCG inhalation IH SCH (11:10)
[2019-04-04] MEDS: Budesonide/Formoterol 160/4.5 1 PUFF INH IH SCH ×2 (11:10→22:36)
[2019-04-04] MEDS ORDERED: Acetaminophen 325 MG TABLET PO PRN (16:00)
[2019-04-04] MEDS: Aspirin Enteric Coated 81 MG Tablet PO SCH (21:03)
[2019-04-04] MEDS: *HR* OxyCODONE/APAP 5/325 TABLET PO PRN (21:03)
[2019-04-04 21:51] LABS: Adenovirus Not Detected (Not Detect); Bordetella Pertussis Not Detected (Not Detect); Chlamydophila pneumoniae Not Detected (Not Detect); Coronavirus 229E Not Detected (Not Detect); Coronavirus HKU1 Not Detected (Not Detect); Coronavirus NL63 Not Detected (Not Detect); Coronavirus OC43 Not Detected (Not Detect); Human Metapneumovirus Not Detected (Not Detect); Human Rhinovirus/Enterovirus Not Detected (Not Detect); Influenza A Subtype 2009 H1 Not Detected (Not Detect); Influenza A Untypeable Not Detected (Not Detect); Influenza B Not Detected (Not Detect); Mycoplasma pneumoniae Not Detected (Not Detect); Parainfluenza Virus 1 Not Detected (Not Detect); Parainfluenza Virus 2 Not Detected (Not Detect); Parainfluenza Virus 3 Not Detected (Not Detect); Parainfluenza Virus 4 Not Detected (Not Detect); Respiratory Syncytial Virus Not Detected (Not Detect)
[2019-04-04] MEDS: Mirtazapine 15 MG TABLET PO SCH (23:10)
[2019-04-05] MEDS: Levalbuterol Neb 0.63 MG/3 ML IH SCH ×4 (04:16→21:23)
[2019-04-05 04:59] LABS: Hematocrit 36.8 % (35.3-44.9); Mean Corpuscular HGB Conc 31.8 g/dL (31.6-35.5); Mean Corpuscular Hemoglobin 31.8 pg (28.0-33.3); Mean Platelet Volume 9.6 fL (9.4-12.4); Platelet Count 310 K/mcL (140-400); Red Blood Count 3.68 M/mcL (3.82-4.97); Red Cell Distribution Width 12.2 % (11.5-14.5); White Blood Count 13.6 K/mcL (4.3-11.1)
[2019-04-05 05:05] LABS: Hemoglobin 11.7 g/dL (11.5-15.4)
[2019-04-05 05:53] LABS: BUN/Creatinine Ratio 31 (6-26); Blood Urea Nitrogen 13 mg/dL (8-23); Calcium 8.8 mg/dL (8.6-10.3); Carbon Dioxide 31 mEq/L (23-29); Chloride 106 mEq/L (98-107); Glucose 131 mg/dL (70-105); Osmolality,Calculated 294 (280-300); Potassium 4.2 mEq/L (3.5-5.1); Sodium 141 mEq/L (136-145); eGFR For African Americans > 60 (> 60); eGFR For Non-African Americans > 60 (> 60)
[2019-04-05] MEDS: *HR* Heparin 5,000 UNIT/ML VIAL SQ SCH ×2 (05:57→16:52)
[2019-04-05] MEDS: methylPREDNISolone 125 MG/2 ML VIAL IVP SCH ×2 (05:57→16:56)
[2019-04-05] MEDS: Sucralfate 1 GM TABLET PO SCH ×2 (09:10→20:18)
[2019-04-05] MEDS: Ascorbic Acid 500 MG TABLET PO SCH (09:10)
[2019-04-05] MEDS: Cholecalciferol (D-3) 1,000 UNIT (25MCG) TABLET PO SCH (09:10)
[2019-04-05] MEDS: Tiotropium 18 MCG inhalation IH SCH (09:11)
[2019-04-05] MEDS: Cefepime HCl 1,000 MG in Water for inj. (sterile) 10 ML IVPB SCH ×3 (09:12→23:02)
[2019-04-05] MEDS: *HR* OxyCODONE/APAP 5/325 TABLET PO PRN ×3 (09:31→23:03)
[2019-04-05] MEDS: Budesonide/Formoterol 160/4.5 1 PUFF INH IH SCH ×2 (10:27→21:23)
[2019-04-05] MEDS: Aspirin Enteric Coated 81 MG Tablet PO SCH (20:18)
[2019-04-05] MEDS: Mirtazapine 15 MG TABLET PO SCH (20:19)
[2019-04-06] MEDS: Levalbuterol Neb 0.63 MG/3 ML IH SCH ×4 (04:00→22:11)
[2019-04-06] MEDS: *HR* Heparin 5,000 UNIT/ML VIAL SQ SCH ×2 (05:16→16:45)
[2019-04-06] MEDS: methylPREDNISolone 125 MG/2 ML VIAL IVP SCH (05:17)
[2019-04-06] MEDS: Cefepime HCl 1,000 MG in Water for inj. (sterile) 10 ML IVPB SCH ×2 (07:47→16:48)
[2019-04-06] MEDS: Cholecalciferol (D-3) 1,000 UNIT (25MCG) TABLET PO SCH (07:50)
[2019-04-06] MEDS: Sucralfate 1 GM TABLET PO SCH ×2 (07:50→20:55)
[2019-04-06] MEDS: Ascorbic Acid 500 MG TABLET PO SCH (07:50)
[2019-04-06] MEDS: Tiotropium 18 MCG inhalation IH SCH ×2 (07:51→10:51)
[2019-04-06] MEDS: *HR* OxyCODONE/APAP 5/325 TABLET PO PRN ×2 (10:40→22:39)
[2019-04-06] MEDS: Budesonide/Formoterol 160/4.5 1 PUFF INH IH SCH ×2 (10:48→22:11)
[2019-04-06 10:58] LABS: BUN/Creatinine Ratio 33 (6-26); Blood Urea Nitrogen 19 mg/dL (8-23); Calcium 9.7 mg/dL (8.6-10.3); Carbon Dioxide 34 mEq/L (23-29); Chloride 98 mEq/L (98-107); Glucose 185 mg/dL (70-105); Osmolality,Calculated 301 (280-300); Potassium 3.8 mEq/L (3.5-5.1); Sodium 142 mEq/L (136-145); eGFR For African Americans > 60 (> 60); eGFR For Non-African Americans > 60 (> 60)
[2019-04-06] MEDS: MethylPREDNISolone 40 MG/ML VIAL IVP SCH (16:54)
[2019-04-06] MEDS: Mirtazapine 15 MG TABLET PO SCH (20:55)
[2019-04-06] MEDS: Aspirin Enteric Coated 81 MG Tablet PO SCH (20:56)
[2019-04-07] MEDS: Cefepime HCl 1,000 MG in Water for inj. (sterile) 10 ML IVPB SCH ×4 (01:25→22:34)
[2019-04-07] MEDS: Levalbuterol Neb 0.63 MG/3 ML IH SCH ×4 (03:21→21:39)
[2019-04-07 05:00] LABS: Phosphorous 3.5 mg/dL (2.7-4.5)
[2019-04-07] MEDS: *HR* Heparin 5,000 UNIT/ML VIAL SQ SCH ×2 (05:00→17:28)
[2019-04-07] MEDS: MethylPREDNISolone 40 MG/ML VIAL IVP SCH ×2 (05:00→17:28)
[2019-04-07] MEDS: Ascorbic Acid 500 MG TABLET PO SCH (08:36)
[2019-04-07] MEDS: Sucralfate 1 GM TABLET PO SCH ×2 (08:36→19:57)
[2019-04-07] MEDS: Cholecalciferol (D-3) 1,000 UNIT (25MCG) TABLET PO SCH (08:36)
[2019-04-07] MEDS: *HR* OxyCODONE/APAP 5/325 TABLET PO PRN ×2 (08:45→22:33)
[2019-04-07] MEDS: Tiotropium 18 MCG inhalation IH SCH (11:13)
[2019-04-07] MEDS: Budesonide/Formoterol 160/4.5 1 PUFF INH IH SCH ×2 (11:21→21:39)
[2019-04-07] MEDS: Aspirin Enteric Coated 81 MG Tablet PO SCH (19:57)
[2019-04-07] MEDS: Mirtazapine 15 MG TABLET PO SCH (19:57)
[2019-04-08] MEDS: Levalbuterol Neb 0.63 MG/3 ML IH SCH ×2 (04:42→10:35)
[2019-04-08] MEDS: *HR* Heparin 5,000 UNIT/ML VIAL SQ SCH (05:36)
[2019-04-08] MEDS: MethylPREDNISolone 40 MG/ML VIAL IVP SCH (05:36)
[2019-04-08] MEDS: Cholecalciferol (D-3) 1,000 UNIT (25MCG) TABLET PO SCH (08:44)
[2019-04-08] MEDS: Cefepime HCl 1,000 MG in Water for inj. (sterile) 10 ML IVPB SCH (08:44)
[2019-04-08] MEDS: Sucralfate 1 GM TABLET PO SCH (08:44)
[2019-04-08] MEDS: *HR* OxyCODONE/APAP 5/325 TABLET PO PRN (08:44)
[2019-04-08] MEDS: Ascorbic Acid 500 MG TABLET PO SCH (08:44)
[2019-04-08] MEDS: Budesonide/Formoterol 160/4.5 1 PUFF INH IH SCH (10:35)
[2019-04-08] MEDS: Tiotropium 18 MCG inhalation IH SCH (10:35)
[2019-04-08 11:14] VITALS: BP 105/62
== END 2019-04-08 13:44 | disposition home or self-care (01) | DRG 193 ==
LOC: EMEROOARM 17:39 → 3BNU 17:39 → SUATTDRO 20:36 → 3BNU 20:58
PROVIDERS: ADMIT Family Medicine; ATTEND Family Medicine

== ENCOUNTER 2019-04-26 13:30 | Inpatient (IN) ==
[2019-04-26] MEDS ORDERED: 0.9 % Sodium Chloride 1,000 ML IVC ONE (13:43)
[2019-04-26 14:17] LABS: Basophils % 0.3 %; Eosinophils # 0.2 K/mcL (0.0-0.6); Eosinophils % 1.7 %; Hematocrit 34.7 % (35.3-44.9); Hemoglobin 11.2 g/dL (11.5-15.4); Immature Granulocytes % 1.4 % (0-4); Lymphocytes # 1.5 K/mcL (0.6-4.6); Lymphocytes % 17.5 %; Mean Corpuscular HGB Conc 32.3 g/dL (31.6-35.5); Mean Corpuscular Hemoglobin 32.4 pg (28.0-33.3); Mean Corpuscular Volume 100.3 fL (83.0-100.0); Mean Platelet Volume 9.5 fL (9.4-12.4); Monocytes # 0.6 K/mcL (0.0-1.3); Monocytes % 6.3 %; Neutrophils # 6.4 K/mcL (1.6-8.9); Platelet Count 351 K/mcL (140-400); Red Blood Count 3.46 M/mcL (3.82-4.97); Segmented Neutrophils % 72.8 %; White Blood Count 8.7 K/mcL (4.3-11.1)
[2019-04-26 14:38] LABS: Alanine Aminotransferase 32 Units/L (7-52); Albumin 2.8 g/dL (3.5-5.7); Albumin/Globulin Ratio 1.1 (1.1-2.2); Alkaline Phosphatase 63 Units/L (34-104); Aspartate Amino Transferase 17 Units/L (13-39); BUN/Creatinine Ratio 33 (6-26); Bilirubin,Total 0.2 mg/dL (0.3-1.0); Blood Urea Nitrogen 14 mg/dL (8-23); Calcium 8.3 mg/dL (8.6-10.3); Carbon Dioxide 27 mEq/L (23-29); Chloride 104 mEq/L (98-107); Globulin 2.6 g/dL (2.4-3.5); Glucose 235 mg/dL (70-105); Magnesium 1.5 mg/dL (1.6-2.6); Osmolality,Calculated 294 (280-300); Potassium 3.1 mEq/L (3.5-5.1); Sodium 138 mEq/L (136-145); Total Protein 5.4 g/dL (6.4-8.9); eGFR For African Americans > 60 (> 60); eGFR For Non-African Americans > 60 (> 60)
[2019-04-26 15:19] LABS: Bilirubin,Urine Small (Negative); Blood,Urine Negative (Negative); Clarity,Urine Clear (Clear); Color,Urine Yellow (Yellow); Glucose,Urine (UA) Normal (Normal); Ketones,Urine Negative (Negative); Leukocyte Esterase,Urine Negative (Negative); Nitrite,Urine Negative (Negative); PH,Urine 5.5 pH Units (5.0-8.0); Protein,Urine Negative (Neg-Trace); Specific Gravity,Urine 1.023 (1.010-1.025); Urobilinogen,Urine Normal (Normal)
[2019-04-26] MEDS ORDERED: Acetaminophen 325 MG TABLET PO ONE (15:56)
[2019-04-26] MEDS: 0.9 % Sodium Chloride w KCl 40 MEQ/1,000 ML MLS IVC SCH (17:01)
[2019-04-26] MEDS ORDERED: Ondansetron 4 MG/2 ML VIAL IVP PRN (17:11)
[2019-04-26] MEDS ORDERED: Naloxone 0.4 MG/ML INJ IVP PRN (17:11)
[2019-04-26] MEDS ORDERED: Nitroglycerin 0.4 MG TAB.SUBL SL PRN (17:14)
[2019-04-26] MEDS ORDERED: diazePAM 5 MG TABLET PO PRN ×2 (17:14→18:45)
[2019-04-26] MEDS ORDERED: diazePAM 10 MG TABLET PO PRN (17:14)
[2019-04-26] MEDS: Budesonide/Formoterol 160/4.5 1 PUFF INH IH SCH (20:21)
[2019-04-26] MEDS: Mirtazapine 15 MG TABLET PO SCH (20:41)
[2019-04-26] MEDS: *HR* OxyCODONE/APAP 5/325 TABLET PO PRN (20:42)
[2019-04-26] MEDS: Aspirin Enteric Coated 81 MG Tablet PO SCH (20:42)
[2019-04-26] MEDS ORDERED: Ipratropium/Albuterol Neb 3 ML IH PRN (22:00)
[2019-04-27] MEDS: 0.9 % Sodium Chloride w KCl 40 MEQ/1,000 ML MLS IVC SCH ×3 (00:54→16:41)
[2019-04-27] MEDS: *HR* OxyCODONE/APAP 5/325 TABLET PO PRN ×3 (04:47→23:46)
[2019-04-27] MEDS: Budesonide/Formoterol 160/4.5 1 PUFF INH IH SCH ×2 (08:05→20:01)
[2019-04-27] MEDS: Tiotropium 18 MCG inhalation IH SCH (08:05)
[2019-04-27] MEDS: Megestrol Acetate 400 MG/10 ML UDC PO SCH (08:28)
[2019-04-27] MEDS: *HR* Heparin 5,000 UNIT/ML VIAL SQ SCH (16:41)
[2019-04-27] MEDS: Aspirin Enteric Coated 81 MG Tablet PO SCH (20:30)
[2019-04-27] MEDS: Mirtazapine 15 MG TABLET PO SCH (20:30)
[2019-04-28] MEDS: 0.9 % Sodium Chloride w KCl 40 MEQ/1,000 ML MLS IVC SCH (00:50)
[2019-04-28 05:19] LABS: BUN/Creatinine Ratio 26 (6-26); Blood Urea Nitrogen 9 mg/dL (8-23); Calcium 8.8 mg/dL (8.6-10.3); Carbon Dioxide 26 mEq/L (23-29); Chloride 108 mEq/L (98-107); Glucose 88 mg/dL (70-105); Osmolality,Calculated 290 (280-300); Potassium 5.4 mEq/L (3.5-5.1); Sodium 141 mEq/L (136-145); eGFR For African Americans > 60 (> 60); eGFR For Non-African Americans > 60 (> 60)
[2019-04-28] MEDS: *HR* Heparin 5,000 UNIT/ML VIAL SQ SCH (05:57)
[2019-04-28 07:21] VITALS: BP 122/81
[2019-04-28] MEDS: Tiotropium 18 MCG inhalation IH SCH (07:54)
[2019-04-28] MEDS: Budesonide/Formoterol 160/4.5 1 PUFF INH IH SCH (07:54)
[2019-04-28] MEDS ORDERED: 0.9 % Sodium Chloride 1,000 ML IVC SCH (09:00)
[2019-04-28] MEDS: Megestrol Acetate 400 MG/10 ML UDC PO SCH (09:35)
[2019-04-28] MEDS: *HR* OxyCODONE/APAP 5/325 TABLET PO PRN ×2 (09:35→16:39)
== END 2019-04-28 18:37 | disposition home health service (06) | DRG 640 ==
LOC: 2ANU 13:30 → EMEROOARM 13:30 → SUATTDRO 17:06 → 2ANU 17:25
PROVIDERS: ADMIT Student in an Organized Health Care Education/Training Program; ATTEND Internal Medicine

== ENCOUNTER 2019-06-22 15:13 | Inpatient (IN) ==
[2019-06-22] MEDS ORDERED: *HR* Dextrose 50 % in Water (Syg) 50 ML SYRINGE ONE (15:17)
[2019-06-22 15:40] LABS: Basophils % 0.4 %; Eosinophils # 0.2 K/mcL (0.0-0.6); Hematocrit 44.2 % (35.3-44.9); Hemoglobin 14.2 g/dL (11.5-15.4); Immature Granulocytes % 0.4 % (0-4); Lymphocytes # 1.7 K/mcL (0.6-4.6); Mean Corpuscular HGB Conc 32.1 g/dL (31.6-35.5); Mean Corpuscular Hemoglobin 33.3 pg (28.0-33.3); Mean Corpuscular Volume 103.8 fL (83.0-100.0); Mean Platelet Volume 9.8 fL (9.4-12.4); Monocytes # 0.5 K/mcL (0.0-1.3); Monocytes % 6.6 %; Neutrophils # 5.4 K/mcL (1.6-8.9); Platelet Count 241 K/mcL (140-400); Red Blood Count 4.26 M/mcL (3.82-4.97); Red Cell Distribution Width 14.4 % (11.5-14.5); Segmented Neutrophils % 68.6 %; White Blood Count 7.9 K/mcL (4.3-11.1)
[2019-06-22 15:47] LABS: ABG Base Excess 2 mEq/L (-2 to 3); ABG HCO3 29 mEq/L (21-27); ABG Oxygen Saturation 65 % (95-98); ABG PCO2 54 mmHg (35-45); ABG PH 7.33 pH Units (7.32-7.45); ABG PO2 37 mmHg (85-104); ABG TCO2 31 mEq/L (20-26)
[2019-06-22] MEDS ORDERED: *HR* Dextrose 50 % in Water (Syg) 50 ML SYRINGE IVP ONE (15:58)
[2019-06-22 16:01] LABS: Alanine Aminotransferase 13 Units/L (7-52); Albumin 3.8 g/dL (3.5-5.7); Alkaline Phosphatase 48 Units/L (34-104); Aspartate Amino Transferase 16 Units/L (13-39); BUN/Creatinine Ratio 19 (6-26); Bilirubin,Direct 0.1 mg/dL (0.0-0.2); Bilirubin,Indirect 0.3 mg/dL (0.0-1.0); Bilirubin,Total 0.4 mg/dL (0.3-1.0); Blood Urea Nitrogen 10 mg/dL (8-23); Calcium 8.7 mg/dL (8.6-10.3); Carbon Dioxide 30 mEq/L (23-29); Chloride 109 mEq/L (98-107); Ethanol < 10 mg/dL (Less than 10); Globulin 1.9 g/dL (2.4-3.5); Glucose 96 mg/dL (70-105); Lipase 8 Units/L (11-82); Magnesium 1.7 mg/dL (1.6-2.6); Osmolality,Calculated 295 (280-300); Potassium 3.8 mEq/L (3.5-5.1); Sodium 143 mEq/L (136-145); Total Protein 5.7 g/dL (6.4-8.9); Troponin I < 0.03 ng/mL (< 0.04); eGFR For African Americans > 60 (> 60); eGFR For Non-African Americans > 60 (> 60)
[2019-06-22] MEDS ORDERED: Naloxone 0.4 MG/ML INJ ONE ×2 (16:32→16:47)
[2019-06-22 16:38] LABS: Bilirubin,Urine Negative (Negative); Blood,Urine Negative (Negative); Clarity,Urine Clear (Clear); Color,Urine Yellow (Yellow); Glucose,Urine (UA) 100 mg/dL (Normal); Ketones,Urine Negative (Negative); Leukocyte Esterase,Urine Negative (Negative); Nitrite,Urine Negative (Negative); PH,Urine 5.5 pH Units (5.0-8.0); Protein,Urine Negative (Neg-Trace); Specific Gravity,Urine 1.015 (1.010-1.025); Urobilinogen,Urine Normal (Normal)
[2019-06-22] MEDS ORDERED: Naloxone 0.4 MG/ML INJ IVP ONE ×2 (16:40→17:11)
[2019-06-22 16:48] LABS: Acetaminophen < 10 mcg/mL (10-20)
[2019-06-22] MEDS ORDERED: Nitroglycerin 0.4 MG TAB.SUBL SL PRN (18:12)
[2019-06-22] MEDS ORDERED: Ipratropium/Albuterol Neb 3 ML IH PRN (18:12)
[2019-06-22] MEDS ORDERED: *HR* Promethazine 25 MG/ML VIAL IVP PRN (18:14)
[2019-06-22] MEDS ORDERED: Naloxone 0.4 MG/ML INJ IVP PRN (18:14)
[2019-06-22] MEDS ORDERED: Mag Hydrox/Al Hydrox/Simeth 30 ML UDC PO PRN (18:14)
[2019-06-22] MEDS ORDERED: Ondansetron 4 MG/2 ML VIAL IVP PRN (18:14)
[2019-06-22] MEDS ORDERED: Cyanocobalamin (B-12) 1,000 MCG/ML VIAL IM SCH (20:00)
[2019-06-22] MEDS: Budesonide/Formoterol 160/4.5 1 PUFF INH IH SCH (20:46)
[2019-06-22] MEDS: Mirtazapine 15 MG TABLET PO SCH (21:03)
[2019-06-23 03:57] LABS: Amphetamine Screen,Urine Negative ng/mL (Cutoff=1000); Barbiturate Screen,Urine Negative ng/mL (Cutoff=200); Benzodiazepines Screen,Urine Positive ng/mL (Cutoff=200); Cannabinoid Screen,Urine Negative ng/mL (Cutoff = 50); Cocaine Screen,Urine Negative ng/mL (Cutoff= 300); Opiate Screen,Urine Negative ng/mL (Cutoff=300); Phencyclidine Screen,Urine Negative ng/mL (Cutoff=25)
[2019-06-23 05:41] LABS: Basophils % 0.2 %; Eosinophils # 0.1 K/mcL (0.0-0.6); Eosinophils % 1.5 %; Hematocrit 40.7 % (35.3-44.9); Immature Granulocytes % 0.4 % (0-4); Lymphocytes # 1.7 K/mcL (0.6-4.6); Lymphocytes % 21.3 %; Mean Corpuscular HGB Conc 31.9 g/dL (31.6-35.5); Mean Corpuscular Hemoglobin 33.1 pg (28.0-33.3); Mean Corpuscular Volume 103.6 fL (83.0-100.0); Mean Platelet Volume 9.7 fL (9.4-12.4); Monocytes # 0.7 K/mcL (0.0-1.3); Monocytes % 8.4 %; Neutrophils # 5.5 K/mcL (1.6-8.9); Platelet Count 240 K/mcL (140-400); Red Blood Count 3.93 M/mcL (3.82-4.97); Red Cell Distribution Width 13.9 % (11.5-14.5); Segmented Neutrophils % 68.2 %; White Blood Count 8.1 K/mcL (4.3-11.1)
[2019-06-23 05:51] LABS: Alanine Aminotransferase 10 Units/L (7-52); Albumin 3.5 g/dL (3.5-5.7); Albumin/Globulin Ratio 1.8 (1.1-2.2); Alkaline Phosphatase 51 Units/L (34-104); Aspartate Amino Transferase 13 Units/L (13-39); BUN/Creatinine Ratio 21 (6-26); Bilirubin,Total 0.5 mg/dL (0.3-1.0); Blood Urea Nitrogen 9 mg/dL (8-23); Calcium 8.5 mg/dL (8.6-10.3); Carbon Dioxide 29 mEq/L (23-29); Chloride 104 mEq/L (98-107); Globulin 1.9 g/dL (2.4-3.5); Glucose 90 mg/dL (70-105); Osmolality,Calculated 294 (280-300); Potassium 3.7 mEq/L (3.5-5.1); Sodium 143 mEq/L (136-145); Total Protein 5.4 g/dL (6.4-8.9); eGFR For African Americans > 60 (> 60); eGFR For Non-African Americans > 60 (> 60)
[2019-06-23] MEDS: *HR* Heparin 5,000 UNIT/ML VIAL SQ SCH ×2 (06:14→18:17)
[2019-06-23] MEDS: Budesonide/Formoterol 160/4.5 1 PUFF INH IH SCH ×2 (07:40→20:25)
[2019-06-23] MEDS: Tiotropium 18 MCG inhalation IH SCH (07:40)
[2019-06-23] MEDS: Megestrol Acetate 400 MG/10 ML UDC PO SCH (10:20)
[2019-06-23] MEDS: Cholecalciferol (D-3) 1,000 UNIT (25MCG) TABLET PO SCH (10:21)
[2019-06-23] MEDS: Ascorbic Acid 500 MG TABLET PO SCH (10:21)
[2019-06-23] MEDS: Aspirin Enteric Coated 81 MG Tablet PO SCH (10:22)
[2019-06-23] MEDS: Acetaminophen 325 MG TABLET PO PRN (10:31)
[2019-06-23] MEDS: Mirtazapine 15 MG TABLET PO SCH (21:14)
[2019-06-24] MEDS ORDERED: Haloperidol Lactate 5 MG/ML VIAL IVP ONE (03:31)
[2019-06-24] MEDS ORDERED: *HR* Promethazine 25 MG/ML VIAL IVP ONE (03:31)
[2019-06-24] MEDS: *HR* Heparin 5,000 UNIT/ML VIAL SQ SCH ×2 (04:38→15:51)
[2019-06-24 06:25] LABS: BUN/Creatinine Ratio 18 (6-26); Blood Urea Nitrogen 7 mg/dL (8-23); Calcium 9.4 mg/dL (8.6-10.3); Carbon Dioxide 33 mEq/L (23-29); Chloride 104 mEq/L (98-107); Glucose 112 mg/dL (70-105); Osmolality,Calculated 305 (280-300); Potassium 3.7 mEq/L (3.5-5.1); Sodium 148 mEq/L (136-145); eGFR For African Americans > 60 (> 60); eGFR For Non-African Americans > 60 (> 60)
[2019-06-24] MEDS: Tiotropium 18 MCG inhalation IH SCH (07:53)
[2019-06-24] MEDS: Budesonide/Formoterol 160/4.5 1 PUFF INH IH SCH ×2 (07:53→20:50)
[2019-06-24] MEDS: Ascorbic Acid 500 MG TABLET PO SCH (08:02)
[2019-06-24] MEDS: Aspirin Enteric Coated 81 MG Tablet PO SCH (08:02)
[2019-06-24] MEDS: Megestrol Acetate 400 MG/10 ML UDC PO SCH (08:04)
[2019-06-24] MEDS: Cholecalciferol (D-3) 1,000 UNIT (25MCG) TABLET PO SCH (08:04)
[2019-06-24] MEDS ORDERED: diazePAM 5 MG TABLET PO PRN ×2 (08:59→09:00)
[2019-06-24] MEDS: Acetaminophen 325 MG TABLET PO PRN (15:51)
[2019-06-25] MEDS ORDERED: Haloperidol Lactate 5 MG/ML VIAL IVP ONE (02:59)
[2019-06-25] MEDS: Acetaminophen 325 MG TABLET PO PRN ×2 (03:12→10:08)
[2019-06-25] MEDS: *HR* Heparin 5,000 UNIT/ML VIAL SQ SCH ×2 (05:11→17:32)
[2019-06-25] MEDS: Tiotropium 18 MCG inhalation IH SCH (07:59)
[2019-06-25] MEDS: Budesonide/Formoterol 160/4.5 1 PUFF INH IH SCH ×2 (08:00→20:41)
[2019-06-25] MEDS: Cholecalciferol (D-3) 1,000 UNIT (25MCG) TABLET PO SCH (10:08)
[2019-06-25] MEDS: Ascorbic Acid 500 MG TABLET PO SCH (10:08)
[2019-06-25] MEDS: Aspirin Enteric Coated 81 MG Tablet PO SCH (10:09)
[2019-06-25] MEDS: Megestrol Acetate 400 MG/10 ML UDC PO SCH (10:09)
[2019-06-25] MEDS: Acetaminophen/Aspirin/Caffeine TABLET PO PRN ×2 (14:20→20:44)
[2019-06-25 15:12] LABS: BUN/Creatinine Ratio 30 (6-26); Blood Urea Nitrogen 21 mg/dL (8-23); Calcium 10.1 mg/dL (8.6-10.3); Carbon Dioxide 29 mEq/L (23-29); Chloride 103 mEq/L (98-107); Glucose 107 mg/dL (70-105); Osmolality,Calculated 297 (280-300); Potassium 4.2 mEq/L (3.5-5.1); Sodium 142 mEq/L (136-145); eGFR For African Americans > 60 (> 60); eGFR For Non-African Americans > 60 (> 60)
[2019-06-26] MEDS: *HR* Heparin 5,000 UNIT/ML VIAL SQ SCH ×2 (06:04→16:09)
[2019-06-26 07:51] LABS: BUN/Creatinine Ratio 46 (6-26); Blood Urea Nitrogen 26 mg/dL (8-23); Carbon Dioxide 35 mEq/L (23-29); Chloride 99 mEq/L (98-107); Glucose 97 mg/dL (70-105); Osmolality,Calculated 299 (280-300); Potassium 3.6 mEq/L (3.5-5.1); Sodium 142 mEq/L (136-145); eGFR For African Americans > 60 (> 60); eGFR For Non-African Americans > 60 (> 60)
[2019-06-26] MEDS: Tiotropium 18 MCG inhalation IH SCH (07:51)
[2019-06-26] MEDS: Budesonide/Formoterol 160/4.5 1 PUFF INH IH SCH ×2 (07:51→20:11)
[2019-06-26] MEDS: Cholecalciferol (D-3) 1,000 UNIT (25MCG) TABLET PO SCH (09:36)
[2019-06-26] MEDS: Acetaminophen/Aspirin/Caffeine TABLET PO PRN (09:37)
[2019-06-26] MEDS: Aspirin Enteric Coated 81 MG Tablet PO SCH (09:37)
[2019-06-26] MEDS: Ascorbic Acid 500 MG TABLET PO SCH (09:37)
[2019-06-26] MEDS: Megestrol Acetate 400 MG/10 ML UDC PO SCH (09:38)
[2019-06-26] MEDS: Ringers Solution, Lactated 1,000 ML IVC SCH (09:38)
[2019-06-27] MEDS: *HR* Heparin 5,000 UNIT/ML VIAL SQ SCH (05:26)
[2019-06-27] MEDS: Budesonide/Formoterol 160/4.5 1 PUFF INH IH SCH (07:31)
[2019-06-27] MEDS: Tiotropium 18 MCG inhalation IH SCH (07:31)
[2019-06-27 07:35] LABS: BUN/Creatinine Ratio 43 (6-26); Blood Urea Nitrogen 23 mg/dL (8-23); Calcium 9.7 mg/dL (8.6-10.3); Carbon Dioxide 33 mEq/L (23-29); Chloride 101 mEq/L (98-107); Glucose 94 mg/dL (70-105); Osmolality,Calculated 299 (280-300); Potassium 4.1 mEq/L (3.5-5.1); Sodium 143 mEq/L (136-145); eGFR For African Americans > 60 (> 60); eGFR For Non-African Americans > 60 (> 60)
[2019-06-27] MEDS: Ringers Solution, Lactated 1,000 ML IVC SCH (10:32)
[2019-06-27] MEDS: Cholecalciferol (D-3) 1,000 UNIT (25MCG) TABLET PO SCH (10:32)
[2019-06-27] MEDS: Megestrol Acetate 400 MG/10 ML UDC PO SCH (10:33)
[2019-06-27] MEDS: Aspirin Enteric Coated 81 MG Tablet PO SCH (10:33)
[2019-06-27] MEDS: Ascorbic Acid 500 MG TABLET PO SCH (10:34)
[2019-06-27] MEDS: Acetaminophen/Aspirin/Caffeine TABLET PO PRN (10:37)
[2019-06-27 11:58] VITALS: BP 106/71
== END 2019-06-27 15:50 | DRG 91 ==
LOC: 2ANU 15:13 → EMEROOARM 15:13 → SUATTDRO 18:35 → 2ANU 19:28
PROVIDERS: ADMIT Internal Medicine; ATTEND Internal Medicine

== ENCOUNTER 2019-07-05 08:07 | Observation (INO) ==
[2019-07-05] MEDS ORDERED: Ringers Solution, Lactated 1,000 ML IVC SCH (09:15)
[2019-07-05] MEDS ORDERED: *HR* Propofol 200 MG/20 ML VIAL IVP ONE (09:52)
[2019-07-05] MEDS ORDERED: *HR* FentaNYL (PF) 100 MCG/2 ML VIAL ONE (09:52)
[2019-07-05] MEDS: Albuterol 2.5 MG/3 ML NEBULIZER IH ONE ×2 (09:53→11:45)
[2019-07-05] MEDS ORDERED: *HR* Succinylcholine 200 MG/10 ML VIAL IVP ONE (09:57)
[2019-07-05] MEDS ORDERED: Lidocaine -MPF 2% 2 ML VIAL ONE (09:57)
[2019-07-05] MEDS ORDERED: Lidocaine -MPF 4% 5 ML AMPUL ONE (09:57)
[2019-07-05] MEDS ORDERED: Dexamethasone 4 MG/ML VIAL ONE (10:30)
[2019-07-05] MEDS ORDERED: Ondansetron 4 MG/2 ML VIAL ONE (10:30)
[2019-07-05] MEDS ORDERED: *HR* PHENYLEPHRINE 1,000 MCG/10 ML SYRINGE IVP ONE (10:46)
[2019-07-05] MEDS ORDERED: Albuterol 2.5 MG/3 ML NEBULIZER ONE (11:45)
[2019-07-05] MEDS ORDERED: Naloxone 0.4 MG/ML INJ ONE (11:49)
[2019-07-05 13:07] LABS: ABG Base Excess 2 mEq/L (-2 to 3); ABG HCO3 27 mEq/L (21-27); ABG Oxygen Saturation 93 % (95-98); ABG PCO2 47 mmHg (35-45); ABG PH 7.37 pH Units (7.32-7.45); ABG PO2 69 mmHg (85-104); ABG TCO2 29 mEq/L (20-26)
[2019-07-05 13:47] LABS: Alanine Aminotransferase 18 Units/L (7-52); Albumin 3.4 g/dL (3.5-5.7); Albumin/Globulin Ratio 1.4 (1.1-2.2); Alkaline Phosphatase 55 Units/L (34-104); Aspartate Amino Transferase 16 Units/L (13-39); BUN/Creatinine Ratio 30 (6-26); Bilirubin,Total 0.2 mg/dL (0.3-1.0); Blood Urea Nitrogen 13 mg/dL (8-23); Calcium 8.9 mg/dL (8.6-10.3); Carbon Dioxide 26 mEq/L (23-29); Chloride 110 mEq/L (98-107); Globulin 2.4 g/dL (2.4-3.5); Glucose 108 mg/dL (70-105); Osmolality,Calculated 309 (280-300); Potassium 3.3 mEq/L (3.5-5.1); Sodium 149 mEq/L (136-145); Total Protein 5.8 g/dL (6.4-8.9); Troponin I < 0.03 ng/mL (< 0.04); eGFR For African Americans > 60 (> 60); eGFR For Non-African Americans > 60 (> 60)
[2019-07-05 14:59] LABS: Magnesium 1.5 mg/dL (1.6-2.6)
[2019-07-05] MEDS ORDERED: Nitroglycerin 0.4 MG TAB.SUBL SL PRN (15:27)
[2019-07-05] MEDS ORDERED: Ipratropium/Albuterol Neb 3 ML IH PRN (15:27)
[2019-07-05] MEDS ORDERED: Ondansetron 4 MG/2 ML VIAL IVP PRN (15:38)
[2019-07-05] MEDS ORDERED: Naloxone 0.4 MG/ML INJ IVP PRN (15:38)
[2019-07-05 16:07] LABS: Basophils % 0.2 %; Hemoglobin 11.8 g/dL (11.5-15.4); Immature Granulocytes % 0.6 % (0-4); Lymphocytes # 0.6 K/mcL (0.6-4.6); Lymphocytes % 7.3 %; Mean Corpuscular HGB Conc 32.8 g/dL (31.6-35.5); Mean Corpuscular Volume 100.6 fL (83.0-100.0); Mean Platelet Volume 9.2 fL (9.4-12.4); Monocytes # 0.1 K/mcL (0.0-1.3); Monocytes % 1.5 %; Platelet Count 348 K/mcL (140-400); Red Blood Count 3.58 M/mcL (3.82-4.97); Red Cell Distribution Width 13.5 % (11.5-14.5); Segmented Neutrophils % 90.4 %; White Blood Count 8.8 K/mcL (4.3-11.1)
[2019-07-05] MEDS: Acetaminophen/Aspirin/Caffeine TABLET PO PRN (16:48)
[2019-07-05] MEDS: D5% in 0.45% NACL 1,000 ML IVC SCH (16:48)
[2019-07-05 17:54] LABS: Appearance of Body Fluid Cloudy (Clear); Volume of Body Fluid 3 mL
[2019-07-05 19:41] LABS: Appearance of Body Fluid Cloudy (Clear); Volume of Body Fluid 22 mL
[2019-07-05] MEDS: Budesonide/Formoterol 160/4.5 1 PUFF INH IH SCH (19:56)
[2019-07-05] MEDS: *HR* Heparin 5,000 UNIT/ML VIAL SQ SCH (21:12)
[2019-07-06] MEDS: *HR* Heparin 5,000 UNIT/ML VIAL SQ SCH ×2 (04:55→13:05)
[2019-07-06] MEDS: Acetaminophen/Aspirin/Caffeine TABLET PO PRN (04:55)
[2019-07-06] MEDS: D5% in 0.45% NACL 1,000 ML IVC SCH (05:00)
[2019-07-06 05:29] LABS: Basophils % 0.2 %; Eosinophils % 0.1 %; Hematocrit 33.8 % (35.3-44.9); Immature Granulocytes % 0.5 % (0-4); Lymphocytes # 1.8 K/mcL (0.6-4.6); Lymphocytes % 17.1 %; Mean Corpuscular HGB Conc 32.5 g/dL (31.6-35.5); Mean Corpuscular Hemoglobin 32.4 pg (28.0-33.3); Mean Corpuscular Volume 99.4 fL (83.0-100.0); Mean Platelet Volume 9.4 fL (9.4-12.4); Monocytes # 0.5 K/mcL (0.0-1.3); Neutrophils # 8.2 K/mcL (1.6-8.9); Platelet Count 358 K/mcL (140-400); Red Cell Distribution Width 13.4 % (11.5-14.5); Segmented Neutrophils % 77.1 %; White Blood Count 10.6 K/mcL (4.3-11.1)
[2019-07-06 05:41] LABS: BUN/Creatinine Ratio 26 (6-26); Blood Urea Nitrogen 9 mg/dL (8-23); Calcium 8.5 mg/dL (8.6-10.3); Carbon Dioxide 28 mEq/L (23-29); Chloride 107 mEq/L (98-107); Glucose 99 mg/dL (70-105); Osmolality,Calculated 299 (280-300); Potassium 3.5 mEq/L (3.5-5.1); Sodium 145 mEq/L (136-145); eGFR For African Americans > 60 (> 60); eGFR For Non-African Americans > 60 (> 60)
[2019-07-06] MEDS: Budesonide/Formoterol 160/4.5 1 PUFF INH IH SCH (07:57)
[2019-07-06] MEDS ORDERED: Acetaminophen 120 MG RECTAL SUPP RC ONE (07:59)
[2019-07-06] MEDS ORDERED: Aspirin 81 MG TAB.CHEW PO SCH (09:00)
[2019-07-06 11:33] VITALS: BP 117/65
[2019-07-06] MEDS ORDERED: Megestrol Acetate 400 MG/10 ML UDC PO SCH (11:45)
[2019-07-06] MEDS ORDERED: Cyanocobalamin (B-12) 1,000 MCG/ML VIAL IM SCH (13:00)
[2019-07-07] MEDS ORDERED: Aspirin Enteric Coated 81 MG Tablet PO SCH (09:00)
[2019-07-07] MEDS ORDERED: Cholecalciferol (D-3) 1,000 UNIT (25MCG) TABLET PO SCH (09:00)
== END 2019-07-06 15:21 | disposition home health service (06) ==
LOC: ENDPAV 08:07 → 2NNU 08:07 → SUATTDRO 15:37
PROVIDERS: ADMIT Family Medicine; ATTEND Internal Medicine

== ENCOUNTER 2020-01-26 17:47 | Inpatient (IN) ==
[2020-01-26] MEDS ORDERED: *HR* OxyCODONE/APAP 5/325 TABLET PO ONE (18:29)
[2020-01-26 22:39] LABS: Basophils % 0.4 %; Eosinophils # 0.2 K/mcL (0.0-0.6); Hematocrit 37.7 % (35.3-44.9); Hemoglobin 12.1 g/dL (11.5-15.4); Immature Granulocytes % 0.7 % (0-4); Lymphocytes # 1.7 K/mcL (0.6-4.6); Lymphocytes % 20.9 %; Mean Corpuscular HGB Conc 32.1 g/dL (31.6-35.5); Mean Corpuscular Hemoglobin 32.8 pg (28.0-33.3); Mean Corpuscular Volume 102.2 fL (83.0-100.0); Mean Platelet Volume 9.6 fL (9.4-12.4); Monocytes # 0.8 K/mcL (0.0-1.3); Neutrophils # 5.6 K/mcL (1.6-8.9); Nucleated Red Blood Cells 0.2 /100 WBC (0); Platelet Count 243 K/mcL (140-400); Red Blood Count 3.69 M/mcL (3.82-4.97); Red Cell Distribution Width 13.4 % (11.5-14.5); White Blood Count 8.3 K/mcL (4.3-11.1)
[2020-01-26 22:57] LABS: Alanine Aminotransferase 10 Units/L (7-52); Albumin 3.5 g/dL (3.5-5.7); Albumin/Globulin Ratio 2.1 (1.1-2.2); Alkaline Phosphatase 61 Units/L (34-104); Aspartate Amino Transferase 11 Units/L (13-39); BUN/Creatinine Ratio 61 (6-26); Bilirubin,Total 0.3 mg/dL (0.3-1.0); Blood Urea Nitrogen 19 mg/dL (8-23); Calcium 8.5 mg/dL (8.6-10.3); Carbon Dioxide 33 mEq/L (23-29); Chloride 103 mEq/L (98-107); Globulin 1.7 g/dL (2.4-3.5); Glucose 100 mg/dL (70-105); Osmolality,Calculated 300 (280-300); Potassium 3.1 mEq/L (3.5-5.1); Sodium 144 mEq/L (136-145); Total Protein 5.2 g/dL (6.4-8.9); eGFR For African Americans > 60 (> 60); eGFR For Non-African Americans > 60 (> 60)
[2020-01-27] MEDS ORDERED: *HR* OxyCODONE/APAP 5/325 TABLET PO ONE (00:42)
[2020-01-27] MEDS ORDERED: Potassium Chloride Elixir 20 MEQ/15 ML UDC PO ONE (01:25)
[2020-01-27] MEDS ORDERED: Naloxone 0.4 MG/ML INJ IVP PRN ×2 (02:21→02:30)
[2020-01-27] MEDS ORDERED: Ketorolac 15 MG/ML VIAL IVP PRN (02:30)
[2020-01-27 04:00] LABS: Basophils % 0.3 %; Eosinophils # 0.2 K/mcL (0.0-0.6); Eosinophils % 2.2 %; Hematocrit 39.8 % (35.3-44.9); Hemoglobin 12.4 g/dL (11.5-15.4); Immature Granulocytes % 0.6 % (0-4); Lymphocytes # 1.4 K/mcL (0.6-4.6); Lymphocytes % 20.2 %; Mean Corpuscular HGB Conc 31.2 g/dL (31.6-35.5); Mean Corpuscular Hemoglobin 32.2 pg (28.0-33.3); Mean Corpuscular Volume 103.4 fL (83.0-100.0); Mean Platelet Volume 9.7 fL (9.4-12.4); Monocytes # 0.6 K/mcL (0.0-1.3); Monocytes % 8.8 %; Neutrophils # 4.6 K/mcL (1.6-8.9); Platelet Count 240 K/mcL (140-400); Red Blood Count 3.85 M/mcL (3.82-4.97); Red Cell Distribution Width 13.4 % (11.5-14.5); Segmented Neutrophils % 67.9 %; White Blood Count 6.8 K/mcL (4.3-11.1)
[2020-01-27 05:09] LABS: BUN/Creatinine Ratio 56 (6-26); Blood Urea Nitrogen 18 mg/dL (8-23); Calcium 8.6 mg/dL (8.6-10.3); Carbon Dioxide 34 mEq/L (23-29); Chloride 104 mEq/L (98-107); Glucose 114 mg/dL (70-105); Osmolality,Calculated 301 (280-300); Sodium 144 mEq/L (136-145); eGFR For African Americans > 60 (> 60); eGFR For Non-African Americans > 60 (> 60)
[2020-01-27] MEDS: *HR* Heparin 5,000 UNIT/ML VIAL SQ SCH ×3 (06:17→20:56)
[2020-01-27] MEDS: tiZANidine 4 MG TABLET PO PRN (09:08)
[2020-01-27] MEDS: Mirtazapine 15 MG TABLET PO SCH (09:09)
[2020-01-27] MEDS: Cholecalciferol (D-3) 1,000 UNIT (25MCG) TABLET PO SCH (09:09)
[2020-01-27] MEDS: Ascorbic Acid 500 MG TABLET PO SCH (09:09)
[2020-01-27] MEDS: Sennosides/Docusate Sodium TABLET PO SCH (20:56)
[2020-01-28 02:35] LABS: Basophils % 0.4 %; Eosinophils # 0.2 K/mcL (0.0-0.6); Eosinophils % 1.5 %; Hematocrit 44.6 % (35.3-44.9); Hemoglobin 13.9 g/dL (11.5-15.4); Immature Granulocytes % 0.6 % (0-4); Lymphocytes # 1.4 K/mcL (0.6-4.6); Lymphocytes % 12.3 %; Mean Corpuscular HGB Conc 31.2 g/dL (31.6-35.5); Mean Corpuscular Hemoglobin 32.1 pg (28.0-33.3); Mean Platelet Volume 9.5 fL (9.4-12.4); Monocytes # 0.8 K/mcL (0.0-1.3); Monocytes % 7.5 %; Neutrophils # 8.6 K/mcL (1.6-8.9); Platelet Count 245 K/mcL (140-400); Red Blood Count 4.33 M/mcL (3.82-4.97); Segmented Neutrophils % 77.7 %
[2020-01-28 02:41] LABS: Prothrombin Time 11.5 Seconds (9.4-12.1)
[2020-01-28 02:55] LABS: BUN/Creatinine Ratio 45 (6-26); Blood Urea Nitrogen 14 mg/dL (8-23); Calcium 9.5 mg/dL (8.6-10.3); Carbon Dioxide 36 mEq/L (23-29); Chloride 97 mEq/L (98-107); Glucose 108 mg/dL (70-105); Magnesium 1.6 mg/dL (1.6-2.6); Osmolality,Calculated 295 (280-300); Phosphorous 3.3 mg/dL (2.7-4.5); Potassium 3.9 mEq/L (3.5-5.1); Sodium 142 mEq/L (136-145); eGFR For African Americans > 60 (> 60); eGFR For Non-African Americans > 60 (> 60)
[2020-01-28] MEDS: *HR* Heparin 5,000 UNIT/ML VIAL SQ SCH ×3 (05:27→20:23)
[2020-01-28] MEDS: Sennosides/Docusate Sodium TABLET PO SCH ×2 (08:32→20:23)
[2020-01-28] MEDS: Ascorbic Acid 500 MG TABLET PO SCH (08:33)
[2020-01-28] MEDS: Cholecalciferol (D-3) 1,000 UNIT (25MCG) TABLET PO SCH (08:33)
[2020-01-28] MEDS: Mirtazapine 15 MG TABLET PO SCH (08:33)
[2020-01-28] MEDS: tiZANidine 4 MG TABLET PO PRN (17:19)
[2020-01-28] MEDS ORDERED: Sennosides/Docusate Sodium TABLET PO PRN (21:19)
[2020-01-29] MEDS: *HR* Heparin 5,000 UNIT/ML VIAL SQ SCH (05:31)
[2020-01-29 06:30] LABS: Basophils % 0.2 %; Eosinophils % 0.3 %; Hematocrit 41.7 % (35.3-44.9); Hemoglobin 12.9 g/dL (11.5-15.4); Immature Granulocytes % 0.9 % (0-4); Lymphocytes # 1.5 K/mcL (0.6-4.6); Lymphocytes % 12.2 %; Mean Corpuscular HGB Conc 30.9 g/dL (31.6-35.5); Mean Corpuscular Hemoglobin 31.8 pg (28.0-33.3); Mean Corpuscular Volume 102.7 fL (83.0-100.0); Mean Platelet Volume 9.7 fL (9.4-12.4); Monocytes # 1.1 K/mcL (0.0-1.3); Neutrophils # 9.4 K/mcL (1.6-8.9); Platelet Count 236 K/mcL (140-400); Red Blood Count 4.06 M/mcL (3.82-4.97); Segmented Neutrophils % 77.4 %; White Blood Count 12.2 K/mcL (4.3-11.1)
[2020-01-29 06:51] LABS: BUN/Creatinine Ratio 55 (6-26); Blood Urea Nitrogen 16 mg/dL (8-23); Calcium 9.6 mg/dL (8.6-10.3); Carbon Dioxide 36 mEq/L (23-29); Chloride 97 mEq/L (98-107); Glucose 112 mg/dL (70-105); Magnesium 1.6 mg/dL (1.6-2.6); Osmolality,Calculated 292 (280-300); Potassium 3.6 mEq/L (3.5-5.1); Sodium 140 mEq/L (136-145); eGFR For African Americans > 60 (> 60); eGFR For Non-African Americans > 60 (> 60)
[2020-01-29 07:22] VITALS: BP 135/74
[2020-01-29] MEDS: Ascorbic Acid 500 MG TABLET PO SCH (07:55)
[2020-01-29] MEDS: Mirtazapine 15 MG TABLET PO SCH (07:55)
[2020-01-29] MEDS: Cholecalciferol (D-3) 1,000 UNIT (25MCG) TABLET PO SCH (07:55)
[2020-01-29] MEDS ORDERED: Divalproex (24 HR) 250 MG TABLET PO SCH (09:00)
[2020-01-29] MEDS ORDERED: NON-FORMULARY MEDICATION 1 EACH EACH (Calcium Carbonate/Vitamin D3 [Oyster Shell 500mg-Vit PO SCH (09:00)
[2020-01-29] MEDS ORDERED: Aspirin Enteric Coated 81 MG Tablet PO SCH (09:00)
[2020-01-29] MEDS ORDERED: Ascorbic Acid 500 MG TABLET PO SCH (09:00)
== END 2020-01-29 11:17 | disposition home or self-care (01) | DRG 537 ==
LOC: 3BNU 17:47 → EMEROOARM 17:47 → SUATTDRO 01-27 01:21 → 3BNU 01-27 01:46
PROVIDERS: ADMIT Student in an Organized Health Care Education/Training Program; ATTEND Pharmacist

== ENCOUNTER 2020-01-29 16:20 | Inpatient (IN) ==
[2020-01-29 17:49] LABS: Basophils % 0.1 %; Eosinophils % 0.2 %; Hematocrit 41.2 % (35.3-44.9); Hemoglobin 13.1 g/dL (11.5-15.4); Immature Granulocytes % 0.6 % (0-4); Lymphocytes % 7.5 %; Mean Corpuscular HGB Conc 31.8 g/dL (31.6-35.5); Mean Corpuscular Hemoglobin 32.3 pg (28.0-33.3); Mean Corpuscular Volume 101.7 fL (83.0-100.0); Mean Platelet Volume 9.8 fL (9.4-12.4); Monocytes # 0.9 K/mcL (0.0-1.3); Platelet Count 245 K/mcL (140-400); Red Blood Count 4.05 M/mcL (3.82-4.97); Red Cell Distribution Width 13.1 % (11.5-14.5); Segmented Neutrophils % 84.6 %
[2020-01-29 18:08] LABS: Bilirubin,Urine Negative (Negative); Blood,Urine Negative (Negative); Clarity,Urine Clear (Clear); Color,Urine Yellow (Yellow); Glucose,Urine (UA) Normal (Normal); Ketones,Urine 10 mg/dL (Negative); Leukocyte Esterase,Urine Moderate (Negative); Mucus,Urine Few per lpf (None-Few); Nitrite,Urine Negative (Negative); Protein,Urine 30 mg/dL (Neg-Trace); Specific Gravity,Urine 1.024 (1.010-1.025); Squamous Epithelial Cell,Urine Moderate per hpf (None-Few); Urobilinogen,Urine Normal (Normal); WBC,Urine 0-3 per hpf (0-3)
[2020-01-29 18:10] LABS: Alanine Aminotransferase 9 Units/L (7-52); Albumin 3.7 g/dL (3.5-5.7); Albumin/Globulin Ratio 1.3 (1.1-2.2); Alkaline Phosphatase 64 Units/L (34-104); Aspartate Amino Transferase 11 Units/L (13-39); Bilirubin,Indirect 0.3 mg/dL (0.0-1.0); Bilirubin,Total 0.3 mg/dL (0.3-1.0); Blood Urea Nitrogen 17 mg/dL (8-23); Calcium 9.4 mg/dL (8.6-10.3); Carbon Dioxide 35 mEq/L (23-29); Chloride 96 mEq/L (98-107); Globulin 2.8 g/dL (2.4-3.5); Glucose 183 mg/dL (70-105); Osmolality,Calculated 292 (280-300); Potassium 3.4 mEq/L (3.5-5.1); Sodium 138 mEq/L (136-145); Total Protein 6.5 g/dL (6.4-8.9)
[2020-01-29 19:08] LABS: BUN/Creatinine Ratio 57 (6-26); eGFR For African Americans > 60 (> 60); eGFR For Non-African Americans > 60 (> 60)
[2020-01-29] MEDS ORDERED: Acetaminophen 325 MG TABLET PO PRN (20:36)
[2020-01-29] MEDS ORDERED: Naloxone 0.4 MG/ML INJ IVP PRN (20:36)
[2020-01-29] MEDS ORDERED: cefTRIAXone 1,000 MG in Water for inj. (sterile) 10 ML IVP ONE (20:37)
[2020-01-29] MEDS: Ketorolac 15 MG/ML VIAL IVP PRN (22:41)
[2020-01-30 02:46] LABS: Hematocrit 39.4 % (35.3-44.9); Hemoglobin 12.5 g/dL (11.5-15.4); Mean Corpuscular HGB Conc 31.7 g/dL (31.6-35.5); Mean Corpuscular Hemoglobin 32.7 pg (28.0-33.3); Mean Corpuscular Volume 103.1 fL (83.0-100.0); Mean Platelet Volume 9.9 fL (9.4-12.4); Platelet Count 248 K/mcL (140-400); Red Blood Count 3.82 M/mcL (3.82-4.97); Red Cell Distribution Width 13.1 % (11.5-14.5); White Blood Count 12.6 K/mcL (4.3-11.1)
[2020-01-30 02:50] LABS: BUN/Creatinine Ratio 47 (6-26); Blood Urea Nitrogen 21 mg/dL (8-23); Calcium 9.7 mg/dL (8.6-10.3); Carbon Dioxide 38 mEq/L (23-29); Chloride 99 mEq/L (98-107); Glucose 93 mg/dL (70-105); Osmolality,Calculated 299 (280-300); Potassium 3.5 mEq/L (3.5-5.1); Sodium 143 mEq/L (136-145); eGFR For African Americans > 60 (> 60); eGFR For Non-African Americans > 60 (> 60)
[2020-01-30] MEDS: Ketorolac 15 MG/ML VIAL IVP PRN ×2 (10:43→18:41)
[2020-01-30] MEDS ORDERED: Ipratropium/Albuterol Neb 3 ML IH PRN (10:47)
[2020-01-30] MEDS: *HR* Heparin 5,000 UNIT/ML VIAL SQ SCH (18:35)
[2020-01-30] MEDS: cefTRIAXone 1,000 MG in Water for inj. (sterile) 10 ML IVP SCH (20:19)
[2020-01-31 02:42] LABS: Basophils % 0.2 %; Eosinophils # 0.1 K/mcL (0.0-0.6); Eosinophils % 1.4 %; Hematocrit 38.5 % (35.3-44.9); Hemoglobin 11.9 g/dL (11.5-15.4); Immature Granulocytes % 0.4 % (0-4); Lymphocytes # 1.4 K/mcL (0.6-4.6); Lymphocytes % 15.3 %; Mean Corpuscular HGB Conc 30.9 g/dL (31.6-35.5); Mean Corpuscular Hemoglobin 32.2 pg (28.0-33.3); Mean Corpuscular Volume 104.3 fL (83.0-100.0); Mean Platelet Volume 9.7 fL (9.4-12.4); Monocytes # 0.7 K/mcL (0.0-1.3); Monocytes % 7.1 %; Platelet Count 237 K/mcL (140-400); Red Blood Count 3.69 M/mcL (3.82-4.97); Red Cell Distribution Width 13.2 % (11.5-14.5); Segmented Neutrophils % 75.6 %; White Blood Count 9.2 K/mcL (4.3-11.1)
[2020-01-31 03:00] LABS: BUN/Creatinine Ratio 91 (6-26); Blood Urea Nitrogen 32 mg/dL (8-23); Calcium 9.5 mg/dL (8.6-10.3); Carbon Dioxide 34 mEq/L (23-29); Chloride 102 mEq/L (98-107); Glucose 112 mg/dL (70-105); Osmolality,Calculated 306 (280-300); Potassium 4.1 mEq/L (3.5-5.1); Sodium 144 mEq/L (136-145); eGFR For African Americans > 60 (> 60); eGFR For Non-African Americans > 60 (> 60)
[2020-01-31] MEDS: *HR* Heparin 5,000 UNIT/ML VIAL SQ SCH ×2 (05:18→17:21)
[2020-01-31] MEDS ORDERED: Mirtazapine 15 MG TABLET PO PRN (10:59)
[2020-01-31] MEDS: Ketorolac 15 MG/ML VIAL IVP PRN ×2 (15:38→22:43)
[2020-01-31] MEDS: cefTRIAXone 1,000 MG in Water for inj. (sterile) 10 ML IVP SCH (21:03)
[2020-02-01] MEDS: *HR* Heparin 5,000 UNIT/ML VIAL SQ SCH ×2 (06:05→17:12)
[2020-02-01] MEDS: Aspirin Enteric Coated 81 MG Tablet PO SCH (09:19)
[2020-02-01] MEDS: Cholecalciferol (D-3) 1,000 UNIT (25MCG) TABLET PO SCH (09:19)
[2020-02-01] MEDS: Ascorbic Acid 500 MG TABLET PO SCH (09:19)
[2020-02-01] MEDS: Divalproex (24 HR) 250 MG TABLET PO SCH (09:19)
[2020-02-01] MEDS: cefTRIAXone 1,000 MG in Water for inj. (sterile) 10 ML IVP SCH (21:36)
[2020-02-01] MEDS: Ketorolac 15 MG/ML VIAL IVP PRN (23:27)
[2020-02-02] MEDS: *HR* Heparin 5,000 UNIT/ML VIAL SQ SCH (05:10)
[2020-02-02] MEDS: Aspirin Enteric Coated 81 MG Tablet PO SCH (08:22)
[2020-02-02] MEDS: Cholecalciferol (D-3) 1,000 UNIT (25MCG) TABLET PO SCH (08:23)
[2020-02-02] MEDS: Ascorbic Acid 500 MG TABLET PO SCH (08:23)
[2020-02-02] MEDS: Divalproex (24 HR) 250 MG TABLET PO SCH (08:23)
[2020-02-02 10:24] VITALS: BP 126/78
== END 2020-02-02 11:48 | DRG 557 ==
LOC: EMEROOARM 16:20 → 3ANU 16:20 → SUATTDRO 20:46 → 3ANU 21:31 → SUATTDRO 01-30 11:05
PROVIDERS: ADMIT Internal Medicine; ATTEND Internal Medicine

== ENCOUNTER 2020-11-25 14:33 | Inpatient (IN) ==
[2020-11-25 15:11] LABS: Basophils % 0.3 %; Eosinophils # 0.2 K/mcL (0.0-0.6); Eosinophils % 2.3 %; Hemoglobin 14.7 g/dL (11.5-15.4); Immature Granulocytes % 0.3 % (0-4); Lymphocytes # 2.8 K/mcL (0.6-4.6); Lymphocytes % 30.4 %; Mean Corpuscular HGB Conc 32.7 g/dL (31.6-35.5); Mean Platelet Volume 9.8 fL (9.4-12.4); Monocytes # 0.7 K/mcL (0.0-1.3); Monocytes % 7.4 %; Neutrophils # 5.4 K/mcL (1.6-8.9); Platelet Count 269 K/mcL (140-400); Red Blood Count 4.59 M/mcL (3.82-4.97); Red Cell Distribution Width 13.1 % (11.5-14.5); Segmented Neutrophils % 59.3 %; White Blood Count 9.1 K/mcL (4.3-11.1)
[2020-11-25 15:32] LABS: BUN/Creatinine Ratio 42 (6-26); Blood Urea Nitrogen 18 mg/dL (8-23); Calcium 9.4 mg/dL (8.6-10.3); Carbon Dioxide 29 mEq/L (23-29); Chloride 102 mEq/L (98-107); Glucose 93 mg/dL (70-105); Osmolality,Calculated 292 (280-300); Potassium 3.9 mEq/L (3.5-5.1); Sodium 140 mEq/L (136-145); eGFR For African Americans > 60 (> 60); eGFR For Non-African Americans > 60 (> 60)
[2020-11-25 15:33] LABS: Troponin I < 0.03 ng/mL (< 0.04)
[2020-11-25] MEDS ORDERED: 0.9 % Sodium Chloride 500 ML IVC ONE (16:25)
[2020-11-25] MEDS ORDERED: Isovue-370 500 ML BOTTLE IVP ONE (16:27)
[2020-11-25 17:47] LABS: Bilirubin,Urine Negative (Negative); Blood,Urine Negative (Negative); Clarity,Urine Clear (Clear); Color,Urine Light-Yellow (Yellow); Glucose,Urine (UA) Normal (Normal); Ketones,Urine Negative (Negative); Leukocyte Esterase,Urine Negative (Negative); Nitrite,Urine Negative (Negative); Protein,Urine Trace mg/dL (Neg-Trace); Specific Gravity,Urine > 1.030 (1.010-1.025); Urobilinogen,Urine Normal (Normal)
[2020-11-25] MEDS ORDERED: Naloxone 0.4 MG/ML INJ IVP PRN (21:29)
[2020-11-25] MEDS: 0.9 % Sodium Chloride 1,000 ML IVC SCH (21:57)
[2020-11-25] MEDS: Acetaminophen 325 MG TABLET PO PRN (21:57)
[2020-11-26] MEDS ORDERED: Ketorolac 15 MG/ML VIAL IVP ONE (00:19)
[2020-11-26 02:58] LABS: Basophils % 0.5 %; Eosinophils # 0.3 K/mcL (0.0-0.6); Eosinophils % 3.7 %; Hematocrit 43.1 % (35.3-44.9); Hemoglobin 13.8 g/dL (11.5-15.4); Immature Granulocytes % 0.2 % (0-4); Lymphocytes # 2.6 K/mcL (0.6-4.6); Lymphocytes % 29.8 %; Mean Corpuscular Hemoglobin 31.7 pg (28.0-33.3); Mean Corpuscular Volume 98.9 fL (83.0-100.0); Mean Platelet Volume 9.9 fL (9.4-12.4); Monocytes # 0.5 K/mcL (0.0-1.3); Monocytes % 6.3 %; Neutrophils # 5.1 K/mcL (1.6-8.9); Platelet Count 250 K/mcL (140-400); Red Blood Count 4.36 M/mcL (3.82-4.97); Red Cell Distribution Width 12.9 % (11.5-14.5); Segmented Neutrophils % 59.5 %; White Blood Count 8.6 K/mcL (4.3-11.1)
[2020-11-26 03:14] LABS: BUN/Creatinine Ratio 44 (6-26); Blood Urea Nitrogen 15 mg/dL (8-23); Calcium 8.5 mg/dL (8.6-10.3); Carbon Dioxide 28 mEq/L (23-29); Chloride 105 mEq/L (98-107); Glucose 83 mg/dL (70-105); Osmolality,Calculated 290 (280-300); Potassium 3.4 mEq/L (3.5-5.1); Sodium 140 mEq/L (136-145); eGFR For African Americans > 60 (> 60); eGFR For Non-African Americans > 60 (> 60)
[2020-11-26] MEDS: 0.9 % Sodium Chloride 1,000 ML IVC SCH (08:14)
[2020-11-26] MEDS: Aspirin Enteric Coated 81 MG Tablet PO SCH (08:15)
[2020-11-26] MEDS: Acetaminophen 325 MG TABLET PO PRN ×2 (08:17→23:42)
[2020-11-26] MEDS ORDERED: Ketorolac 30 MG/ML VIAL IVP ONE (11:01)
[2020-11-26] MEDS ORDERED: levoFLOXacin 750 MG/150 ML 750 MG/150 ML BAG IVPB SCH (12:00)
[2020-11-26] MEDS: Doxycycline 100 MG in 0.9 % Sodium Chloride Mini Bag 100 ML IVPB SCH ×2 (12:46→17:36)
[2020-11-26] MEDS: *HR* Heparin 5,000 UNIT/ML VIAL SQ SCH (17:38)
[2020-11-26] MEDS: Melatonin 3 MG TABLET PO PRN (23:43)
[2020-11-27] MEDS: *HR* Heparin 5,000 UNIT/ML VIAL SQ SCH ×2 (05:07→17:43)
[2020-11-27] MEDS: Doxycycline 100 MG in 0.9 % Sodium Chloride Mini Bag 100 ML IVPB SCH ×2 (05:07→17:42)
[2020-11-27 05:29] LABS: BUN/Creatinine Ratio 29 (6-26); Blood Urea Nitrogen 11 mg/dL (8-23); Calcium 8.4 mg/dL (8.6-10.3); Carbon Dioxide 28 mEq/L (23-29); Chloride 107 mEq/L (98-107); Glucose 95 mg/dL (70-105); Magnesium 1.5 mg/dL (1.6-2.6); Osmolality,Calculated 291 (280-300); Phosphorous 2.7 mg/dL (2.7-4.5); Potassium 3.5 mEq/L (3.5-5.1); Sodium 141 mEq/L (136-145); eGFR For African Americans > 60 (> 60); eGFR For Non-African Americans > 60 (> 60)
[2020-11-27] MEDS: Acetaminophen 325 MG TABLET PO PRN (06:12)
[2020-11-27] MEDS: Aspirin Enteric Coated 81 MG Tablet PO SCH (12:00)
[2020-11-27] MEDS ORDERED: Morphine Sulfate Oral CONC 10 MG/0.5 ML ORAL.SYG SL PRN (15:27)
[2020-11-27] MEDS: Acetaminophen/Butalbital/CaffeineTABLET PO PRN ×2 (17:42→23:42)
[2020-11-27] MEDS: Melatonin 3 MG TABLET PO PRN (19:57)
[2020-11-28 04:57] LABS: BUN/Creatinine Ratio 37 (6-26); Blood Urea Nitrogen 14 mg/dL (8-23); Calcium 8.7 mg/dL (8.6-10.3); Carbon Dioxide 29 mEq/L (23-29); Chloride 105 mEq/L (98-107); Glucose 101 mg/dL (70-105); Magnesium 1.7 mg/dL (1.6-2.6); Osmolality,Calculated 291 (280-300); Phosphorous 2.4 mg/dL (2.7-4.5); Potassium 3.5 mEq/L (3.5-5.1); Sodium 140 mEq/L (136-145); eGFR For African Americans > 60 (> 60); eGFR For Non-African Americans > 60 (> 60)
[2020-11-28] MEDS: *HR* Heparin 5,000 UNIT/ML VIAL SQ SCH ×2 (05:25→16:56)
[2020-11-28] MEDS: Doxycycline 100 MG in 0.9 % Sodium Chloride Mini Bag 100 ML IVPB SCH ×2 (05:25→16:56)
[2020-11-28] MEDS: Acetaminophen/Butalbital/CaffeineTABLET PO PRN (05:45)
[2020-11-28] MEDS: Aspirin Enteric Coated 81 MG Tablet PO SCH (07:51)
[2020-11-28] MEDS: lisinopriL 5 MG TABLET PO SCH (09:28)
[2020-11-29] MEDS: Melatonin 3 MG TABLET PO PRN (00:04)
[2020-11-29] MEDS: *HR* Heparin 5,000 UNIT/ML VIAL SQ SCH (05:58)
[2020-11-29] MEDS: Doxycycline 100 MG in 0.9 % Sodium Chloride Mini Bag 100 ML IVPB SCH (05:58)
[2020-11-29 07:28] VITALS: BP 123/77
[2020-11-29] MEDS: Aspirin Enteric Coated 81 MG Tablet PO SCH (07:32)
[2020-11-29] MEDS: lisinopriL 5 MG TABLET PO SCH (07:32)
== END 2020-11-29 11:12 | disposition home health service (06) | DRG 180 ==
LOC: 3BNU 14:33 → EMEROOARM 14:33 → SUATTDRO 20:07 → 3BNU 21:19
PROVIDERS: ADMIT Internal Medicine; ATTEND Internal Medicine

== ENCOUNTER 2020-12-26 16:26 | Observation (INO) ==
[2020-12-26 17:30] LABS: Bilirubin,Urine Negative (Negative); Blood,Urine Negative (Negative); Clarity,Urine Clear (Clear); Color,Urine Colorless (Yellow); Glucose,Urine (UA) Normal (Normal); Ketones,Urine Negative (Negative); Leukocyte Esterase,Urine Negative (Negative); Nitrite,Urine Negative (Negative); Protein,Urine Negative (Neg-Trace); Specific Gravity,Urine 1.013 (1.010-1.025); Urobilinogen,Urine Normal (Normal)
[2020-12-26 18:41] LABS: Basophils % 0.5 %; Eosinophils # 0.1 K/mcL (0.0-0.6); Eosinophils % 1.5 %; Hematocrit 36.5 % (35.3-44.9); Hemoglobin 11.4 g/dL (11.5-15.4); Immature Granulocytes % 0.5 % (0-4); Lymphocytes # 1.6 K/mcL (0.6-4.6); Mean Corpuscular HGB Conc 31.2 g/dL (31.6-35.5); Mean Corpuscular Hemoglobin 31.8 pg (28.0-33.3); Mean Platelet Volume 9.5 fL (9.4-12.4); Monocytes # 0.5 K/mcL (0.0-1.3); Monocytes % 7.2 %; Neutrophils # 4.4 K/mcL (1.6-8.9); Platelet Count 192 K/mcL (140-400); Red Blood Count 3.58 M/mcL (3.82-4.97); Red Cell Distribution Width 13.2 % (11.5-14.5); Segmented Neutrophils % 66.3 %; White Blood Count 6.7 K/mcL (4.3-11.1)
[2020-12-26 19:04] LABS: Lipase 12 Units/L (11-82)
[2020-12-26 19:05] LABS: Troponin I < 0.03 ng/mL (< 0.04)
[2020-12-26 19:10] LABS: Alanine Aminotransferase 14 Units/L (7-52); Albumin 3.4 g/dL (3.5-5.7); Alkaline Phosphatase 49 Units/L (34-104); Aspartate Amino Transferase 12 Units/L (13-39); BUN/Creatinine Ratio 29 (6-26); Bilirubin,Total 0.2 mg/dL (0.3-1.0); Blood Urea Nitrogen 10 mg/dL (8-23); Calcium 7.9 mg/dL (8.6-10.3); Carbon Dioxide 31 mEq/L (23-29); Chloride 108 mEq/L (98-107); Globulin 1.7 g/dL (2.4-3.5); Glucose 95 mg/dL (70-105); Osmolality,Calculated 293 (280-300); Potassium 3.6 mEq/L (3.5-5.1); Sodium 142 mEq/L (136-145); Total Protein 5.1 g/dL (6.4-8.9); eGFR For African Americans > 60 (> 60); eGFR For Non-African Americans > 60 (> 60)
[2020-12-26] MEDS ORDERED: 0.9 % Sodium Chloride 500 ML IVC ONE (19:49)
[2020-12-26] MEDS ORDERED: Naloxone 0.4 MG/ML INJ IVP PRN (20:23)
[2020-12-26] MEDS ORDERED: Acetaminophen/Butalbital/CaffeineTABLET PO PRN (20:26)
[2020-12-26] MEDS ORDERED: D5% in 0.45% NACL 1,000 ML IVC SCH (20:30)
[2020-12-26] MEDS ORDERED: Chloraseptic Spray 177 ML BOTTLE MM PRN (21:24)
[2020-12-26] MEDS ORDERED: D5% in 0.45% NACL 1,000 ML IVC ONE (22:25)
[2020-12-26] MEDS ORDERED: *HR* Heparin 5,000 UNIT/ML VIAL ONE (22:25)
[2020-12-26] MEDS: *HR* Heparin 5,000 UNIT/ML VIAL SQ SCH (22:39)
[2020-12-27] MEDS: *HR* Heparin 5,000 UNIT/ML VIAL SQ SCH (05:15)
[2020-12-27] MEDS ORDERED: Aspirin Enteric Coated 81 MG Tablet PO SCH (09:00)
[2020-12-27] MEDS ORDERED: Cholecalciferol (D-3) 1,000 UNIT (25MCG) TABLET PO SCH (09:00)
[2020-12-27 10:22] LABS: Hematocrit 39.4 % (35.3-44.9); Hemoglobin 12.5 g/dL (11.5-15.4); Mean Corpuscular HGB Conc 31.7 g/dL (31.6-35.5); Mean Corpuscular Hemoglobin 32.5 pg (28.0-33.3); Mean Corpuscular Volume 102.3 fL (83.0-100.0); Platelet Count 224 K/mcL (140-400); Red Blood Count 3.85 M/mcL (3.82-4.97); Red Cell Distribution Width 13.1 % (11.5-14.5); White Blood Count 6.7 K/mcL (4.3-11.1)
[2020-12-27 10:41] LABS: BUN/Creatinine Ratio 10 (6-26); Blood Urea Nitrogen 6 mg/dL (8-23); Calcium 8.3 mg/dL (8.6-10.3); Carbon Dioxide 33 mEq/L (23-29); Chloride 104 mEq/L (98-107); Glucose 201 mg/dL (70-105); Osmolality,Calculated 293 (280-300); Potassium 3.6 mEq/L (3.5-5.1); Sodium 140 mEq/L (136-145); eGFR For African Americans > 60 (> 60); eGFR For Non-African Americans > 60 (> 60)
[2020-12-27 10:44] VITALS: BP 149/87
[2021-01-09] MEDS ORDERED: Cyanocobalamin (B-12) 1,000 MCG/ML VIAL IM SCH (09:00)
== END 2020-12-27 14:03 | disposition home health service (06) ==
LOC: EMEROOARM 16:26 → 3BNU 16:26 → SUATTDRO 20:23 → 3BNU 22:04
PROVIDERS: ADMIT Student in an Organized Health Care Education/Training Program; ATTEND Internal Medicine

== ENCOUNTER 2021-05-29 16:01 | Observation (INO) ==
[2021-05-29 17:40] LABS: Basophils % 0.4 %; Eosinophils # 0.1 K/mcL (0.0-0.6); Hematocrit 41.9 % (35.3-44.9); Hemoglobin 13.3 g/dL (11.5-15.4); Immature Granulocytes % 0.3 % (0-4); Mean Corpuscular HGB Conc 31.7 g/dL (31.6-35.5); Mean Corpuscular Hemoglobin 31.3 pg (28.0-33.3); Mean Corpuscular Volume 98.6 fL (83.0-100.0); Mean Platelet Volume 9.5 fL (9.4-12.4); Monocytes # 0.6 K/mcL (0.0-1.3); Monocytes % 7.8 %; Neutrophils # 4.9 K/mcL (1.6-8.9); Platelet Count 269 K/mcL (140-400); Red Blood Count 4.25 M/mcL (3.82-4.97); Red Cell Distribution Width 13.3 % (11.5-14.5); Segmented Neutrophils % 64.5 %; White Blood Count 7.7 K/mcL (4.3-11.1)
[2021-05-29 18:01] LABS: Alanine Aminotransferase 14 Units/L (7-52); Albumin 3.7 g/dL (3.5-5.7); Albumin/Globulin Ratio 1.8 (1.1-2.2); Alkaline Phosphatase 53 Units/L (34-104); Aspartate Amino Transferase 14 Units/L (13-39); BUN/Creatinine Ratio 42 (6-26); Bilirubin,Total 0.3 mg/dL (0.3-1.0); Blood Urea Nitrogen 14 mg/dL (8-23); Calcium 8.5 mg/dL (8.6-10.3); Carbon Dioxide 28 mEq/L (23-29); Chloride 103 mEq/L (98-107); Globulin 2.1 g/dL (2.4-3.5); Glucose 86 mg/dL (70-105); Osmolality,Calculated 288 (280-300); Potassium 3.6 mEq/L (3.5-5.1); Sodium 139 mEq/L (136-145); Total Protein 5.8 g/dL (6.4-8.9); Troponin I < 0.03 ng/mL (< 0.04); eGFR For African Americans > 60 (> 60); eGFR For Non-African Americans > 60 (> 60)
[2021-05-29 19:56] LABS: Bilirubin,Urine Negative (Negative); Blood,Urine Negative (Negative); Clarity,Urine Clear (Clear); Color,Urine Light-Yellow (Yellow); Glucose,Urine (UA) Normal (Normal); Ketones,Urine 60 mg/dL (Negative); Leukocyte Esterase,Urine Negative (Negative); Nitrite,Urine Negative (Negative); PH,Urine 5.5 pH Units (5.0-8.0); Protein,Urine Trace mg/dL (Neg-Trace); Specific Gravity,Urine 1.029 (1.010-1.025); Urobilinogen,Urine Normal (Normal)
[2021-05-29] MEDS ORDERED: 0.9 % Sodium Chloride 1,000 ML IVC ONE (20:19)
[2021-05-29] MEDS ORDERED: Ondansetron 4 MG/2 ML VIAL IVP ONE (21:28)
[2021-05-29] MEDS ORDERED: Prochlorperazine 10 MG/2 ML VIAL IVP ONE (21:29)
[2021-05-30 01:14] LABS: Influenza A PCR Negative (Negative); Influenza B PCR Negative (Negative); Resp. Syncytial Virus PCR Negative (Negative)
[2021-05-30 01:15] LABS: SARS-CoV-2 by PCR (In House) Negative (Negative)
[2021-05-30] MEDS ORDERED: Acetaminophen/Butalbital/CaffeineTABLET PO PRN (01:38)
[2021-05-30] MEDS ORDERED: Ondansetron 4 MG/2 ML VIAL IVP PRN (01:39)
[2021-05-30] MEDS ORDERED: Naloxone 0.4 MG/ML INJ IVP PRN (01:39)
[2021-05-30] MEDS ORDERED: 0.9 % Sodium Chloride 1,000 ML IVC SCH (01:45)
[2021-05-30] MEDS ORDERED: Levalbuterol Neb 1.25 MG/3 ML IH PRN (01:48)
[2021-05-30] MEDS ORDERED: Calcium Gluconate 1gm/50mL 1 GM/50 ML BAG IVPB ONE (02:18)
[2021-05-30] MEDS ORDERED: tiZANidine 4 MG TABLET PO PRN (02:19)
[2021-05-30 02:37] VITALS: O2SAT 97
[2021-05-30 08:32] VITALS: BP 131/82; PULSE 99; TEMP 97.4
[2021-05-30] MEDS ORDERED: Aspirin Enteric Coated 81 MG Tablet PO SCH (09:00)
[2021-05-30 09:05] LABS: Hematocrit 41.6 % (35.3-44.9); Hemoglobin 13.2 g/dL (11.5-15.4); Mean Corpuscular HGB Conc 31.7 g/dL (31.6-35.5); Mean Corpuscular Hemoglobin 31.9 pg (28.0-33.3); Mean Corpuscular Volume 100.5 fL (83.0-100.0); Mean Platelet Volume 9.9 fL (9.4-12.4); Platelet Count 261 K/mcL (140-400); Red Blood Count 4.14 M/mcL (3.82-4.97); Red Cell Distribution Width 13.2 % (11.5-14.5); White Blood Count 6.6 K/mcL (4.3-11.1)
[2021-05-30 09:45] LABS: BUN/Creatinine Ratio 26 (6-26); Blood Urea Nitrogen 14 mg/dL (8-23); Calcium 8.8 mg/dL (8.6-10.3); Carbon Dioxide 26 mEq/L (23-29); Chloride 103 mEq/L (98-107); Cholesterol 233 mg/dL (< 200); Glucose 270 mg/dL (70-105); HDL Cholesterol 58 mg/dL (40-59); Iron 74 mcg/dL (50-170); LDL Cholesterol,Calculated 132 mg/dL (< 100); Magnesium 1.6 mg/dL (1.6-2.6); Osmolality,Calculated 298 (280-300); Potassium 4.3 mEq/L (3.5-5.1); Sodium 139 mEq/L (136-145); Triglycerides 213 mg/dL (< 150); eGFR For African Americans > 60 (> 60); eGFR For Non-African Americans > 60 (> 60)
[2021-05-30 10:02] LABS: Ferritin 436 ng/mL (10-120)
[2021-05-30 10:45] LABS: Estimated Average Glucose 120 mg/dl; Hemoglobin A1C 5.8 %
[2021-05-30 11:49] LABS: Vitamin B12 334 pg/mL (250-1100)
[2021-05-30 11:51] LABS: Vitamin D 25 Hydroxy 24 ng/mL (30-80)
== END 2021-05-30 12:40 | disposition home health service (06) ==
LOC: EMEROOARM 16:01 → 3BNU 16:01 → SUATTDRO 05-30 01:19 → 3BNU 05-30 02:15
PROVIDERS: ADMIT Internal Medicine; ATTEND Internal Medicine

== ENCOUNTER 2021-11-24 19:12 | Inpatient (IN) ==
[2021-11-24 20:19] LABS: Basophils % 0.2 %; Eosinophils # 0.1 K/mcL (0.0-0.6); Hematocrit 36.6 % (35.3-44.9); Hemoglobin 11.6 g/dL (11.5-15.4); Immature Granulocytes % 0.4 % (0-4); Lymphocytes # 1.8 K/mcL (0.6-4.6); Lymphocytes % 17.2 %; Mean Corpuscular HGB Conc 31.7 g/dL (31.6-35.5); Mean Corpuscular Hemoglobin 31.4 pg (28.0-33.3); Mean Corpuscular Volume 99.2 fL (83.0-100.0); Mean Platelet Volume 9.1 fL (9.4-12.4); Monocytes # 0.8 K/mcL (0.0-1.3); Monocytes % 7.6 %; Neutrophils # 7.8 K/mcL (1.6-8.9); Platelet Count 359 K/mcL (140-400); Red Blood Count 3.69 M/mcL (3.82-4.97); Red Cell Distribution Width 14.5 % (11.5-14.5); Segmented Neutrophils % 73.6 %; White Blood Count 10.5 K/mcL (4.3-11.1)
[2021-11-24 20:26] LABS: INR 1.1; Prothrombin Time 11.8 Seconds (9.4-12.1)
[2021-11-24] MEDS ORDERED: 0.9 % Sodium Chloride 1,000 ML IV ONE (20:44)
[2021-11-24] MEDS ORDERED: Ipratropium/Albuterol Neb 3 ML IH ONE (20:45)
[2021-11-24 20:47] LABS: Alanine Aminotransferase 6 Units/L (7-52); Albumin/Globulin Ratio 1.1 (1.1-2.2); Alkaline Phosphatase 59 Units/L (34-104); Aspartate Amino Transferase 11 Units/L (13-39); BUN/Creatinine Ratio 38 (6-26); Bilirubin,Indirect 0.2 mg/dL (0.0-1.0); Bilirubin,Total 0.2 mg/dL (0.3-1.0); Blood Urea Nitrogen 11 mg/dL (8-23); Calcium 8.5 mg/dL (8.6-10.3); Carbon Dioxide 32 mEq/L (23-29); Chloride 103 mEq/L (98-107); Globulin 2.7 g/dL (2.4-3.5); Glucose 83 mg/dL (70-105); Osmolality,Calculated 297 (280-300); Sodium 144 mEq/L (136-145); Total Protein 5.7 g/dL (6.4-8.9); Troponin I < 0.03 ng/mL (< 0.04); eGFR For African Americans > 60 (> 60); eGFR For Non-African Americans > 60 (> 60)
[2021-11-24] MEDS ORDERED: Azithromycin 500 MG in 0.9 % Sodium Chloride 250 ML IVPB ONE (22:01)
[2021-11-24] MEDS ORDERED: cefTRIAXone 1,000 MG in 0.9 % Sodium Chloride Mini Bag 100 ML IVPB ONE (22:01)
[2021-11-24] MEDS ORDERED: Isovue-370 500 ML BOTTLE IVP ONE (22:02)
[2021-11-24 22:08] LABS: Influenza A PCR Negative (Negative); Influenza B PCR Negative (Negative); Resp. Syncytial Virus PCR Negative (Negative)
[2021-11-24 22:11] LABS: SARS-CoV-2 by PCR (In House) Negative (Negative)
[2021-11-24] MEDS ORDERED: Naloxone 0.4 MG/ML INJ IVP PRN (22:52)
[2021-11-24] MEDS ORDERED: Ondansetron 4 MG/2 ML VIAL IVP PRN (22:52)
[2021-11-24] MEDS ORDERED: Ipratropium/Albuterol Neb 3 ML IH PRN (22:54)
[2021-11-24] MEDS ORDERED: Ringers Solution, Lactated 1,000 ML IVC SCH (23:00)
[2021-11-24] MEDS ORDERED: D5% in Water 1,000 ML IVC PRN (23:06)
[2021-11-24] MEDS ORDERED: Dextrose Gel 15 GM/37.5 ML TUBE PO PRN ×2 (23:06)
[2021-11-24] MEDS ORDERED: *HR* Dextrose 50 % in Water (Syg) 50 ML SYRINGE IVP PRN (23:06)
[2021-11-25] MEDS ORDERED: methylPREDNISolone 125 MG/2 ML VIAL IVP ONE (00:33)
[2021-11-25] MEDS: Melatonin 3 MG TABLET PO PRN ×2 (01:06→20:45)
[2021-11-25] MEDS: *HR* HYDROcodone/Acet 5/325 mg TABLET PO PRN ×2 (01:06→14:29)
[2021-11-25] MEDS ORDERED: Potassium Chloride Elixir 20 MEQ/15 ML UDC PO ONE (01:30)
[2021-11-25 03:28] LABS: Basophils % 0.4 %; Eosinophils # 0.1 K/mcL (0.0-0.6); Eosinophils % 0.6 %; Hematocrit 35.8 % (35.3-44.9); Immature Granulocytes % 0.4 % (0-4); Lymphocytes # 1.2 K/mcL (0.6-4.6); Lymphocytes % 13.8 %; Mean Corpuscular HGB Conc 30.7 g/dL (31.6-35.5); Mean Corpuscular Hemoglobin 30.9 pg (28.0-33.3); Mean Corpuscular Volume 100.6 fL (83.0-100.0); Mean Platelet Volume 9.6 fL (9.4-12.4); Monocytes # 0.5 K/mcL (0.0-1.3); Monocytes % 5.6 %; Neutrophils # 6.6 K/mcL (1.6-8.9); Platelet Count 369 K/mcL (140-400); Red Blood Count 3.56 M/mcL (3.82-4.97); Red Cell Distribution Width 14.4 % (11.5-14.5); Segmented Neutrophils % 79.2 %; White Blood Count 8.4 K/mcL (4.3-11.1)
[2021-11-25 03:33] LABS: Prothrombin Time 11.3 Seconds (9.4-12.1)
[2021-11-25 03:36] LABS: Activated Partial Thrombo Time 30.3 Seconds (26.0-36.0)
[2021-11-25 03:41] LABS: BUN/Creatinine Ratio 25 (6-26); Blood Urea Nitrogen 9 mg/dL (8-23); Calcium 8.1 mg/dL (8.6-10.3); Carbon Dioxide 35 mEq/L (23-29); Chloride 103 mEq/L (98-107); Glucose 165 mg/dL (70-105); Magnesium 1.5 mg/dL (1.6-2.6); Osmolality,Calculated 300 (280-300); Phosphorous 2.8 mg/dL (2.7-4.5); Potassium 2.8 mEq/L (3.5-5.1); Sodium 144 mEq/L (136-145); eGFR For African Americans > 60 (> 60); eGFR For Non-African Americans > 60 (> 60)
[2021-11-25] MEDS: Ipratropium/Albuterol Neb 3 ML IH SCH ×5 (04:16→19:53)
[2021-11-25] MEDS: Acetaminophen 325 MG TABLET PO PRN ×2 (04:24→17:24)
[2021-11-25] MEDS ORDERED: Ketorolac 30 MG/ML VIAL IM ONE (04:43)
[2021-11-25] MEDS ORDERED: Saline Nasal Spray 44 ML BOTTLE NS PRN (05:16)
[2021-11-25] MEDS ORDERED: Saliva Stimulant 44.3ml BOTTLE PO PRN (05:16)
[2021-11-25] MEDS: Calcium Gluconate 1gm/50mL 1 GM/50 ML BAG IVPB SCH ×3 (05:43→07:20)
[2021-11-25] MEDS ORDERED: Vancomycin 500 MG in 0.9 % Sodium Chloride Mini Bag 100 ML IVPB SCH (06:00)
[2021-11-25 06:37] LABS: % Iron Saturation 12 % (15-50); Iron 27 mcg/dL (50-170); Transferrin 156 mg/dL (203-362)
[2021-11-25 06:42] LABS: Ferritin 507 ng/mL (10-120)
[2021-11-25] MEDS: Budesonide/Formoterol 160/4.5 1 PUFF INH IH SCH ×2 (08:11→19:53)
[2021-11-25] MEDS ORDERED: predniSONE 20 MG TABLET PO SCH (09:00)
[2021-11-25 09:33] LABS: Folate 18.4 ng/mL (3.0-16.0)
[2021-11-25] MEDS: Chlorhexidine Rinse 15 ML MOUTHWASH MM SCH ×2 (09:53→20:47)
[2021-11-25] MEDS: MethylPREDNISolone 40 MG/ML VIAL IVP SCH ×2 (09:53→15:24)
[2021-11-25] MEDS: Pantoprazole 40 MG VIAL IVP SCH (09:53)
[2021-11-25] MEDS: Artificial Tears SOLN 15 ML BOTTLE BOTH EYES SCH (09:54)
[2021-11-25] MEDS: Piperacillin/Tazobactam 3.375 GM in 0.9 % Sodium Chloride Mini Bag 100 ML IVPB SCH ×2 (09:54→15:24)
[2021-11-25] MEDS: Multivit/Ca/Min/Fe/FA 1 TAB TABLET PO SCH (09:55)
[2021-11-25] MEDS: Aspirin 81 MG TAB.CHEW PO SCH (09:55)
[2021-11-25] MEDS: Lactobacillus 1 EACH CAP.SPRINK PO SCH ×2 (09:55→20:45)
[2021-11-25 10:24] LABS: Basophils % 0.2 %; Hematocrit 37.6 % (35.3-44.9); Hemoglobin 11.5 g/dL (11.5-15.4); Immature Granulocytes % 0.7 % (0-4); Lymphocytes # 0.6 K/mcL (0.6-4.6); Mean Corpuscular HGB Conc 30.6 g/dL (31.6-35.5); Mean Corpuscular Hemoglobin 31.4 pg (28.0-33.3); Mean Corpuscular Volume 102.7 fL (83.0-100.0); Mean Platelet Volume 9.3 fL (9.4-12.4); Monocytes # 0.2 K/mcL (0.0-1.3); Monocytes % 2.5 %; Neutrophils # 5.2 K/mcL (1.6-8.9); Platelet Count 356 K/mcL (140-400); Red Blood Count 3.66 M/mcL (3.82-4.97); Red Cell Distribution Width 14.6 % (11.5-14.5); Segmented Neutrophils % 86.6 %
[2021-11-25 10:41] LABS: BUN/Creatinine Ratio 27 (6-26); Blood Urea Nitrogen 9 mg/dL (8-23); Calcium 8.7 mg/dL (8.6-10.3); Carbon Dioxide 33 mEq/L (23-29); Chloride 104 mEq/L (98-107); Glucose 160 mg/dL (70-105); Osmolality,Calculated 294 (280-300); Potassium 4.2 mEq/L (3.5-5.1); Sodium 141 mEq/L (136-145); eGFR For African Americans > 60 (> 60); eGFR For Non-African Americans > 60 (> 60)
[2021-11-25 12:06] LABS: Lactate Dehydrogenase 166 Units/L (140-271); Total Protein 5.8 g/dL (6.4-8.9)
[2021-11-25 15:35] LABS: RBC,Pleural Fluid < 2000 RBC/mcL
[2021-11-25 15:45] LABS: Total Protein,Pleural Fluid 2.9 g/dL
[2021-11-25 16:21] LABS: Bilirubin,Urine Negative (Negative); Blood,Urine Negative (Negative); Clarity,Urine Clear (Clear); Color,Urine Yellow (Yellow); Glucose,Urine (UA) >=1000 mg/dL (Normal); Hyaline Casts,Urine Few per lpf (None Seen); Ketones,Urine Trace mg/dL (Negative); Leukocyte Esterase,Urine Negative (Negative); Mucus,Urine Few per lpf (None-Few); Nitrite,Urine Negative (Negative); Protein,Urine Trace mg/dL (Neg-Trace); Specific Gravity,Urine > 1.030 (1.010-1.025); Squamous Epithelial Cell,Urine Few per hpf (None-Few); Urobilinogen,Urine Normal (Normal); WBC,Urine 0-3 per hpf (0-3)
[2021-11-25] MEDS ORDERED: clonazePAM 0.5 MG TABLET PO ONE (17:08)
[2021-11-25 17:11] LABS: Appearance of Pleural Fl Hazy (Clear)
[2021-11-25] MEDS: *HR* OxyCODONE Immed Rel 5 MG TABLET PO PRN (17:43)
[2021-11-25 19:40] LABS: Basophils,Pleural Fluid 0 %; Eosinophils,Pleural Fluid 0 %
[2021-11-25] MEDS: hydrOXYzine pamoate 25 MG CAPSULE PO PRN (20:45)
[2021-11-26 01:21] LABS: Basophils % 0.1 %; Hematocrit 33.1 % (35.3-44.9); Hemoglobin 10.3 g/dL (11.5-15.4); Immature Granulocytes % 0.8 % (0-4); Mean Corpuscular HGB Conc 31.1 g/dL (31.6-35.5); Mean Corpuscular Hemoglobin 31.7 pg (28.0-33.3); Mean Corpuscular Volume 101.8 fL (83.0-100.0); Mean Platelet Volume 9.3 fL (9.4-12.4); Monocytes # 0.9 K/mcL (0.0-1.3); Monocytes % 7.5 %; Neutrophils # 9.6 K/mcL (1.6-8.9); Platelet Count 370 K/mcL (140-400); Red Blood Count 3.25 M/mcL (3.82-4.97); Red Cell Distribution Width 14.6 % (11.5-14.5); Segmented Neutrophils % 82.6 %
[2021-11-26 01:22] LABS: White Blood Count 11.6 K/mcL (4.3-11.1)
[2021-11-26 01:27] LABS: BUN/Creatinine Ratio 23 (6-26); Blood Urea Nitrogen 13 mg/dL (8-23); Calcium 8.3 mg/dL (8.6-10.3); Carbon Dioxide 33 mEq/L (23-29); Chloride 105 mEq/L (98-107); Glucose 170 mg/dL (70-105); Osmolality,Calculated 298 (280-300); Phosphorous 1.2 mg/dL (2.7-4.5); Potassium 3.9 mEq/L (3.5-5.1); Sodium 142 mEq/L (136-145); eGFR For African Americans > 60 (> 60); eGFR For Non-African Americans > 60 (> 60)
[2021-11-26] MEDS: Piperacillin/Tazobactam 3.375 GM in 0.9 % Sodium Chloride Mini Bag 100 ML IVPB SCH ×2 (01:32→08:21)
[2021-11-26] MEDS: MethylPREDNISolone 40 MG/ML VIAL IVP SCH ×4 (01:32→23:28)
[2021-11-26] MEDS: Artificial Tears SOLN 15 ML BOTTLE BOTH EYES SCH ×3 (01:34→20:56)
[2021-11-26] MEDS: *HR* OxyCODONE Immed Rel 5 MG TABLET PO PRN ×4 (02:55→20:50)
[2021-11-26] MEDS: hydrOXYzine pamoate 25 MG CAPSULE PO PRN ×4 (02:55→20:50)
[2021-11-26] MEDS: Ipratropium/Albuterol Neb 3 ML IH SCH ×4 (04:15→22:31)
[2021-11-26] MEDS: Multivit/Ca/Min/Fe/FA 1 TAB TABLET PO SCH (08:18)
[2021-11-26] MEDS: Aspirin 81 MG TAB.CHEW PO SCH (08:19)
[2021-11-26] MEDS: Pantoprazole 40 MG VIAL IVP SCH (08:19)
[2021-11-26] MEDS: Lactobacillus 1 EACH CAP.SPRINK PO SCH ×2 (08:19→20:49)
[2021-11-26] MEDS: Chlorhexidine Rinse 15 ML MOUTHWASH MM SCH ×2 (08:20→20:45)
[2021-11-26] MEDS ORDERED: Ketorolac 30 MG/ML VIAL IVP ONE (09:54)
[2021-11-26] MEDS: Acetaminophen/Butalbital/CaffeineTABLET PO PRN (10:01)
[2021-11-26] MEDS: Budesonide/Formoterol 160/4.5 1 PUFF INH IH SCH ×2 (10:28→22:31)
[2021-11-26] MEDS: *HR* HYDROcodone/Acet 5/325 mg TABLET PO PRN (23:28)
[2021-11-27] MEDS: Acetaminophen/Butalbital/CaffeineTABLET PO PRN ×2 (01:13→09:35)
[2021-11-27] MEDS: *HR* OxyCODONE Immed Rel 5 MG TABLET PO PRN (03:40)
[2021-11-27] MEDS: Ipratropium/Albuterol Neb 3 ML IH SCH ×3 (03:42→15:31)
[2021-11-27 07:13] LABS: Basophils % 0.1 %; Hemoglobin 11.4 g/dL (11.5-15.4); Immature Granulocytes % 1.4 % (0-4); Lymphocytes # 1.4 K/mcL (0.6-4.6); Lymphocytes % 9.7 %; Mean Corpuscular HGB Conc 30.8 g/dL (31.6-35.5); Mean Corpuscular Volume 100.5 fL (83.0-100.0); Mean Platelet Volume 9.1 fL (9.4-12.4); Monocytes # 0.7 K/mcL (0.0-1.3); Monocytes % 4.9 %; Platelet Count 404 K/mcL (140-400); Red Blood Count 3.68 M/mcL (3.82-4.97); Red Cell Distribution Width 14.8 % (11.5-14.5); Segmented Neutrophils % 83.9 %; White Blood Count 14.3 K/mcL (4.3-11.1)
[2021-11-27 07:37] LABS: BUN/Creatinine Ratio 48 (6-26); Blood Urea Nitrogen 16 mg/dL (8-23); Calcium 8.6 mg/dL (8.6-10.3); Carbon Dioxide 34 mEq/L (23-29); Chloride 100 mEq/L (98-107); Glucose 116 mg/dL (70-105); Osmolality,Calculated 290 (280-300); Potassium 4.3 mEq/L (3.5-5.1); Sodium 139 mEq/L (136-145); eGFR For African Americans > 60 (> 60); eGFR For Non-African Americans > 60 (> 60)
[2021-11-27] MEDS: Lactobacillus 1 EACH CAP.SPRINK PO SCH (09:27)
[2021-11-27] MEDS: Chlorhexidine Rinse 15 ML MOUTHWASH MM SCH (09:27)
[2021-11-27] MEDS: Multivit/Ca/Min/Fe/FA 1 TAB TABLET PO SCH (09:27)
[2021-11-27] MEDS: Aspirin 81 MG TAB.CHEW PO SCH (09:27)
[2021-11-27] MEDS: MethylPREDNISolone 40 MG/ML VIAL IVP SCH ×2 (09:29→15:18)
[2021-11-27] MEDS: Pantoprazole 40 MG VIAL IVP SCH (09:29)
[2021-11-27] MEDS: Artificial Tears SOLN 15 ML BOTTLE BOTH EYES SCH (09:32)
[2021-11-27] MEDS: Budesonide/Formoterol 160/4.5 1 PUFF INH IH SCH (09:54)
[2021-11-27 12:08] VITALS: BP 132/69; PULSE 114; TEMP 97.3
[2021-11-27] MEDS ORDERED: *HR* Heparin 5,000 UNIT/ML VIAL SQ SCH ×2 (14:00→18:00)
[2021-11-27] MEDS: *HR* HYDROcodone/Acet 5/325 mg TABLET PO PRN (15:18)
[2021-11-27 18:20] VITALS: O2SAT 93
[2021-11-28 11:05] LABS: Mycoplasma pneumoniae IgG 0.09 U/L (<=0.09)
== END 2021-11-27 16:36 | disposition home or self-care (01) | DRG 193 ==
LOC: 2ANU 19:12 → EMEROOARM 19:12 → SUATTDRO 22:25 → 2ANU 23:09 → SUATTDRO 11-25 13:13
PROVIDERS: ADMIT Internal Medicine; ATTEND Student in an Organized Health Care Education/Training Program

== ENCOUNTER 2021-11-29 13:25 | Inpatient (IN) ==
[2021-11-29] MEDS ORDERED: Isovue-370 500 ML BOTTLE IVP ONE (13:39)
[2021-11-29 14:09] LABS: Hematocrit 34.2 % (35.3-44.9); Hemoglobin 10.7 g/dL (11.5-15.4); Mean Corpuscular HGB Conc 31.3 g/dL (31.6-35.5); Mean Corpuscular Hemoglobin 30.9 pg (28.0-33.3); Mean Corpuscular Volume 98.8 fL (83.0-100.0); Mean Platelet Volume 9.2 fL (9.4-12.4); Platelet Count 372 K/mcL (140-400); Red Blood Count 3.46 M/mcL (3.82-4.97); Red Cell Distribution Width 14.7 % (11.5-14.5); White Blood Count 11.5 K/mcL (4.3-11.1)
[2021-11-29 14:57] LABS: BUN/Creatinine Ratio 48 (6-26); Blood Urea Nitrogen 14 mg/dL (8-23); Calcium 5.9 mg/dL (8.6-10.3); Carbon Dioxide 23 mEq/L (23-29); Chloride 113 mEq/L (98-107); Glucose 74 mg/dL (70-105); Osmolality,Calculated 291 (280-300); Potassium 2.6 mEq/L (3.5-5.1); Sodium 141 mEq/L (136-145); Troponin I < 0.03 ng/mL (< 0.04); eGFR For African Americans > 60 (> 60); eGFR For Non-African Americans > 60 (> 60)
[2021-11-29] MEDS ORDERED: Potassium Chloride 40 MEQ, Lidocaine 1% 2 ML in 0.9 % Sodium Chloride 500 ML IVPB ONE (15:50)
[2021-11-29] MEDS ORDERED: Calcium Gluconate 1,000 MG/10 ML VIAL IVP STA (15:50)
[2021-11-29] MEDS ORDERED: Calcium Gluconate 1gm/50mL BAG IVPB ONE (16:00)
[2021-11-29] MEDS ORDERED: Naloxone 0.4 MG/ML INJ IVP PRN (16:21)
[2021-11-29] MEDS ORDERED: Gadolinium Contrast Agent (WT Based) IV PRN (16:23)
[2021-11-29] MEDS ORDERED: 0.9 % Sodium Chloride 250 ML ONE (18:12)
[2021-11-29] MEDS ORDERED: 0.9 % Sodium Chloride 1,000 ML ONE (21:51)
[2021-11-29] MEDS ORDERED: Potassium Chloride Elixir 20 MEQ/15 ML UDC PO ONE (22:40)
[2021-11-29] MEDS: *HR* Heparin 5,000 UNIT/ML VIAL SQ SCH (23:03)
[2021-11-30 01:54] LABS: VBG Ionized Calcium 1.16 mmol/L (1.15-1.35)
[2021-11-30 02:01] LABS: Basophils # 0.1 K/mcL (0.0-0.2); Basophils % 0.4 %; Eosinophils % 0.1 %; Hematocrit 41.1 % (35.3-44.9); Immature Granulocytes % 1.2 % (0-4); Lymphocytes # 1.2 K/mcL (0.6-4.6); Lymphocytes % 8.3 %; Mean Corpuscular HGB Conc 31.4 g/dL (31.6-35.5); Mean Corpuscular Hemoglobin 31.2 pg (28.0-33.3); Mean Corpuscular Volume 99.5 fL (83.0-100.0); Mean Platelet Volume 9.5 fL (9.4-12.4); Monocytes # 0.7 K/mcL (0.0-1.3); Monocytes % 5.2 %; Neutrophils # 11.8 K/mcL (1.6-8.9); Platelet Count 464 K/mcL (140-400); Red Blood Count 4.13 M/mcL (3.82-4.97); Red Cell Distribution Width 14.8 % (11.5-14.5); Segmented Neutrophils % 84.8 %; White Blood Count 13.9 K/mcL (4.3-11.1)
[2021-11-30 02:11] LABS: Hemoglobin 12.9 g/dL (11.5-15.4)
[2021-11-30 02:13] LABS: BUN/Creatinine Ratio 32 (6-26); Blood Urea Nitrogen 12 mg/dL (8-23); Calcium 9.2 mg/dL (8.6-10.3); Carbon Dioxide 29 mEq/L (23-29); Chloride 100 mEq/L (98-107); Glucose 128 mg/dL (70-105); Osmolality,Calculated 285 (280-300); Potassium 4.7 mEq/L (3.5-5.1); Sodium 137 mEq/L (136-145); eGFR For African Americans > 60 (> 60); eGFR For Non-African Americans > 60 (> 60)
[2021-11-30] MEDS: *HR* Heparin 5,000 UNIT/ML VIAL SQ SCH (08:00)
[2021-11-30] MEDS ORDERED: *HR* OxyCODONE Immed Rel 5 MG TABLET PO PRN (10:40)
[2021-11-30] MEDS: Ipratropium/Albuterol Neb 3 ML IH SCH ×3 (11:04→22:55)
[2021-11-30] MEDS: *HR* OxyCODONE Immed Rel 5 MG TABLET PO PRN ×2 (14:29→21:08)
[2021-11-30] MEDS: Acetaminophen 325 MG TABLET PO PRN (17:45)
[2021-11-30] MEDS ORDERED: Pregabalin 50 MG CAPSULE PO SCH (21:00)
[2021-11-30] MEDS: clonazePAM 0.5 MG TABLET PO SCH (21:08)
[2021-11-30] MEDS: Budesonide/Formoterol 160/4.5 1 PUFF INH IH SCH (22:55)
[2021-12-01 02:55] LABS: Basophils % 0.3 %; Eosinophils % 0.1 %; Hematocrit 36.7 % (35.3-44.9); Hemoglobin 11.6 g/dL (11.5-15.4); Lymphocytes # 1.3 K/mcL (0.6-4.6); Mean Corpuscular HGB Conc 31.6 g/dL (31.6-35.5); Mean Corpuscular Hemoglobin 31.2 pg (28.0-33.3); Mean Corpuscular Volume 98.7 fL (83.0-100.0); Mean Platelet Volume 9.4 fL (9.4-12.4); Monocytes # 1.5 K/mcL (0.0-1.3); Neutrophils # 11.8 K/mcL (1.6-8.9); Platelet Count 457 K/mcL (140-400); Red Blood Count 3.72 M/mcL (3.82-4.97); Red Cell Distribution Width 14.6 % (11.5-14.5); Segmented Neutrophils % 79.6 %; White Blood Count 14.9 K/mcL (4.3-11.1)
[2021-12-01 03:11] LABS: BUN/Creatinine Ratio 34 (6-26); Blood Urea Nitrogen 11 mg/dL (8-23); Carbon Dioxide 33 mEq/L (23-29); Chloride 96 mEq/L (98-107); Glucose 115 mg/dL (70-105); Magnesium 1.7 mg/dL (1.6-2.6); Osmolality,Calculated 282 (280-300); Phosphorous 2.3 mg/dL (2.7-4.5); Potassium 3.8 mEq/L (3.5-5.1); Sodium 136 mEq/L (136-145); eGFR For African Americans > 60 (> 60); eGFR For Non-African Americans > 60 (> 60)
[2021-12-01] MEDS: *HR* OxyCODONE Immed Rel 5 MG TABLET PO PRN ×5 (03:28→21:08)
[2021-12-01] MEDS: Ipratropium/Albuterol Neb 3 ML IH SCH ×4 (04:29→22:12)
[2021-12-01] MEDS: Aspirin Enteric Coated 81 MG Tablet PO SCH (07:56)
[2021-12-01 08:31] LABS: Amphetamine Screen,Urine Negative ng/mL (Cutoff=1000); Barbiturate Screen,Urine Positive ng/mL (Cutoff=200); Benzodiazepines Screen,Urine Negative ng/mL (Cutoff=200); Cannabinoid Screen,Urine Negative ng/mL (Cutoff = 50); Cocaine Screen,Urine Negative ng/mL (Cutoff= 300); Opiate Screen,Urine Negative ng/mL (Cutoff=300); Phencyclidine Screen,Urine Negative ng/mL (Cutoff=25)
[2021-12-01] MEDS: Budesonide/Formoterol 160/4.5 1 PUFF INH IH SCH ×2 (09:11→22:12)
[2021-12-01] MEDS ORDERED: Pregabalin 50 MG CAPSULE PO ONE (13:07)
[2021-12-01] MEDS: Lactobacillus 1 EACH CAP.SPRINK PO SCH (21:09)
[2021-12-01] MEDS: Pregabalin 75 MG CAPSULE PO SCH (21:09)
[2021-12-01] MEDS: clonazePAM 0.5 MG TABLET PO SCH (21:09)
[2021-12-01] MEDS: Acetaminophen 325 MG TABLET PO PRN (23:29)
[2021-12-02] MEDS: *HR* OxyCODONE Immed Rel 5 MG TABLET PO PRN ×5 (02:36→23:46)
[2021-12-02 02:51] LABS: Basophils % 0.1 %; Eosinophils # 0.1 K/mcL (0.0-0.6); Eosinophils % 0.3 %; Hematocrit 34.9 % (35.3-44.9); Hemoglobin 10.9 g/dL (11.5-15.4); Lymphocytes # 1.5 K/mcL (0.6-4.6); Lymphocytes % 8.9 %; Mean Corpuscular HGB Conc 31.2 g/dL (31.6-35.5); Mean Corpuscular Hemoglobin 30.9 pg (28.0-33.3); Mean Corpuscular Volume 98.9 fL (83.0-100.0); Mean Platelet Volume 9.7 fL (9.4-12.4); Monocytes # 1.7 K/mcL (0.0-1.3); Monocytes % 10.3 %; Neutrophils # 13.2 K/mcL (1.6-8.9); Platelet Count 415 K/mcL (140-400); Red Blood Count 3.53 M/mcL (3.82-4.97); Red Cell Distribution Width 14.6 % (11.5-14.5); Segmented Neutrophils % 79.4 %; White Blood Count 16.7 K/mcL (4.3-11.1)
[2021-12-02 02:58] LABS: Prothrombin Time 10.6 Seconds (9.4-12.1)
[2021-12-02 03:08] LABS: BUN/Creatinine Ratio 55 (6-26); Blood Urea Nitrogen 16 mg/dL (8-23); Calcium 8.9 mg/dL (8.6-10.3); Carbon Dioxide 32 mEq/L (23-29); Chloride 96 mEq/L (98-107); Glucose 87 mg/dL (70-105); Magnesium 1.8 mg/dL (1.6-2.6); Osmolality,Calculated 281 (280-300); Phosphorous 3.1 mg/dL (2.7-4.5); Potassium 4.2 mEq/L (3.5-5.1); Sodium 135 mEq/L (136-145); eGFR For African Americans > 60 (> 60); eGFR For Non-African Americans > 60 (> 60)
[2021-12-02] MEDS: Ipratropium/Albuterol Neb 3 ML IH SCH ×4 (04:12→22:04)
[2021-12-02] MEDS: Lactobacillus 1 EACH CAP.SPRINK PO SCH ×2 (07:09→19:34)
[2021-12-02] MEDS: Aspirin Enteric Coated 81 MG Tablet PO SCH (07:09)
[2021-12-02] MEDS: Multivit/Ca/Min/Fe/FA 1 TAB TABLET PO SCH (07:10)
[2021-12-02] MEDS: Pregabalin 75 MG CAPSULE PO SCH ×2 (07:10→19:34)
[2021-12-02] MEDS ORDERED: Ondansetron 4 MG/2 ML VIAL ONE (09:05)
[2021-12-02] MEDS ORDERED: *HR* Propofol 200 MG/20 ML VIAL IVP ONE (09:05)
[2021-12-02] MEDS ORDERED: Lidocaine -MPF 2% 2 ML VIAL ONE (09:05)
[2021-12-02] MEDS ORDERED: Lidocaine -MPF 4% 5 ML AMPUL ONE (09:05)
[2021-12-02] MEDS ORDERED: *HR* Rocuronium Bromide 50 MG/5 ML VIAL ONE (09:05)
[2021-12-02] MEDS: Budesonide/Formoterol 160/4.5 1 PUFF INH IH SCH ×2 (10:53→22:04)
[2021-12-02] MEDS ORDERED: *HR* Labetalol 20 MG/4 ML SYRINGE IVP ONE (11:21)
[2021-12-02] MEDS ORDERED: *HR* EPINEPHrine 1 MG/10 ML SYRINGE INTRATRACH PRN (11:30)
[2021-12-02] MEDS ORDERED: *HR* FentaNYL (PF) 100 MCG/2 ML VIAL ONE (11:38)
[2021-12-02] MEDS: Acetaminophen 325 MG TABLET PO PRN (13:12)
[2021-12-02] MEDS: clonazePAM 0.5 MG TABLET PO SCH (19:35)
[2021-12-03 01:49] LABS: Basophils % 0.2 %; Eosinophils % 0.1 %; Hematocrit 35.9 % (35.3-44.9); Immature Granulocytes % 1.4 % (0-4); Lymphocytes # 0.7 K/mcL (0.6-4.6); Lymphocytes % 4.8 %; Mean Corpuscular HGB Conc 30.6 g/dL (31.6-35.5); Mean Corpuscular Hemoglobin 31.1 pg (28.0-33.3); Mean Corpuscular Volume 101.4 fL (83.0-100.0); Mean Platelet Volume 9.6 fL (9.4-12.4); Monocytes # 0.9 K/mcL (0.0-1.3); Monocytes % 5.9 %; Neutrophils # 13.6 K/mcL (1.6-8.9); Platelet Count 423 K/mcL (140-400); Red Blood Count 3.54 M/mcL (3.82-4.97); Red Cell Distribution Width 14.2 % (11.5-14.5); Segmented Neutrophils % 87.6 %; White Blood Count 15.5 K/mcL (4.3-11.1)
[2021-12-03 02:08] LABS: BUN/Creatinine Ratio 29 (6-26); Blood Urea Nitrogen 16 mg/dL (8-23); Calcium 8.9 mg/dL (8.6-10.3); Carbon Dioxide 29 mEq/L (23-29); Chloride 95 mEq/L (98-107); Glucose 201 mg/dL (70-105); Magnesium 1.6 mg/dL (1.6-2.6); Osmolality,Calculated 285 (280-300); Phosphorous 2.9 mg/dL (2.7-4.5); Potassium 4.3 mEq/L (3.5-5.1); Sodium 134 mEq/L (136-145); eGFR For African Americans > 60 (> 60); eGFR For Non-African Americans > 60 (> 60)
[2021-12-03] MEDS: Ipratropium/Albuterol Neb 3 ML IH SCH ×4 (03:45→22:17)
[2021-12-03] MEDS: *HR* OxyCODONE Immed Rel 5 MG TABLET PO PRN ×4 (07:50→20:43)
[2021-12-03] MEDS: Pregabalin 75 MG CAPSULE PO SCH ×2 (07:50→20:43)
[2021-12-03] MEDS: Multivit/Ca/Min/Fe/FA 1 TAB TABLET PO SCH (07:50)
[2021-12-03] MEDS: Aspirin Enteric Coated 81 MG Tablet PO SCH (07:50)
[2021-12-03] MEDS: Lactobacillus 1 EACH CAP.SPRINK PO SCH ×2 (07:50→20:43)
[2021-12-03] MEDS: Budesonide/Formoterol 160/4.5 1 PUFF INH IH SCH ×2 (10:57→22:17)
[2021-12-03] MEDS: clonazePAM 0.5 MG TABLET PO SCH (20:43)
[2021-12-04] MEDS: *HR* OxyCODONE Immed Rel 5 MG TABLET PO PRN ×3 (03:14→20:52)
[2021-12-04] MEDS: Ipratropium/Albuterol Neb 3 ML IH SCH ×4 (04:24→22:53)
[2021-12-04] MEDS: Budesonide/Formoterol 160/4.5 1 PUFF INH IH SCH ×2 (07:31→22:53)
[2021-12-04] MEDS: Lactobacillus 1 EACH CAP.SPRINK PO SCH ×2 (07:40→20:55)
[2021-12-04] MEDS: Aspirin Enteric Coated 81 MG Tablet PO SCH (07:40)
[2021-12-04] MEDS: Multivit/Ca/Min/Fe/FA 1 TAB TABLET PO SCH (07:40)
[2021-12-04] MEDS: Pregabalin 75 MG CAPSULE PO SCH ×2 (07:40→20:55)
[2021-12-04] MEDS ORDERED: *HR* LORazepam 2 MG/ML VIAL IVP PRN (12:31)
[2021-12-04] MEDS: clonazePAM 0.5 MG TABLET PO SCH (20:55)
[2021-12-05] MEDS: Acetaminophen 325 MG TABLET PO PRN ×2 (00:39→12:34)
[2021-12-05] MEDS: Ipratropium/Albuterol Neb 3 ML IH SCH ×4 (03:22→20:14)
[2021-12-05] MEDS: *HR* OxyCODONE Immed Rel 5 MG TABLET PO PRN ×4 (05:06→20:11)
[2021-12-05] MEDS: Budesonide/Formoterol 160/4.5 1 PUFF INH IH SCH ×2 (07:21→20:13)
[2021-12-05] MEDS: Aspirin Enteric Coated 81 MG Tablet PO SCH (09:16)
[2021-12-05] MEDS: Lactobacillus 1 EACH CAP.SPRINK PO SCH ×2 (09:16→20:06)
[2021-12-05] MEDS: Pregabalin 75 MG CAPSULE PO SCH ×2 (09:16→20:06)
[2021-12-05] MEDS ORDERED: Ipratropium/Albuterol Neb 3 ML IH PRN (11:35)
[2021-12-05] MEDS: dexAMETHasone 4 MG TABLET PO SCH ×2 (12:37→16:48)
[2021-12-05] MEDS: *HR* LORazepam 0.5 MG TABLET PO PRN (13:41)
[2021-12-05] MEDS: Sennosides/Docusate Sodium TABLET PO SCH (20:06)
[2021-12-05] MEDS: clonazePAM 0.5 MG TABLET PO SCH (20:06)
[2021-12-06] MEDS: *HR* LORazepam 0.5 MG TABLET PO PRN ×2 (03:19→11:42)
[2021-12-06] MEDS: *HR* OxyCODONE Immed Rel 5 MG TABLET PO PRN ×3 (03:19→11:39)
[2021-12-06] MEDS: Ipratropium/Albuterol Neb 3 ML IH SCH ×2 (04:17→10:29)
[2021-12-06 06:38] VITALS: TEMP 98.1
[2021-12-06] MEDS: dexAMETHasone 4 MG TABLET PO SCH ×2 (07:36→11:42)
[2021-12-06] MEDS: Lactobacillus 1 EACH CAP.SPRINK PO SCH (07:36)
[2021-12-06] MEDS: Aspirin Enteric Coated 81 MG Tablet PO SCH (07:36)
[2021-12-06] MEDS: Pregabalin 75 MG CAPSULE PO SCH (07:36)
[2021-12-06] MEDS: Sennosides/Docusate Sodium TABLET PO SCH (07:37)
[2021-12-06 08:06] VITALS: PULSE 93; O2SAT 92
[2021-12-06] MEDS: Budesonide/Formoterol 160/4.5 1 PUFF INH IH SCH (10:29)
[2021-12-06 10:56] VITALS: BP 119/65
== END 2021-12-06 12:42 | disposition hospice, home (50) | DRG 180 ==
LOC: EMEROOARM 13:25 → 2NENU 13:25 → SUATTDRO 16:00 → 2NENU 17:09
PROVIDERS: ADMIT Internal Medicine; ATTEND Internal Medicine